=== PATIENT | female | born 1975 | race Caucasian/White ===

== ENCOUNTER 2024-12-04 22:27 | Observation (INO) | payer SELFPAY ==
[2024-12-04 22:28] VITALS: BP 150/80; PULSE 64; RESP 18; TEMP 36.8; O2SAT 95; BMI 30.2
--- NOTE | 2024-12-04 22:34 | EDS_ITS ---
HPI History of Present Illness Chief Complaint: Neuro S/Sx [facility] Medical History no medical history Home Medications ?Medication ?Instructions ?Recorded ?Last Taken ?Type aspirin 81 mg capsule 81 mg PO DAILY 12/04/2411/09 08:20 History atorvastatin 40 mg tablet 40 mg PO DAILY 12/04/2411/09 08:20 History hydrochlorothiazide 12.5 mg tablet 12.5 mg PO DAILY 12/04/24 08:20 History lisinopril 20 mg tablet 20 mg PO DAILY 12/04/2411/09 08:20 History metoprolol succinate 25 mg 25 mg PO DAILY 12/04/24 08:20 History tablet,extended release 24 hr Allergy/AdvReac Type Severity Reaction Status Date / Time azithromycin AdvReac Chest pain Verified 12/04/24 22:32 doxycycline AdvReac Chest pain Verified 12/04/24 22:32 oxycodone AdvReac Violent Verified 12/04/24 22:32 behavior Family History no significant family his Surgical History no surgical history Social History Smoking Status: Current every day smoker tobacco type: cigarettes EXAM Physical Exam Const Vital Signs: 12/04/24 22:28 12/04/24 23:07 12/04/24 23:28 Temperature 98.2 F Temperature Source Oral Pulse Rate 64 85 Respiratory Rate 18 16 Blood Pressure 150/80 H 118/63 Blood Pressure Mean 103 81 Pulse Ox 95 Oxygen Delivery Method Room Air Room Air 12/05/24 00:00 12/05/24 01:00 12/05/24 01:13 Temperature 98.2 F Temperature Source Pulse Rate 54 L 55 L 55 L Respiratory Rate 23 H 22 H 22 H Blood Pressure 104/50 L 113/54 L 113/54 L Blood Pressure Mean 68 73 73 Pulse Ox 95 Oxygen Delivery Method MDM MDM MDM Narrative Medical decision making narrative: HISTORY OF PRESENT ILLNESS: Chief complaint: Hand weakness 48-year-old female history of CVA, hypertension, hyperlipidemia presents with acute onset of hand weakness. States she first noticed and weakness at approximately 9 PM on 12/04/2024. Notes symptoms have gradually improved since onset. Her daughter states has been more forgetful over the last week. States this is an ongoing issue after her prior strokes. States the deficits in her left after the strokes 5 years ago was increased forgetfulness. REVIEW OF SYSTEMS: Pertinent positives: Right hand weakness Pertinent negatives: Headache, loss of vision, slurred speech, facial drooping PHYSICAL EXAM: Nursing triage notes reviewed, Vital signs reviewed Constitutional: please see mdm HENT: MMM Eyes: Pupils equal round and reactive to light, Extraocular muscles intact Neck: No stridor, no JVD, full neck ROM Lungs: Clear to auscultation, No wheezing or rales. No increased work of breathing, no conversational dyspnea, no accessory muscle use, no nasal flaring. No respiratory distress noted Heart: Regular rate and rhythm, No murmurs, No rubs and No gallops, 2+ distal pulses (radial, femoral, posterior tibial) in all extremities Abdomen: Soft, there is no tenderness, rigidity, rebound or guarding, no obvious peritoneal signs, no palpable pulsatile abdominal masses, no auscultated abdominal bruit : No CVAT Extremities: No edema Neuro: Alert and oriented x3, neuro exam at baseline, cranial nerves II through XII are intact. No pain with extraocular muscle movement. There is negative test of skew. 5 of 5 strength in upper and lower extremities in flexion extension. Intact sensation to light touch in upper and lower extremity dermatomes. No truncal or extremity ataxia. No dysdiadochokinesia. Normal gait. 2+ reflexes in upper and lower extremities. No meningeal signs. Negative Babinski. NIH of 0. Skin: No rash or lesions noted MEDICAL DECISION MAKING: Chief Complaint: please see HPI External records reviewed: Reviewed prior records in [facility]. No records noted. Reviewed Clinisync: Note additional history of hyperthyroidism, B12 deficiency, arterial ischemic [facility] roke anxiety Factors affecting care: n as per HPI Social determinants of health: Smoker History obtained from others: Daughter Consults: no hospitalist [facility] Narrative: The patient was initially hemodynamically stable, afebrile and nontoxic- appearing. Initial exam with no neurologic deficits. Patient's NIH was initially 0. There is no indication for a stroke alert given NIH of 0. Given no NIH stroke scale criteria the patient is not a candidate for TNK or thrombectomy. I considered the following differential diagnosis: TIA, CVA, musculoskeletal weakness, focal seizure I obtained a broad lab and imaging to further determine if the patient was suffering from a life-threatening etiology. ALL IMAGES (IF OBTAINED) HAVE BEEN PERSONALLY REVIEWED AND INTERPRETED BY MYSELF. EKG with normal sinus rhythm rate of 60, left axis deviation, normal intervals, no STEMI or signs of A-fib CT/CTA of the head and neck show no evidence of ICH or large vessel occlusion CBC with leukocytosis suggestive of subsequent formation, no significant anemia or thrombocytopenia noted No coagulopathy High-sensitivity troponin is negative, no evidence of myocardial ischemia BMP without evidence of significant electrolyte abnormalities, no anion gap, no acute kidney injury. No clear acute life-threatening issue noted in the brain or with the vasculature. Concern for TIA offered admission and patient noted she would prefer stay in the hospital. Discussed hospitalist Dr. Haddad agreed to admit the patient to PCU. The patient and/or family, caregivers express understanding. The patient and/or family, caregivers agrees with the plan. Shared decision making: I will have a discussion with the patient and or visitors regarding risk/benefits of further testing or admission. They will be made aware of of the risk/benefits inherent in this decision they will be given the opportunity to voice understanding. Total critical care time today provided was at least 0 minutes. This excludes s eparately billable procedures. Critical care time (if documented) is secondary to the patient having high probability of clinically significant/life threatening deterioration in the patient's condition which required my urgent intervention. Impression: 1. Acute right hand weakness 2. TIA Dispo: Admit to PCU This note was generated with [employer]oom Telephon[employer] dictation software. It may contain incorrect words, spelling, and punctuation that were not noted in review of the chart prior to signing. Lab Data Labs: Laboratory Results - last 24 hr 12/04/24 22:57 WBC 11.8 H RBC 4.69 Hgb 14.2 Hct 40.3 MCV 85.9 MCH 30.3 MCHC 35.2 RDW Std Deviation 39.9 RDW Coeff of Roel 13.1 Plt Count 176 MPV 12.3 H Immature Gran % (Auto) 0.800 Neut % (Auto) 66.8 Lymph % (Auto) 21.9 Ida % (Auto) 7.0 Eos % (Auto) 3.0 Baso % (Auto) 0.5 Absolute Neuts (auto) 7.9 H Absolute Lymphs (auto) 2.59 Nucleated RBC % 0 PT 13.1 INR 1.0 APTT 26.6 Sodium 139 Potassium 3.3 Chloride 100 Carbon Dioxide 23.0 Anion Gap 15 BUN 10 Creatinine 0.99 Estim Creat Clear Calc 59.79 Est GFR (MDRD) Non-Af 70 BUN/Creatinine Ratio 10.3 Glucose 104 H Calcium 9.3 Troponin T High Sens 6 Ethyl Alcohol < 10.1 Radiography Diagnostic Testing: Clinical Impression(s) from Imaging Studies Head/Neck CTA 12/04/24 22:42 IMPRESSION: Patent intracranial and cervical arterial vasculature. No large vessel occlusion, significant flow-limiting stenosis, aneurysm or dissection. Incidentally, there is mild-moderate luminal narrowing of the proximal left subclavian artery due to eccentric noncalcified atheromatous plaque. Reading Location: [facility] Brain CT 12/04/24 23:15 IMPRESSION: No acute intracranial abnormality. Reading Location: [facility] Chest X-Ray 12/04/24 23:29 IMPRESSION: Mild cardiomegaly. No acute pulmonary disease. Reading Location: [facility] Discharge Plan Disposition Disposition: Acute Care Hospital [facility] Discharge Date/Time: 12/05/24 01:59
--- NOTE | 2024-12-04 22:41 | EKG12_ITS ---
Test Reason : WEAKNESS Blood Pressure : */* mmHG Vent. Rate : 60 BPM Atrial Rate : 60 BPM P-R Int : 174 ms QRS Dur : 86 ms QT Int : 418 ms P-R-T Axes : 15 -24 10 degrees QTcB Int : 418 ms Normal sinus rhythm Normal ECG No previous ECGs available Confirmed by LUCIANA OBANDO ([id number]), editor news KATIA AMAYA ([id number]) on 12/06/2024 5:45:34 AM Referred By: Confirmed By: LUCIANA OBANDO
--- NOTE | 2024-12-04 22:42 | CT_ITS ---
PROCEDURE: STROKE CTA HEAD AND NECK W/CON 12/04/2024 REASON FOR EXAM: NEURO DEFICIT, ACUTE, STROKE SUSPECTED TECHNIQUE: STROKE CTA HEAD AND NECK W/CON Multiplanar Sagittal and Coronal images were obtained. 3D and MIP post processing was performed. CONTRAST: Isovue 370 VOLUME: 86 mL One or more dose reduction techniques were used (e.g., Automated exposure control, adjustment of the mA and/or kV according to patient size, use of iterative reconstruction technique). RADIATION DOSE SUMMARY: DLP: 1246.83 mGycm COMPARISON: None. FINDINGS: CTA HEAD: Patent intracranial arterial vasculature. No large vessel occlusion, flow- limiting stenosis, saccular aneurysm, or vascular malformation identified. Dural venous sinuses appear patent. CTA NECK: Conventional aortic arch branching. Prominent noncalcified atheromatous plaque contributes to mild-moderate narrowing along the proximal left subclavian artery. Bilateral cervical carotid and codominant vertebral arteries are patent without significant stenosis. No aneurysm or dissection. CT/STROKE CTA Head AND Neck W/Con IMPRESSION: Patent intracranial and cervical arterial vasculature. No large vessel occlusi on, significant flow-limiting stenosis, aneurysm or dissection. Incidentally, there is mild-moderate luminal narrowing of the p roximal left subclavian artery due to eccentric noncalcified atheromatous plaque. Reading Location: [id number]
[2024-12-04 23:05] VITALS: BMI 30.9
[2024-12-04 23:08] LABS: Hematocrit 40.3 % (37-47); Hemoglobin 14.2 g/dL (12.0-15.0); Immature Granulocytes Count 0.090 X10^3/uL (0.0-0.0); Mean Corp Hgb Conc 35.2 g/dL (32-36); Mean Corpuscular Volume 85.9 fL (81-99); Mean Platelet Vol. 12.3 fl (6.2-12.0); NRBC Flagged by Analyzer 0 % (0-5); Platelet Count 176 K/mm3 (150-450); RBC Distribution Width CV 13.1 % (11.6-14.6); RBC Distribution Width SD 39.9 fl (35.1-43.9); Red Blood Count 4.69 M/mm3 (4.2-5.4); White Blood Count 11.8 K/mm3 (4.4-11.0)
--- NOTE | 2024-12-04 23:15 | CT_ITS ---
PROCEDURE: STROKE CT BRAIN/HEAD WITHOUT CONTRAST 12/04/2024 REASON FOR EXAM: NEURO DEFICIT, ACUTE, STROKE SUSPECTED TECHNIQUE: STROKE CT BRAIN/HEAD WITHOUT CONT Coronal and Sagittal reconstruction series were provided. One or more dose reduction techniques were used (e.g., Automated exposure control, adjustment of the mA and/or kV according to patient size, use of iterative reconstruction technique. RADIATION DOSE SUMMARY: CTDlvol: 44.99 mGy DLP: 745.49 mGycm COMPARISON: None available. FINDINGS: No acute intracranial hemorrhage, extra-axial collection, mass effect or evidence of acute infarct. Ventricular and sulcal size and configuration are within normal limits. Unremarkable orbits. Intact skull base and calvarium. Well-aerated paranasal sinuses and mastoid air cells. CT/STROKE Brain/Head without Cont IMPRESSION: No acute intracranial abnormality. Reading Location: [id number]
[2024-12-04 23:23] LABS: Prothrombin Time (Protime)PT. 13.1 SECONDS (11.7-14.9)
[2024-12-04 23:24] LABS: Anion Gap 15 (5-15); BUN 10 mg/dL (4-19); BUN/Creat Ratio 10.3 RATIO (10-20); Calcium,Total 9.3 mg/dL (7.6-11.0); Carbon Dioxide 23.0 mmol/L (21.0-32.0); Chloride 100 mmol/L (98-108); Estimated Creatinine Clearance 59.79 ml/min (50-250); Glucose 104 mg/dL (70-99); Partial Thromboplast Time 26.6 Seconds (24.1-36.2); Potassium 3.3 mmol/L (3.3-5.1); Troponin T High Sensitivity 6 ng/L (<=14)
[2024-12-04 23:28] VITALS: BP 118/63; PULSE 85; RESP 16
--- NOTE | 2024-12-04 23:29 | RAD_ITS ---
PROCEDURE: CHEST 1 VIEW 12/04/2024 REASON FOR EXAM: NEURO DEFICIT, ACUTE, STROKE SUSPECTED TECHNIQUE: Frontal view of the chest. COMPARISON: None. FINDINGS: Lungs/Pleura: Clear. No pneumothorax or sizable pleural effusion. Heart/Mediastinum: Mildly enlarged. Bones/Soft tissues: Unremarkable. RAD/Chest 1 View IMPRESSION: Mild cardiomegaly. No acute pulmonary disease. Reading Location: [id number]
[2024-12-05] VITALS (8 sets, daily range): BP systolic 104–142; BP diastolic 47–74; PULSE 54–56; RESP 15–23; TEMP 35.9–37; O2SAT 95–98; BMI 29.8
--- NOTE | 2024-12-05 01:07 | PCM.HP.STD ---
[facility] - General General Date of Admission: 12/05/24 Date of Service: 12/05/24 Chief Complaint: Transient Right Hand Weakness. HPI Narrative NAS GOMES, is a 48 F with a past medical history of essential hypertension; on lisinopril, metoprolol and hydrochlorothiazide, hyperlipidemia; on atorvastatin, history of hyperthyroidism, obesity; with BMI of 30.9 this admission, history of B12 deficiency, chronic tobacco abuse and history of ischemic CVA x 2 (~2019); with residual memory deficits on BASA daily who presents to [facility] ER complaining of transient Right hand weakness. Ms. Gomes reports her symptoms began at approximately 9 PM on the evening of December 04, 2024 with the abrupt-onset of weakness in her Right hand. Her daughter also noted to the ER provider that the patient was becoming more forgetful over the past week, which has been an ongoing issue after her previous strokes. She denies associated fever, chills, headache, visual changes, slurred speech, facial drooping, nausea, vomiting, diarrhea, constipation, abdominal pain, chest pain, palpitations, heart racing, lower extremity edema, dysuria, hematuria or rash. In the ER patient was noted to have marked improvement of her Right hand weakness with a subsequent NIH of 0 consistent with suspected TIA with CTA of the head and neck with IV contrast that revealed patent intracranial and cervical arterial vasculature with no LVO, significant flow-limiting stenosis, aneurysm or dissection with an incidentally noted [id number] luminal narrowing of the proximal left subclavian artery due to eccentric noncalcified atheromatous plaque with Leukocytosis of 11.8K with no signs of infection and otherwise unremarkable laboratory studies and vital signs. She was then admitted to the PCU under observation status for ongoing care that is expected to be less than 2 midnights. [facility] Medical History no medical history Home Medications ?Medication ?Instructions ?Recorded ?Last Taken ?Type aspirin 81 mg capsule 81 mg PO DAILY 12/04/24 12/04/24 History atorvastatin 40 mg tablet 40 mg PO DAILY 12/04/24 12/04/24 History hydrochlorothiazide 12.5 mg tablet 12.5 mg PO DAILY 12/04/24 12/04/24 History lisinopril 20 mg tablet 20 mg PO DAILY 12/04/24 12/04/24 History metoprolol succinate 25 mg 25 mg PO DAILY 12/04/24 12/04/24 History tablet,extended release 24 hr Allergy/AdvReac Type Severity Reaction Status Date / Time azithromycin AdvReac Chest pain Verified 12/04/24 22:32 doxycycline AdvReac Chest pain Verified 12/04/24 22:32 oxycodone AdvReac Violent Verified 12/04/24 22:32 behavior Family History no significant family his Surgical History no surgical history Social History Smoking Status: Current every day smoker tobacco type: cigarettes ROS ROS Narrative Review of Systems: Constitutional: Patient denies fever or chills. Eyes: Patient denies change in vision or discharge from eyes. ENT: Patient denies runny nose, sore throat or ear pain. Resp: Patient denies shortness of breath or cough. CV: Patient denies chest pain, palpitations, heart racing or lower extremity edema. GI: Patient denies abdominal pain, nausea, vomiting, diarrhea or constipation. : Patient denies dysuria or hematuria. MSK: Patient admits to transient Right hand weakness but she denies arthralgias or myalgias. Skin: Patient denies rash, abscess, wounds or jaundice. Psych: Patient denies symptoms of uncontrolled depression or anxiety. Neuro: Patient admits to transient right hand weakness which is essentially resolved but she denies headache, paresthesias or other focal neurologic deficits. Allergy: Patient denies lip swelling, tongue swelling or urticaria. Hematology: Patient denies easy bleeding or easy bruisability. Endocrinology: Patient denies polyuria, polydipsia, polyphagia or heat/cold intolerance. 14 point ROS otherwise negative except for positives noted above in HPI. Vital Signs Vital Signs Vital Signs: 12/04/24 22:28 12/04/24 23:07 12/04/24 23:28 Temperature 98.2 F Temperature Source Oral Pulse Rate 64 85 Respiratory Rate 18 16 Blood Pressure 150/80 H 118/63 Blood Pressure Mean 103 81 Pulse Ox 95 Oxygen Delivery Method Room Air Room Air 12/05/24 00:00 Temperature Temperature Source Pulse Rate 54 L Respiratory Rate 23 H Blood Pressure 104/50 L Blood Pressure Mean 68 Pulse Ox Oxygen Delivery Method Weight Weight: 153 lb 3.54 oz Body Mass Index (BMI) 30.9 Physical Exam Const alert, oriented x3, no apparent distress and healthy appearing Constitutional Narrative: Obese patient with nontoxic appearance. General Appearance: cooperative HEENT normocephalic, head/scalp atraumatic, hearing grossly normal bilaterally and moist oral mucous membranes Eyes PERRL, EOMs intact bilaterally and conjunctivae normal Neck no lymphadenopathy, supple and no JVD Resp normal respiratory effort, no retractions, no use of accessory muscles and clear to auscultation bilaterally Cardio regular rate and regular rhythm GI normal to inspection, nondistended, normoactive bowel sounds, soft to palpation, non-tender and non-distended GI Narrative: Obese. Extremity normal to inspection, full ROM and no clubbing, cyanosis or edema Skin Skin Narrative: Patient has evidence of rash, abscess, wounds or jaundice. Neuro oriented x3, CN's II-XII intact bilaterally, moves all extremities and no focal motor deficits Sensorium / Orientation: awake, alert, oriented to person, oriented to place and oriented to time Speech: speech normal Psych affect normal Results Medical Records Data Attestation: I reviewed the patient's medical records Lab / Micro Data Attestation: I reviewed the patient's lab results. 12/04/24 22:57 12/04/24 22:57 Labs: Laboratory Results - last 24 hr 12/04/24 22:57: WBC 11.8 H, RBC 4.69, Hgb 14.2, Hct 40.3, MCV 85.9, MCH 30.3, MCHC 35.2, RDW Std Deviation 39.9, RDW Coeff of Roel 13.1, Plt Count 176, MPV 12.3 H, Immature Gran % (Auto) 0.800, Neut % (Auto) 66.8, Lymph % (Auto) 21.9, Monroe % (Auto) 7.0, Eos % (Auto) 3.0, Baso % (Auto) 0.5, Absolute Neuts (auto) 7.9 H, Absolute Lymphs (auto) 2.59, Nucleated RBC % 0, PT 13.1, INR 1.0, APTT 26.6, Sodium 139, Potassium 3.3, Chloride 100, Carbon Dioxide 23.0, Anion Gap 15, BUN 10, Creatinine 0.99, Estim Creat Clear Calc 59.79, Est GFR (MDRD) Non-Af 70, BUN/Creatinine Ratio 10.3, Glucose 104 H, Calcium 9.3, Troponin T High Sens 6 Imaging Radiology Impression Head/Neck CTA 12/04/24 22:42 IMPRESSION: Patent intracranial and cervical arterial vasculature. No large vessel occlusion, significant flow-limiting stenosis, aneurysm or dissection. Incidentally, there is mild-moderate luminal narrowing of the proximal left subclavian artery due to eccentric noncalcified atheromatous plaque. Reading Location: [facility] Brain CT 12/04/24 23:15 IMPRESSION: No acute intracranial abnormality. Reading Location: [facility] Chest X-Ray 12/04/24 23:29 IMPRESSION: Mild cardiomegaly. No acute pulmonary disease. Reading Location: [facility] Assessment & Plan Assessment/Plan (1) TIA (transient ischemic attack): (2) Subclavian artery disease: (3) History of CVA with residual deficit: (4) Leukocytosis: QUALIFIERS: Leukocytosis type: unspecified Qualified Code(s): D72.829 - Elevated white blood cell count, unspecified (5) Tobacco abuse: (6) Obesity (BMI 30.0-34.9): PLAN: Plan 1. Transient Right Hand Weakness; consistent with suspected TIA - Admit to PCU under observation status. Continue baby aspirin and statin as before. Check MRI of the brain to evaluate for possible CVA. Check carotid Doppler to evaluate for stenosis. Check echocardiogram to evaluate LVEF. Check TSH, B12, Folate, HgbA1c, Lipid Profile, BELÉN and UDS. Will consult vascular surgery to see patient given abnormal CTA of head and neck with suspected luminal narrowing of proximal Left subclavian artery due to eccentric noncalcified atheromatous plaque, with help appreciated in advance. Finally, we will consult [facility] teleneurology to see this patient in the a.m. for further recommendations with help appreciated in advance. 2. History of ischemic CVA x 2 (~2019); with residual memory deficits on BASA daily complicating #1 - Noted. 3. Leukocytosis of 11.8K with no signs of infection suspected to be due to acute stress response arising from #1 - Check UA C&S. CXR unremarkable for signs of infection. 4. Chronic Tobacco Abuse likely precipitating #1 & #2 - Tobacco Cessation will be strongly encouraged with nicotine patch offered to control cravings. 5. Obesity; with BMI of 30.9 this admission adding to the burden of disease outlined from #1 - #4 - Weight loss will be recommended. Check TSH. This complicates her case and may hamper recovery. 6. Essential hypertension; on lisinopril, metoprolol and hydrochlorothiazide - Hold scheduled antihypertensives until CVA definitively ruled out on MRI. 7. Hyperlipidemia; on atorvastatin - Maintain statin and check Lipid Profile. 8. History of hyperthyroidism - Check TSH. 9. History of B12 deficiency - Check B12 level as outlined in #1. 10. DVT prophylaxis - Enoxaparin 40 mg sq daily plus SCD's. Total time: Approximately (but not less than) 70 minutes. Charges/Coding Visit Charges OBSV E&M: 65547 Observ/hosp same date L2
--- NOTE | 2024-12-05 01:35 | CDU_ITS ---
Reason For Study Reason For Study: Left subclavian artery plaque on CT with TIA Rt. Velocities/BP Lt. Velocities/BP Prox CCA 101.0/26.1 cm/sec. Prox CCA 79.1/26.1 cm/sec. Mid CCA 92.5/20.0 cm/sec. Mid CCA 139.4/31.6 cm/sec. Dist CCA 106.5/35.3 cm/sec. Dist CCA 210.7/47.4 cm/sec. Prox ICA 87.6/22.5 cm/sec. Prox ICA 285.4/62.4 cm/sec. Mid ICA 77.7/26.2 cm/sec. Mid ICA 80.9/24.3 cm/sec. Dist ICA 37.1/10.4 cm/sec. Dist ICA 82.7/22.5 cm/sec. Rt. ICA/CCA = 0.9. Lt. ICA/CCA = 2.0. Prox ECA 146.7/13.3 cm/sec. Prox ECA 156.3/8.6 cm/sec. Rt. Vert. 62.6/15.2 cm/sec. Lt. Vert. 36.6/13.5 cm/sec. Right Extracranial There is homogeneous, smooth atherosclerotic plaque noted in the right common carotid artery. There is homogeneous, smooth atherosclerotic plaque noted in the right internal carotid artery. There is intimal thickening but no significant atherosclerotic plaque noted in the right external carotid artery. Antegrade flow is noted in the right vertebral artery. Left Extracranial There is heterogeneous, irregular atherosclerotic plaque noted in the left common carotid artery. There is homogeneous, smooth atherosclerotic plaque noted in the left internal carotid artery. There is homogeneous, smooth atherosclerotic plaque noted in the left external carotid artery. Antegrade flow is noted in the left vertebral artery. Procedure Carotid Duplex [id number]. This is a Carotid Duplex examination using B-mode, color flow and specral Doppler. Exam performed portable in patient room. Preliminary report given to LENA Mcbride RN. VL/Carotid Duplex Ultrasound Interpretation Summary Mild (<50%) stenosis right extracranial internal carotid. Severe (>70%) stenosis left extracranial internal carotid. Patent and antegrade vertebrals bilaterally. Left vetebral artery with dampened waveforms Ordering Physician: Anton Hoffmann Referring Physician: Ricardo Begum MD Performed By: Ana Flores RVT
--- NOTE | 2024-12-05 01:35 | ECHOD_ITS ---
Reason For Study Reason For Study: TIA/CVA Procedure This was a 2D Doppler, Color Flow transthoracic echocardiogram. Exam performed portable in patient room. Left Ventricle Normal LV size. Apical false tendon noted. Left ventricular systolic function is normal. The estimated ejection fraction is 65 %. Normal diastololic function. No regional wall motion abnormalities noted. Right Ventricle Normal RV size. Normal systolic function. Atria Normal left atrium. Normal right atrium. Bubble contrast study is negative for PFO/ASD. Mitral Valve The mitral valve is structurally normal. No prolapse or stenosis seen. Mild (1+) mitral valve insufficiency. Tricuspid Valve Normal tricuspid valve. Trivial tricuspid valve insufficiency. Aortic Valve Trisinus/trileaflet aortic valve. Pulmonic Valve Normal pulmonic valve. Trivial pulmonic valve insufficiency. Great Vessels Normal sized aortic root. Pericardium/Pleural No pericardial effusion. Medication Performed a rapid injection of agitated mix of 9 cc saline and 1cc air to assess for atrial septal defect. MMode/2D Measurements & Calculations LVIDd: 4.4 cm IVSd: 1.0 cm CO(Teich): 3.4 l/min LVIDs: 2.7 cm LVPWd: 0.85 cm RVDd: 3.1 cm FS: 38.4 % Ao root diam: 3.0 cm LAV(MOD-bp): 34.0 ml LVAd ap4: 23.1 cm2 LAV(MOD-bp) Indexed: 20.9 ml/m2 LVLd ap4: 7.3 cm LAV(MOD-sp2): 32.7 ml EDV(MOD-sp4): 61.5 ml LAV(MOD-sp4): 32.0 ml EDV(sp4-el): 62.2 ml LVAs ap4: 11.3 cm2 LVLs ap4: 5.6 cm ESV(MOD-sp4): 20.1 ml ESV(sp4-el): 19.5 ml EF(MOD-sp4): 67.3 % EF(sp4-el): 68.6 % CO(MOD-sp4): 2.3 l/min SV(sp4-el): 42.7 ml LA A4 area: 14.5 cm2 SV(MOD-sp4): 41.4 ml SI(MOD-sp4): 25.3 ml/m2 LA dimension(2D): 3.8 cm RA A4 area: 11.9 cm2 TAPSE: 2.5 cm Time Measurements MV dec time: 0.23 sec Doppler Measurements & Calculations MV E max jair: 83.4 cm/sec Lat Peak E' Jair: 15.8 cm/sec Med Peak E' Jair: 10.1 cm/sec MV A max jair: 65.0 cm/sec E/E' lat: 5.3 E/E' med: 8.3 MV E/A: 1.3 MV V2 max: 96.1 cm/sec MV P1/2t max jair: 97.1 cm/sec Ao V2 max: 142.7 cm/sec MV max P.7 mmHg MV P1/2t: 82.8 msec Ao max P.1 mmHg MV V2 mean: 47.5 cm/sec MV dec slope: 343.2 cm/sec2 Ao V2 mean: 91.9 cm/sec MV mean P.1 mmHg MVA(P1/2t): 2.7 cm2 Ao mean P.9 mmHg MV V2 VTI: 31.9 cm Ao V2 VTI: 35.2 cm AV (velocity ratio): 0.68 LV V1 max: 103.8 cm/sec PA V2 max: 99.0 cm/sec LV V1 max P.3 mmHg LV V1 mean P.0 mmHg LV V1 mean: 65.7 cm/sec LV V1 VTI: 23.9 cm ECHO/Echo Complete Interpretation Summary The estimated ejection fraction is 65 %. Mild (1+) mitral valve insufficiency. Bubble contrast study is negative for PFO/ASD. Ordering Physician: Anton Hoffmann Performed By: Nick Bartlett RCS
--- NOTE | 2024-12-05 01:35 | MRI_ITS ---
PROCEDURE: BRAIN WITHOUT CONTRAST 12/05/2024 REASON FOR EXAM: TRANSIENT RIGHT HAND WEAKNESS. TECHNIQUE: MRI BRAIN WITHOUT CONTRAST Multiplanar and multisequence images were obtained. COMPARISON: Head CT 12/04/2024. FINDINGS: Diffusion-weighted images demonstrate no area of diffusion restriction. Brain: NO INTRACRANIAL MASS OR MASS EFFECT IS SEEN. NO EXTRA-AXIAL FLUID COLLECTION IS SEEN. ORBITS ARE UNREMARKABLE IN APPEARANCE. Ventricles: Normal. Major Intracranial Vessels: Unremarkable Sinuses: Essentially clear. Mastoids: Clear. MRI/Brain without Contrast IMPRESSION: No significant intracranial abnormality is noted. No acute process is seen. Reading Location: [place] [id number]
--- OUTSIDE RECORDS SUMMARY | 2024-12-05 01:48 | XMS RPT_ITS | CCD ---
Author Organization [facility] ion [facility] Care Team Providers Care Do All Operator Name Role Phone Kevon, Adalgisa Unavailable Unavailable No Doctor Assigned, Nodr Unavailable Unavail able Kian Dong Unavailable Unavailable Unavailable Kel, Dr. Kian Walton Referring Unav ailable Kel, Dr. Kian Walton Attending Unav ailignacio Dong, Dr. Kian Walton Primary Care Unav ailable Unavailable Unavailable Unavailable Unavailable Unavailable Primary Care Provider UnavailKian Huitron MD Primary Care Provider [phone] Inc, [facility] Primary Care Provider Unav ailable LORENA BOND Attending Unavailable INC, [facility] Primary Care Unavailable LILA DOSS Attending Unavailable KIAN DONG Primary Care UnavailKian Horton MD Unavailable Tania Patton MD Primary Care Provider AKASH COOK Attending Unavailable TANIA PATTON Primary Care Unavailable TANIA PATTON Primary Care Unavailable CHELSI ROSARIO Referring Unavaila ble TANIA PATTON Primary Care Unavailable CHELSI ROSARIO Referring Unavaila TANIA Medina Primary Care Unavailable KIAN DONG Attending Unavailable KIAN DONG Primary Care Unavailable Allergies Allergy Classification Reported Allergen(s) Allergy Type Date of Onset Reaction(s) Facility (1 source) Acetaminophen / oxyCODONE; Translations: [Percocet 5325] Drug Allergy [facility] Repository (18 sources) Doxycycline; Translations: [doxycycline] Drug Allergy 3 Shortness of breath, Rash, Other [facility] (18 sources) Erythromycin; Translations: [erythromycin] Drug Allergy 3 Shortness of breath, Other [facility] (12 sources) Acetaminophen / oxyCODONE; Translations: [Percocet TABS] Drug Allergy 3 Other, Unknown [facility] (4 sources) Acetaminophen / oxyCODONE; Translations: [OXYCODONE-ACETAM INOPHEN] Drug Allergy 3 Other [facility] Medications Current Medications Medication Drug Class(es) Dates Sig (Normalized) Sig (Original) acetaminophen 500 mg oral tablet (3 sources) take 2 tablets by mouth every six hours as needed acetaminophen (Tylenol) 500 mg tablet Take 2 tablets (1,000 mg) by mouth every 6 hours if needed for mild pain (1 - 3). Active [id number] 200 actuat albuterol 0.09 mg/actuat metered dose inhaler (3 sources) beta2-Adrenergic Agonist Start: 02-21-2024 End: 03-22-2024 take 1-2 puff(s) by inhalation every six hours for wheezing albuterol 90 mcg/actuation inhaler Indications: Bronchitis Inhale 1-2 puffs every 6 hours if needed for wheezing. 18 g 02/21/2024 03/22/2024 Active aspirin 81 mg chewable tablet (13 sources) Platelet Aggregation Inhibitor, Nonsteroidal Anti-inflammatory Drug Start: 10-16-2019 aspirin 81 mg chewable tablet Chew 1 tablet (81 mg) once daily. 10/16/2019 Active Start: 10-16-2019 Aspirin 81 MG Oral Tablet Chewable Quantity: 30 Refills: 0 Ordered: 16-Oct-2019 DO Start : 16-Oct-2019 Active atorvastatin 40 mg oral tablet (14 sources) HMG-CoA Reductase Inhibitor Start: 07-19-2023 End: 07-18-2024 take 1 tablet by mouth once daily atorvastatin (Lipitor) 40 mg tablet Indications: Mixed hyperlipidemia Take 1 tablet (40 mg) by mouth once daily. 90 tablet 3 07/19/2023 07/18/2024 Active Start: 01-31-2020 take 1 tablet by rosanna th once daily atorvastatin (Lipitor) 40 MG tablet Take 40 mg by mouth daily. 0 12/12/2022 Active clopidogrel 75 mg oral tablet (2 sources) P2Y12 Platelet Inhibitor Start: 03-17-2023 End: 04-16-2023 take 1 tablet by mouth once daily clopidogrel (Plavix) 75 MG tablet Take 75 mg by mouth daily. 0 03/17/2023 Active docusate sodium 100 mg oral capsule (1 source) Start: 03-20-2023 take 1 capsule by mouth twice daily as needed for constipation docusate sodium (Colace) 100 MG capsule Take 1 capsule (100 mg) by mouth 2 times daily as needed for constipation. 60 capsule 1 03/20/2023 Active ferrous sulfate 325 mg oral tablet (1 source) Start: 03-20-2023 take 1 tablet by mouth once daily at breakfast ferrous sulfate (FerrouSul) 325 (65 Fe) MG tablet Take 1 tablet (325 mg) by mouth daily (with breakfast). 60 tablet 2 03/20/2023 Active hydroCHLOROthiazide 12.5 mg oral tablet (9 sources) Thiazide Diuretic Start: 07-19-2023 End: 07-18-2024 take 1 tablet by mouth once daily before mealtime hydroCHLOROthiazide (Microzide) 12.5 mg tablet Indications: Primary hypertension , Essential hypertension Take 1 tablet (12.5 mg) by mouth once daily in the morning. Take before meals. 90 tablet 3 07/19/2023 07/18/2024 Active Start: 05-17-2021 take 1 tablet by rosanna th once daily in the morning hydroCHLOROthiazide (HYDRODiuril) 12.5 MG tablet Take 12.5 mg by mouth every morning. 0 10/03/2022 Active levoFLOXacin 500 mg oral tablet (3 sources) Quinolone Antimicrobial Start: 02-21-2024 End: 02-26-2024 take 1.5 tablets by mouth once daily levoFLOXacin (Levaquin) 500 mg tablet Indications: Bronchitis Take 1.5 tablets (750 mg) by mouth once daily for 5 days. 7 tablet 02/21/2024 02/26/2024 Active lisinopril 20 mg oral tablet (14 sources) Angiotensin Converting Enzyme Inhibitor Start: 07-19-2023 End: 07-18-2024 take 1 tablet by mouth once daily lisinopril 20 mg tablet Indications: Primary hypertension Take 1 tablet (20 mg) by mouth once daily. 90 tablet 3 07/19/2023 07/18/2024 Active Start: 06-16-2019 take 1 tablet by rosanna th once daily lisinopril 20 MG tablet Take 20 mg by mouth daily. 0 12/30/2022 Active LORazepam 0.5 mg oral tablet (12 sources) Benzodiazepine Start: 07-19-2023 take 1 tablet by mouth every six hours LORazepam (Ativan) 0.5 mg tablet Indications: NATHALIE (generalized anxiety disorder) Take 1 tablet (0.5 mg) by mouth every 6 hours during the day for 7 days. 21 tablet 07/19/2023 Active Start: 10-19-2022 LORazepam (Ati van) 0.5 MG tablet Take 0.5 mg by mouth in the morning and 0.5 mg at noon and 0.5 mg in the evening. 0 10/19/2022 Active Start: 04-06-2021 take 1 tablet by rosanna th three times daily as needed LORazepam 0.5 MG Oral Tablet TAKE 1 TABLET 3 TIMES DAILY NEEDED. Quantity: 21 Refills: 0 Ordered: 25-Mar-2022 Luis Darby MD Start : 06-Apr-2021 Active 24 hr metoprolol succinate 25 mg extended release oral tablet (13 sources) beta-Adrenergic Marni Start: 07-19-2023 End: 07-18-2024 take 1 tablet by mouth once daily metoprolol succinate XL (Toprol-XL) 25 mg 24 hr tablet Indications: Primary hypertension Take 1 tablet (25 mg) by mouth once daily. 90 tablet 3 07/19/2023 07/18/2024 Active Start: 03-18-2023 metoprolol suc cinate XL (Toprol-XL) 25 MG 24 hr tablet Start: 07-08-2022 End: 07-08-2023 take 1 tablet by mouth once daily metoprolol succinate XL (Toprol-XL) 25 mg 24 hr tablet Indications: Primary hypertension Take 1 tablet (25 mg) by mouth once daily. 90 tablet 3 07/08/2022 07/08/2023 Active Start: 04-06-2021 take 1 tablet by rosanna th once daily Metoprolol Succinate ER 25 MG Oral Tablet Extended Release 24 Hour take 1 tablet by mouth once daily Quantity: 30 Refills: 11 Ordered: 06-Apr-2022 Kian Dong MD Start : 06-Apr-2021 Active predniSONE 20 mg oral tablet (3 sources) Start: 02-21-2024 End: 02-26-2024 take 2 tablets by mouth once daily predniSONE (Deltasone) 20 mg tablet Indications: Bronchitis Take 2 tablets (40 mg) by mouth once daily for 5 days. 10 tablet 02/21/2024 02/26/2024 Active 24 hr venlafaxine 75 mg extended release oral capsule (6 sources) Serotonin and Norepinephrine Reuptake Inhibitor Start: 04-06-2021 take 1 capsule by mouth once daily venlafaxine XR (Effexor-XR) 75 mg 24 hr capsule Take 1 capsule (75 mg) by mouth once daily. 0 04/06/2021 Active Start: 04-06-2021 take 1 capsule by mo [facility] once daily at mealtime Venlafaxine HCl ER 37.5 MG Oral Capsule Extended Release 24 Hour TAKE 1 CAPSULE ONCE DAILY WITH FOOD. Quantity: 30 Refills: 11 Ordered: 06-Apr-2021 Kian Dong MD Start : 06-Apr-2021 Active Completed/Discontinued Medications Medication Drug Class(es) Dates Sig (Normalized) Sig (Original) hydrOXYzine hydrochloride 25 mg oral tablet (1 source) Antihistamine Start: 02-14-2020 take 1 tablet by mouth three times daily as needed hydrOXYzine HCl - 25 MG Oral Tablet TAKE 1 TABLET 3 TIMES DAILY NEEDED. Quantity: 30 Refills: 2 Ordered: 14-Feb-2020 Kian Dong MD Start : 14-Feb-2020 Active microencapsulated potassium chloride 20 meq extended release oral tablet (2 sources) Start: 02-21-2024 End: 02-21-2024 40 mEq, oral, Once, On Mon02/21/24 at 1540, For 1 dose, Best given with food and plenty of water to minimize gastric irritation. Do not crush or chew. Start: 03-17-2023 End: 03-17-2023 potassium chloride CR (Klor- Con M20) ER tablet 40 mEq propranolol hydrochloride 10 mg oral tablet (1 source) beta-Adrenergic Marni End: 03-20-2023 take 1 tablet by mouth every twelve hours as needed propranolol (Inderal) 10 MG tablet Take 10 mg by mouth every 12 hours as needed. 0 03/20/2023 Discontinued (Therapy completed) Problems Active Problems Problem Classification Problem Date Documented Date Episodic/Chronic Acute cerebrovascular disease (17 sources) Cerebrovascular accident; Translations: [Cerebral artery occlusion, unspecified with cerebral infarction] Onset: 10-13-2019 Chronic Administrative/social admission (20 sources) Patient encounter status; Translations: [Counseling on substance use and abuse] 03-20-2023 Episodic Anxiety disorders (16 sources) Anxiety; Translations: [Anxiety state, unspecified] Onset: 07-19-2023 07-19-2023 Chronic Chronic obstructive pulmonary disease and bronchiectasis (12 sources) Bronchitis; Translations: [Bronchitis, not specified as acute or chronic] Onset: 02-21-2024 02-21-2024 Episodic Deficiency and other anemia (1 source) Microcytic anemia; Translations: [Iron deficiency anemia, unspecified] 03-20-2023 Episodic Deficiency and other anemia (1 source) Anemia; Translations: [Anemia, unspecified] 02-21-2024 Episodic Deficiency and other anemia (2 sources) Anemia, unspecified; Translations: [Anemia, unspecified] Onset: 02-21-2024 Episodic Disorders of lipid metabolism (14 sources) Mixed hyperlipidemia; Translations: [Mixed hyperlipidemia] Onset: 07-19-2023 07-19-2023 Chronic Essential hypertension (17 sources) Hypertensive disorder; Translations: [Unspecified essential hypertension] Onset: 10-13-2019 03-20-2023 Chronic Fluid and electrolyte disorders (3 sources) Hypokalemia; Translations: [Hypokalemia] Onset: 02-21-2024 02-21-2024 Episodic Headache; including migraine (9 sources) Migraine; Translations: [Migraine, unspecified, without mention of intractable migraine without mention of status migrainosus] Chronic Malaise and fatigue (9 sources) Fatigue; Translations: [Other malaise and fatigue] Episodic Other and ill-defined cerebrovascular disease (1 source) Cerebral ischemia; Translations: [Cerebral ischemia] Onset: 04-14-2021 Chronic Other connective tissue disease (9 sources) Muscle weakness; Translations: [Muscle weakness (generalized)] Episodic Other connective tissue disease (9 sources) Cramp; Translations: [Cramp of limb] Episodic Other female genital disorders (1 source) Abnormal uterine bleeding; Translations: [Abnormal uterine and vaginal bleeding, unspecified] 03-20-2023 Chronic Other female genital disorders (2 sources) Abnormal uterine and vaginal bleeding, unspecified; Translations: [Abnormal uterine and vaginal bleeding, unspecified] Onset: 03-20-2023 Chronic Other female genital disorders (2 sources) Other specified abnormal uterine and vaginal bleeding; Translations: [Other specified abnormal uterine and vaginal bleeding] Onset: 12-07-2023 Chronic Other nutritional; endocrine; and metabolic disorders (9 sources) Obesity; Translations: [Obesity, unspecified] Chronic Other and delivery including normal (9 sources) Delivery normal; Translations: [Normal delivery] Episodic Comment on above: 10/31/1998_36weeks_Fe male_5# 3oz; Other upper respiratory infections (9 sources) Acute upper respiratory infection; Translations: [Acute upper respiratory infections of unspecified site] Episodic Otitis media and related conditions (9 sources) Otitis media; Translations: [Unspecified otitis media] Episodic Residual codes; unclassified (9 sources) Past history of procedure; Translations: [Other specified personal history presenting hazards to health] Episodic Comment on above: 03/21/06; Thyroid disorders (14 sources) Hyperthyroidism; Translations: [Thyrotoxicosis without mention of goiter or other cause, and without mention of thyrotoxic crisis or storm] Onset: 07-19-2023 07-19-2023 Chronic Past or Other Problems Problem Classification Problem Date Documented Da te Episodic/Chronic Nutritional deficiencies (14 sources) Cobalamin deficiency; Translations: [Other B-complex deficiencies] Onset: 07-19-2023 07-19-2023 Episodic Other circulatory disease (1 source) Personal history of transient ischemic attack (TIA), and cerebral infarction without residual deficits; Translations: [Prsnl hx of TIA (TIA), and cereb infrc w/o resid deficits] Onset: 04-14-2021 Episodic Other screening for suspected conditions (not mental disorders or infectious disease) (6 sources) Encounter for screening mammogram for malignant neoplasm of breast; Translations: [Encounter for screening for malignant neoplasm of colon] Onset: 03-20-2023 Episodic Syncope (3 sources) Syncope; Translations: [Syncope and collapse] Onset: 03-17-2023 03-17-2023 Episodic Results Test Name Value Interpretation Reference Range Facility CBC W Auto Differential pane l (Bld)on 02-21-2024 Basophils (Bld) [#/Vol] 0.06 10*3/uL [facility] Basophils/100 WBC (Bld) 0.8 % 0.0 - 2.0 % [facility] Eosinophils (Bld) [#/Vol] 0.21 10*3/uL [facility] Eosinophils/100 WBC (Bld) 2.7 % 0.0 - 6.0 % [facility] Erythrocyte distribution width (RBC) [Ratio] 13.6 % 11.5 - 14.5 % [facility] Hematocrit (Bld) [Volume fraction] 35.6 % Low 36.0 - 46.0 % [facility] Hemoglobin (Bld) [Mass/Vol] 11.1 g/dL Low 12.0 - 16.0 g/dL [facility] Immature granulocytes (Bld) [#/Vol] 0.03 10*3/uL [facility] Immature granulocytes/100 WBC (Bld) 0.4 % 0.0 - 0.9 % [facility] Comment on above: Immature Granulocyte Count (IG) includes promyelocytes, myelocytes and metamyelocytes but does not include bands. Percent differential counts (%) should be interpreted in the context of the absolute cell counts (cells/UL). Interpretation and review of laboratory results Abnormal [facility] Lymphocytes (Bld) [#/Vol] 2.1 10*3/uL [facility] Lymphocytes/100 WBC (Bld) 27.3 % 13.0 - 44.0 % [facility] MCH (RBC) [Entitic mass] 24.8 pg Low 26.0 - 34.0 pg [facility] MCHC (RBC) [Mass/Vol] 31.2 g/dL Low 32.0 - 36.0 g/dL [facility] MCV (RBC) [Entitic vol] 80 fL 80 - 100 fL [facility] Monocytes (Bld) [#/Vol] 0.55 10*3/uL [facility] Monocytes/100 WBC (Bld) 7.2 % 2.0 - 10.0 % [facility] Neutrophils (Bld) [#/Vol] 4.73 10*3/uL [facility] Comment on above: Percent differential counts (%) should be interpreted in the context of the absolute cell counts (cells/uL). Neutrophils/100 WBC (Bld) 61.6 % 40.0 - 80.0 % [facility] Nucleated RBC/100 WBC (Bld) [Ratio] 0 % [facility] Platelets (Bld) [#/Vol] 227 10*3/uL [facility] RBC (Bld) [#/Vol] 4.47 10*6/uL [facility] WBC (Bld) [#/Vol] 7.7 10*3/uL [facility] Basophils (Bld) [#/Vol] 0.06 x10*3/uL Normal 0.00-0.[address] [facility] Comment on above: Performed By: #### 5 902-2 #### BENJA NEAL ([id number]) [facility] ([facility]) [address] [place] [address] [phone] Basophils/100 WBC (Bld) 0.8 % Normal 0.0-2.[address] [facility] Comment on above: Performed By: #### 5 902-2 #### BENJA NEAL ([id number]) [facility] ([facility]) [address] [place] [address] [phone] Eosinophils (Bld) [#/Vol] 0.21 x10*3/uL Normal 0.00-0.[address] [facility] Comment on above: Performed By: #### 5 902-2 #### BENJA NEAL ([id number]) [facility] ([facility]) [address] [place] [address] [phone] Eosinophils/100 WBC (Bld) 2.7 % Normal 0.0-6.[address] [facility] Comment on above: Performed By: #### 5 902-2 #### BENJA NEAL ([id number]) [facility] ([facility]) [address] [place] [address] 53493 Erythrocyte distribution width (RBC) [Ratio] 13.6 % Normal 11.5-14.[address] [facility] Comment on above: Performed By: #### 5 902-2 #### BENJA NEAL ([id number]) [facility] ([facility]) [address] [place] [address] [phone] Hematocrit (Bld) [Volume fraction] 35.6 % Low 36.0-46.[address] [facility] Comment on above: Performed By: #### 5 902-2 #### BENJA NEAL ([id number]) [facility] ([facility]) [address] [place] [address] [phone] Hemoglobin (Bld) [Mass/Vol] 11.1 g/dL Low 12.0-16.[address] [facility] Comment on above: Performed By: #### 5 902-2 #### BENJA NEAL ([id number]) [facility] ([facility]) [address] [place] [address] [phone] Immature granulocytes (Bld) [#/Vol] 0.03 x10*3/uL Normal 0.00-0.[address] [facility] Comment on above: Performed By: #### 5 902-2 #### BENJA NEAL ([id number]) [facility] ([facility]) [address] [place] [address] 60738 Immature granulocytes/100 WBC (Bld) 0.4 % Normal 0.0-0.[address] [facility] Comment on above: Result Comment: Patricia ture Granulocyte Count (IG) includes promyelocytes, myelocytes and metamyelocytes but does not include bands. Percent differential counts (%) should be interpreted in the context of the absolute cell counts (cells/UL). Performed By: #### 5 902-2 #### BENJA NEAL ([id number]) [facility] ([facility]) [address] [place] [address] [phone] Lymphocytes (Bld) [#/Vol] 2.10 x10*3/uL Normal 1.20-4.[address] [facility] Comment on above: Performed By: #### 5 902-2 #### BENJA NEAL ([id number]) [facility] ([facility]) [address] [place] [address] 14123 Lymphocytes/100 WBC (Bld) 27.3 % Normal 13.0-44.[address] [facility] Comment on above: Performed By: #### 5 902-2 #### BENJA NEAL ([id number]) [facility] ([facility]) [address] [place] [address] 00426 MCH (RBC) [Entitic mass] 24.8 pg Low 26.0-34.[address] [facility] Comment on above: Performed By: #### 5 902-2 #### BENJA NEAL ([id number]) [facility] ([facility]) [address] [place] [address] [phone] MCHC (RBC) [Mass/Vol] 31.2 g/dL Low 32.0-36.0 [facility] Comment on above: Performed By: #### 5 902-2 #### BENJA NEAL ([id number]) [facility] ([facility]) [address] [place] [address] 59976 MCV (RBC) [Entitic vol] 80 fL Normal 80-[address] [facility] Comment on above: Performed By: #### 5 902-2 #### BENJA NEAL ([id number]) [facility] ([facility]) [address] [place] [address] 22520 Monocytes (Bld) [#/Vol] 0.55 x10*3/uL Normal 0.10-1.[address] [facility] Comment on above: Performed By: #### 5 902-2 #### BENJA NEAL ([id number]) [facility] ([facility]) [address] [place] [address] [phone] Monocytes/100 WBC (Bld) 7.2 % Normal 2.0-10.[address] [facility] Comment on above: Performed By: #### 5 902-2 #### BENJA NEAL ([id number]) [facility] ([facility]) [address] [place] [address] 29595 Neutrophils (Bld) [#/Vol] 4.73 x10*3/uL Normal 1.20-7.[address] [facility] Comment on above: Result Comment: Perc ent differential counts (%) should be interpreted in the context of the absolute cell counts (cells/uL). Performed By: #### 5 902-2 #### BENJA NEAL ([id number]) [facility] ([facility]) [address] [place] [address] 92332 Neutrophils/100 WBC (Bld) 61.6 % Normal 40.0-80.[address] [facility] Comment on above: Performed By: #### 5 902-2 #### BENJA NEAL ([id number]) [facility] ([facility]) [address] [place] [address] [phone] Nucleated RBC/100 WBC (Bld) [Ratio] 0.0 /100 WBCs Normal 0.0-0.[address] [facility] Comment on above: Performed By: #### 5 902-2 #### BENJA NEAL ([id number]) [facility] ([facility]) [address] [place] [address] [phone] Platelets (Bld) [#/Vol] 227 x10*3/uL Normal 150-[address] [facility] Comment on above: Performed By: #### 5 902-2 #### BENJA NEAL ([id number]) [facility] ([facility]) [address] [place] [address] 18439 RBC (Bld) [#/Vol] 4.47 x10*6/uL Normal 4.00-5.20 [facility] Comment on above: Performed By: #### 5 902-2 #### BENJA NEAL ([id number]) [facility] ([facility]) [address] [place] [address] [phone] WBC (Bld) [#/Vol] 7.7 x10*3/uL Normal 4.4-11.3 [facility] Comment on above: Performed By: #### 5 902-2 #### BENJA NEAL ([id number]) [facility] ([facility]) [address] [place] [address] [phone] Comprehensive metabolic 2000 panelon 02-21-2024 Albumin BCP dye [Mass/Vol] 4.2 g/dL 3.4 - 5.0 g/dL [facility] ALP [Catalytic activity/Vol] 75 U/L 33 - 110 U/L [facility] ALT With P-5'-P [Catalytic activity/Vol] 8 U/L 7 - 45 U/L [facility] Comment on above: Patients treated wit h Sulfasalazine may generate falsely decreased results for ALT. Anion gap [Moles/Vol] 10 mmol/L 10 - 2 0 mmol/L [facility] AST With P-5'-P [Catalytic activity/Vol] 12 U/L 9 - 39 U/L [facility] Bilirubin [Mass/Vol] 1.2 mg/dL 0.0 - 1 .2 mg/dL [facility] Calcium [Mass/Vol] 9.2 mg/dL 8.6 - 10. 3 mg/dL [facility] Chloride [Moles/Vol] 102 mmol/L 98 - 10 7 mmol/L [facility] CO2 [Moles/Vol] 27 mmol/L 21 - 32 mmol/L [facility] Creatinine [Mass/Vol] 0.91 mg/dL 0.50 - 1.05 mg/dL [facility] GFR/1.73 sq M.predicted among non-blacks MDRD (S/P/Bld) [Vol rate/Area] 77 mL/min/{1.73_m2} - PINF [facility] Comment on above: Calculations of magda mated GFR are performed using the 2020 CKD-EPI Study Refit equation without the race variable for the IDMS-Traceable creatinine methods. https://jasn.asnjournals.org/content//ASN.534365 3059 Glucose [Mass/Vol] 73 mg/dL Low 74 - 99 mg/dL [facility] Interpretation and review of laboratory results Abnormal [facility] Potassium [Moles/Vol] 3.3 mmol/L Low 3.5 - 5.3 mmol/L [facility] Protein [Mass/Vol] 6.8 g/dL 6.4 - 8.2 g/dL [facility] Sodium [Moles/Vol] 136 mmol/L 136 - 145 mmol/L [facility] Urea nitrogen [Mass/Vol] 6 mg/dL 6 - 23 mg/dL [facility] Albumin BCP dye [Mass/Vol] 4.2 g/dL Normal 3.4-5.[address] [facility] [facility] Comment on above: Performed By: #### 5 902-2 #### BENJA NEAL ([id number]) [facility] ([facility]) [address] [place] [address] [id number] ALP [Catalytic activity/Vol] 75 U/L Normal 33-[address] [facility] Comment on above: Performed By: #### 5 902-2 #### BENJA NEAL ([id number]) [facility] ([facility]) [address] [place] [address] 94525 ALT With P-5'-P [Catalytic activity/Vol] 8 U/L Normal 7-[address] [facility] Comment on above: Result Comment: Mae ents treated with Sulfasalazine may generate falsely decreased results for ALT. Performed By: #### 5 902-2 #### BENJA NEAL ([id number]) [facility] ([facility]) [address] [place] [address] 44116 Anion gap [Moles/Vol] 10 mmol/L Normal 10-20 [facility] Comment on above: Performed By: #### 5 902-2 #### BENJA NEAL ([id number]) [facility] ([facility]) [address] [place] [address] [phone] AST With P-5'-P [Catalytic activity/Vol] 12 U/L Normal 9-[address] [facility] Comment on above: Performed By: #### 5 902-2 #### BENJA NEAL ([id number]) [facility] ([facility]) [address] [place] [address] 49562 Bilirubin [Mass/Vol] 1.2 mg/dL Normal 0.0-1.2 [facility] Comment on above: Performed By: #### 5 902-2 #### BENJA NEAL ([id number]) [facility] ([facility]) [address] [place] [address] 01901 Calcium [Mass/Vol] 9.2 mg/dL Normal 8.6-10.3 [facility] Comment on above: Performed By: #### 5 902-2 #### BENJA NEAL ([id number]) [facility] ([facility]) [address] [place] [address] Chloride [Moles/Vol] 102 mmol/L Normal 98-107 [facility] Comment on above: Performed By: #### 5 902-2 #### BENJA NEAL ([id number]) [facility] ([facility]) [address] [place] [address] CO2 [Moles/Vol] 27 mmol/L Normal 21-32 [facility] Comment on above: Performed By: #### 5 902-2 #### BENJA NEAL ([id number]) [facility] ([facility]) [address] [place] [address] 38934 Creatinine [Mass/Vol] 0.91 mg/dL Normal 0.50-1.05 [facility] Comment on above: Performed By: #### 5 902-2 #### BENJA NEAL ([id number]) [facility] ([facility]) [address] [place] [address] 30854 Glomerular filtration rate/1.73 sq M.predicted 77 mL/min/1.73m*2 Normal >[address] [facility] Comment on above: Result Comment: Calc ulations of estimated GFR are performed using the 2020 CKD-EPI Study Refit equation without the race variable for the IDMS-Traceable creatinine methods. https://jasn.asnjournals.org/content//ASN.730871 1030 Performed By: #### 5 902-2 #### BENJA NEAL ([id number]) [facility] ([facility]) [address] [place] [address] Glucose [Mass/Vol] 73 mg/dL Low 74-99 [facility] Comment on above: Performed By: #### 5 902-2 #### BENJA NEAL ([id number]) [facility] ([facility]) [address] [place] [address] Potassium [Moles/Vol] 3.3 mmol/L Low 3.5-5.3 [facility] Comment on above: Performed By: #### 5 902-2 #### BENJA NEAL ([id number]) [facility] ([facility]) [facility] [place] [address] Protein [Mass/Vol] 6.8 g/dL Normal 6.4-8.2 [facility] Comment on above: Performed By: #### 5 902-2 #### BENJA NEAL ([id number]) [facility] ([facility]) [address] [place] [address] 24805 Sodium [Moles/Vol] 136 mmol/L Normal 136-145 [facility] Comment on above: Performed By: #### 5 902-2 #### BENJA NEAL ([id number]) [facility] ([facility]) [address] [place] [address] 16769 Urea nitrogen [Mass/Vol] 6 mg/dL Normal 6-[address] [facility] Comment on above: Performed By: #### 5 902-2 #### BENJA NEAL ([id number]) [facility] ([facility]) [address] [place] [address] 95535 ECG 12-LEADon 02-21-2024 ECG 12-LEAD Ventricular Rate 43 Atrial Rate 43 P-R Interval 162 QRS Duration 92 Q-T Interval 500 QTC Calculation(Bazett) 422 P Britton 37 R Britton 29 T Britton 48 QRS Count 7 Q Onset 212 P Onset 131 P Offset 180 T Offset 462 QTC Fredericia 447 Diagnosis Marked sinus bradycardia Septal infarct , age undetermined Abnormal ECG When compared with ECG of 21-FEB-2024 13:13, (unconfirmed) Septal infarct is now Present See ED provider note for full interpretation and clinical correlation Confirmed by Akash Cook ([id number]) on 02/23/2024 9:43:48 AM Normal [facility] ECG 12-LEAD Ventricular Rate 53 Atrial Rate 53 P-R Interval 154 QRS Duration 90 Q-T Interval 448 QTC Calculation(Bazett) 420 P Britton 41 R Britton 44 T Britton 71 QRS Count 9 Q Onset 228 P Onset 151 P Offset 205 T Offset 452 QTC Fredericia 430 Diagnosis Sinus bradycardia with sinus arrhythmia Otherwise normal ECG When compared with ECG of 17-MAR-2023 11:54, Previous ECG has undetermined rhythm, needs review Questionable change in QRS axis T wave inversion no longer evident in Inferior leads Nonspecific T wave abnormality, improved in Anterolateral leads See ED provider note for full interpretation and clinical correlation Confirmed by Akahs Cook ([id number]) on 02/23/2024 9:49:59 AM Normal [facility] Tropinin I.cardiac panel Hig h sensitivity methodon 02-21-2024 Interpretation and review of laboratory results Normal [facility] Less than 99th percentile of normal range cutoff- Female and children under 18 years old <14 ng/L; Male <21 ng/L: Negative Repeat testing should be performed if clinically indicated. Female and children under 18 years old 14-50 ng/L; Male 21-50 ng/L: Consistent with possible cardiac damage and possible increased clinical risk. Serial measurements may help to assess extent of myocardial damage. >50 ng/L: Consistent with cardiac damage, increased clinical risk and myocardial infarction. Serial measurements may help assess extent of myocardial damage. NOTE: Children less than 1 year old may have higher baseline troponin levels and results should be interpreted in conjunction with the overall clinical context. NOTE: Troponin I testing is performed using a different testing methodology at [facility] than at other [facility]. Direct result comparisons should only be made within the same method. [facility] Interpretation and review of laboratory results Normal [facility] Less than 99th percentile of normal range cutoff- Female and children under 18 years old <14 ng/L; Male <21 ng/L: Negative Repeat testing should be performed if clinically indicated. Female and children under 18 years old 14-50 ng/L; Male 21-50 ng/L: Consistent with possible cardiac damage and possible increased clinical risk. Serial measurements may help to assess extent of myocardial damage. >50 ng/L: Consistent with cardiac damage, increased clinical risk and myocardial infarction. Serial measurements may help assess extent of myocardial damage. NOTE: Children less than 1 year old may have higher baseline troponin levels and results should be interpreted in conjunction with the overall clinical context. NOTE: Troponin I testing is performed using a different testing methodology at [facility] than at other [facility]. Direct result comparisons should only be made within the same method. [facility] Troponin I, High Sensitivity , Initialon 02-21-2024 Tropinin I.cardiac panel High sensitivity method 3 ng/L 0 - 13 ng/L [facility] Troponin I.cardiac panelon 1 04-22-2023 Tropinin I.cardiac panel High sensitivity method 3 ng/L Normal 0-[address] [facility] Comment on above: Order Comment: Less than 99th percentile of normal range cutoff-Female and children under 18 years old <14 ng/L; Male <21 ng/L: NegativeRepeat testing should be performed if clinically indicated.Female and children under 18 years old 14-50 ng/L; Male 21-50 ng/L:Consistent with possible cardiac damage and possible increased clinicalrisk. Serial measurements may help to assess extent of myocardial damage.>50 ng/L: Consistent with cardiac damage, increased clinical risk andmyocardial infarction. Serial measurements may help assess extent ofmyocardial damage.NOTE: Children less than 1 year old may have higher baseline troponinlevels and results should be interpreted in conjunction with the overallclinical context.NOTE: Troponin I testing is performed using a differenttesting methodology at [facility] than at [facility]. Direct result comparisons should onlybe made within the same method. Performed By: #### 5 902-2 #### YOUSIF VAL ([id number]) [facility] ([facility]) [address] [place] [address] Tropinin I.cardiac panel High sensitivity method 3 ng/L Normal 0-[address] [facility] Comment on above: Order Comment: Less than 99th percentile of normal range cutoff-Female and children under 18 years old <14 ng/L; Male <21 ng/L: NegativeRepeat testing should be performed if clinically indicated.Female and children under 18 years old 14-50 ng/L; Male 21-50 ng/L:Consistent with possible cardiac damage and possible increased clinicalrisk. Serial measurements may help to assess extent of myocardial damage.>50 ng/L: Consistent with cardiac damage, increased clinical risk andmyocardial infarction. Serial measurements may help assess extent ofmyocardial damage.NOTE: Children less than 1 year old may have higher baseline troponinlevels and results should be interpreted in conjunction with the overallclinical context.NOTE: Troponin I testing is performed using a differenttesting methodology at [facility] than at [facility]. Direct result comparisons should onlybe made within the same method. Performed By: #### 5 902-2 #### YOUSIF VAL ([id number]) [facility] ([facility]) [address] [place] [address] Troponin, High Sensitivity, 1 Houron 02-21-2024 Tropinin I.cardiac panel High sensitivity method 3 ng/L 0 - 13 ng/L [facility] XR CHEST 1 VIEWon 02-21-2024 XR CHEST 1 VIEW Interpreted By: Licha Younger, STUDY: XR CHEST 1 VIEW; 02/21/2024 1:37 pm INDICATION: Signs/Symptoms:cough, chest pain. COMPARISON: 01/12/2020 ACCESSION NUMBER(S): [id number] ORDERING CLINICIAN: CHELSI ROSARIO FINDINGS: CARDIOMEDIASTINAL SILHOUETTE: Cardiomediastinal silhouette is normal in size and configuration. LUNGS: Lungs are clear. ABDOMEN: No remarkable upper abdominal findings. BONES: No acute osseous changes. IMPRESSION: No acute cardiopulmonary process. MACRO: None Signed by: Licha Younger 02/21/2024 1:53 PM Dictation workstation: [id number] [facility] XR Chest Single viewon 02-20 No acute cardiopulmonary process. MACRO: None Signed by: Licha Younger 02/21/2024 1:53 PM Dictation workstation: [id number] MMODAL Interpreted By: Licha Younger, STUDY: XR CHEST 1 VIEW; 02/21/2024 1:37 pm INDICATION: Signs/Symptoms:cough, chest pain. COMPARISON: 01/12/2020 ACCESSION NUMBER(S): [id number] ORDERING CLINICIAN: CHELSI ROSARIO FINDINGS: CARDIOMEDIASTINAL SILHOUETTE: Cardiomediastinal silhouette is normal in size and configuration. LUNGS: Lungs are clear. ABDOMEN: No remarkable upper abdominal findings. BONES: No acute osseous changes. MMODAL Licha Younger M D - 02/21/2024 Interpreted By: Licha Younger, STUDY: XR CHEST 1 VIEW; 02/21/2024 1:37 pm INDICATION: Signs/Symptoms:cough, chest pain. COMPARISON: 01/12/2020 ACCESSION NUMBER(S): [id number] ORDERING CLINICIAN: CHELSI ROSARIO FINDINGS: CARDIOMEDIASTINAL SILHOUETTE: Cardiomediastinal silhouette is normal in size and configuration. LUNGS: Lungs are clear. ABDOMEN: No remarkable upper abdominal findings. BONES: No acute osseous changes. IMPRESSION: No acute cardiopulmonary process. MACRO: None Signed by: Licha Younger 02/21/2024 1:53 PM Dictation workstation: [id number] [facility] Work Phone: Radiology Study observation (narrative) [facility] Work Phone: XR Chest Single viewOrdered By: Licha Younger on 02-21-2024 [facility] Work Phone: ED Prov Noteon 12-07-2023 ED Prov Note HPI: 12/07/2023, Time: @NOWNR@ Nas Parks is a 47 y.o. female presenting to the ED for vaginal bleeding, beginning over the last month ago. The complaint has been constant, moderate in severity, and worsened by nothing. Also feels slightly lightheaded with headache and states she saw her membership manager about a year ago for the same complaint but was given no medicine. States she has had normal Pap smears. No pain and no fever or chills ROS: Pertinent positives and negatives are stated within HPI, all other systems reviewed and are negative. - PAST HISTORY - Past Medical History: @PMHP@ Past Surgical History: has a past surgical history that includes Section and Tympanostomy tube placement. Social History: reports that she has been smoking cigarettes. She has never used smokeless tobacco. She reports that she does not drink alcohol and does not use drugs. Family History: family history is not on file. The patient's home medications have been reviewed. Allergies: Doxycycline, Erythromycin, and Percocet [oxycodone-acetaminoph en] ------ RESULTS ----- All laboratory and radiology results have been personally reviewed by myself LABS: Results for orders placed or performed during the hospital encounter of 12/07/23 POC CBC and Differential Result Value Ref Range WBC 8.23 4.50 - 11.00 K/mcL RBC 4.58 4.00 - 5.20 M/mcL Hemoglobin 13.5 12.0 - 16.0 g/dL Hematocrit 40.6 36.0 - 46.0 % MCV 88.6 80.0 - 100.0 fL MCH 29.5 26.0 - 34.0 pg MCHC 33.3 31.0 - 37.0 g/dL RDW - CV 14.0 11.6 - 14.8 % Platelets 199 150 - 400 K/mcL MPV 12.5 (H) 9.4 - 12.4 fL Neutrophils 65.3 % Lymphocytes 24.8 % Monocytes 6.6 % Eosinophils 2.7 % Basophils 0.5 % IG Percent 0.10 % Neutrophils Abs 5.38 1.70 - 7.00 K/mcL Lymphocytes Abs 2.04 0.90 - 4.00 K/mcL Monocytes Abs 0.54 0.30 - 0.90 K/mcL Eosinophils Abs 0.22 0.00 - 0.50 K/mcL Basophils Abs 0.04 0.00 - 0.30 K/mcL IG Absolute 0.01 0.00 - 0.30 K/mcL POC , Urine Result Value Ref Range POC Preg Test, Urine Negative Negative RADIOLOGY: Interpreted by Radiologist. US Pelvic Transabdominal and Transvaginal (Results Pending) --- NURSING NOTES AND VITALS REVIEWED ----- The nursing notes within the ED encounter and vital signs as below have been reviewed. BP (!) 141/84 (BP Location: Left arm, Patient Position: Sitting) Pulse (!) 55 Temp 98.4 degrees F (36.9 degrees C) (Oral) Resp 18 Ht 4' 11 Wt 74.4 kg (164 lb) LMP 12/07/2023 SpO2 98% BMI 33.12 kg/m Oxygen Saturation Interpretation: Normal -------PHYSICAL EXAM Constitutional/General : Alert and oriented x3, well appearing, non toxic in NAD Head: NC/AT Eyes: PERRL, EOMI Mouth: Oropharynx clear, handling secretions, no trismus Neck: Supple, full ROM, no meningeal signs Pulmonary: Lungs clear to auscultation bilaterally, no wheezes, rales, or rhonchi. Not in respiratory distress Cardiovascular: Regular rate and rhythm, no murmurs, gallops, or rubs. 2+ distal pulses Abdomen: Soft, non tender, non distended, Extremities: Moves all extremities x 4. Warm and well perfused Skin: warm and dry without rash Neurologic: GCS 15, Psych: Normal Affect -------- ED COURSE/MEDICAL DECISION MAKING ------ Medications - No data to display Medical Decision Making: Will prescribe outpatient ultrasound and follow-up with gynecology Counseling: The emergency provider has spoken with the patient and discussed today's results, in addition to providing specific details for the plan of care and counseling regarding the diagnosis and prognosis. Questions are answered at this time and they are agreeable with the plan. IMPRESSION AND DISPOSITION IMPRESSION 1. Dysfunctional uterine bleeding DISPOSITION Disposition: discharged to home Patient condition is stable Summation Patient Course: Stable ED Medications administered this visit: Medications - No data to display New Prescriptions from this visit: Follow-up: Anselmo Rader MD [address] [place] [address] [address] [facility] [id number] In 3 days Final Impression: 1. Dysfunctional uterine bleeding (Please note that portions of this note were completed with a voice recognition program. Efforts were made to edit the dictations but occasionally words are mis-transcribed.) Lila Doss MD 12/07/23 1033 AUTHENTICATED BY BETH GUZMAN 12/07/2023 10:33:34 Normal [facility] POC CBC AND DIFFERENTIALon 0 12-07-2023 BASOPHILS ABSOLUTE COUNT 0.04 K/mcL Normal 0.00-0.30 [facility] Basophils/100 WBC (Bld) 0.5 % Normal [facility] Eosinophils (Bld) [#/Vol] 0.22 10*3/uL Normal 0.00-0.50 [facility] Eosinophils/100 WBC (Bld) 2.7 % Normal [facility] Erythrocyte distribution width (RBC) [Ratio] 14.0 % Normal 11.6-14.8 [facility] Hematocrit (Bld) [Volume fraction] 40.6 % Normal 36.0-46.0 [facility] Hemoglobin (Bld) [Mass/Vol] 13.5 g/dL Normal 12.0-16.0 [facility] IG ABSOLUTE 0.01 K/mcL Normal 0.00-0.30 [facility] IG PERCENT 0.10 % Normal [facility] Comment on above: Result Comment: The IG parameter is the percentage of metamyelocytes, myelocytes and promyelocytes. An immature granulocyte count (IG) of 1% or more suggests the possibility of infection, an IG count of 3% is very likely related to an infection. Lymphocytes (Bld) [#/Vol] 2.04 10*3/uL Normal 0.90-4.00 [facility] Lymphocytes/100 WBC (Bld) 24.8 % Normal [facility] MCH (RBC) [Entitic mass] 29.5 pg Normal 26.0-34.0 [facility] MCV (RBC) [Entitic vol] 88.6 fL Normal 80.0-100.0 [facility] MEAN CORPUSCULAR HEMOGLOBIN CONC 33.3 g/dL Normal 31.0-37.0 [facility] Monocytes (Bld) [#/Vol] 0.54 10*3/uL Normal 0.30-0.90 [facility] Monocytes/100 WBC (Bld) 6.6 % Normal [facility] NEUTROPHILS ABSOLUTE COUNT 5.38 K/mcL Normal 1.70-7.00 [facility] Neutrophils/100 WBC (Bld) 65.3 % Normal [facility] Platelet mean volume (Bld) [Entitic vol] 12.5 fL High 9.4-12.4 [facility] Platelets (Bld) [#/Vol] 199 10*3/uL Normal 150-400 [facility] RBC (Bld) [#/Vol] 4.58 10*6/uL Normal 4.00-5.20 [facility] WBC (Bld) [#/Vol] 8.23 10*3/uL Normal 4.50-11.00 [facility] POC , URINE - [facility] n 12-07-2023 Beta HCG ( test) Ql (U) Negative Normal Negative [facility] Comment on above: Order Comment: Negat milana: Dilute urine specimens, as indicated by a low specific gravity (<1.010) may not contain representitive levels of hCG. If is still suspected, a serum test or repeat urine test using a first morning urine specimen should be considered. 36on 03-23-2023 36 Reached out to samantha andrew today to ensure that she had plans to follow up with her PCP due to elevated BP at her last office visit. Patient indicates that she will call today to make an appointment. Normal [facility] Office Visiton 03-20-2023 Follow-up visit [id number] Nas Parks 1975 F Date Provider Department Center 03/20/2023 [id number] BOND [facility] Offi No family history on file Level of Service:83869 MS INITIAL PREVENTIVE MEDICINE NEW PATIENT 40-64YRS (25) Reason for Visit and Comments: New Patient [542] Normal [facility] Progress Noteon 03-20-2023 Progress Note Nas Parks 03/20/2024 47 y.o. Chief Complaint Patient presents with New Patient Primary Care Physician: Sosa Laureano HPI: Nas Parks is a 47 y.o. female here today for annual exam. Reports in Dec she began to have daily heavy bleeding for abotu 75d. Bleeding stopped a few weeks ago. Went to ED last week for syncopal episodes. EMR reviewed, Hb 9.[address] head. Reports prior to this menses were monthly. Hx of abnormal pap requiring LEEP in the past. Thinks her sister had uterine pre-cancer or cancer Past Medical History: Diagnosis Date Abnormal Pap smear of cervix High blood pressure High cholesterol Stroke (HCC) X2 Past Surgical History: Procedure Laterality Date CERVICAL BIOPSY W/ LOOP ELECTRODE EXCISION DELIVERY (HISTORICAL) TONSILLECTOMY AND ADENOIDECTOMY (HISTORICAL) childhood TYMPANOSTOMY TUBE PLACEMENT Bilateral childhood No family history on file. OB History Para Term AB Living 2 2 2 2 SAB IAB Ectopic Multiple Live Births 2 # Outcome Date GA Lbr Akil/2nd Weight Sex Delivery Anes PTL Lv 2 CS-Unspec MCKAY 1 Vag-Spont MCKAY MEDICATIONS: Current Outpatient Medications Medication Sig Dispense Refill atorvastatin (Lipitor) 40 MG tablet Take 40 mg by mouth daily. clopidogrel (Plavix) 75 MG tablet Take 75 mg by mouth daily. hydroCHLOROthiazide (HYDRODiuril) 12.5 MG tablet Take 12.5 mg by mouth every morning. lisinopril 20 MG tablet Take 20 mg by mouth daily. LORazepam (Ativan) 0.5 MG tablet Take 0.5 mg by mouth in the morning and 0.5 mg at noon and 0.5 mg in the evening. metoprolol succinate XL (Toprol-XL) 25 MG 24 hr tablet docusate sodium (Colace) 100 MG capsule Take 1 capsule (100 mg) by mouth 2 times daily as needed for constipation. 60 capsule 1 ferrous sulfate (FerrouSul) 325 (65 Fe) MG tablet Take 1 tablet (325 mg) by mouth daily (with breakfast). 60 tablet 2 No current facility-administered medications for this visit. ALLERGIES: Allergies as of 03/20/2023 - Reviewed 03/20/2023 Allergen Reaction Noted Doxycycline Rash, Other, and Shortness of breath 01/17/2013 Erythromycin Other and Shortness of breath 01/17/2013 Oxycodone-acetaminophe n Other 01/17/2013 REVIEW OF SYSTEMS Review of Systems Constitutional: Negative for chills and fever. Respiratory: Negative for shortness of breath. Cardiovascular: Negative for chest pain. Gastrointestinal: Negative for blood in stool, constipation, diarrhea, nausea and vomiting. Genitourinary: Positive for menstrual problem. Negative for difficulty urinating, frequency, pelvic pain, urgency and vaginal discharge. PHYSICAL EXAMINATION: BP (!) 160/110 Pulse 61 Wt 157 lb (71.2 kg) 168/108, repeat 160/110 Physical Exam Constitutional: General: She is not in acute distress. Appearance: Normal appearance. She is not ill-appearing, toxic-appearing or diaphoretic. HENT: Head: Normocephalic and atraumatic. Nose: Nose normal. Eyes: Extraocular Movements: Extraocular movements intact. Conjunctiva/sclera: Conjunctivae normal. Pupils: Pupils are equal, round, and reactive to light. Neck: Thyroid: No thyroid mass, thyromegaly or thyroid tenderness. Pulmonary: Effort: Pulmonary effort is normal. No respiratory distress. Chest: Breasts: Breasts are symmetrical. Right: Normal. No mass, nipple discharge or skin change. Left: Normal. No mass, nipple discharge or skin change. Abdominal: General: Abdomen is flat. There is no distension. Palpations: Abdomen is soft. There is no mass. Tenderness: There is no abdominal tenderness. There is no guarding or rebound. Genitourinary: General: Normal vulva. Shamir stage (genital): 5. Labia: Right: No rash, tenderness, lesion or injury. Left: No rash, tenderness, lesion or injury. Urethra: No prolapse, urethral swelling or urethral lesion. Vagina: Normal. Cervix: Normal. Uterus: Normal. Adnexa: Right adnexa normal and left adnexa normal. Comments: Cervix flush with vagina Musculoskeletal: Cervical back: Normal range of motion and neck supple. Right lower leg: No edema. Left lower leg: No edema. Lymphadenopathy: Cervical: No cervical adenopathy. Upper Body: Right upper body: No supraclavicular or axillary adenopathy. Left upper body: No supraclavicular or axillary adenopathy. Skin: General: Skin is warm and dry. Coloration: Skin is not jaundiced. Neurological: General: No focal deficit present. Mental Status: She is alert and oriented to person, place, and time. Psychiatric: Mood and Affect: Mood normal. Behavior: Behavior normal. Thought Content: Thought content normal. Judgment: Judgment normal. ASSESSMENT: Diagnosis Plan 1. Encounter for gynecological examination without abnormal finding Pap Smear 2. Encounter for screening mammogram for malignant neoplasm of breast Bilateral screening mammogram with tomosynthe (more content not included)... Normal [facility] CBC W Auto Differential pane l (Bld)on 03-17-2023 Basophils (Bld) [#/Vol] 0.02 10*3/uL [facility] Basophils/100 WBC (Bld) 0.3 % 0.0 - 2.0 % [facility] Eosinophils (Bld) [#/Vol] 0.01 10*3/uL [facility] Eosinophils/100 WBC (Bld) 0.2 % 0.0 - 6.0 % [facility] Erythrocyte distribution width (RBC) [Ratio] 15.6 % High 11.5 - 14.5 % [facility] Hematocrit (Bld) [Volume fraction] 30.8 % Low 36.0 - 46.0 % [facility] Hemoglobin (Bld) [Mass/Vol] 9.4 g/dL Low 12.0 - 16.0 g/dL [facility] Immature granulocytes (Bld) [#/Vol] 0.02 10*3/uL [facility] Immature granulocytes/100 WBC (Bld) 0.3 % 0.0 - 0.9 % [facility] Comment on above: Immature Granulocyte Count (IG) includes promyelocytes, myelocytes and metamyelocytes but does not include bands. Percent differential counts (%) should be interpreted in the context of the absolute cell counts (cells/UL). Interpretation and review of laboratory results Abnormal [facility] Lymphocytes (Bld) [#/Vol] 0.99 10*3/uL Low [facility] Lymphocytes/100 WBC (Bld) 15.0 % 13.0 - 44.0 % [facility] MCH (RBC) [Entitic mass] 24.1 pg Low 26.0 - 34.0 pg [facility] MCHC (RBC) [Mass/Vol] 30.5 g/dL Low 32.0 - 36.0 g/dL [facility] MCV (RBC) [Entitic vol] 79 fL Low 80 - 100 fL [facility] Monocytes (Bld) [#/Vol] 0.88 10*3/uL [facility] Monocytes/100 WBC (Bld) 13.3 % 2.0 - 10.0 % [facility] Neutrophils (Bld) [#/Vol] 4.68 10*3/uL [facility] Comment on above: Percent differential counts (%) should be interpreted in the context of the absolute cell counts (cells/uL). Neutrophils/100 WBC (Bld) 70.9 % 40.0 - 80.0 % [facility] Nucleated RBC/100 WBC (Bld) [Ratio] 0.0 % [facility] Platelets (Bld) [#/Vol] 187 10*3/uL [facility] RBC (Bld) [#/Vol] 3.90 10*6/uL Low [facility] WBC (Bld) [#/Vol] 6.6 10*3/uL [facility] Basophils (Bld) [#/Vol] 0.02 x10*3/uL Normal 0.00-0.[address] [facility] Comment on above: Performed By: #### 5 7021-8 #### BENJA NEAL ([id number]) [facility] ([facility]) [address] [place] [address] 01227 Basophils/100 WBC (Bld) 0.3 % Normal 0.0-2.[address] [facility] Comment on above: Performed By: #### 5 7021-8 #### BENJA NEAL ([id number]) [facility] ([facility]) [address] [place] [address] 97161 Eosinophils (Bld) [#/Vol] 0.01 x10*3/uL Normal 0.00-0.[address] [facility] Comment on above: Performed By: #### 5 7021-8 #### BENJA NEAL ([id number]) [facility] ([facility]) [address] [place] [address] 25990 Eosinophils/100 WBC (Bld) 0.2 % Normal 0.0-6.[address] [facility] Comment on above: Performed By: #### 5 7021-8 #### BENJA NEAL ([id number]) [facility] ([facility]) [address] [place] [address] 11821 Erythrocyte distribution width (RBC) [Ratio] 15.6 % High 11.5-14.[address] [facility] Comment on above: Performed By: #### 5 7021-8 #### BENJA NEAL ([id number]) [facility] ([facility]) [address] [place] [address] 97413 Hematocrit (Bld) [Volume fraction] 30.8 % Low 36.0-46.[address] [facility] Comment on above: Performed By: #### 5 7021-8 #### BENJA NEAL ([id number]) [facility] ([facility]) [address] [place] [address] 42045 Hemoglobin (Bld) [Mass/Vol] 9.4 g/dL Low 12.0-16.[address] [facility] Comment on above: Performed By: #### 5 7021-8 #### BENJA NEAL ([id number]) [facility] ([facility]) [address] [place] [address] 65648 Immature granulocytes (Bld) [#/Vol] 0.02 x10*3/uL Normal 0.00-0.[address] [facility] Comment on above: Performed By: #### 5 7021-8 #### BENJA NEAL ([id number]) [facility] ([facility]) [address] [place] [address] 84414 Immature granulocytes/100 WBC (Bld) 0.3 % Normal 0.0-0.[address] [facility] Comment on above: Result Comment: Patricia ture Granulocyte Count (IG) includes promyelocytes, myelocytes and metamyelocytes but does not include bands. Percent differential counts (%) should be interpreted in the context of the absolute cell counts (cells/UL). Performed By: #### 5 7021-8 #### BENJA NEAL ([id number]) [facility] ([facility]) [address] [place] [address] 99899 Lymphocytes (Bld) [#/Vol] 0.99 x10*3/uL Low 1.20-4.[address] [facility] Comment on above: Performed By: #### 5 7021-8 #### BENJA NEAL ([id number]) [facility] ([facility]) [address] [place] [address] 40900 Lymphocytes/100 WBC (Bld) 15.0 % Normal 13.0-44.[address] [facility] Comment on above: Performed By: #### 5 7021-8 #### BENJA NEAL ([id number]) [facility] ([facility]) [address] [place] [address] 59068 MCH (RBC) [Entitic mass] 24.1 pg Low 26.0-34.[address] [facility] Comment on above: Performed By: #### 5 7021-8 #### BENJA NEAL ([id number]) [facility] ([facility]) [address] [place] [address] 69487 MCHC (RBC) [Mass/Vol] 30.5 g/dL Low 32.0-36.0 [facility] Comment on above: Performed By: #### 5 7021-8 #### BENJA NEAL ([id number]) [facility] ([facility]) [address] [place] [address] 37689 MCV (RBC) [Entitic vol] 79 fL Low 80-[address] [facility] Comment on above: Performed By: #### 5 7021-8 #### BENJA NEAL ([id number]) [facility] ([facility]) [address] [place] [address] 37233 Monocytes (Bld) [#/Vol] 0.88 x10*3/uL Normal 0.10-1.[address] [facility] Comment on above: Performed By: #### 5 7021-8 #### BENJA NEAL ([id number]) [facility] ([facility]) [address] [place] [address] 88236 Monocytes/100 WBC (Bld) 13.3 % Normal 2.0-10.[address] [facility] Comment on above: Performed By: #### 5 7021-8 #### BENJA NEAL ([id number]) [facility] ([facility]) [address] [place] [address] 07017 Neutrophils (Bld) [#/Vol] 4.68 x10*3/uL Normal 1.20-7.[address] [facility] Comment on above: Result Comment: Perc ent differential counts (%) should be interpreted in the context of the absolute cell counts (cells/uL). Performed By: #### 5 7021-8 #### BENJA NEAL ([id number]) [facility] ([facility]) [address] [place] [address] 63649 Neutrophils/100 WBC (Bld) 70.9 % Normal 40.0-80.[address] [facility] Comment on above: Performed By: #### 5 7021-8 #### BENJA NEAL ([id number]) [facility] ([facility]) [address] [place] [address] 87409 Nucleated RBC/100 WBC (Bld) [Ratio] 0.0 /100 WBCs Normal 0.0-0.[address] [facility] Comment on above: Performed By: #### 5 7021-8 #### BENJA NEAL ([id number]) [facility] ([facility]) [address] [place] [address] 83030 Platelets (Bld) [#/Vol] 187 x10*3/uL Normal 150-[address] [facility] Comment on above: Performed By: #### 5 7021-8 #### BENJA NEAL ([id number]) [facility] ([facility]) [address] [place] [address] 67042 RBC (Bld) [#/Vol] 3.90 x10*6/uL Low 4.00-5.20 [facility] Comment on above: Performed By: #### 5 7021-8 #### BENJA NEAL ([id number]) [facility] ([facility]) [address] [place] [address] 37728 WBC (Bld) [#/Vol] 6.6 x10*3/uL Normal 4.4-11.3 [facility] Comment on above: Performed By: #### 5 7021-8 #### YOUSIF VAL ([id number]) [facility] ([facility]) [id number] CERVICAL SPINE WO IV CONT RASTon 03-17-2023 CT CERVICAL SPINE WO IV CONTRAST Interpreted By: Vidal Ellis, STUDY: CT CERVICAL SPINE WO IV CONTRAST; 03/17/2023 12:42 pm INDICATION: Signs/Symptoms:syncope . COMPARISON: None. ACCESSION NUMBER(S): [id number] ORDERING CLINICIAN: AKASH COOK TECHNIQUE: Axial CT images of the cervical spine are obtained. Axial, coronal and sagittal reconstructions are provided for review. FINDINGS: Straightening of normal cervical lordosis. Endplate sclerosis and osteophytes are seen at multiple levels. Anterior and posterior osteophytes at C5/C6 with posterior ligamentous calcification. Round area of sclerosis involving the T2 may represent a bone island. IMPRESSION: No evidence for an acute fracture or subluxation of the cervical spine. Discogenic degenerative changes especially at C5/C6. MACRO: None Signed by: Vidal Ellis 03/17/2023 1:15 PM Dictation workstation: [id number] [facility] CT Cervical spine WO contras ton 03-17-2023 No evidence for an acute fracture or subluxation of the cervical spine. Discogenic degenerative changes especially at C5/C6. MACRO: None Signed by: Vidal Ellis 03/17/2023 1:15 PM Dictation workstation: [id number] [facility] Interpreted By: Vidal Ellis, STUDY: CT CERVICAL SPINE WO IV CONTRAST; 03/17/2023 12:42 pm INDICATION: Signs/Symptoms:syncope . COMPARISON: None. ACCESSION NUMBER(S): [id number] ORDERING CLINICIAN: AKASH COOK TECHNIQUE: Axial CT images of the cervical spine are obtained. Axial, coronal and sagittal reconstructions are provided for review. FINDINGS: Straightening of normal cervical lordosis. Endplate sclerosis and osteophytes are seen at multiple levels. Anterior and posterior osteophytes at C5/C6 with posterior ligamentous calcification. Round area of sclerosis involving the T2 may represent a bone island. [facility] Vidal Ellis MD - 03/17/2023 Interpreted By: Vidal Ellis, STUDY: CT CERVICAL SPINE WO IV CONTRAST; 03/17/2023 12:42 pm INDICATION: Signs/Symptoms:syncope . COMPARISON: None. ACCESSION NUMBER(S): [id number] ORDERING CLINICIAN: AKASH COOK TECHNIQUE: Axial CT images of the cervical spine are obtained. Axial, coronal and sagittal reconstructions are provided for review. FINDINGS: Straightening of normal cervical lordosis. Endplate sclerosis and osteophytes are seen at multiple levels. Anterior and posterior osteophytes at C5/C6 with posterior ligamentous calcification. Round area of sclerosis involving the T2 may represent a bone island. IMPRESSION: No evidence for an acute fracture or subluxation of the cervical spine. Discogenic degenerative changes especially at C5/C6. MACRO: None Signed by: Vidal Ellis 03/17/2023 1:15 PM Dictation workstation: [id number] Work Phone: [facility] Work Phone: CT HEAD WO IV CONTRASTon CT HEAD WO IV CONTRAST Interpreted By: Vidal Ellis, STUDY: CT HEAD WO IV CONTRAST; 03/17/2023 12:42 pm INDICATION: Signs/Symptoms:syncope . COMPARISON: None. ACCESSION NUMBER(S): [id number] ORDERING CLINICIAN: AKASH COOK TECHNIQUE: Noncontrast axial CT scan of head was performed. Angled reformats in brain and bone windows were generated. The images were reviewed in bone, brain, blood and soft tissue windows. FINDINGS: CSF Spaces: The ventricles, sulci and basal cisterns are within normal limits. There is no extraaxial fluid collection. Parenchyma: The sterling-white differentiation is intact. There is no mass effect or midline shift. There is no intracranial hemorrhage. Calvarium: The calvarium is unremarkable. Paranasal sinuses and mastoids: Visualized paranasal sinuses and mastoids are clear. IMPRESSION: No evidence of acute cortical infarct or intracranial hemorrhage. No evidence of intracranial hemorrhage or displaced skull fracture. MACRO: None Signed by: Vidal Ellis 03/17/2023 1:10 PM Dictation workstation: [id number] [facility] CT Head WO contraston 2022 No evidence of acute cortical infarct or intracranial hemorrhage. No evidence of intracranial hemorrhage or displaced skull fracture. MACRO: None Signed by: Vidal Ellis 03/17/2023 1:10 PM Dictation workstation: [id number] [facility] Interpreted By: Vidal Ellis, STUDY: CT HEAD WO IV CONTRAST; 03/17/2023 12:42 pm INDICATION: Signs/Symptoms:syncope . COMPARISON: None. ACCESSION NUMBER(S): [id number] ORDERING CLINICIAN: AKASH COOK TECHNIQUE: Noncontrast axial CT scan of head was performed. Angled reformats in brain and bone windows were generated. The images were reviewed in bone, brain, blood and soft tissue windows. FINDINGS: CSF Spaces: The ventricles, sulci and basal cisterns are within normal limits. There is no extraaxial fluid collection. Parenchyma: The sterling-white differentiation is intact. There is no mass effect or midline shift. There is no intracranial hemorrhage. Calvarium: The calvarium is unremarkable. Paranasal sinuses and mastoids: Visualized paranasal sinuses and mastoids are clear. MMODAL Vidal Ellis MD - 03/17/2023 Interpreted By: Vidal Ellis, STUDY: CT HEAD WO IV CONTRAST; 03/17/2023 12:42 pm INDICATION: Signs/Symptoms:syncope . COMPARISON: None. ACCESSION NUMBER(S): [id number] ORDERING CLINICIAN: AKASH COOK TECHNIQUE: Noncontrast axial CT scan of head was performed. Angled reformats in brain and bone windows were generated. The images were reviewed in bone, brain, blood and soft tissue windows. FINDINGS: CSF Spaces: The ventricles, sulci and basal cisterns are within normal limits. There is no extraaxial fluid collection. Parenchyma: The sterling-white differentiation is intact. There is no mass effect or midline shift. There is no intracranial hemorrhage. Calvarium: The calvarium is unremarkable. Paranasal sinuses and mastoids: Visualized paranasal sinuses and mastoids are clear. IMPRESSION: No evidence of acute cortical infarct or intracranial hemorrhage. No evidence of intracranial hemorrhage or displaced skull fracture. MACRO: None Signed by: Vidal Ellis 03/17/2023 1:10 PM Dictation workstation: [id number] [facility] Work Phone: CT Head WO contrastOrdered B y: Vidal Ellis on 03-17-2023 [facility] Work Phone: Coagulation surface inducedo n 03-17-2023 aPTT Coag (PPP) [Time] 31 s Normal 27-[address] [facility] Comment on above: Order Comment: The A PTT is no longer used for monitoring Unfractionated Heparin Therapy. For monitoring Heparin Therapy, use the Heparin Assay. Performed By: #### 1 4979-9 #### BENJA NEAL ([id number]) [facility] ([facility]) [address] [place], [place] [id number] Coagulation tissue factor in ducedon 03-17-2023 PT Coag (PPP) [Time] 14.5 s High 9.8-12.8 [facility] Comment on above: Performed By: #### 5 902-2 #### BENJA NEAL ([id number]) [facility] ([facility]) [facility] [place] [address] Comprehensive metabolic 2000 panelon 03-17-2023 Albumin BCP dye [Mass/Vol] 3.9 g/dL 3.4 - 5.0 g/dL [facility] ALP [Catalytic activity/Vol] 71 U/L 33 - 110 U/L [facility] ALT With P-5'-P [Catalytic activity/Vol] 9 U/L 7 - 45 U/L [facility] Comment on above: Patients treated wit h Sulfasalazine may generate falsely decreased results for ALT. Anion gap [Moles/Vol] 11 mmol/L 10 - 2 0 mmol/L [facility] AST With P-5'-P [Catalytic activity/Vol] 17 U/L 9 - 39 U/L [facility] Bilirubin [Mass/Vol] 1.0 mg/dL 0.0 - 1 .2 mg/dL [facility] Calcium [Mass/Vol] 8.5 mg/dL Low 8.6 - 10. 3 mg/dL [facility] Chloride [Moles/Vol] 104 mmol/L 98 - 10 7 mmol/L [facility] CO2 [Moles/Vol] 24 mmol/L 21 - 32 mmol/L [facility] Creatinine [Mass/Vol] 1.01 mg/dL 0.50 - 1.05 mg/dL [facility] GFR/1.73 sq M.predicted MDRD (S/P/Bld) [Vol rate/Area] 69 mL/min/{1.73_m2} - PINF [facility] Comment on above: Calculations of magda mated GFR are performed using the 2020 CKD-EPI Study Refit equation without the race variable for the IDMS-Traceable creatinine methods. https://jasn.asnjournals.org/content//ASN.414843 1982 Glucose [Mass/Vol] 132 mg/dL High 74 - 99 mg/dL [facility] Interpretation and review of laboratory results Abnormal [facility] Potassium [Moles/Vol] 3.2 mmol/L Low 3.5 - 5.3 mmol/L [facility] Protein [Mass/Vol] 6.2 g/dL Low 6.4 - 8.2 g/dL [facility] Sodium [Moles/Vol] 136 mmol/L 136 - 145 mmol/L [facility] Urea nitrogen [Mass/Vol] 8 mg/dL 6 - 23 mg/dL [facility] Albumin BCP dye [Mass/Vol] 3.9 g/dL Normal 3.4-5.[address] [facility] Comment on above: Performed By: #### 2 4323-8 #### BENJA NEAL ([id number]) [facility] ([facility]) [address] [place] [address] 36038 ALP [Catalytic activity/Vol] 71 U/L Normal 33-[address] [facility] Comment on above: Performed By: #### 2 4323-8 #### BENJA NEAL ([id number]) [facility] ([facility]) [facility] [place] [address] ALT With P-5'-P [Catalytic activity/Vol] 9 U/L Normal 7-[address] [facility] Comment on above: Result Comment: Mae ents treated with Sulfasalazine may generate falsely decreased results for ALT. Performed By: #### 2 4323-8 #### BENJA NEAL ([id number]) [facility] ([facility]) [facility] [place] [address] Anion gap [Moles/Vol] 11 mmol/L Normal 10-20 [facility] Comment on above: Performed By: #### 2 4323-8 #### BENJA NEAL ([id number]) [facility] ([facility]) [address] [place] [address] 44350 AST With P-5'-P [Catalytic activity/Vol] 17 U/L Normal 9-[address] [facility] Comment on above: Performed By: #### 2 4323-8 #### BENJA NEAL ([id number]) [facility] ([facility]) [address] [place] [address] 31825 Bilirubin [Mass/Vol] 1.0 mg/dL Normal 0.0-1.2 [facility] Comment on above: Performed By: #### 2 4323-8 #### BENJA NEAL ([id number]) [facility] ([facility]) [address] [place] [address] 40925 Calcium [Mass/Vol] 8.5 mg/dL Low 8.6-10.3 [facility] Comment on above: Performed By: #### 2 4323-8 #### BENJA NEAL ([id number]) [facility] ([facility]) [address] [place] [address] 56467 Chloride [Moles/Vol] 104 mmol/L Normal 98-107 [facility] Comment on above: Performed By: #### 2 4323-8 #### BENJA NEAL ([id number]) [facility] ([facility]) [address] [place] [address] 72704 CO2 [Moles/Vol] 24 mmol/L Normal 21-32 [facility] Comment on above: Performed By: #### 2 4323-8 #### BENJA NEAL ([id number]) [facility] ([facility]) [address] [place] [address] 69665 Creatinine [Mass/Vol] 1.01 mg/dL Normal 0.50-1.05 [facility] Comment on above: Performed By: #### 2 4323-8 #### BENJA NEAL ([id number]) [facility] ([facility]) [address] [place] [address] 30561 GFR/1.73 sq M.predicted MDRD (S/P/Bld) [Vol rate/Area] 69 mL/min/1.73m*2 Normal >[address] [facility] Comment on above: Result Comment: Calc ulations of estimated GFR are performed using the 2020 CKD-EPI Study Refit equation without the race variable for the IDMS-Traceable creatinine methods. https://jasn.asnjournals.org/content/early//ASN.948807 5659 Performed By: #### 2 4323-8 #### BENJA NEAL ([id number]) [facility] ([facility]) [address] [place] [address] 12545 Glucose [Mass/Vol] 132 mg/dL High 74-99 [facility] Comment on above: Performed By: #### 2 4323-8 #### BENJA NEAL ([id number]) [facility] ([facility]) [address] [place] [address] 90923 Potassium [Moles/Vol] 3.2 mmol/L Low 3.5-5.3 [facility] Comment on above: Performed By: #### 2 4323-8 #### BENJA NEAL ([id number]) [facility] ([facility]) [address] [place] [address] 54972 Protein [Mass/Vol] 6.2 g/dL Low 6.4-8.2 [facility] Comment on above: Performed By: #### 2 4323-8 #### BENJA NEAL ([id number]) [facility] ([facility]) [address] [place] [address] 15844 Sodium [Moles/Vol] 136 mmol/L Normal 136-145 [facility] Comment on above: Performed By: #### 2 4323-8 #### BENJA NEAL ([id number]) [facility] ([facility]) [address] [place] [address] 34494 Urea nitrogen [Mass/Vol] 8 mg/dL Normal 6-[address] [facility] Comment on above: Performed By: #### 2 4323-8 #### BENJA NEAL ([id number]) [facility] ([facility]) [address] [place] [address] 41518 D-Dimer, Quantitative Non VT Mu 03-17-2023 Fibrin D-dimer FEU (PPP) [Mass/Vol] 470 NINF [facility] Extra Urine Fajardo Tubeon 12-0 Extra Tube Hold for add-ons. [facility] Comment on above: Auto resulted. [facility] Fibrin D-dimer FEUon 023 Fibrin D-dimer FEU (PPP) [Mass/Vol] 470 ng/mL FEU Normal <=[address] [facility] Comment on above: Order Comment: The D -Dimer assay is reported in ng/mL Fibrinogen Equivalent Units (FEU). The results of this assay should NOT be used for the exclusion of Deep Vein Thrombosis and/or Pulmonary Embolism. Performed By: #### 4 8065-7 #### BENJA NEAL ([id number]) [facility] ([facility]) [address] [place] [address] 66208 Fibrin D-dimer FEU (PPP) [Ma ss/Vol]on 03-17-2023 The D-Dimer assay is reported in ng/mL Fibrinogen Equivalent Units (FEU). The results of this assay should NOT be used for the exclusion of Deep Vein Thrombosis and/or Pulmonary Embolism. [facility] MR ANGIO HEAD WO IV CONTRAST on 03-17-2023 MR ANGIO HEAD WO IV CONTRAST Interpreted By: Lida Wallace, STUDY: MR BRAIN WO IV CONTRAST; MR ANGIO NECK WO IV CONTRAST; MR ANGIO HEAD WO IV CONTRAST; 03/17/2023 4:01 pm INDICATION: Signs/Symptoms:syncope ; Signs/Symptoms:syncope .. COMPARISON: CT angiogram from 01/12/2020 ACCESSION NUMBER(S): [id number]; [id number]; [id number] ORDERING CLINICIAN: AKASH COOK TECHNIQUE: Axial T2, FLAIR, DWI, gradient echo T2 and sagittal and coronal T1 weighted images of brain were acquired. [id number]-[id number]-rwkudi MRA of head and neck was performed and images were reformatted in maximum intensity projections. FINDINGS: CSF Spaces: The ventricles, sulci and basal cisterns are within normal limits. Parenchyma: There is no diffusion restriction abnormality to suggest acute infarct. There are minimal areas of T2 and FLAIR hyperintense signal within bilateral periventricular and subcortical white matter, most prominently within the right periatrial region. These are nonspecific. There is no mass effect or midline shift. Paranasal Sinuses and Mastoids: Visualized paranasal sinuses and mastoid air cells are unremarkable. Zhfx-ot-zkncxi MRA head demonstrates subtle areas of segmental narrowing within bilateral posterior cerebral arteries, predominantly the right P2 segment. Additional areas of minimal luminal attenuation are noted within bilateral M1 and M2 segments as well as A2 segments. While some of these findings could be artifactual, underlying segmental areas of luminal narrowing secondary to vasculitis or other abnormality can not be excluded. Mild luminal irregularity of the basilar artery and bilateral carotid siphons is likely artifactual secondary to flow artifact. There is no evidence of major vessel cut off or intracranial aneurysm. MRA neck demonstrates expected flow signal within bilateral internal carotid arteries, carotid bifurcations and common carotid arteries. Expected flow signal is noted within bilateral cervical vertebral arteries. IMPRESSION: No evidence of acute infarct, intracranial mass effect or midline shift. Minimal nonspecific white matter changes within bilateral cerebral hemispheres. MRA head demonstrates subtle areas of segmental irregularity and narrowing involving the anterior and posterior circulation vessels as detailed. While these findings could be artifactual, underlying segmental areas of narrowing secondary to vasculitis or other abnormality can not be excluded. Further assessment with a CT angiogram of head may be considered if clinically warranted. Prior CT angiogram from 01/28/2020 demonstrated segmental right M1 narrowing which is again seen on current exam. MRA neck demonstrates no evidence of hemodynamically significant stenosis. Signed by: Lida Wallace 03/17/2023 4:10 PM Dictation workstation: [id number] [facility] Comment on above: Order Comment: Speci al Instructions: stroke protocol MR ANGIO NECK WO IV CONTRAST on 03-17-2023 MR ANGIO NECK WO IV CONTRAST Interpreted By: Lida Wallace, STUDY: MR BRAIN WO IV CONTRAST; MR ANGIO NECK WO IV CONTRAST; MR ANGIO HEAD WO IV CONTRAST; 03/17/2023 4:01 pm INDICATION: Signs/Symptoms:syncope ; Signs/Symptoms:syncope .. COMPARISON: CT angiogram from 01/12/2020 ACCESSION NUMBER(S): [id number]; [id number]; [id number] ORDERING CLINICIAN: AKASH COOK TECHNIQUE: Axial T2, FLAIR, DWI, gradient echo T2 and sagittal and coronal T1 weighted images of brain were acquired. Qobv-vf-qbyekk MRA of head and neck was performed and images were reformatted in maximum intensity projections. FINDINGS: CSF Spaces: The ventricles, sulci and basal cisterns are within normal limits. Parenchyma: There is no diffusion restriction abnormality to suggest acute infarct. There are minimal areas of T2 and FLAIR hyperintense signal within bilateral periventricular and subcortical white matter, most prominently within the right periatrial region. These are nonspecific. There is no mass effect or midline shift. Paranasal Sinuses and Mastoids: Visualized paranasal sinuses and mastoid air cells are unremarkable. Lbxp-vz-ghagyt MRA head demonstrates subtle areas of segmental narrowing within bilateral posterior cerebral arteries, predominantly the right P2 segment. Additional areas of minimal luminal attenuation are noted within bilateral M1 and M2 segments as well as A2 segments. While some of these findings could be artifactual, underlying segmental areas of luminal narrowing secondary to vasculitis or other abnormality can not be excluded. Mild luminal irregularity of the basilar artery and bilateral carotid siphons is likely artifactual secondary to flow artifact. There is no evidence of major vessel cut off or intracranial aneurysm. MRA neck demonstrates expected flow signal within bilateral internal carotid arteries, carotid bifurcations and common carotid arteries. Expected flow signal is noted within bilateral cervical vertebral arteries. IMPRESSION: No evidence of acute infarct, intracranial mass effect or midline shift. Minimal nonspecific white matter changes within bilateral cerebral hemispheres. MRA head demonstrates subtle areas of segmental irregularity and narrowing involving the anterior and posterior circulation vessels as detailed. While these findings could be artifactual, underlying segmental areas of narrowing secondary to vasculitis or other abnormality can not be excluded. Further assessment with a CT angiogram of head may be considered if clinically warranted. Prior CT angiogram from 01/28/2020 demonstrated segmental right M1 narrowing which is again seen on current exam. MRA neck demonstrates no evidence of hemodynamically significant stenosis. Signed by: Lida Wallace 03/17/2023 4:10 PM Dictation workstation: [id number] [facility] Comment on above: Order Comment: Lemuel paitno Instructions: stroke protocol MR BRAIN WO IV CONTRASTon MR BRAIN WO IV CONTRAST Interpreted By: Lida Wallace, STUDY: MR BRAIN WO IV CONTRAST; MR ANGIO NECK WO IV CONTRAST; MR ANGIO HEAD WO IV CONTRAST; 03/17/2023 4:01 pm INDICATION: Signs/Symptoms:syncope ; Signs/Symptoms:syncope .. COMPARISON: CT angiogram from 01/12/2020 ACCESSION NUMBER(S): [id number]; [id number]; [id number] ORDERING CLINICIAN: AKASH COOK TECHNIQUE: Axial T2, FLAIR, DWI, gradient echo T2 and sagittal and coronal T1 weighted images of brain were acquired. Ozhw-ew-svuafx MRA of head and neck was performed and images were reformatted in maximum intensity projections. FINDINGS: CSF Spaces: The ventricles, sulci and basal cisterns are within normal limits. Parenchyma: There is no diffusion restriction abnormality to suggest acute infarct. There are minimal areas of T2 and FLAIR hyperintense signal within bilateral periventricular and subcortical white matter, most prominently within the right periatrial region. These are nonspecific. There is no mass effect or midline shift. Paranasal Sinuses and Mastoids: Visualized paranasal sinuses and mastoid air cells are unremarkable. Vheo-uc-idylsn MRA head demonstrates subtle areas of segmental narrowing within bilateral posterior cerebral arteries, predominantly the right P2 segment. Additional areas of minimal luminal attenuation are noted within bilateral M1 and M2 segments as well as A2 segments. While some of these findings could be artifactual, underlying segmental areas of luminal narrowing secondary to vasculitis or other abnormality can not be excluded. Mild luminal irregularity of the basilar artery and bilateral carotid siphons is likely artifactual secondary to flow artifact. There is no evidence of major vessel cut off or intracranial aneurysm. MRA neck demonstrates expected flow signal within bilateral internal carotid arteries, carotid bifurcations and common carotid arteries. Expected flow signal is noted within bilateral cervical vertebral arteries. IMPRESSION: No evidence of acute infarct, intracranial mass effect or midline shift. Minimal nonspecific white matter changes within bilateral cerebral hemispheres. MRA head demonstrates subtle areas of segmental irregularity and narrowing involving the anterior and posterior circulation vessels as detailed. While these findings could be artifactual, underlying segmental areas of narrowing secondary to vasculitis or other abnormality can not be excluded. Further assessment with a CT angiogram of head may be considered if clinically warranted. Prior CT angiogram from 01/28/2020 demonstrated segmental right M1 narrowing which is again seen on current exam. MRA neck demonstrates no evidence of hemodynamically significant stenosis. Signed by: Lida Wallace 03/17/2023 4:10 PM Dictation workstation: [id number] [facility] Comment on above: Order Comment: Speci al Instructions: BAT protocol Magnesiumon 03-17-2023 Magnesium [Mass/Vol] 1.83 mg/dL 1.60 - 2.40 mg/dL [facility] Magnesium [Mass/Vol] 1.83 mg/dL Normal 1.60-2.40 [facility] Comment on above: Performed By: #### 1 9123-9 #### YOUSIF VAL ([id number]) [facility] ([facility]) [address] [place] [address] Magnesium [Mass/Vol]on 03-17 Interpretation and review of laboratory results Normal [facility] No Panel Informationon 03-17 No evidence of acute infarct, intracranial mass effect or midline shift. Minimal nonspecific white matter changes within bilateral cerebral hemispheres. MRA head demonstrates subtle areas of segmental irregularity and narrowing involving the anterior and posterior circulation vessels as detailed. While these findings could be artifactual, underlying segmental areas of narrowing secondary to vasculitis or other abnormality can not be excluded. Further assessment with a CT angiogram of head may be considered if clinically warranted. Prior CT angiogram from 01/28/2020 demonstrated segmental right M1 narrowing which is again seen on current exam. MRA neck demonstrates no evidence of hemodynamically significant stenosis. Signed by: Lida Wallace 03/17/2023 4:10 PM Dictation workstation: [id number] Interpreted By: Lida Gonsales, STUDY: MR BRAIN WO IV CONTRAST; MR ANGIO NECK WO IV CONTRAST; MR ANGIO HEAD WO IV CONTRAST; 03/17/2023 4:01 pm INDICATION: Signs/Symptoms:syncope ; Signs/Symptoms:syncope .. COMPARISON: CT angiogram from 01/12/2020 ACCESSION NUMBER(S): [id number]; [id number]; [id number] ORDERING CLINICIAN: AKASH COOK TECHNIQUE: Axial T2, FLAIR, DWI, gradient echo T2 and sagittal and coronal T1 weighted images of brain were acquired. [id number]-kh-ktwckc MRA of head and neck was performed and images were reformatted in maximum intensity projections. FINDINGS: CSF Spaces: The ventricles, sulci and basal cisterns are within normal limits. Parenchyma: There is no diffusion restriction abnormality to suggest acute infarct. There are minimal areas of T2 and FLAIR hyperintense signal within bilateral periventricular and subcortical white matter, most prominently within the right periatrial region. These are nonspecific. There is no mass effect or midline shift. Paranasal Sinuses and Mastoids: Visualized paranasal sinuses and mastoid air cells are unremarkable. Nbtq-hr-crkqjt MRA head demonstrates subtle areas of segmental narrowing within bilateral posterior cerebral arteries, predominantly the right P2 segment. Additional areas of minimal luminal attenuation are noted within bilateral M1 and M2 segments as well as A2 segments. While some of these findings could be artifactual, underlying segmental areas of luminal narrowing secondary to vasculitis or other abnormality can not be excluded. Mild luminal irregularity of the basilar artery and bilateral carotid siphons is likely artifactual secondary to flow artifact. There is no evidence of major vessel cut off or intracranial aneurysm. MRA neck demonstrates expected flow signal within bilateral internal carotid arteries, carotid bifurcations and common carotid arteries. Expected flow signal is noted within bilateral cervical vertebral arteries. [facility]AL Lida Wallace MD - 03/17/2023 Interpreted By: Lida Wallace, STUDY: MR BRAIN WO IV CONTRAST; MR ANGIO NECK WO IV CONTRAST; MR ANGIO HEAD WO IV CONTRAST; 03/17/2023 4:01 pm INDICATION: Signs/Symptoms:syncope ; Signs/Symptoms:syncope .. COMPARISON: CT angiogram from 01/12/2020 ACCESSION NUMBER(S): [id number]; [id number]; [id number] ORDERING CLINICIAN: AKASH COOK TECHNIQUE: Axial T2, FLAIR, DWI, gradient echo T2 and sagittal and coronal T1 weighted images of brain were acquired. Sykz-xf-edtlzd MRA of head and neck was performed and images were reformatted in maximum intensity projections. FINDINGS: CSF Spaces: The ventricles, sulci and basal cisterns are within normal limits. Parenchyma: There is no diffusion restriction abnormality to suggest acute infarct. There are minimal areas of T2 and FLAIR hyperintense signal within bilateral periventricular and subcortical white matter, most prominently within the right periatrial region. These are nonspecific. There is no mass effect or midline shift. Paranasal Sinuses and Mastoids: Visualized paranasal sinuses and mastoid air cells are unremarkable. Jvwh-tf-ozenfk MRA head demonstrates subtle areas of segmental narrowing within bilateral posterior cerebral arteries, predominantly the right P2 segment. Additional areas of minimal luminal attenuation are noted within bilateral M1 and M2 segments as well as A2 segments. While some of these findings could be artifactual, underlying segmental areas of luminal narrowing secondary to vasculitis or other abnormality can not be excluded. Mild luminal irregularity of the basilar artery and bilateral carotid siphons is likely artifactual secondary to flow artifact. There is no evidence of major vessel cut off or intracranial aneurysm. MRA neck demonstrates expected flow signal within bilateral internal carotid arteries, carotid bifurcations and common carotid arteries. Expected flow signal is noted within bilateral cervical vertebral arteries. IMPRESSION: No evidence of acute infarct, intracranial mass effect or midline shift. Minimal nonspecific white matter changes within bilateral cerebral hemispheres. MRA head demonstrates subtle areas of segmental irregularity and narrowing involving the anterior and posterior circulation vessels as detailed. While these findings could be artifactual, underlying segmental areas of narrowing secondary to vasculitis or other abnormality can not be excluded. Further assessment with a CT angiogram of head may be considered if clinically warranted. Prior CT angiogram from 01/28/2020 demonstrated segmental right M1 narrowing which is again seen on current exam. MRA neck demonstrates no evidence of hemodynamically significant stenosis. Signed by: Lida Wallace 03/17/2023 4:10 PM Dictation workstation: [id number] [facility] Work Phone: Radiology Study observation (narrative) [facility] Work Phone: Radiology Study observation (narrative) [facility] Work Phone: [facility] Interpretation and review of laboratory results Normal [facility] No Panel InformationOrdered By: Lida Wallace on 03-17-2023 [facility] Work Phone: PT Coag (PPP) [Time]on 03-17 INR Coag (PPP) [Relative time] 1.3 {INR} High 0.9 - 1.1 [facility] Interpretation and review of laboratory results Abnormal [facility] INR Coag (PPP) [Relative time] 1.3 High 0.9-1.[address] [facility] Comment on above: Performed By: #### 5 902-2 #### YOUSIF VAL ([id number]) [facility] ([facility]) [address] [place] [address] Protime-INRon 03-17-2023 PT Coag (PPP) [Time] 14.[address] [facility] Tropinin I.cardiac panel Hig h sensitivity methodon 03-17-2023 Interpretation and review of laboratory results Normal [facility] Less than 99th percentile of normal range cutoff- Female and children under 18 years old <14 ng/L; Male <21 ng/L: Negative Repeat testing should be performed if clinically indicated. Female and children under 18 years old 14-50 ng/L; Male 21-50 ng/L: Consistent with possible cardiac damage and possible increased clinical risk. Serial measurements may help to assess extent of myocardial damage. >50 ng/L: Consistent with cardiac damage, increased clinical risk and myocardial infarction. Serial measurements may help assess extent of myocardial damage. NOTE: Children less than 1 year old may have higher baseline troponin levels and results should be interpreted in conjunction with the overall clinical context. NOTE: Troponin I testing is performed using a different testing methodology at [facility] than at other [facility]. Direct result comparisons should only be made within the same method. [facility] Troponin I, High Sensitivity on 03-17-2023 Tropinin I.cardiac panel High sensitivity method 9 ng/L 0 - 13 ng/L [facility] Troponin I.cardiac panelon 1 05-18-2022 Tropinin I.cardiac panel High sensitivity method 9 ng/L Normal 0-[address] [facility] Comment on above: Order Comment: Less than 99th percentile of normal range cutoff- Female and children under 18 years old <14 ng/L; Male <21 ng/L: Negative Repeat testing should be performed if clinically indicated. Female and children under 18 years old 14-50 ng/L; Male 21-50 ng/L: Consistent with possible cardiac damage and possible increased clinical risk. Serial measurements may help to assess extent of myocardial damage. >50 ng/L: Consistent with cardiac damage, increased clinical risk and myocardial infarction. Serial measurements may help assess extent of myocardial damage. NOTE: Children less than 1 year old may have higher baseline troponin levels and results should be interpreted in conjunction with the overall clinical context. NOTE: Troponin I testing is performed using a different testing methodology at [facility] than at other [facility]. Direct result comparisons should only be made within the same method. Performed By: #### 8 9577-1 #### YOUSIF VAL ([id number]) [facility] ([facility]) [address] [place] [address] Urinalysis complete W Reflex Culture panel (U)on 03-17-2023 Appearance (U) Hazy Abnormal Clear [facility] Bilirubin (U) [Mass/Vol] Negative NEGATIVE [facility] Color (U) Yellow Straw, Yellow [facility] Glucose Auto test strip (U) [Mass/Vol] Negative NEGATIVE mg/dL [facility] Interpretation and review of laboratory results Abnormal [facility] Ketones (U) [Mass/Vol] Negative NEGATIVE mg/dL [facility] Leukocyte esterase Auto test strip Ql (U) Negative NEGATIVE [facility] Nitrite Auto test strip Ql (U) Negative NEGATIVE [facility] pH (U) 5.0 [pH] 5.0, 5.5, 6.0, 6.5, 7.0, 7.5, 8.0 [facility] Protein (U) [Mass/Vol] 30 (1+) Abnormal NEGATIVE mg/dL [facility] RBC (U) [#/Vol] SMALL (1+) Abnormal NEGATIVE [facility] Specific gravity (U) [Rel density] 1.025 1.005 - 1.035 [facility] Urobilinogen (U) [Mass/Vol] mg/dL NINF - 2.0 mg/dL [facility] Bacteria Auto (Urine sed) [#/Area] 1+ Abnormal NONE SEEN /HPF [facility] Epithelial cells.squamous Auto (Urine sed) [#/Area] 10-25 (FEW) Reference range not established. /HPF [facility] Granular casts Computer assisted (U) [#/Area] 2+ Abnormal NONE /LPF [facility] Hyaline casts Auto (Urine sed) [#/Area] OCCASIONAL Abnormal NONE /LPF [facility] Mucus Auto (Urine sed) [#/Area] 1+ Reference range not established. /LPF [facility] RBC Auto (Urine sed) [#/Area] >20 Abnormal NONE, 1-2, 3-5 /HPF [facility] WBC Auto (Urine sed) [#/Area] 1-5 1-5, NONE /HPF [facility] Appearance (U) Hazy Normal Clear [facility] Comment on above: Performed By: #### 5 8077-9 #### BENJA NEAL ([id number]) [facility] ([facility]) [address] [place] [address] Bacteria Auto (Urine sed) [#/Area] 1+ /HPF Abnormal NONE SEEN [facility] Comment on above: Performed By: #### 5 8077-9 #### BENJA NEAL ([id number]) [facility] ([facility]) [address] [place] [address] Bilirubin (U) [Mass/Vol] Negative Normal NEGATIVE [facility] Comment on above: Performed By: #### 5 8077-9 #### BENJA NEAL ([id number]) [facility] ([facility]) [address] [place], [place] [id number] Color (U) Yellow Normal Straw, Yellow [facility] Comment on above: Performed By: #### 5 8077-9 #### BENJA NEAL ([id number]) [facility] ([facility]) [address] [place] [address] Epithelial cells.squamous Auto (Urine sed) [#/Area] 10-25 (FEW) Normal Reference range not established. [facility] Comment on above: Performed By: #### 5 8077-9 #### BENJA NEAL ([id number]) [facility] ([facility]) [address] [place] [address] Glucose Auto test strip (U) [Mass/Vol] Negative Normal NEGATIVE [facility] Comment on above: Performed By: #### 5 8077-9 #### BENJA NEAL ([id number]) [facility] ([facility]) [address] [place] [address] Granular casts Computer assisted (U) [#/Area] 2+ /LPF Abnormal NONE [facility] Comment on above: Performed By: #### 5 8077-9 #### BENJA NEAL ([id number]) [facility] ([facility]) [address] [place] [address] Hyaline casts Auto (Urine sed) [#/Area] OCCASIONAL Abnormal NONE [facility] Comment on above: Performed By: #### 5 8077-9 #### BENJA NEAL ([id number]) [facility] ([facility]) [address] [place] [address] Ketones (U) [Mass/Vol] Negative Normal NEGATIVE [facility] Comment on above: Performed By: #### 5 8077-9 #### BENJA NEAL ([id number]) [facility] ([facility]) [address] [place] [address] Leukocyte esterase Auto test strip Ql (U) Negative Normal NEGATIVE [facility] Comment on above: Performed By: #### 5 8077-9 #### BENJA NEAL ([id number]) [facility] ([facility]) [address] [place] [address] Mucus Auto (Urine sed) [#/Area] 1+ /LPF Normal Reference range not established. [facility] Comment on above: Performed By: #### 5 8077-9 #### BENJA NEAL ([id number]) [facility] ([facility]) [address] [place] [address] Nitrite Auto test strip Ql (U) Negative Normal NEGATIVE [facility] Comment on above: Performed By: #### 5 8077-9 #### BENJA NEAL ([id number]) [facility] ([facility]) [address] [place] [address] pH (U) 5.0 [pH] Normal 5.0, 5.5, 6.0, 6.5, 7.0, 7.5, 8.[address] [facility] Comment on above: Performed By: #### 5 8077-9 #### BENJA NEAL ([id number]) [facility] ([facility]) [address] [place] [address] Protein (U) [Mass/Vol] 30 (1+) Normal NEGATIVE [facility] Comment on above: Performed By: #### 5 8077-9 #### BENJA NEAL ([id number]) [facility] [facility] ([facility]) [address] [place] [address] RBC (U) [#/Vol] SMALL (1+) Abnormal NEGATIVE [facility] Comment on above: Performed By: #### 5 [id number] #### BENJA NEAL ([id number]) [facility] ([facility]) [address] [place] [address] RBC Auto (Urine sed) [#/Area] >20 Abnormal NONE, 1-2, 3-[address] [facility] Comment on above: Performed By: #### 5 [id number] #### BENJA NEAL ([id number]) [facility] ([facility]) [address] [place] [address] Specific gravity (U) [Rel density] 1.025 Normal 1.005-1.[address] [facility] Comment on above: Performed By: #### 5 [id number] #### BENJA NEAL ([id number]) [facility] ([facility]) [address] [place] [address] Urobilinogen (U) [Mass/Vol] mg/dL Normal <2.[address] [facility] Comment on above: Performed By: #### 5 [id number] #### BENJA NEAL ([id number]) [facility] ([facility]) [address] [place] [id number] WBC Auto (Urine sed) [#/Area] 1-5 Normal 1-5, NONE [facility] Comment on above: Performed By: #### 5 [id number] #### BENJA NEAL ([id number]) [facility] ([facility]) [address] [place] [address] aPTTon 03-17-2023 aPTT Coag (PPP) [Time] 31 s [facility] aPTT Coag (PPP) [Time]on The APTT is no longe r used for monitoring Unfractionated Heparin Therapy. For monitoring Heparin Therapy, use the Heparin Assay. [facility] 36on 02-15-2023 36 S: the patient is calling the [facility] About vaginal bleeding B: This has been for 50 days. A: It is continuous bleeding with clots. She thought it was a sign of menopause so she ignored it. No abdominal pain. She denies dizziness or lightheadedness. No dyspnea. R: She has a new patient appointment made; insurance verified. Offered to move it up but she had Dr. Bond recommended and she prefers to wait to see her. Reason for Disposition Periods last > 7 days Protocols used: Vaginal Bleeding - [id number]-CT Normal [facility] - Chemistry and C hemistry - challengeon 03-25-2022 Albumin BCP dye [Mass/Vol] 4.4 g/dL 3.4 - 5.0 [employer] [facility] Work Phone: ALP [Catalytic activity/Vol] 62 U/L 33 - 110 [facility] Work Phone: ALT With P-5'-P [Catalytic activity/Vol] 11 U/L 7 - 45 [employer] [facility] Work Phone: Comment on above: Patients treated wit h Sulfasalazine may generate falsely decreased results for ALT. Anion gap [Moles/Vol] 19 mmol/L 10 - 20 [employer] [facility] Work Phone: AST With P-5'-P [Catalytic activity/Vol] 16 U/L 9 - 39 [employer] [facility] Work Phone: Bilirubin [Mass/Vol] 0.8 mg/dL 0.0 - 1.2 [employer] [facility] Work Phone: Calcium [Mass/Vol] 9.5 mg/dL 8.6 - 10.3 [facility] [employer] [facility] Work Phone: Chloride [Moles/Vol] 98 mmol/L 98 - 107 -[facility] Work Phone: CO2 [Moles/Vol] 26 mmol/L 21 - 32 -[facility] Work Phone: Creatinine [Mass/Vol] 1.04 mg/dL See Below [facility] Work Phone: Comment on above: Reference Range: 0.5 0 - 1.05 Glucose [Mass/Vol] 80 mg/dL 74 - 99 -[facility] Work Phone: Potassium [Moles/Vol] 3.4 mmol/L below low threshold 3.5 - 5.3 [facility] Work Phone: Protein [Mass/Vol] 6.9 g/dL 6.4 - 8.2 -[facility] Work Phone: Sodium [Moles/Vol] 140 mmol/L 136 - 145 -[facility] Work Phone: Urea nitrogen [Mass/Vol] 12 mg/dL 6 - 23 -[facility] Work Phone: Laboratory - Hematology and Cell countson 03-25-2022 Erythrocyte distribution width (RBC) [Ratio] 12.3 % See Below [facility] Work Phone: Comment on above: Reference Range: 11. 5 - 14.5 Hematocrit (Bld) [Volume fraction] 44.0 % See Below [facility] Work Phone: Comment on above: Reference Range: 36. 0 - 46.0 Hemoglobin (Bld) [Mass/Vol] 14.8 g/dL See Below [facility] Work Phone: Comment on above: Reference Range: 12. 0 - 16.0 MCHC (RBC) [Mass/Vol] 33.6 g/dL See Below [facility] Work Phone: Comment on above: Reference Range: 32. 0 - 36.0 MCV (RBC) [Entitic vol] 92 fL 80 - 100 [employer] [facility] Work Phone: Platelets (Bld) [#/Vol] 237 10*3/uL 150 - 450 [facility] Work Phone: RBC (Bld) [#/Vol] 4.80 {x10E12/L} See Below [facility] [employer] [facility] Work Phone: Comment on above: Reference Range: 4.0 0 - 5.20 WBC (Bld) [#/Vol] 9.4 10*3/uL 4.4 - 11.3 [facility] Work Phone: Lipid Panelon 03-25-2022 Cholesterol [Mass/Vol] 205 mg/dL above high threshold 0 - 199 [facility] Work Phone: Comment on above: . AGE DESIRABLE BORD JOSEPH HIGH HIGH 0-19 Y 0 - 169 170 - 199 >/= 200 20-24 Y 0 - 189 190 - 224 >/= 225 >24 Y 0 - 199 200 - 239 >/= 240 All ranges are based on fasting samples. Specific therapeutic targets will vary based on patient-specific cardiac risk.. Pediatric guidelines reference:Pediatrics 2011, 128(S5). Adult guidelines reference: NCEP ATPIII Guidelines, JOHN 2001, 258:2486-97. Venipuncture immediately after or during the administration of Metamizole may lead to falsely low results. Testing should be performed immediately prior to Metamizole dosing. Cholesterol in HDL [Mass/Vol] 29.0 mg/dL Abnormal [employer] [facility] Work Phone: Comment on above: . AGE VERY LOW LOW N ORMAL HIGH 0-19 Y < 35 < 40 40-45 ---- 20- 24 Y ---- < 40 >45 ---- >24 Y ---- < 40 40-60 >60. Cholesterol in LDL [Mass/Vol] 135 mg/dL above high threshold 0 - 99 [employer] [facility] Work Phone: Comment on above: . NEAR BORD AGE YURI RABLE OPTIMAL HIGH HIGH VERY HIGH 0-19 Y 0 - 109 --- 110-129 >/= 130 ---- 20-24 Y 0 - 119 --- 120-159 >/= 160 ---- >24 Y 0 - 99 100-129 130-159 160-189 >/=190. Cholesterol non HDL [Mass/Vol] 176 mg/dL [employer] [facility] Work Phone: Comment on above: AGE DESIRABLE BORDER LINE HIGH HIGH VERY HIGH 0-19 Y 0 - 119 120 - 144 >/= 145 >/= 160 20-24 Y 0 - 149 150 - 189 >/= 190 ---- >24 Y 30 MG/DL ABOVE LDL CHOLESTEROL GOAL. Cholesterol.total/Cho lesterol in HDL [Mass ratio] 7.1 {ratio} Abnormal [employer] [facility] Work Phone: Comment on above: REF VALUESDESIRABLE < 3.4HIGH RISK > 5.0 Triglyceride [Mass/Vol] 205 mg/dL above high threshold 0 - 149 [employer] [facility] Work Phone: Comment on above: . AGE DESIRABLE BORD JOSEPH HIGH HIGH VERY HIGH 0 D-90 D 19 - 174 ---- ---- ----91 D- 9 Y 0 - 74 75 - 99 >/= 100 ---- 10-19 Y 0 - 89 90 - 129 >/= 130 ---- 20-24 Y 0 - 114 115 - 149 >/= 150 ---- >24 Y 0 - 149 150 - 199 200- 499 >/= 500. Venipuncture immediately after or during the administration of Metamizole may lead to falsely low results. Testing should be performed immediately prior to Metamizole dosing. Lipid Panel 41 mg/dL above high threshold 0 - 40 [employer] [facility] Work Phone: No Panel Informationon 03-25 67 {mL/min/1.73m2} >90 [employer] [facility] [employer] [facility] Work Phone: Comment on above: CALCULATIONS OF MAGDA MATED GFR ARE PERFORMED USING THE 2020 CKD-EPI STUDY REFIT EQUATION WITHOUT THE RACE VARIABLE FOR THE IDMS-TRACEABLE CREATININE METHODS.https://jasn.asnjournals.org/content/early// N.4042334351 Office Visit (Primary Care T xt/Forms)on 03-25-2022 Follow-up visit Diagnoses/Problems Assessed Anxiety (300.00) (F41.9) Hypertension (401.9) (I10) Hyperlipemia, mixed (272.2) (E78.2) Orders Anxiety Renew: LORazepam 0.5 MG Oral Tablet; TAKE 1 TABLET 3 TIMES DAILY NEEDED Anxiety, Hyperlipemia, mixed, Hypertension Complete Blood Count; Status:Active; Requested for:[id number]; Comprehensive Metabolic Panel; Status:Active; Requested for:[id number]; Lipid Panel; Status:Active; Requested for:[id number]; TSH - Thyroid Stimulating Hormone, Serum; Status:Active; Requested for:[id number]; Encounter for screening mammogram for malignant neoplasm of breast Mamm - Screening Mammogram w/ Tomosynthesis; Status:Hold For - Scheduling; Requested for:[id number]; Radiologist to Determine Optimal Study : Y What are the patient's signs and symptoms ? : Annual Screening Mammogram Hyperlipemia, mixed Renew: Atorvastatin Calcium 40 MG Oral Tablet; TAKE 1 TABLET DAILY Hypertension Renew: hydroCHLOROthiazide 12.5 MG Oral Tablet; TAKE 1 TABLET DAILY IN THE MORNING Renew: Lisinopril 20 MG Oral Tablet; TAKE 1 TABLET DAILY Chief Complaint ANGER WITH ALT TEARFUL EPISODES. STATES SHE GOT THIS WAY LAST YEAR History of Present Illness With her mom passing away a few years ago she has had a tough time around the holidays. Last year was one of the worst and the Ativan helped well. Also tried Effexor and it seemed to help a little bit with her mood but it caused a lot of stomach issues and she stopped. The rest of the year she does not really have any troubles with anxiety or depression. Since the Ativan worked well for her as needed last year we will go ahead and refill that medication. No other medicines at this time. I have personally reviewed the OARRS report for this patient. This report is viewed or scanned into the electronic medical record. I have considered the risks of abuse, dependence, addiction and diversion. I believe that it is clinically appropriate for this patient to be prescribed this medication. Hypertension - Takes medication without side effects. No CP/SOB/Palpitations. Follows a no added salt diet. Counseled diet, activity and weight loss. Hyperlipidemia - Takes and tolerates medications without fatigue and myalgias. Labs today Review of Systems Constitutional: No weakness, + fatigue. Eye: No blurring, No visual disturbances. Respiratory: No shortness of breath, No cough. Cardiovascular: No chest pain, No palpitations. Gastrointestinal: No nausea, No diarrhea, No constipation. Musculoskeletal: No joint pain, No muscle pain. Integumentary: No rash, No breakdown. Neurologic: Alert and oriented X4, No headache. Psychiatric: + irritability, No sleeping problems. Active Problems Problems Acute URI (465.9) (J06.9) Anxiety (300.00) (F41.9) Bilateral otitis media (382.9) (H66.93) Bronchitis (490) (J40) Cramps, muscle, general (729.82) (R25.2) Encounter for tobacco use cessation counseling (V65.42) (Z71.6) Fatigue (780.79) (R53.83) Hyperlipemia, mixed (272.2) (E78.2) Hypertension (401.9) (I10) Hyperthyroidism (242.90) (E05.90) Migraines (346.90) (G43.909) Muscle weakness (generalized) (728.87) (M62.81) Obesity (278.00) (E66.9) Screening for diabetes mellitus (V77.1) (Z13.1) Screening for lipid disorders (V77.91) (Z13.220) Stroke with cerebral ischemia (434.91) (I63.9) Vitamin B12 deficiency (266.2) (E53.8) Past Medical History Problems History of mammogram (V15.89) (Z92.89) History of Normal vaginal delivery (650) (O80) History of Pap test, as part of routine gynecological examination (V76.2) (Z01.419) Surgical History Problems History of section History of Loop electrosurgical excision procedure History of Tonsillectomy with adenoidectomy Family History Mother Family history of hypertension (V17.49) (Z82.49) Family history of Primary malignant neoplasm of brain Family history of Primary malignant neoplasm of lung Father Family history of cardiac disorder (V17.49) (Z82.49) Family history of diabetes mellitus (V18.0) (Z83.3) Family history of myocardial infarction (V17.3) (Z82.49) Sister Family history of malignant neoplasm (V16.9) (Z80.9) Social History Problems Current smoker (305.1) (F17.200) Denies alcohol consumption (V49.89) (Z78.9) Does not use illicit drugs (V49.89) (Z78.9) No advance directives (V49.89) (Z78.9) Sexually active Current Meds Medication NameInstruction Aspirin 81 MG Oral Tablet Chewable Atorvastatin Calcium 40 MG Oral TabletTAKE 1 TABLET DAILY. hydroCHLOROthiazide 12.5 MG Oral TabletTAKE 1 TABLET DAILY IN THE MORNING. Lisinopril 20 MG Oral TabletTAKE 1 TABLET DAILY. Metoprolol Succinate ER 25 MG Oral Tablet Extended Release 24 Hourtake 1 tablet by mouth once daily Allergies Medication doxycycline erythromycin Percocet TABS Vitals Vital Signs Recorded: [id number] 11:04AM Heart Rate: 68 Systolic: 128 Diastolic: 72 Height: 5 ft 1 in Weight: 155 lb 9 (more content not included)... Normal [employer] TSH - Thyroid Stimulating Ho Diogo reynoldson 03-25-2022 TSH Qn 0.75 m[IU]/L See Below [employer] [facility] Work Phone: Comment on above: Reference Range: 0.4 4 - 3.98 TSH testing is performed using different testing methodology at [facility] than at other [facility] hospitals. Direct result comparisons should only be made within the same method. Tobacco Screening.on 022 Adult depression screening assessment Yes [employer] [facility] Work Phone: Adult depression screening assessment No [employer] [facility] Work Phone: Fall risk assessment a) No falls within the last year [employer] [facility] Work Phone: Tobacco use status [facility] a) Yes [employer] [facility] Work Phone: Tobacco Screening. Yes [employer] [facility] Work Phone: Office Visit (Primary Care T xt/Forms)on 05-17-2021 Follow-up visit Diagnoses/Problems Assessed Hypertension (401.9) (I10) Anxiety (300.00) (F41.9) Orders Anxiety Stop: LORazepam 0.5 MG Oral Tablet Hypertension Start: hydroCHLOROthiazide 12.5 MG Oral Tablet; TAKE 1 TABLET DAILY IN THE MORNING Basic Metabolic Panel; Status:Active; Requested for:[id number]; Patient Discussion/Summary Follow-up in 3 months with blood testing prior for hypertension, goal to be less than 140/90, start HCTZ in AM Provider Impressions Provider Impressions Free Text Note Form: Patient presents to the office today for 4-week recheck on anxiety and hypertension. Continues to smoke despite travel counselor, was counseled again on smoking cessation, blood pressure is marginal, add hydrochlorothiazide 12-1/2 mg once a day and will plan to recheck in 3 months with basic metabolic profile. Emotionally doing much better able to return to work follow-up in 3 months Chief Complaint 1 MO F/U History of Present Illness emotionally doing OK, back to work, sleeping OK at night, no issues with focus or concentration No headache, chest pain, shortness of breath, dizziness, lightheadedness, or edema HBP under 140/90 + tobacco use 1/2 ppd despite travel counselor Review of Systems Constitutional: NAD, no fevers, chills, sweats or fatigue Rep: no cough or shortness of breath Cardio: no chest pain, edema, or palpitations GI: no nausea, vomiting, diarrhea, constipation, or heartburn : normal urine flow and stream, no nocturia or dysuria MS: no joint pain or significant limits of function Skin: no visible rashes or suspicious lesions Neuro: alert and oriented X4, no numbness, tingling or issues with balance Psych: no anxiety or depression Active Problems Problems Acute URI (465.9) (J06.9) Anxiety (300.00) (F41.9) Bilateral otitis media (382.9) (H66.93) Bronchitis (490) (J40) Cramps, muscle, general (729.82) (R25.2) Encounter for tobacco use cessation counseling (V65.42) (Z71.6) Fatigue (780.79) (R53.83) Hyperlipemia, mixed (272.2) (E78.2) Hypertension (401.9) (I10) Hyperthyroidism (242.90) (E05.90) Migraines (346.90) (G43.909) Muscle weakness (generalized) (728.87) (M62.81) Obesity (278.00) (E66.9) Screening for diabetes mellitus (V77.1) (Z13.1) Screening for lipid disorders (V77.91) (Z13.220) Stroke with cerebral ischemia (434.91) (I63.9) Vitamin B12 deficiency (266.2) (E53.8) Past Medical History Problems History of mammogram (V15.89) (Z92.89) History of Normal vaginal delivery (650) (O80) History of Pap test, as part of routine gynecological examination (V76.2) (Z01.419) Surgical History Problems History of section History of Loop electrosurgical excision procedure History of Tonsillectomy with adenoidectomy Family History Mother Family history of hypertension (V17.49) (Z82.49) Family history of Primary malignant neoplasm of brain Family history of Primary malignant neoplasm of lung Father Family history of cardiac disorder (V17.49) (Z82.49) Family history of diabetes mellitus (V18.0) (Z83.3) Family history of myocardial infarction (V17.3) (Z82.49) Sister Family history of malignant neoplasm (V16.9) (Z80.9) Social History Problems Current smoker (305.1) (F17.200) Denies alcohol consumption (V49.89) (Z78.9) Does not use illicit drugs (V49.89) (Z78.9) No advance directives (V49.89) (Z78.9) Sexually active Current Meds Medication NameInstruction Aspirin 81 MG Oral Tablet Chewable Atorvastatin Calcium 40 MG Oral TabletTAKE 1 TABLET DAILY. Lisinopril 20 MG Oral TabletTAKE 1 TABLET DAILY. LORazepam 0.5 MG Oral TabletTAKE 1 TABLET 3 TIMES DAILY NEEDED. Metoprolol Succinate ER 25 MG Oral Tablet Extended Release 24 Hourtake 1 tablet by mouth once daily Venlafaxine HCl ER 75 MG Oral Capsule Extended Release 24 HourTAKE 1 CAPSULE ONCE DAILY WITH FOOD. Allergies Medication doxycycline erythromycin Percocet TABS Vitals Vital Signs Recorded: [id number] 02:29PM Temperature: 96.9 F Heart Rate: 56 Systolic: 140 Diastolic: 90 Height: 5 ft 1 in Weight: 156 lb 8 oz BMI Calculated: 29.57 kg/m2 BSA Calculated: 1.7 Tobacco Use: a) Yes Patient encouraged to stop using tobacco products: Yes PHQ-2 #1. Over the last 2 weeks have you felt down, depressed or hopeless? (If yes, answer PHQ-9 below): No PHQ-2 #2. Over the last 2 weeks have you felt little interest or pleasure in doing things? (If yes, answer PHQ-9 below): No Fall Screening: a) No falls within the last year O2 Saturation: 97 Physical Exam Gen: Alert and oriented, no acute distress HEENT: normal TMs/external ear, conjunctiva normal, PERRLA/EOMI, neck supple, no lymphadenopathy or thyromegaly Resp: clear to auscultation, no audible wheezes, rales, or rhonchi, normal chest movement Cardio: regular rate and rhythm, no murmur, clicks or gallops heard, normal peripheral pulses, no edema Abdomen: normal bowel sounds, soft, non tender, non distended, no o (more content not included)... Normal [employer] Tobacco Screening.on 022 Adult depression screening assessment No [employer] [facility] Work Phone: Fall risk assessment a) No falls within the last year [employer] [facility] Work Phone: Tobacco use status [facility] a) Yes [employer] [facility] Work Phone: Tobacco Screening. Yes [employer] [facility] Work Phone: CT HEAD WO CONTRASTon 2021 CT HEAD WO CONTRAST Patient Name: NAS PARKS STUDY: CT HEAD WO CONTRAST; 04/14/2021 2:59 pm INDICATION: Change in mood, Hx of CVA I63.9: Stroke with cerebral ischemia. COMPARISON: 10/12/2019 ACCESSION NUMBER(S): [id number] ORDERING CLINICIAN: KIAN DONG TECHNIQUE: Noncontrast axial CT scan of head was performed. Angled reformats in brain and bone windows were generated. The images were reviewed in bone, brain, blood and soft tissue windows. FINDINGS: CSF Spaces: The ventricles are borderline distended, similar to the prior exam. The sulci are normal. There is no extraaxial fluid collection. Parenchyma: No infarct, hemorrhage or mass of the brain is noted. Calvarium: The calvarium is unremarkable. Paranasal sinuses and mastoids: Visualized paranasal sinuses and mastoids are clear. IMPRESSION: The ventricles are borderline distended similar to the prior study. The brain parenchyma is normal. Electronically signed by: MAY CALVERT MD Normal [facility] CT Head without Contraston 0 04-14-2021 CT Head limited WO contrast Normal [facility] Work Phone: Office Visit (Primary Care T xt/Forms)on 04-14-2021 Follow-up visit Diagnoses/Problems Assessed Hypertension (401.9) (I10) Hyperthyroidism (242.90) (E05.90) Anxiety (300.00) (F41.9) Orders Anxiety Renew: Venlafaxine HCl ER 75 MG Oral Capsule Extended Release 24 Hour; TAKE 1 CAPSULE ONCE DAILY WITH FOOD Patient Discussion/Summary Follow-up in 1 month for hypertension and anxiety, increase venlafaxine to 75 mg a day and check home blood pressure readings with a goal to be less than 140/90 Provider Impressions Provider Impressions Free Text Note Form: Is seen today in 1 week follow-up for emotional lability and hypertension. Emotionally doing much better, blood pressure today in the office is elevated, advised to quit smoking, check home blood pressure readings with a goal to be less than 140/90, laboratory testing was reviewed with the patient was within normal limits, planning to return to work tomorrow. CT scan is scheduled today we will follow-up with this will follow up in 1 month to reassess blood pressure and emotional status. Increase venlafaxine to 75 mg a day. Chief Complaint 1 WK F/U REV LABS History of Present Illness emotionally some better, less mood fluctuations no HBP checks used a couple of lorazepam sleeping some better at night Review of Systems Constitutional: NAD, no fevers, chills, sweats or fatigue Rep: no cough or shortness of breath Cardio: no chest pain, edema, or palpitations GI: no nausea, vomiting, diarrhea, constipation, or heartburn : normal urine flow and stream, no nocturia or dysuria MS: no joint pain or significant limits of function Skin: no visible rashes or suspicious lesions Neuro: alert and oriented X4, no numbness, tingling or issues with balance Psych: no anxiety or depression Active Problems Problems Acute URI (465.9) (J06.9) Anxiety (300.00) (F41.9) Bilateral otitis media (382.9) (H66.93) Bronchitis (490) (J40) Cramps, muscle, general (729.82) (R25.2) Encounter for tobacco use cessation counseling (V65.42) (Z71.6) Fatigue (780.79) (R53.83) Hyperlipemia, mixed (272.2) (E78.2) Hypertension (401.9) (I10) Hyperthyroidism (242.90) (E05.90) Migraines (346.90) (G43.909) Muscle weakness (generalized) (728.87) (M62.81) Obesity (278.00) (E66.9) Screening for diabetes mellitus (V77.1) (Z13.1) Screening for lipid disorders (V77.91) (Z13.220) Stroke with cerebral ischemia (434.91) (I63.9) Vitamin B12 deficiency (266.2) (E53.8) Past Medical History Problems History of mammogram (V15.89) (Z92.89) History of Normal vaginal delivery (650) (O80) History of Pap test, as part of routine gynecological examination (V76.2) (Z01.419) Surgical History Problems History of section History of Loop electrosurgical excision procedure History of Tonsillectomy with adenoidectomy Family History Mother Family history of hypertension (V17.49) (Z82.49) Family history of Primary malignant neoplasm of brain Family history of Primary malignant neoplasm of lung Father Family history of cardiac disorder (V17.49) (Z82.49) Family history of diabetes mellitus (V18.0) (Z83.3) Family history of myocardial infarction (V17.3) (Z82.49) Sister Family history of malignant neoplasm (V16.9) (Z80.9) Social History Problems Current smoker (305.1) (F17.200) Denies alcohol consumption (V49.89) (Z78.9) Does not use illicit drugs (V49.89) (Z78.9) No advance directives (V49.89) (Z78.9) Sexually active Current Meds Medication NameInstruction Aspirin 81 MG Oral Tablet Chewable Atorvastatin Calcium 40 MG Oral TabletTAKE 1 TABLET DAILY. Lisinopril 20 MG Oral TabletTAKE 1 TABLET DAILY. LORazepam 0.5 MG Oral TabletTAKE 1 TABLET 3 TIMES DAILY NEEDED. Metoprolol Succinate ER 25 MG Oral Tablet Extended Release 24 Hourtake 1 tablet by mouth once daily Venlafaxine HCl ER 37.5 MG Oral Capsule Extended Release 24 HourTAKE 1 CAPSULE ONCE DAILY WITH FOOD. Allergies Medication doxycycline erythromycin Percocet TABS Vitals Vital Signs Recorded: 14Apr2021 11:28AM Temperature: 95.3 F Heart Rate: 57 Systolic: 160 Diastolic: 100 Height: 5 ft 1 in Weight: 145 lb 5 oz BMI Calculated: 27.46 kg/m2 BSA Calculated: 1.65 Tobacco Use: a) Yes Patient encouraged to stop using tobacco products: Yes Fall Screening: a) No falls within the last year O2 Saturation: 98 Physical Exam Gen: Alert and oriented, no acute distress HEENT: normal TMs/external ear, conjunctiva normal, PERRLA/EOMI, neck supple, no lymphadenopathy or thyromegaly Resp: clear to auscultation, no audible wheezes, rales, or rhonchi, normal chest movement Cardio: regular rate and rhythm, no murmur, clicks or gallops heard, normal peripheral pulses, no edema Abdomen: normal bowel sounds, soft, non tender, non distended, no organomegaly Skin: no visible rashes or abnormal skin lesions, warm and dry Neruo: Alert and oriented, normal gross movement of extremities Psych: cooperative and appropriate Results/Data (more content not included)... [facility] Screening.on 022 Fall risk assessment a) No falls within the last year [employer] [facility] Work Phone: Tobacco use status [facility] a) Yes [employer] [facility] Work Phone: Tobacco Screening. Yes [facility] Work Phone: Complete Blood Count + Joshua dee 04-07-2021 Basophils/100 WBC (Bld) 1.0 % 0.0 - 2.0 [facility] Work Phone: Erythrocyte distribution width (RBC) [Ratio] 12.9 % See Below [facility] Work Phone: Comment on above: Reference Range: 11. 5 - 14.5 Hematocrit (Bld) [Volume fraction] 43.7 % See Below [facility] Work Phone: Comment on above: Reference Range: 36. 0 - 46.0 Hemoglobin (Bld) [Mass/Vol] 14.5 g/dL See Below [facility] Work Phone: Comment on above: Reference Range: 12. 0 - 16.0 Lymphocytes/100 WBC (Bld) 19.8 % See Below [facility] Work Phone: Comment on above: Reference Range: 13. 0 - 44.0 MCHC (RBC) [Mass/Vol] 33.2 g/dL See Below [facility] Work Phone: Comment on above: Reference Range: 32. 0 - 36.0 MCV (RBC) [Entitic vol] 89 fL 80 - 100 -[facility] Work Phone: Monocytes/100 WBC (Bld) 6.1 % 2.0 - 10.0 [facility] [facility] Work Phone: Neutrophils/100 WBC (Bld) 69.6 % See Below [facility] Work Phone: Comment on above: Reference Range: 40. 0 - 80.0 Platelets (Bld) [#/Vol] 184 10*3/uL 150 - 450 [facility] Work Phone: RBC (Bld) [#/Vol] 4.89 {x10E12/L} See Below [facility] Work Phone: Comment on above: Reference Range: 4.0 0 - 5.20 WBC (Bld) [#/Vol] 7.6 10*3/uL 4.4 - 11.3 [facility] Work Phone: Complete Blood Count + Differential 0.10 {x10E9/L} See Below [facility] Work Phone: Comment on above: Reference Range: 0.0 0 - 0.10 Complete Blood Count + Differential 0.30 {x10E9/L} See Below [facility] Work Phone: Comment on above: Reference Range: 0.0 0 - 0.70 Complete Blood Count + Differential 0.50 {x10E9/L} See Below [facility] [place] Work Phone: Comment on above: Reference Range: 0.1 0 - 1.00 Complete Blood Count + Differential 1.50 {x10E9/L} See Below [facility] [place] Work Phone: Comment on above: Reference Range: 1.2 0 - 4.80 Complete Blood Count + Differential 5.30 {x10E9/L} See Below [facility] Work Phone: Comment on above: Reference Range: 1.2 0 - 7.70 Percent differential counts (%) should be interpreted in the context of the absolute cell counts (cells/L). Complete Blood Count + Differential 3.5 % 0.0 - 6.0 [facility] [place] Work Phone: Complete Blood Count + Differential 0.1 {/100_WBC} [facility] [place] Work Phone: Laboratory - Chemistry and C hemistry - challengeon 04-07-2021 Albumin BCP dye [Mass/Vol] 3.7 g/dL 3.4 - 5.0 [facility] [place] [facility] Work Phone: ALP [Catalytic activity/Vol] 61 U/L 33 - 110 [facility] Work Phone: ALT With P-5'-P [Catalytic activity/Vol] 7 U/L 7 - 45 [facility] Work Phone: Comment on above: Patients treated wit h Sulfasalazine may generate falsely decreased results for ALT. Anion gap [Moles/Vol] 10 mmol/L 10 - 20 [facility] Work Phone: AST With P-5'-P [Catalytic activity/Vol] 10 U/L 9 - 39 [facility] Work Phone: Bilirubin [Mass/Vol] 0.9 mg/dL 0.0 - 1.2 [facility] [employer] [facility] Work Phone: Calcium [Mass/Vol] 8.9 mg/dL 8.6 - 10.3 [facility] [employer] [facility] Work Phone: Chloride [Moles/Vol] 105 mmol/L 98 - 107 [facility] [employer] [facility] Work Phone: CO2 [Moles/Vol] 28 mmol/L 21 - 32 [facility] [employer] [facility] Work Phone: Creatinine [Mass/Vol] 0.88 mg/dL See Below [facility] Work Phone: Comment on above: Reference Range: 0.5 0 - 1.05 Glucose [Mass/Vol] 82 mg/dL 74 - 99 [facility] [employer] [facility] Work Phone: Potassium [Moles/Vol] 3.6 mmol/L 3.5 - 5.3 [facility] [employer] [facility] Work Phone: Protein [Mass/Vol] 6.3 g/dL below low threshold 6.4 - 8.2 [facility] Work Phone: Sodium [Moles/Vol] 139 mmol/L 136 - 145 [facility] [employer] [facility] Work Phone: Urea nitrogen [Mass/Vol] 7 mg/dL 6 - 23 [employer] [facility] Work Phone: Lipid Panelon 04-07-2021 Cholesterol [Mass/Vol] 127 mg/dL 0 - 199 [employer] [facility] Work Phone: Comment on above: . AGE DESIRABLE BORD JOSEPH HIGH HIGH 0-19 Y 0 - 169 170 - 199 >/= 200 20-24 Y 0 - 189 190 - 224 >/= 225 >24 Y 0 - 199 200 - 239 >/= 240 All ranges are based on fasting samples. Specific therapeutic targets will vary based on patient-specific cardiac risk.. Pediatric guidelines reference:Pediatrics 2011, 128(S5). Adult guidelines reference: NCEP ATPIII Guidelines, JOHN 2001, 258:4426-97. Venipuncture immediately after or during the administration of Metamizole may lead to falsely low results. Testing should be performed immediately prior to Metamizole dosing. Cholesterol in HDL [Mass/Vol] 26.0 mg/dL Abnormal [employer] [facility] Work Phone: Comment on above: . AGE VERY LOW LOW N ORMAL HIGH 0-19 Y < 35 < 40 40-45 ---- 20- 24 Y ---- < 40 >45 ---- >24 Y ---- < 40 40-60 >60. Cholesterol in LDL [Mass/Vol] 65 mg/dL 0 - 99 [employer] [facility] Work Phone: Comment on above: . NEAR BORD AGE YURI RABLE OPTIMAL HIGH HIGH VERY HIGH 0-19 Y 0 - 109 --- 110-129 >/= 130 ---- 20-24 Y 0 - 119 --- 120-159 >/= 160 ---- >24 Y 0 - 99 100-129 130-159 160-189 >/=190. Cholesterol.total/Cho lesterol in HDL [Mass ratio] 4.9 {ratio} [employer] [facility] Work Phone: Comment on above: REF VALUESDESIRABLE < 3.4HIGH RISK > 5.0 Triglyceride [Mass/Vol] 180 mg/dL above high threshold 0 - 149 [employer] [facility] Work Phone: Comment on above: . AGE DESIRABLE BORD JOSEPH HIGH HIGH VERY HIGH 0 D-90 D 19 - 174 ---- ---- ----91 D- 9 Y 0 - 74 75 - 99 >/= 100 ---- 10-19 Y 0 - 89 90 - 129 >/= 130 ---- 20-24 Y 0 - 114 115 - 149 >/= 150 ---- >24 Y 0 - 149 150 - 199 200- 499 >/= 500. Venipuncture immediately after or during the administration of Metamizole may lead to falsely low results. Testing should be performed immediately prior to Metamizole dosing. Lipid Panel 36 mg/dL 0 - 40 [employer] [facility] Work Phone: No Panel Informationon 04-07 >60 >60 [facility] Work Phone: Comment on above: CALCULATIONS OF MAGDA MATED GFR ARE PERFORMED USING THE MDRD STUDY EQUATION FOR THE IDMS-TRACEABLE CREATININE METHODS. CLIN CHEM 2007;53:766-72 TSH - Thyroid Stimulating Ho rmone, Serumon 04-07-2021 TSH Qn 0.95 m[IU]/L See Below [employer] [facility] Work Phone: Comment on above: Reference Range: 0.4 4 - 3.98 TSH testing is performed using different testing methodology at [facility] than at other [facility]. Direct result comparisons should only be made within the same method. Vitamin B12, Serumon 021 Cobalamin (Vitamin B12) [Mass/Vol] 265 pg/mL 211 - 911 [employer] [facility] Work Phone: Office Visit (Primary Care T xt/Forms)on 04-06-2021 Follow-up visit Diagnoses/Problems Assessed Stroke with cerebral ischemia (434.91) (I63.9) Vitamin B12 deficiency (266.2) (E53.8) Anxiety (300.00) (F41.9) Hypertension (401.9) (I10) Hyperthyroidism (242.90) (E05.90) Hyperlipemia, mixed (272.2) (E78.2) Orders Anxiety Start: LORazepam 0.5 MG Oral Tablet; TAKE 1 TABLET 3 TIMES DAILY NEEDED Start: Venlafaxine HCl ER 37.5 MG Oral Capsule Extended Release 24 Hour; TAKE 1 CAPSULE ONCE DAILY WITH FOOD Hyperlipemia, mixed Lipid Panel; Status:Hold For - Exact Date; Requested for:Before 16Apr2021; Hypertension Start: Metoprolol Succinate ER 25 MG Oral Tablet Extended Release 24 Hour; take 1 tablet by mouth once daily Comprehensive Metabolic Panel; Status:Hold For - Exact Date; Requested for:Before 16Apr2021; Renew: Lisinopril 20 MG Oral Tablet; TAKE 1 TABLET DAILY Hyperthyroidism TSH - Thyroid Stimulating Hormone, Serum; Status:Hold For - Exact ; Requested for:Before 16Apr2021; Stroke with cerebral ischemia CT Head without Contrast; Status:Hold For - Scheduling; Requested for:06Apr2021; Patient taking Metformin or Derivatives? : No Radiologist to Determine Optimal Study : Y What are the patient's signs and symptoms? : Change in mood, Hx of CVA Vitamin B12 deficiency Complete Blood Count + Differential; Status:Hold For - Exact Date; Requested for:Before 16Apr2021; Vitamin B12, Serum; Status:Hold For - Exact Date; Requested for:Before 16Apr2021; Patient Discussion/Summary Follow-Up in 1 week, get blood testing and CT of the head, start new medicines and call if issues Provider Impressions Provider Impressions Free Text Note Form: Patient is here today for evaluation of mood fluctuations in the past week. Patient does have a history of stroke in the past with diffuse changes had seen neurology, had vague issues when she had her initial stroke. Patient not been seen in over a year continues to smoke despite travel counselor, blood pressure elevated today in the office. We will check a CT scan of the head along with blood test, start metoprolol 25 mg at at bedtime along with 37-1/2 mg a day of Effexor and was given a small prescription of lorazepam to use if feels agitated or anxious. State prescribing database was reviewed prior to prescription. Plan to recheck again in 1 week. Chief Complaint YR F/U MED REFILLS History of Present Illness No headache, chest pain, shortness of breath, dizziness, lightheadedness, or edema no HBP checks had CVA 2 years ago, still smoking despite consul (1ppd), had N/T in arms and legs emotionally feeling off, cry and anger for the past week, was fine prior no change in sleep patterns, no change in diet, no change in OTC meds, no drug use no hallucinations, had anxiety in the past no fatigue, no issues with focus or concentration Review of Systems Constitutional: NAD, no fevers, chills, sweats or fatigue Rep: no cough or shortness of breath Cardio: no chest pain, edema, or palpitations GI: no nausea, vomiting, diarrhea, constipation, or heartburn : normal urine flow and stream, no nocturia or dysuria MS: no joint pain or significant limits of function Skin: no visible rashes or suspicious lesions Neuro: alert and oriented X4, no numbness, tingling or issues with balance Psych: no anxiety or depression Active Problems Problems Acute URI (465.9) (J06.9) Anxiety (300.00) (F41.9) Bilateral otitis media (382.9) (H66.93) Bronchitis (490) (J40) Cramps, muscle, general (729.82) (R25.2) Encounter for tobacco use cessation counseling (V65.42) (Z71.6) Fatigue (780.79) (R53.83) Hyperlipemia, mixed (272.2) (E78.2) Hypertension (401.9) (I10) Hyperthyroidism (242.90) (E05.90) Migraines (346.90) (G43.909) Muscle weakness (generalized) (728.87) (M62.81) Obesity (278.00) (E66.9) Screening for diabetes mellitus (V77.1) (Z13.1) Screening for lipid disorders (V77.91) (Z13.220) Stroke with cerebral ischemia (434.91) (I63.9) Vitamin B12 deficiency (266.2) (E53.8) Past Medical History Problems History of mammogram (V15.89) (Z92.89) History of Normal vaginal delivery (650) (O80) History of Pap test, as part of routine gynecological examination (V76.2) (Z01.419) Surgical History Problems History of section History of Loop electrosurgical excision procedure History of Tonsillectomy with adenoidectomy Family History Mother Family history of hypertension (V17.49) (Z82.49) Family history of Primary malignant neoplasm of brain Family history of Primary malignant neoplasm of lung Father Family history of cardiac disorder (V17.49) (Z82.49) Family history of diabetes mellitus (V18.0) (Z83.3) Family history of myocardial infarction (V17.3) (Z82.49) Sister Family history of malignant neoplasm (V16.9) (Z80.9) Social History Problems Current smoker (305.1) (F17.200) Denies alcohol consumption (V49.89) (Z78.9) Does not use illicit drugs (V49.89) (Z78.9) No advance directive (more content not included)... Normal [employer] Tobacco Screening.on 021 Fall risk assessment a) No falls within the last year [employer] [facility] Work Phone: Tobacco use status [facility] a) Yes [employer] [facility] Work Phone: Tobacco Screening. Yes [employer] [facility] Work Phone: Urgent Care Visit Reporton 0 07-01-2019 Urgent Care Visit Report [facility] [address] [place] [address] [address] [place] [address] OFFICE VISIT Date of Service: 07/01/19 MR#: [id number] Acct: [id number] Name: NAS PARKS Rep #: [id number] : 1975 Provider: Baljit RODRIGUEZ Age/Sex: 43/F Location[place] [facility] Status: Signed Intake Intake Visit Reasons: Headache HPI HPI Details: NAS PARKS, is a 43 F who presents to the office today for Assessment AND Plan 1. URI (upper respiratory infection) J06.9 Plan see scanned TELEMED note corresponding with today's date Coding Level of Care Code Attention [employer] Integrator Diagnoses URI (upper respiratory infection) J06.9 07/01/19 1341 Date Baljit Harkins Signature: Date (if applicable) [facility] Anion gap 3 molar conc 7 mmol/L Low 10-20 [facility] Comment on above: Performed By: #### 2 [id number] ####SCOTT [id number] [place] [address] Calcium mass conc 8.8 mg/dL Normal 8.6-10.3 [facility] Comment on above: Performed By: #### 2 [id number] ####SCOTT [id number] [place] [address] Chloride molar conc 110 mmol/L High 98-107 [facility] Comment on above: Performed By: #### 2 [id number] ####SCOTT [id number] [place] [address] CO2 molar conc 25.0 mmol/L Normal 21.0-32.0 [facility] Comment on above: Performed By: #### 2 [id number] ####SCOTT [id number] [place] [address] Creatinine mass conc 0.7 mg/dL Normal 0.5-1.[address] [facility] Comment on above: Performed By: #### 2 [id number] ####SCOTT [id number] [place] [address] Glucose mass conc 92 mg/dL Normal 70-99 [facility] Comment on above: Performed By: #### 2 [id number] ####SCOTT [id number] [place] [address] Potassium molar conc 3.8 mmol/L Normal 3.5-5.[address] [facility] Comment on above: Performed By: #### 2 [id number] ####SCOTT [id number] [place] [address] Sodium molar conc 138 mmol/L Normal 136-145 [facility] Comment on above: Performed By: #### 2 [id number] ####SCOTT [id number] [place] [address] Urea nitrogen mass conc 9 mg/dL Normal 6-23 [facility] Comment on above: Performed By: #### 2 [id number] ####SCOTT [id number] [place] [address] Urea nitrogen/Creatinine mass ratio 12.9 ratio Normal 5.4-30.0 [facility] Comment on above: Performed By: #### 2 [id number] ####SCOTT [id number] [place] [address] eGFRon 03-29-2018 eGFR AA >60 Normal [facility] Comment on above: Order Comment: Order added by Discern Expert. Performed By: #### 1 [id number] ####SCOTT [id number] [place] [address] GFR/1.73 sq M predicted among non-blacks MDRD vol rate/area (S/P/Bld) mL/min/{1.73_m2} Normal [facility] Comment on above: Order Comment: Order added by Discern Expert. Performed By: #### 1 [id number] ####SCOTT [id number] [place] [address] Vital Signs Date Time Vital Sign Value Performing Clinician Jim alfaro 02-21-2024 16:00-0500 Diastolic blood pressure 73 mm[Hg] Kian Dong MD Work Phone: [facility] 02-21-2024 16:00-0500 Heart rate 58 /min Kian Dong MD Work Phone: [facility] 02-21-2024 16:00-0500 Respiratory rate 21 /min Kian Dong MD Work Phone: [facility] 02-21-2024 16:00-0500 SaO2% (BldA) [Mass fraction] 100 % Kian Dong MD Work Phone: [facility] 02-21-2024 16:00-0500 Systolic blood pressure 117 mm[Hg] Kian Dong MD Work Phone: [facility] 02-21-2024 13:15-0500 Body mass index (BMI) [Ratio] 32.77 kg/m2 Kian Dong MD Work Phone: [facility] 02-21-2024 13:15-0500 Body temperature 98.1 [degF] Kian Dong MD Work Phone: [facility] 02-21-2024 13:15-0500 Body weight 74.84 kg Kian Dong MD Work Phone: [facility] 03-20-2023 13:51-0500 Diastolic blood pressure 110 mm[Hg] Lorena Bond MD Work Phone: [facility] [employer] 03-20-2023 13:51-0500 Systolic blood pressure 160 mm[Hg] Lorena Bond MD Work Phone: [facility] [employer] 03-20-2023 13:26-0500 Body weight 71.22 kg Lorena Bond MD Work Phone: [facility] [employer] 03-20-2023 13:26-0500 Heart rate 61 /min Lorena Bond MD Work Phone: [facility] [employer] 03-17-2023 17:01-0500 Diastolic blood pressure 60 mm[Hg] Akash Cook DO Work Phone: [facility] 03-17-2023 17:01-0500 Heart rate 67 /min Akash Cook DO Work Phone: [facility] 03-17-2023 17:01-0500 Respiratory rate 18 /min Akash Cook DO Work Phone: [facility] 03-17-2023 17:01-0500 SaO2% (BldA) [Mass fraction] 98 % Akash Cook DO Work Phone: [facility] 03-17-2023 17:01-0500 Systolic blood pressure 117 mm[Hg] Akash Cook DO Work Phone: [facility] 03-17-2023 11:35-0500 Body height 151.1 cm Akash Cook DO Work Phone: [facility] 03-17-2023 11:35-0500 Body mass index (BMI) [Ratio] 31.78 kg/m2 Akash Cook DO Work Phone: [facility] 03-17-2023 11:35-0500 Body temperature 98.4 [degF] Akash Cook DO Work Phone: [facility] 03-17-2023 11:35-0500 Body weight 72.58 kg Akash Cook DO Work Phone: [facility] 03-25-2022 11:04-0500 Body height 154.94 cm Kian Dong Work Phone: [employer] [facility] Work Phone: 03-25-2022 11:04-0500 Body mass index (BMI) [Ratio] 29.39 kg/m2 Kian Dong Work Phone: [employer] [facility] Work Phone: 03-25-2022 11:04-0500 Body surface area Derived from formula 1.7 m2 Kian Dong Work Phone: [employer] [facility] Work Phone: 03-25-2022 11:04-0500 Body weight 70.56 kg Kian Dong Work Phone: [employer] [facility] Work Phone: 03-25-2022 11:04-0500 Diastolic blood pressure 72 mm[Hg] Kian Dong Work Phone: [employer] [facility] Work Phone: 03-25-2022 11:04-0500 Heart rate 68 /min Kian Dong Work Phone: [employer] [facility] Work Phone: 03-25-2022 11:04-0500 SaO2% (BldA) [Mass fraction] 99 % Kian Dong Work Phone: [facility] Work Phone: 03-25-2022 11:04-0500 Systolic blood pressure 128 mm[Hg] Kian Dong Work Phone: [facility] Work Phone: 05-17-2021 14:29-0500 Body height 154.94 cm Kian Dong Work Phone: [facility] Work Phone: 05-17-2021 14:29-0500 Body mass index (BMI) [Ratio] 29.57 kg/m2 Kian Dong Work Phone: [employer] [facility] Work Phone: 05-17-2021 14:29-0500 Body surface area Derived from formula 1.7 m2 Kian Dong Work Phone: [employer] [facility] Work Phone: 05-17-2021 14:29-0500 Body temperature 96.9 [degF] Kian Dong Work Phone: [employer] [facility] Work Phone: 05-17-2021 14:29-0500 Body weight 70.99 kg Kian Dong Work Phone: [employer] [facility] Work Phone: 05-17-2021 14:29-0500 Diastolic blood pressure 90 mm[Hg] Kian Dong Work Phone: [employer] [facility] Work Phone: 05-17-2021 14:29-0500 Heart rate 56 /min Kian Dong Work Phone: [employer] [facility] Work Phone: 05-17-2021 14:29-0500 SaO2% (BldA) [Mass fraction] 97 % Kian Dong Work Phone: [facility] Work Phone: 05-17-2021 14:29-0500 Systolic blood pressure 140 mm[Hg] Kian Dong Work Phone: [facility] Work Phone: 04-14-2021 11:28-0500 Body height 154.94 cm Kian Dong Work Phone: [facility] Work Phone: 04-14-2021 11:28-0500 Body mass index (BMI) [Ratio] 27.46 kg/m2 Kian Dong Work Phone: [employer] [facility] Work Phone: 04-14-2021 11:28-0500 Body surface area Derived from formula 1.65 m2 Kian Dong Work Phone: [employer] [facility] Work Phone: 04-14-2021 11:28-0500 Body temperature 95.3 [degF] Kian Dong Work Phone: [employer] [facility] Work Phone: 04-14-2021 11:28-0500 Body weight 65.91 kg Kian Dong Work Phone: [employer] Work Phone: 04-14-2021 11:28-0500 Diastolic blood pressure 100 mm[Hg] Kian Dong Work Phone: [employer] [facility] Work Phone: 04-14-2021 11:28-0500 Heart rate 57 /min Kian Dong Work Phone: [facility] Work Phone: 04-14-2021 11:28-0500 SaO2% (BldA) [Mass fraction] 98 % Kian Dong Work Phone: [employer] [facility] Work Phone: 04-14-2021 11:28-0500 Systolic blood pressure 160 mm[Hg] Kian Dong Work Phone: [employer] [facility] Work Phone: 04-06-2021 15:06-0500 Body height 154.94 cm Kian Dong Work Phone: [employer] [facility] Work Phone: 04-06-2021 15:06-0500 Body mass index (BMI) [Ratio] 28.45 kg/m2 Kian Dong Work Phone: [employer] [facility] Work Phone: 04-06-2021 15:06-0500 Body surface area Derived from formula 1.67 m2 Kian Dong Work Phone: [employer] [facility] Work Phone: 04-06-2021 15:06-0500 Body temperature 97.5 [degF] Kian Dong Work Phone: [employer] [facility] Work Phone: 04-06-2021 15:06-0500 Body weight 68.29 kg Kian Dong Work Phone: [employer] [facility] Work Phone: 04-06-2021 15:06-0500 Diastolic blood pressure 100 mm[Hg] Kian Dong Work Phone: [employer] [facility] Work Phone: 04-06-2021 15:06-0500 Heart rate 71 /min Kian Dong Work Phone: [employer] [facility] Work Phone: 04-06-2021 15:06-0500 SaO2% (BldA) [Mass fraction] 98 % Kian Dong Work Phone: [employer] [facility] Work Phone: 04-06-2021 15:06-0500 Systolic blood pressure 148 mm[Hg] Kian Dong Work Phone: [employer] [facility] Work Phone: Encounters Encounter Date Encounter Type Care Provider Facility Start: 02-21-2024 End: 02-22-2024 ambulatory CHELSI Key [facility] Start: 02-21-2024 End: 02-21-2024 Subsequent hospital visit by physician Levi Donahue [employer] [facility] Comment on above: Arrived Start: 02-21-2024 End: 02-21-2024 Emergency department patient visit TANIA PATTON [facility] Emergency Medicine Comment on above: Bronchitis (Primary Dx); Hypokalemia; Mild anemia Start: 02-21-2024 End: 02-22-2024 ambulatory CHELSI Key [facility] Start: 02-21-2024 End: 02-21-2024 Subsequent hospital visit by physician Levi Donahue [employer] [facility] Comment on above: Arrived Start: 12-07-2023 End: 12-07-2023 Emergency department patient visit LILA DOSS [facility] Start: 07-19-2023 End: 07-19-2023 ambulatory [facility] Start: 03-20-2023 End: 03-20-2023 ambulatory [facility] Start: 03-20-2023 End: 03-20-2023 Encounter for gynecological examination (general) (routine) without abnormal findings [facility] Start: 03-20-2023 End: 03-20-2023 Initial preventive medicine new patient 40-64yrs Lorena Bond MD Work Phone: [facility] Comment on above: Encounter for gyneco logical examination without abnormal finding (Primary Dx); Encounter for screening mammogram for malignant neoplasm of breast; Screening for colon cancer; Abnormal uterine bleeding (AUB); Chronic hypertension; Microcytic anemia Start: 03-20-2023 End: 03-20-2023 Patient encounter status Lorena Bond MD Work Phone: [facility] [employer] Work Phone: Start: 03-17-2023 End: 03-17-2023 Emergency department patient visit Akash Cook DO Work Phone: [facility] Emergency Medicine Comment on above: Syncope, unspecified syncope type (Primary Dx) Start: 02-15-2023 ambulatory Sabrina morales RN [facility] Clinical Communication Start: 02-15-2023 Patient encounter procedure Sabrina Vega RN [facility] Clinical Communication Start: 04-06-2022 AUDIT Kian Dong Work Phone: [employer] [facility] Work Phone: Start: 03-28-2022 Chart Update Kian Dong Work Phone: [employer] [facility] Work Phone: Start: 03-25-2022 Office outpatient vi sit 25 minutes Kian Dong Work Phone: [employer] [facility] Work Phone: Start: 05-17-2021 Office outpatient vi sit 15 minutes Kian Dong Work Phone: [employer] [facility] Work Phone: Start: 04-15-2021 Chart Update Kian Dong Work Phone: [employer] [facility] Work Phone: Start: 04-14-[address] Ricardo Dong Facility:[id number] Start: 04-14-2021 Office outpatient vi sit 15 minutes Kian Dong Work Phone: [employer] Work Phone: Start: 04-07-2021 Chart Update Kian Dong Work Phone: [employer] [facility] Work Phone: Start: 04-06-2021 Office outpatient vi sit 25 minutes Kian Dong Work Phone: [employer] [facility] Work Phone: Start: 02-26-2021 AUDIT Kian Dong Work Phone: [employer] [facility] Work Phone: Start: 08-04-2017 End: 08-04-2017 Patient encounter procedure Adalgisa Kevon Facility:[facility] Encounter for gynecological examination (general) (routine) without abnormal findings Kian Dong Work Phone: [employer] [facility] Work Phone: Comment on above: 07/29/2006: Negative; Procedures Date Procedure Procedure Detail Performing Clinician Start: 02-21-2024 Ecg routine ecg w/le ast 12 lds trcg only w/o i&r Chelsi Willisderback [employer] Work Phone: Start: 02-21-2024 Assay of troponin quantitative Chelsi Willisderback [employer] COACH OPERATOR[employer] SOFTWARE [employer]INE[employer] Work Phone: Start: 02-21-2024 Radiologic exam ches t single view Chelsi Willisderback [employer] COACH OPERATOR[employer] SOFTWARE [employer]INEER Work Phone: Start: 02-21-2024 Comprehensive metabo lic panel Chelsi Willisderkeya [employer] COACH OPERATOR[employer] SOFTWARE ENGINEER Work Phone: Start: 02-21-2024 Troponin I.cardiac p zena - Serum or Plasma by High sensitivity method Chelsi Willisderkeya [employer] COACH OPERATOR[employer] SOFTWARE ENGINEER Work Phone: Start: 02-21-2024 Ecg routine ecg w/le ast 12 lds trcg only w/o i&r Chelsi Willisderback [employer] COACH OPERATOR[employer] SOFTWARE ENGINEER Work Phone: Start: 03-20-2023 Microscopic observat ion [Identifier] in Cervix by Cyto stain Kian Dong MD Work Phone: Start: 03-20-2023 Thyrotropin [Units/v olume] in Serum or Plasma Kian Dong MD Work Phone: Start: 03-17-2023 ECG 12-LEAD AKASH [employer] Start: 03-17-2023 INITIATE REQUEST TO ANOTHER FACILITY AKASH COOK Start: 03-17-2023 MR ANGIO HEAD WO IV CONTRAST AKASH [employer] Start: 03-17-2023 MR ANGIO NECK WO IV CONTRAST AKASH [employer] Start: 03-17-2023 MR BRAIN WO IV CONTRAST AKASH [employer] Start: 03-17-2023 Ecg routine ecg w/le ast 12 lds trcg only w/o i&r Akash Cook DO Work Phone: Start: 03-17-2023 Mra head w/o contrst material Akash Cook DO Work Phone: Start: 03-17-2023 CT CERVICAL SPINE WO IV CONTRAST AKASH COOK Start: 03-17-2023 CT HEAD WO IV CONTRAST AKASH COOK Start: 03-17-2023 EXTRA URINE FAJARDO TUBE C AMNINO COOK Start: 03-17-2023 URINALYSIS MICROSCOP IC WITH REFLEX CULTURE AKASH COOK Start: 03-17-2023 URINALYSIS WITH REFL EX MICROSCOPIC AND CULTURE AKASH COOK Start: 03-17-2023 aPTT in Blood by Coagulation assay AKASH COOK Start: 03-17-2023 CBC W Auto Different ial panel - Blood AKASH [employer]LLINGSWORTHASTERS Start: 03-17-2023 Comprehensive metabo lic 2000 panel - Serum or Plasma AKASH COOK Start: 03-17-2023 D-DIMER, NON VTE STAR COOK Start: 03-17-2023 Magnesium [Mass/volu me] in Serum or Plasma AKASH COOK Start: 03-17-2023 PROTIME-INR AKASH HURLEY MASTERS Start: 03-17-2023 TROPONIN I, HIGH SENSITIVITY AKASH COOK Start: 03-17-2023 Ct cervical spine w/ o contrast material Akash Cook DO Work Phone: Start: 03-17-2023 Ct head/brain w/o co ntrast material Akash Cook DO Work Phone: Start: 03-17-2023 EXTRA URINE FAJARDO TUBE C amnino Cook DO Work Phone: Start: 03-17-2023 Urinalysis complete W Reflex Culture panel - Urine Akash Cook DO Work Phone: Start: 03-17-2023 Urnls dip stick/tabl et reagent auto microscopy Akash Cook DO Work Phone: Start: 03-17-2023 Comprehensive metabo lic panel Akash Cook DO Work Phone: Start: 03-25-2022 Lipid 1996 panel - S indu or Plasma Akash Cook DO Work Phone: section Kian Dong Work Phone: Comment on above: 08/25/2010_35weeks_Ma le; Loop electrosurgical excision procedure Kian Dong Work Phone: Comment on above: 10/2008; Tonsillectomy and adenoidectomy Kian Dong Work Phone: Comment on above: AND TUBES; Plan of Treatment Date Care Activity Detail Author Start: 2034 RSV Immunization age d 60 or older (1 - 1-dose 60+ series) RSV Immunization aged 60 or older (1 - 1-dose 60+ series) [facility] Start: 03-25-2027 Lipid panel Lipid Panel [facility] Start: 03-20-2026 Screening for malign ant neoplasm of cervix [facility] Start: 2024 Zoster Vaccines (1 o f 2) Zoster Vaccines (1 of 2) [facility] Start: 03-20-2024 Thyroid stimulating hormone measurement TSH Level [facility] Start: 12-10-2023 COVID-19 Vaccine ( season) COVID-19 Vaccine ( season) [facility] Start: 12-10-2023 Influenza vaccination Influenza Vacc ine (#1) [facility] Start: 04-24-2023 End: 04-24-2023 Patient encounter procedure 04/24/2023 3:45 PM EST Office Visit [facility] [address] [place] [address] Lorena Bond MD [address] [place] [address] [facility] Start: 04-24-2023 End: 04-24-2023 Professional / ancillary services management 04/24/2023 3:30 PM EST Ancillary Procedure [facility] [address] [place] [address] [facility] Start: 03-20-2023 End: 05-21-2024 DBT Breast - bilateral screening Bilateral screening mammogram with tomosynthesis Imaging Routine Encounter for screening mammogram for malignant neoplasm of breast Expected: 03/20/2023, Expires: 05/21/2024 [facility] Comment on above: Expected: 03/20/2023 , Expires: 05/21/2024 Start: 03-20-2023 End: 03-20-2024 Thyrotropin [Units/volume] in Serum or Plasma TSH Lab Routine Abnormal uterine bleeding (AUB) Expected: 03/20/2023 (Approximate), Expires: 03/20/2024 [facility] [employer] [facility] Work Phone: Comment on above: Expected: 03/20/2023 (Approximate), Expires: 03/20/2024 Start: 03-20-2023 End: 09-19-2023 US Pelvis transvaginal US pelvis transvaginal Imaging Routine Abnormal uterine bleeding (AUB) Expected: 03/20/2023 (Approximate), Expires: 09/19/2023 [facility] Comment on above: Expected: 03/20/2023 (Approximate), Expires: 09/19/2023 Start: 03-20-2023 End: 03-20-2023 Patient encounter procedure 03/20/2023 1:30 PM EST Office Visit [facility] [address] [place] [address] Lorena Bond MD [address] [place] [address] [address] [place] [address] [facility] Start: 12-09-2022 Influenza vaccination Influenza Vacc ine (#1) [facility] Start: 08-17-2021 EPV, Provider: Kian Dong, Status: Pen, Time: 4:00 PM EPV, Provider: Kian Dong, Status: Pen, Time: 4:00 PM [employer] [facility] Work Phone: Start: 05-17-2021 EPV, Provider: Kian Dong, Status: Pen, Time: 2:20 PM EPV, Provider: Kian Dong, Status: Pen, Time: 2:20 PM [employer] [facility] Work Phone: Start: 04-14-2021 EPV, Provider: Kian Dong, Status: Pen, Time: 11:20 AM EPV, Provider: Kian Dong, Status: Pen, Time: 11:20 AM -[employer] [facility] Work Phone: Start: 03-12-2021 EPV, Provider: Kian Dong, Status: Pen, Time: 3:00 PM EPV, Provider: Kian Dong, Status: Pen, Time: 3:00 PM -[employer] [facility] Work Phone: Start: 10-13-2020 Diabetes mellitus screening Diabetes Screening [facility] Start: 2014 Screening for malign ant neoplasm of breast Mammogram [facility] Start: 2004 Screening for malign ant neoplasm of cervix [facility] Start: 1996 DTaP/Tdap/Td Vaccine s (1 - Tdap) DTaP/Tdap/Td Vaccines (1 - Tdap) [facility] Start: 01-01-1996 Screening for malign ant neoplasm of cervix [facility] Start: 1993 DTaP/Tdap/Td Vaccine s (1 - Tdap) DTaP/Tdap/Td Vaccines (1 - Tdap) [facility] Start: 1993 Hepatitis B Vaccines (1 of 3 - 19+ 3-dose series) Hepatitis B Vaccines (1 of 3 - 19+ 3-dose series) [facility] Start: 1992 Diabetes mellitus screening Diabetes Screening [facility] Start: 1992 Hepatitis C screening Hepatitis C Sc reening [facility] Start: 1986 Depression Screening Depression Scre ening [facility] Start: 1980 Pneumococcal Vaccine : Pediatrics (0 to 5 Years) and At-Risk Patients (6 to 64 Years) (1 - PCV) Pneumococcal Vaccine: Pediatrics (0 to 5 Years) and At-Risk Patients (6 to 64 Years) (1 - PCV) [facility] Start: 1980 Pneumococcal Vaccine : Pediatrics (0 to 5 Years) and At-Risk Patients (6 to 64 Years) (1 of 2 - PCV) Pneumococcal Vaccine: Pediatrics (0 to 5 Years) and At-Risk Patients (6 to 64 Years) (1 of 2 - PCV) [facility] Start: 01-01-1976 MMR Vaccines (1 of 1 - Standard series) MMR Vaccines (1 of 1 - Standard series) [facility] Start: 07-01-1975 COVID-19 Vaccine (#1) COVID-19 Vacci ne (#1) [facility] Start: 1974 Hepatitis B Vaccines (1 of 3 - 3-dose series) Hepatitis B Vaccines (1 of 3 - 3-dose series) [facility] Start: 1974 HIV screening HIV Screening [facility] Start: 1974 Screening for malign ant neoplasm of colon [facility] Start: 1974 Yearly Adult Physical Yearly Adult P [facility] Cologuard colon canc er screening Cologuard colon cancer screening Lab Routine Screening for colon cancer Ordered: 03/20/2023 [facility] Comment on above: Ordered: 03/20/2023 Cytology Cervical or vaginal smear or scraping study Pap Smear Pathology and Cytology Routine Encounter for gynecological examination without abnormal finding Ordered: 03/20/2023 [facility] Comment on above: Ordered: 03/20/2023 ECG 12 lead ECG 12 lead ECG STAT 03/17/2023 5:11 PM EST [facility] [employer] Work Phone: End: 02-21-2024 ECG 12 lead [facility] [employer] Work Phone: Comment on above: Every 1 hour for 2 O ccurrences starting 02/21/2024 until 02/21/2024 Payers Date Payer Category Payer Medicaid ANTHEM MEDICAID ANTH MEDICAID ODM [id number] 2022-Present [address] [place] [address] Medicaid HMO [id number] 2022 Medicaid [id number] 2021 Blue Cross Blue [employer] Managed Care [facility] [id number] 2021 Unknown 2019 Unknown [id number] 2017 Private Health Insurance 1974 Unknown [id number] 1974 Unknown [id number] 1974 Unknown [id number] 1974 Unknown [id number] 1974 Unknown [id number] 1974 Unknown [id number] 1974 Unknown [id number] 1974 Unknown [id number] Medicaid [id number] Social History Date Type Detail Facility Start: 03-17-2023 End: 02-21-2024 Current smoker Current smoker [employer] [facility] Work Phone: Comment on above: 6 PER DAY; Tobacco smoking status DCIS Tobacco smoking consumption unknown [facility] Start: 1974 Sex Assigned At Not on file [facility] Start: 03-17-2023 End: 02-21-2024 Gender identity Not on file [facility] Start: 04-10-1992 End: 07-19-2023 Tobacco smoking status DCIS Smokes tobacco daily [facility] Work Phone: Start: 04-10-1992 History of tobacco use Cigarette Smoker [facility] Work Phone: Start: 03-17-2023 End: 07-19-2023 Tobacco use and exposure Smokeless tobacco non-user [facility] Work Phone: Start: 03-17-2023 End: 02-21-2024 Alcohol intake Current drinker of alcohol (finding) [facility] Work Phone: Start: 03-20-2023 Alcohol intake Lifetime non-d iam (finding) [facility] Start: 02-11-2024 End: 02-21-2024 Exposure to SARS-CoV-2 (event) Not sure [facility] Clinical Notes 03-25-2019 to 02-21-2024 AMANUEL Rogel - 02/21/2024 1:10 PM AMANUEL Markham - 02/21/2024 1:10 PM Shaan Bond MD - 03/20/2023 1:30 PM ESTDischarge Instructions Note Date & Type Note Facility 02-21-2024 Emergency department Note Chief Complaint Patient presents with Chest Pain Chest tightness and cough. Patient History Past Medical History: Diagnosis Date Encounter for full-term uncomplicated delivery Normal vaginal delivery Encounter for gynecological examination (general) (routine) without abnormal findings Pap test, as part of routine gynecological examination Personal history of other medical treatment History of mammogram Stroke (Multi) Past Surgical History: Procedure Laterality Date CT ANGIO NECK 01/12/2020 CT NECK ANGIO W AND WO IV CONTRAST 01/12/2020 [facility] CT HEAD ANGIO W AND WO IV CONTRAST 01/12/2020 CT HEAD ANGIO W AND WO IV CONTRAST 01/12/2020 [facility] MR HEAD ANGIO WO IV CONTRAST 03/17/2023 MR HEAD ANGIO WO IV CONTRAST 03/17/2023 [facility] MRI MR NECK ANGIO WO IV CONTRAST 03/17/2023 MR NECK ANGIO WO IV CONTRAST 03/17/2023 [facility] MRI OTHER SURGICAL HISTORY 06/07/2019 Loop electrosurgical excision procedure OTHER SURGICAL HISTORY 06/07/2019 Tonsillectomy with adenoidectomy OTHER SURGICAL HISTORY 06/20/2019 section Family History Problem Relation Name Age of Onset Hypertension Mother Brain cancer Mother Lung cancer Mother Heart attack Father Diabetes type II Father Other (CARDIAC DISORDER) Father Cancer Sister Social History Social History Narrative Not on file Allergies Allergen Reactions Doxycycline Shortness of breath Erythromycin Shortness of breath Oxycodone-Acetaminophen Other and Unknown Change in mental status PMH: Reviewed PSH: Reviewed Social History: Reviewed. Allergies reviewed. HPI: Nas Parks is a 48 y.o. female who presents to the ED today unaccompanied with complaints of cough and tightness in her chest. States her symptoms started yesterday. No fevers. She is a smoker. Has history of pneumonia. Denies concern for COVID or flu. No shortness of breath. REVIEW OF SYSTEMS: All other systems reviewed and negative except as listed in HPI. PHYSICAL EXAM: GENERAL: Vitals noted, no distress. Alert and oriented x 3. Non-toxic. EENT: TMs clear. Posterior oropharynx unremarkable. EOMI, no nystagmus noted. MMM. NECK: Supple. No masses. No midline tenderness. No meningeal signs. CARDIAC: Regular rate, rhythm. No murmurs rubs or gallops. No JVD. Chest nontender. PULMONARY: Lungs clear and equal bilaterally. No wheezes rales or rhonchi. No respiratory distress. ABDOMEN: Soft, nondistended, and nontender. No peritoneal signs. Bowel sounds are present and normoactive in all 4 quadrants. No pulsatile masses. EXTREMITIES: No peripheral edema. SKIN: No rash. Warm, dry, and intact. NEURO: No focal neurologic deficits. Labs Reviewed CBC WITH AUTO DIFFERENTIAL - Abnormal Result Value WBC 7.7 nRBC 0.0 RBC 4.47 Hemoglobin 11.1 (*) Hematocrit 35.6 (*) MCV 80 MCH 24.8 (*) MCHC 31.2 (*) RDW 13.6 Platelets 227 Neutrophils % 61.6 Immature Granulocytes %, Automated 0.4 Lymphocytes % 27.3 Monocytes % 7.2 Eosinophils % 2.7 Basophils % 0.8 Neutrophils Absolute 4.73 Immature Granulocytes Absolute, Automated 0.03 Lymphocytes Absolute 2.10 Monocytes Absolute 0.55 Eosinophils Absolute 0.21 Basophils Absolute 0.06 COMPREHENSIVE METABOLIC PANEL - Abnormal Glucose 73 (*) Sodium 136 Potassium 3.3 (*) Chloride 102 Bicarbonate 27 Anion Gap 10 Urea Nitrogen 6 Creatinine 0.91 eGFR 77 Calcium 9.2 Albumin 4.2 Alkaline Phosphatase 75 Total Protein 6.8 AST 12 Bilirubin, Total 1.2 ALT 8 SERIAL TROPONIN-INITIAL - Normal Troponin I, High Sensitivity 3 Narrative: Less than 99th percentile of normal range cutoff- Female and children under 18 years old <14 ng/L; Male <21 ng/L: Negative Repeat testing should be performed if clinically indicated. Female and children under 18 years old 14-50 ng/L; Male 21-50 ng/L: Consistent with possible cardiac damage and possible increased clinical risk. Serial measurements may help to assess extent of myocardial damage. >50 ng/L: Consistent with cardiac damage, increased clinical risk and myocardial infarction. Serial measurements may help assess extent of myocardial damage. NOTE: Children less than 1 year old may have higher baseline troponin levels and results should be interpreted in conjunction with the overall clinical context. NOTE: Troponin I testing is performed using a different testing methodology at [facility] than at other [facility]. Direct result comparisons should only be made within the same method. SERIAL TROPONIN, 1 HOUR - Normal Troponin I, High Sensitivity 3 Narrative: Less than 99th percentile of normal range cutoff- Female and children under 18 years old <14 ng/L; Male <21 ng/L: Negative Repeat testing should be performed if clinically indicated. Female and children under 18 years old 14-50 ng/L; Male 21-50 ng/L: Consistent with possible cardiac damage and possible increased clinical risk. Serial measurements may help to assess extent of myocardial damage. >50 ng/L: Consistent with cardiac damage, increased clinical risk and myocardial infarction. Serial measurements may help assess extent of myocardial damage. NOTE: Children less than 1 year old may have higher baseline troponin levels and results should be interpreted in conjunction with the overall clinical context. NOTE: Troponin I testing is performed using a different testing methodology at [facility] than at other [facility]. Direct result comparisons should only be made within the same method. TROPONIN SERIES- (INITIAL, 1 HR) Narrative: The following orders were created for panel order Troponin I Series, High Sensitivity (0, 1 HR). Procedure Abnormality Status --------- ------ Troponin I, High Sensiti...[[id number]] Normal Final result Troponin, High Sensitivi...[[id number]] Normal Final result Please view results for these tests on the individual orders. XR chest 1 view Final Result No acute cardiopulmonary process. MACRO: None Signed by: Licha Younger 02/21/2024 1:53 PM Dictation workstation: [id number] Medical Decision Making Amount and/or Complexity of Data Reviewed Labs: ordered. Radiology: ordered. ECG/medicine tests: ordered. EKG interpreted by myself shows SB with rate of 43. Normal axis. MS interval 162. QRS interval 92. QT interval 500. QTc interval 422. Non-specific ST-T wave changes. No acute ischemia or injury pattern. ED COURSE: This patient was seen and examined by myself independently. She is placed on a continuous monitoring analyst with pulse oximetry monitoring. Old records and EKGs are obtained and reviewed. IV heplock is established, labs are obtained and noted above. She declined COVID and flu testing today. Chest x-ray shows no evidence of acute cardiopulmonary process per radiology. K is 3.3 today - given 40 meq orally. Mild anemia noted. She has history of bradycardia. Given her history of smoking, I do feel she requires treatment for bronchitis. She has an allergy to doxycycline and erythromycin. Therefore Levaquin is used. She started on prednisone as well as an albuterol inhaler. Recommended PCP follow-up care next week. Return to ED for any new or worsening symptoms. Patient discharged home in stable condition with computer instructions given. Heart score: 2 Differential Diagnoses Considered: Bronchitis, pneumonia, pleurisy, COVID, flu, dehydration, lecture abnormality Chronic Medical Conditions Significantly Affecting Care: see above External Records Reviewed: I reviewed recent and relevant outside records including: PCP notes, prior discharge summary, previous radiologic studies Diagnostic testing considered: Blood, chest x-ray, EKG, nasal swab Escalation of Care: Appropriate for outpatient management Prescription Drug Consideration: Levaquin, albuterol, prednisone DIAGNOSTIC IMPRESSION: #1 bronchitis #2 hypokalemia #3 mild anemia AMANUEL Rogel 02/21/24 1601 documented in this encounter [facility] Work Phone: 02-21-2024 Physician Emergency department Note Chief Complaint Patient presents with Chest Pain Chest tightness and cough. Patient History Past Medical History: Diagnosis Date Encounter for full-term uncomplicated delivery Normal vaginal delivery Encounter for gynecological examination (general) (routine) without abnormal findings Pap test, as part of routine gynecological examination Personal history of other medical treatment History of mammogram Stroke (Multi) Past Surgical History: Procedure Laterality Date CT ANGIO NECK 01/12/2020 CT NECK ANGIO W AND WO IV CONTRAST 01/12/2020 [facility] EMERGENCY LEGACY CT HEAD ANGIO W AND WO IV CONTRAST 01/12/2020 CT HEAD ANGIO W AND WO IV CONTRAST 01/12/2020 [facility] MR HEAD ANGIO WO IV CONTRAST 03/17/2023 MR HEAD ANGIO WO IV CONTRAST 03/17/2023 [facility] MRI MR NECK ANGIO WO IV CONTRAST 03/17/2023 MR NECK ANGIO WO IV CONTRAST 03/17/2023 [facility] MRI OTHER SURGICAL HISTORY 06/07/2019 Loop electrosurgical excision procedure OTHER SURGICAL HISTORY 06/07/2019 Tonsillectomy with adenoidectomy OTHER SURGICAL HISTORY 06/20/2019 section Family History Problem Relation Name Age of Onset Hypertension Mother Brain cancer Mother Lung cancer Mother Heart attack Father Diabetes type II Father Other (CARDIAC DISORDER) Father Cancer Sister Social History Social History Narrative Not on file Allergies Allergen Reactions Doxycycline Shortness of breath Erythromycin Shortness of breath Oxycodone-Acetaminophen Other and Unknown Change in mental status PMH: Reviewed PSH: Reviewed Social History: Reviewed. Allergies reviewed. HPI: Nas Parks is a 48 y.o. female who presents to the ED today unaccompanied with complaints of cough and tightness in her chest. States her symptoms started yesterday. No fevers. She is a smoker. Has history of pneumonia. Denies concern for COVID or flu. No shortness of breath. REVIEW OF SYSTEMS: All other systems reviewed and negative except as listed in HPI. PHYSICAL EXAM: GENERAL: Vitals noted, no distress. Alert and oriented x 3. Non-toxic. EENT: TMs clear. Posterior oropharynx unremarkable. EOMI, no nystagmus noted. MMM. NECK: Supple. No masses. No midline tenderness. No meningeal signs. CARDIAC: Regular rate, rhythm. No murmurs rubs or gallops. No JVD. Chest nontender. PULMONARY: Lungs clear and equal bilaterally. No wheezes rales or rhonchi. No respiratory distress. ABDOMEN: Soft, nondistended, and nontender. No peritoneal signs. Bowel sounds are present and normoactive in all 4 quadrants. No pulsatile masses. EXTREMITIES: No peripheral edema. SKIN: No rash. Warm, dry, and intact. NEURO: No focal neurologic deficits. Labs Reviewed CBC WITH AUTO DIFFERENTIAL - Abnormal Result Value WBC 7.7 nRBC 0.0 RBC 4.47 Hemoglobin 11.1 (*) Hematocrit 35.6 (*) MCV 80 MCH 24.8 (*) MCHC 31.2 (*) RDW 13.6 Platelets 227 Neutrophils % 61.6 Immature Granulocytes %, Automated 0.4 Lymphocytes % 27.3 Monocytes % 7.2 Eosinophils % 2.7 Basophils % 0.8 Neutrophils Absolute 4.73 Immature Granulocytes Absolute, Automated 0.03 Lymphocytes Absolute 2.10 Monocytes Absolute 0.55 Eosinophils Absolute 0.21 Basophils Absolute 0.06 COMPREHENSIVE METABOLIC PANEL - Abnormal Glucose 73 (*) Sodium 136 Potassium 3.3 (*) Chloride 102 Bicarbonate 27 Anion Gap 10 Urea Nitrogen 6 Creatinine 0.91 eGFR 77 Calcium 9.2 Albumin 4.2 Alkaline Phosphatase 75 Total Protein 6.8 AST 12 Bilirubin, Total 1.2 ALT 8 SERIAL TROPONIN-INITIAL - Normal Troponin I, High Sensitivity 3 Narrative: Less than 99th percentile of normal range cutoff- Female and children under 18 years old <14 ng/L; Male <21 ng/L: Negative Repeat testing should be performed if clinically indicated. Female and children under 18 years old 14-50 ng/L; Male 21-50 ng/L: Consistent with possible cardiac damage and possible increased clinical risk. Serial measurements may help to assess extent of myocardial damage. >50 ng/L: Consistent with cardiac damage, increased clinical risk and myocardial infarction. Serial measurements may help assess extent of myocardial damage. NOTE: Children less than 1 year old may have higher baseline troponin levels and results should be interpreted in conjunction with the overall clinical context. NOTE: Troponin I testing is performed using a different testing methodology at [facility] than at other [facility]. Direct result comparisons should only be made within the same method. SERIAL TROPONIN, 1 HOUR - Normal Troponin I, High Sensitivity 3 Narrative: Less than 99th percentile of normal range cutoff- Female and children under 18 years old <14 ng/L; Male <21 ng/L: Negative Repeat testing should be performed if clinically indicated. Female and children under 18 years old 14-50 ng/L; Male 21-50 ng/L: Consistent with possible cardiac damage and possible increased clinical risk. Serial measurements may help to assess extent of myocardial damage. >50 ng/L: Consistent with cardiac damage, increased clinical risk and myocardial infarction. Serial measurements may help assess extent of myocardial damage. NOTE: Children less than 1 year old may have higher baseline troponin levels and results should be interpreted in conjunction with the overall clinical context. NOTE: Troponin I testing is performed using a different testing methodology at [facility] than at other [facility]. Direct result comparisons should only be made within the same method. TROPONIN SERIES- (INITIAL, 1 HR) Narrative: The following orders were created for panel order Troponin I Series, High Sensitivity (0, 1 HR). Procedure Abnormality Status --------- ------ Troponin I, High Sensiti...[[id number]] Normal Final result Troponin, High Sensitivi...[[id number]] Normal Final result Please view results for these tests on the individual orders. XR chest 1 view Final Result No acute cardiopulmonary process. MACRO: None Signed by: Licha Younger 02/21/2024 1:53 PM Dictation workstation: [id number] Medical Decision Making Amount and/or Complexity of Data Reviewed Labs: ordered. Radiology: ordered. ECG/medicine tests: ordered. EKG interpreted by myself shows SB with rate of 43. Normal axis. MS interval 162. QRS interval 92. QT interval 500. QTc interval 422. Non-specific ST-T wave changes. No acute ischemia or injury pattern. ED COURSE: This patient was seen and examined by myself independently. She is placed on a continuous monitoring analyst with pulse oximetry monitoring. Old records and EKGs are obtained and reviewed. IV heplock is established, labs are obtained and noted above. She declined COVID and flu testing today. Chest x-ray shows no evidence of acute cardiopulmonary process per radiology. K is 3.3 today - given 40 meq orally. Mild anemia noted. She has history of bradycardia. Given her history of smoking, I do feel she requires treatment for bronchitis. She has an allergy to doxycycline and erythromycin. Therefore Levaquin is used. She started on prednisone as well as an albuterol inhaler. Recommended PCP follow-up care next week. Return to ED for any new or worsening symptoms. Patient discharged home in stable condition with computer instructions given. Heart score: 2 Differential Diagnoses Considered: Bronchitis, pneumonia, pleurisy, COVID, flu, dehydration, lecture abnormality Chronic Medical Conditions Significantly Affecting Care: see above External Records Reviewed: I reviewed recent and relevant outside records including: PCP notes, prior discharge summary, previous radiologic studies Diagnostic testing considered: Blood, chest x-ray, EKG, nasal swab Escalation of Care: Appropriate for outpatient management Prescription Drug Consideration: Levaquin, albuterol, prednisone DIAGNOSTIC IMPRESSION: #1 bronchitis #2 hypokalemia #3 mild anemia AMANUEL Rogel 02/21/24 0475 [facility] Work Phone: 03-20-2023 History of Presen t illness Narrative Images from the original note were not included. Nas Parks 03/20/2023 47 y.o. Chief Complaint Patient presents with New Patient Primary Care Physician: Sosa Laureano HPI: Nas Parks is a 47 y.o. female here today for annual exam. Reports in Dec she began to have daily heavy bleeding for abotu 75d. Bleeding stopped a few weeks ago. Went to ED last week for syncopal episodes. EMR reviewed, Hb 9.[address] head. Reports prior to this menses were monthly. Hx of abnormal pap requiring LEEP in the past. Thinks her sister had uterine pre-cancer or cancer Past Medical History: Diagnosis Date Abnormal Pap smear of cervix High blood pressure High cholesterol Stroke (HCC) X2 Past Surgical History: Procedure Laterality Date CERVICAL BIOPSY W/ LOOP ELECTRODE EXCISION DELIVERY (HISTORICAL) TONSILLECTOMY AND ADENOIDECTOMY (HISTORICAL) childhood TYMPANOSTOMY TUBE PLACEMENT Bilateral childhood No family history on file. OB History Para Term AB Living 2 2 2 2 SAB IAB Ectopic Multiple Live Births 2 # Outcome Date GA Lbr Akil/2nd Weight Sex Delivery Anes PTL Lv 2 CS-Unspec MCKAY 1 Vag-Spont MCKAY MEDICATIONS: Current Outpatient Medications Medication Sig Dispense Refill atorvastatin (Lipitor) 40 MG tablet Take 40 mg by mouth daily. clopidogrel (Plavix) 75 MG tablet Take 75 mg by mouth daily. hydroCHLOROthiazide (HYDRODiuril) 12.5 MG tablet Take 12.5 mg by mouth every morning. lisinopril 20 MG tablet Take 20 mg by mouth daily. LORazepam (Ativan) 0.5 MG tablet Take 0.5 mg by mouth in the morning and 0.5 mg at noon and 0.5 mg in the evening. metoprolol succinate XL (Toprol-XL) 25 MG 24 hr tablet docusate sodium (Colace) 100 MG capsule Take 1 capsule (100 mg) by mouth 2 times daily as needed for constipation. 60 capsule 1 ferrous sulfate (FerrouSul) 325 (65 Fe) MG tablet Take 1 tablet (325 mg) by mouth daily (with breakfast). 60 tablet 2 No current facility-administered medications for this visit. ALLERGIES: Allergies as of 03/20/2023 - Reviewed 03/20/2023 Allergen Reaction Noted Doxycycline Rash, Other, and Shortness of breath 01/17/2013 Erythromycin Other and Shortness of breath 01/17/2013 Oxycodone-acetaminophen Other 01/17/2013 REVIEW OF SYSTEMS Review of Systems Constitutional: Negative for chills and fever. Respiratory: Negative for shortness of breath. Cardiovascular: Negative for chest pain. Gastrointestinal: Negative for blood in stool, constipation, diarrhea, nausea and vomiting. Genitourinary: Positive for menstrual problem. Negative for difficulty urinating, frequency, pelvic pain, urgency and vaginal discharge. PHYSICAL EXAMINATION: BP (!) 160/110 Pulse 61 Wt 157 lb (71.2 kg) 168/108, repeat 160/110 Physical Exam Constitutional: General: She is not in acute distress. Appearance: Normal appearance. She is not ill-appearing, toxic-appearing or diaphoretic. HENT: Head: Normocephalic and atraumatic. Nose: Nose normal. Eyes: Extraocular Movements: Extraocular movements intact. Conjunctiva/sclera: Conjunctivae normal. Pupils: Pupils are equal, round, and reactive to light. Neck: Thyroid: No thyroid mass, thyromegaly or thyroid tenderness. Pulmonary: Effort: Pulmonary effort is normal. No respiratory distress. Chest: Breasts: Breasts are symmetrical. Right: Normal. No mass, nipple discharge or skin change. Left: Normal. No mass, nipple discharge or skin change. Abdominal: General: Abdomen is flat. There is no distension. Palpations: Abdomen is soft. There is no mass. Tenderness: There is no abdominal tenderness. There is no guarding or rebound. Genitourinary: General: Normal vulva. Shamir stage (genital): 5. Labia: Right: No rash, tenderness, lesion or injury. Left: No rash, tenderness, lesion or injury. Urethra: No prolapse, urethral swelling or urethral lesion. Vagina: Normal. Cervix: Normal. Uterus: Normal. Adnexa: Right adnexa normal and left adnexa normal. Comments: Cervix flush with vagina Musculoskeletal: Cervical back: Normal range of motion and neck supple. Right lower leg: No edema. Left lower leg: No edema. Lymphadenopathy: Cervical: No cervical adenopathy. Upper Body: Right upper body: No supraclavicular or axillary adenopathy. Left upper body: No supraclavicular or axillary adenopathy. Skin: General: Skin is warm and dry. Coloration: Skin is not jaundiced. Neurological: General: No focal deficit present. Mental Status: She is alert and oriented to person, place, and time. Psychiatric: Mood and Affect: Mood normal. Behavior: Behavior normal. Thought Content: Thought content normal. Judgment: Judgment normal. ASSESSMENT: Diagnosis Plan 1. Encounter for gynecological examination without abnormal finding Pap Smear 2. Encounter for screening mammogram for malignant neoplasm of breast Bilateral screening mammogram with tomosynthesis 3. Screening for colon cancer Cologuard colon cancer screening 4. Abnormal uterine bleeding (AUB) TSH US pelvis transvaginal TSH 5. Chronic hypertension 6. Microcytic anemia PLAN: - Will workup AUB. Labs and US ordered. Rx sent for iron/colace - Instructed to follow up with PCP for elevated BP today - Pap collected - Mammogram due - Colonoscopy due, she would prefer to do cologuard - Counseled on breast awareness. Perform monthly self breast exam - Counseled to exercise at least 30min three times per week. Take a daily multivitamin or 1000 Units of Vit D. - Routine health maintenance per patients PCP. Follow up in about 4 weeks (around 04/17/2023) for US with consult. Orders Placed This Encounter Procedures US pelvis transvaginal Standing Status: Future Standing Expiration Date: 09/19/2023 Bilateral screening mammogram with tomosynthesis Standing Status: Future Standing Expiration Date: 05/21/2024 TSH Standing Status: Future Number of Occurrences: 1 Standing Expiration Date: 03/20/2024 Cologuard colon cancer screening documented in this encounter [facility] 03-17-2023 Hospital Discharg e instructions Akash Cook DO - 03/17/2023 5:06 PM EST Will be contacted by Dr. Barb Saavedra's office (neurology) for a virtual visit. documented in this encounter [facility] Work Phone: 03-17-2023 Emergency department Note Associated Order(s): ECG 12 lead HPI Chief Complaint Patient presents with Syncope Pt walked into her kitchen to take her morning meds at 0800 and woke up on the floor 3 hours later. Pt has diffuse frontal GRIDER but denies neck or back pain. Pt is A&O x4 at this time. Hx CVA 3 yrs ago. FSBS 154 per EMS. Limitations to History: None HPI: 47-year-old female presents with syncope. States that she went to take her pills approximately 4 hours prior to arrival and woke up on the floor 3 hours later. Is amnestic to the event. Denies any headache, neck pain, chest pain, shortness of breath, nausea, vomiting, abdominal pain, urinary symptoms. States that she does have a history of a CVA. This also presented with syncope in the past. Denies any recent long trips, surgeries, hospitalizations. No history of DVT or pulmonary embolism. Denies any leg pain or swelling. Patient takes no hormone replacement therapy. Patient is not currently on anticoagulation. Additional History Obtained from: Daughter at the bedside. Physical Exam: VS: As documented in the triage note and EMR flowsheet from this visit were reviewed. Appearance: Alert. cooperative, in no acute distress. Skin: Intact, dry skin, no lesions, rash, petechiae or purpura. Eyes: PERRLA, EOMs intact, Conjunctiva pink with no redness or exudates. HENT: Normocephalic, atraumatic. Nares patent. No intraoral lesions. Neck: Supple, without meningismus. Trachea at midline. No lymphadenopathy. Pulmonary: Clear bilaterally with good chest wall excursion. No rales, rhonchi or wheezing. No accessory muscle use or stridor. Cardiac: Regular rate and rhythm. Systolic murmur. No JVD, Carotids without bruits. Abdomen: Abdomen is soft, nontender, and nondistended. No palpable organomegaly. No rebound or guarding. No CVA tenderness. Nonsurgical abdomen Genitourinary: Exam deferred. Musculoskeletal: Full range of motion. Pulses full and equal. No cyanosis, clubbing, or edema. Neurological: Cranial nerves are grossly intact, grossly normal sensation, no weakness, no focal findings identified. Psychiatric: Appropriate mood and affect. No data recorded Patient History Past Medical History: Diagnosis Date Encounter for full-term uncomplicated delivery Normal vaginal delivery Encounter for gynecological examination (general) (routine) without abnormal findings Pap test, as part of routine gynecological examination Personal history of other medical treatment History of mammogram Stroke ([facility]) Past Surgical History: Procedure Laterality Date CT ANGIO NECK 01/12/2020 CT NECK ANGIO W AND WO IV CONTRAST 01/12/2020 [facility] EM[facility]Y [facility]GAC[facility] CT HEAD ANGIO W AND WO IV CONTRAST 01/12/2020 CT HEAD ANGIO W AND WO IV CONTRAST 01/12/2020 [facility] OTHER SURGICAL HISTORY 06/07/2019 Loop electrosurgical excision procedure OTHER SURGICAL HISTORY 06/07/2019 Tonsillectomy with adenoidectomy OTHER SURGICAL HISTORY 06/20/2019 section No family history on file. Social History Tobacco Use Smoking status: Every Day Packs/day: .5 Types: Cigarettes Smokeless tobacco: Never Vaping Use Vaping Use: Never used Substance Use Topics Alcohol use: Yes Drug use: Never Physical Exam ED Triage Vitals [03/17/23 1135] Temp Heart Rate Resp BP 36.9 C (98.4 F) 75 18 166/66 SpO2 Temp Source Heart Rate Source Patient Position 98 % Oral Monitor -- BP Location FiO2 (%) -- -- Physical Exam ED Course & MDM Diagnoses as of 03/17/23 1708 Syncope, unspecified syncope type Medical Decision Making Labs Reviewed CBC WITH AUTO DIFFERENTIAL - Abnormal WBC 6.6 nRBC 0.0 RBC 3.90 (*) Hemoglobin 9.4 (*) Hematocrit 30.8 (*) MCV 79 (*) MCH 24.1 (*) MCHC 30.5 (*) RDW 15.6 (*) Platelets 187 Neutrophils % 70.9 Immature Granulocytes %, Automated 0.3 Lymphocytes % 15.0 Monocytes % 13.3 Eosinophils % 0.2 Basophils % 0.3 Neutrophils Absolute 4.68 Immature Granulocytes Absolute, Au* 0.02 Lymphocytes Absolute 0.99 (*) Monocytes Absolute 0.88 Eosinophils Absolute 0.01 Basophils Absolute 0.02 COMPREHENSIVE METABOLIC PANEL - Abnormal Glucose 132 (*) Sodium 136 Potassium 3.2 (*) Chloride 104 Bicarbonate 24 Anion Gap 11 Urea Nitrogen 8 Creatinine 1.01 eGFR 69 Calcium 8.5 (*) Albumin 3.9 Alkaline Phosphatase 71 Total Protein 6.2 (*) AST 17 Bilirubin, Total 1.0 ALT 9 PROTIME-INR - Abnormal Protime 14.5 (*) INR 1.3 (*) URINALYSIS WITH REFLEX MICROSCOPIC AND CULTURE - Abnormal Color, Urine Yellow Appearance, Urine Hazy (*) Specific [place], Urine 1.025 pH, Urine 5.0 Protein, Urine 30 (1+) (*) Glucose, Urine NEGATIVE Blood, Urine SMALL (1+) (*) Ketones, Urine NEGATIVE Bilirubin, Urine NEGATIVE Urobilinogen, Urine <2.0 Nitrite, Urine NEGATIVE Leukocyte Esterase, Urine NEGATIVE URINALYSIS MICROSCOPIC WITH REFLEX CULTURE - Abnormal WBC, Urine 1-5 RBC, Urine >20 (*) Squamous Epithelial Cells, Urine 10-25 (FEW) Bacteria, Urine 1+ (*) Mucus, Urine 1+ Hyaline Casts, Urine OCCASIONAL (*) Fine Granular Casts, Urine 2+ (*) MAGNESIUM - Normal Magnesium 1.83 TROPONIN I, HIGH SENSITIVITY - Normal Troponin I, High Sensitivity 9 Narrative: Less than 99th percentile of normal range cutoff- Female and children under 18 years old <14 ng/L; Male <21 ng/L: Negative Repeat testing should be performed if clinically indicated. Female and children under 18 years old 14-50 ng/L; Male 21-50 ng/L: Consistent with possible cardiac damage and possible increased clinical risk. Serial measurements may help to assess extent of myocardial damage. >50 ng/L: Consistent with cardiac damage, increased clinical risk and myocardial infarction. Serial measurements may help assess extent of myocardial damage. NOTE: Children less than 1 year old may have higher baseline troponin levels and results should be interpreted in conjunction with the overall clinical context. NOTE: Troponin I testing is performed using a different testing methodology at [facility] than at other [facility]. Direct result comparisons should only be made within the same method. APTT - Normal aPTT 31 Narrative: The APTT is no longer used for monitoring Unfractionated Heparin Therapy. For monitoring Heparin Therapy, use the Heparin Assay. D-DIMER, NON VTE - Normal D-Dimer Non VTE, Quant (ng/mL FEU) 470 Narrative: The D-Dimer assay is reported in ng/mL Fibrinogen Equivalent Units (FEU). The results of this assay should NOT be used for the exclusion of Deep Vein Thrombosis and/or Pulmonary Embolism. URINALYSIS WITH REFLEX MICROSCOPIC AND CULTURE Narrative: The following orders were created for panel order Urinalysis with Reflex Microscopic and Culture. Procedure Abnormality Status --------- ------ Urinalysis with Reflex M...[[id number]] Abnormal Final result Extra Urine Fajardo Tube[[id number]] Final result Please view results for these tests on the individual orders. EXTRA URINE FAJARDO TUBE MR brain wo IV contrast Final Result No evidence of acute infarct, intracranial mass effect or midline shift. Minimal nonspecific white matter changes within bilateral cerebral hemispheres. MRA head demonstrates subtle areas of segmental irregularity and narrowing involving the anterior and posterior circulation vessels as detailed. While these findings could be artifactual, underlying segmental areas of narrowing secondary to vasculitis or other abnormality can not be excluded. Further assessment with a CT angiogram of head may be considered if clinically warranted. Prior CT angiogram from 01/28/2020 demonstrated segmental right M1 narrowing which is again seen on current exam. MRA neck demonstrates no evidence of hemodynamically significant stenosis. Signed by: Lida Wallace 03/17/2023 4:10 PM Dictation workstation: [id number] MR angio head wo IV contrast Final Result No evidence of acute infarct, intracranial mass effect or midline shift. Minimal nonspecific white matter changes within bilateral cerebral hemispheres. MRA head demonstrates subtle areas of segmental irregularity and narrowing involving the anterior and posterior circulation vessels as detailed. While these findings could be artifactual, underlying segmental areas of narrowing secondary to vasculitis or other abnormality can not be excluded. Further assessment with a CT angiogram of head may be considered if clinically warranted. Prior CT angiogram from 01/28/2020 demonstrated segmental right M1 narrowing which is again seen on current exam. MRA neck demonstrates no evidence of hemodynamically significant stenosis. Signed by: Lida Wallace 03/17/2023 4:10 PM Dictation workstation: [id number] MR angio neck wo IV contrast Final Result No evidence of acute infarct, intracranial mass effect or midline shift. Minimal nonspecific white matter changes within bilateral cerebral hemispheres. MRA head demonstrates subtle areas of segmental irregularity and narrowing involving the anterior and posterior circulation vessels as detailed. While these findings could be artifactual, underlying segmental areas of narrowing secondary to vasculitis or other abnormality can not be excluded. Further assessment with a CT angiogram of head may be considered if clinically warranted. Prior CT angiogram from 01/28/2020 demonstrated segmental right M1 narrowing which is again seen on current exam. MRA neck demonstrates no evidence of hemodynamically significant stenosis. Signed by: Lida Wallace 03/17/2023 4:10 PM Dictation workstation: [id number] CT head wo IV contrast Final Result No evidence of acute cortical infarct or intracranial hemorrhage. No evidence of intracranial hemorrhage or displaced skull fracture. MACRO: None Signed by: Vidal Ellis 03/17/2023 1:10 PM Dictation workstation: [id number] CT cervical spine wo IV contrast Final Result No evidence for an acute fracture or subluxation of the cervical spine. Discogenic degenerative changes especially at C5/C6. MACRO: None Signed by: Vidal Ellis 03/17/2023 1:15 PM Dictation workstation: [id number] Medical Decision Making: Patient appears well and nontoxic. No focal deficit. CT brain negative. Lab work otherwise unremarkable other than hypokalemia. Replaced orally. MRI and MRA performed. Does show multiple areas of stenosis. Case was discussed with neurologist on-call Dr. Saavedra who reviewed the images as well as her previous visit at the [facility] for CVA. She did advised on pacing her back on aspirin and Plavix. Patient is currently already on aspirin and patient be written a prescription for 30 days for her Plavix. She will then follow-up through telehealth visit. Patient and family agreeable this plan and discharged home in stable condition. Differential Diagnoses Considered: CVA, cerebral artery stenosis, encephalitis, electrolyte abnormality Chronic Medical Conditions Significantly Affecting Care: History of CVA. Independent Interpretation of Studies: I independently interpreted: CT brain shows no evidence of intracranial hemorrhage or mass. Escalation of Care: Appropriate for discharge and follow-up with neurology. Prescription Drug Consideration: Oral Plavix. Discussion of Management with Other Providers: I discussed the patient/results with: Neurologist on-call. Procedure ECG 12 lead Performed by: Akash Cook DO Authorized by: Akash D Lemasters, DO ECG interpreted by ED Physician in the absence of a millwright: yes Comments: EKG interpreted by Dr. Aaksh Cook: Normal sinus rhythm at 65 bpm. MS interval 148 ms. QTc of [address] changes. Akash Cook DO 03/17/23 171 documented in this encounter [facility] Work Phone: 03-17-2023 Physician Emergency department Note Associated Order(s): ECG 12 lead HPI Chief Complaint Patient presents with Syncope Pt walked into her kitchen to take her morning meds at 0800 and woke up on the floor 3 hours later. Pt has diffuse frontal GRIDER but denies neck or back pain. Pt is A&O x4 at this time. Hx CVA 3 yrs ago. FSBS 154 per EMS. Limitations to History: None HPI: 47-year-old female presents with syncope. States that she went to take her pills approximately 4 hours prior to arrival and woke up on the floor 3 hours later. Is amnestic to the event. Denies any headache, neck pain, chest pain, shortness of breath, nausea, vomiting, abdominal pain, urinary symptoms. States that she does have a history of a CVA. This also presented with syncope in the past. Denies any recent long trips, surgeries, hospitalizations. No history of DVT or pulmonary embolism. Denies any leg pain or swelling. Patient takes no hormone replacement therapy. Patient is not currently on anticoagulation. Additional History Obtained from: Daughter at the bedside. Physical Exam: VS: As documented in the triage note and EMR flowsheet from this visit were reviewed. Appearance: Alert. cooperative, in no acute distress. Skin: Intact, dry skin, no lesions, rash, petechiae or purpura. Eyes: PERRLA, EOMs intact, Conjunctiva pink with no redness or exudates. HENT: Normocephalic, atraumatic. Nares patent. No intraoral lesions. Neck: Supple, without meningismus. Trachea at midline. No lymphadenopathy. Pulmonary: Clear bilaterally with good chest wall excursion. No rales, rhonchi or wheezing. No accessory muscle use or stridor. Cardiac: Regular rate and rhythm. Systolic murmur. No JVD, Carotids without bruits. Abdomen: Abdomen is soft, nontender, and nondistended. No palpable organomegaly. No rebound or guarding. No CVA tenderness. Nonsurgical abdomen Genitourinary: Exam deferred. Musculoskeletal: Full range of motion. Pulses full and equal. No cyanosis, clubbing, or edema. Neurological: Cranial nerves are grossly intact, grossly normal sensation, no weakness, no focal findings identified. Psychiatric: Appropriate mood and affect. No data recorded Patient History Past Medical History: Diagnosis Date Encounter for full-term uncomplicated delivery Normal vaginal delivery Encounter for gynecological examination (general) (routine) without abnormal findings Pap test, as part of routine gynecological examination Personal history of other medical treatment History of mammogram Stroke ([facility] Past Surgical History: Procedure Laterality Date CT ANGIO NECK 01/12/2020 CT NECK ANGIO W AND WO IV CONTRAST 01/12/2020 [facility] CT HEAD ANGIO W AND WO IV CONTRAST 01/12/2020 CT HEAD ANGIO W AND WO IV CONTRAST 01/12/2020 [facility] OTHER SURGICAL HISTORY 06/07/2019 Loop electrosurgical excision procedure OTHER SURGICAL HISTORY 06/07/2019 Tonsillectomy with adenoidectomy OTHER SURGICAL HISTORY 06/20/2019 section No family history on file. Social History Tobacco Use Smoking status: Every Day Packs/day: .5 Types: Cigarettes Smokeless tobacco: Never Vaping Use Vaping Use: Never used Substance Use Topics Alcohol use: Yes Drug use: Never Physical Exam ED Triage Vitals [03/17/23 1135] Temp Heart Rate Resp BP 36.9 C (98.4 F) 75 18 166/66 SpO2 Temp Source Heart Rate Source Patient Position 98 % Oral Monitor -- BP Location FiO2 (%) -- -- Physical Exam ED Course & MDM Diagnoses as of 03/17/23 1708 Syncope, unspecified syncope type Medical Decision Making Labs Reviewed CBC WITH AUTO DIFFERENTIAL - Abnormal WBC 6.6 nRBC 0.0 RBC 3.90 (*) Hemoglobin 9.4 (*) Hematocrit 30.8 (*) MCV 79 (*) MCH 24.1 (*) MCHC 30.5 (*) RDW 15.6 (*) Platelets 187 Neutrophils % 70.9 Immature Granulocytes %, Automated 0.3 Lymphocytes % 15.0 Monocytes % 13.3 Eosinophils % 0.2 Basophils % 0.3 Neutrophils Absolute 4.68 Immature Granulocytes Absolute, Au* 0.02 Lymphocytes Absolute 0.99 (*) Monocytes Absolute 0.88 Eosinophils Absolute 0.01 Basophils Absolute 0.02 COMPREHENSIVE METABOLIC PANEL - Abnormal Glucose 132 (*) Sodium 136 Potassium 3.2 (*) Chloride 104 Bicarbonate 24 Anion Gap 11 Urea Nitrogen 8 Creatinine 1.01 eGFR 69 Calcium 8.5 (*) Albumin 3.9 Alkaline Phosphatase 71 Total Protein 6.2 (*) AST 17 Bilirubin, Total 1.0 ALT 9 PROTIME-INR - Abnormal Protime 14.5 (*) INR 1.3 (*) URINALYSIS WITH REFLEX MICROSCOPIC AND CULTURE - Abnormal Color, Urine Yellow Appearance, Urine Hazy (*) Specific [place], Urine 1.025 pH, Urine 5.0 Protein, Urine 30 (1+) (*) Glucose, Urine NEGATIVE Blood, Urine SMALL (1+) (*) Ketones, Urine NEGATIVE Bilirubin, Urine NEGATIVE Urobilinogen, Urine <2.0 Nitrite, Urine NEGATIVE Leukocyte Esterase, Urine NEGATIVE URINALYSIS MICROSCOPIC WITH REFLEX CULTURE - Abnormal WBC, Urine 1-5 RBC, Urine >20 (*) Squamous Epithelial Cells, Urine 10-25 (FEW) Bacteria, Urine 1+ (*) Mucus, Urine 1+ Hyaline Casts, Urine OCCASIONAL (*) Fine Granular Casts, Urine 2+ (*) MAGNESIUM - Normal Magnesium 1.83 TROPONIN I, HIGH SENSITIVITY - Normal Troponin I, High Sensitivity 9 Narrative: Less than 99th percentile of normal range cutoff- Female and children under 18 years old <14 ng/L; Male <21 ng/L: Negative Repeat testing should be performed if clinically indicated. Female and children under 18 years old 14-50 ng/L; Male 21-50 ng/L: Consistent with possible cardiac damage and possible increased clinical risk. Serial measurements may help to assess extent of myocardial damage. >50 ng/L: Consistent with cardiac damage, increased clinical risk and myocardial infarction. Serial measurements may help assess extent of myocardial damage. NOTE: Children less than 1 year old may have higher baseline troponin levels and results should be interpreted in conjunction with the overall clinical context. NOTE: Troponin I testing is performed using a different testing methodology at [facility] than at other [facility] hospitals. Direct result comparisons should only be made within the same method. APTT - Normal aPTT 31 Narrative: The APTT is no longer used for monitoring Unfractionated Heparin Therapy. For monitoring Heparin Therapy, use the Heparin Assay. D-DIMER, NON VTE - Normal D-Dimer Non VTE, Quant (ng/mL FEU) 470 Narrative: The D-Dimer assay is reported in ng/mL Fibrinogen Equivalent Units (FEU). The results of this assay should NOT be used for the exclusion of Deep Vein Thrombosis and/or Pulmonary Embolism. URINALYSIS WITH REFLEX MICROSCOPIC AND CULTURE Narrative: The following orders were created for panel order Urinalysis with Reflex Microscopic and Culture. Procedure Abnormality Status --------- ------ Urinalysis with Reflex M...[[id number]] Abnormal Final result Extra Urine Fajardo Tube[[id number]] Final result Please view results for these tests on the individual orders. EXTRA URINE FAJARDO TUBE MR brain wo IV contrast Final Result No evidence of acute infarct, intracranial mass effect or midline shift. Minimal nonspecific white matter changes within bilateral cerebral hemispheres. MRA head demonstrates subtle areas of segmental irregularity and narrowing involving the anterior and posterior circulation vessels as detailed. While these findings could be artifactual, underlying segmental areas of narrowing secondary to vasculitis or other abnormality can not be excluded. Further assessment with a CT angiogram of head may be considered if clinically warranted. Prior CT angiogram from 01/28/2020 demonstrated segmental right M1 narrowing which is again seen on current exam. MRA neck demonstrates no evidence of hemodynamically significant stenosis. Signed by: Lida Wallace 03/17/2023 4:10 PM Dictation workstation: [id number] MR angio head wo IV contrast Final Result No evidence of acute infarct, intracranial mass effect or midline shift. Minimal nonspecific white matter changes within bilateral cerebral hemispheres. MRA head demonstrates subtle areas of segmental irregularity and narrowing involving the anterior and posterior circulation vessels as detailed. While these findings could be artifactual, underlying segmental areas of narrowing secondary to vasculitis or other abnormality can not be excluded. Further assessment with a CT angiogram of head may be considered if clinically warranted. Prior CT angiogram from 01/28/2020 demonstrated segmental right M1 narrowing which is again seen on current exam. MRA neck demonstrates no evidence of hemodynamically significant stenosis. Signed by: Lida Wallace 03/17/2023 4:10 PM Dictation workstation: [id number] MR angio neck wo IV contrast Final Result No evidence of acute infarct, intracranial mass effect or midline shift. Minimal nonspecific white matter changes within bilateral cerebral hemispheres. MRA head demonstrates subtle areas of segmental irregularity and narrowing involving the anterior and posterior circulation vessels as detailed. While these findings could be artifactual, underlying segmental areas of narrowing secondary to vasculitis or other abnormality can not be excluded. Further assessment with a CT angiogram of head may be considered if clinically warranted. Prior CT angiogram from 01/28/2020 demonstrated segmental right M1 narrowing which is again seen on current exam. MRA neck demonstrates no evidence of hemodynamically significant stenosis. Signed by: Lida Wallace 03/17/2023 4:10 PM Dictation workstation: [id number] CT head wo IV contrast Final Result No evidence of acute cortical infarct or intracranial hemorrhage. No evidence of intracranial hemorrhage or displaced skull fracture. MACRO: None Signed by: Vidal Ellis 03/17/2023 1:10 PM Dictation workstation: [id number] CT cervical spine wo IV contrast Final Result No evidence for an acute fracture or subluxation of the cervical spine. Discogenic degenerative changes especially at C5/C6. MACRO: None Signed by: Vidal Ellis 03/17/2023 1:15 PM Dictation workstation: [id number] Medical Decision Making: Patient appears well and nontoxic. No focal deficit. CT brain negative. Lab work otherwise unremarkable other than hypokalemia. Replaced orally. MRI and MRA performed. Does show multiple areas of stenosis. Case was discussed with neurologist on-call Dr. Saavedra who reviewed the images as well as her previous visit at the [facility] for CVA. She did advised on pacing her back on aspirin and Plavix. Patient is currently already on aspirin and patient be written a prescription for 30 days for her Plavix. She will then follow-up through telehealth visit. Patient and family agreeable this plan and discharged home in stable condition. Differential Diagnoses Considered: CVA, cerebral artery stenosis, encephalitis, electrolyte abnormality Chronic Medical Conditions Significantly Affecting Care: History of CVA. Independent Interpretation of Studies: I independently interpreted: CT brain shows no evidence of intracranial hemorrhage or mass. Escalation of Care: Appropriate for discharge and follow-up with neurology. Prescription Drug Consideration: Oral Plavix. Discussion of Management with Other Providers: I discussed the patient/results with: Neurologist on-call. Procedure ECG 12 lead Performed by: Akash Cook DO Authorized by: Akash Cook DO ECG interpreted by ED Physician in the absence of a millwright: yes Comments: EKG interpreted by Dr. Akash Cook: Normal sinus rhythm at 65 bpm. MS interval 148 ms. QTc of [address] changes. Akash Cook DO 03/17/231710 [facility] Work Phone: 02-15-2023 Telephone encounter Note S: the patient is calling the [facility] About vaginal bleeding B: This has been for 50 days. A: It is continuous bleeding with clots. She thought it was a sign of menopause so she ignored it. No abdominal pain. She denies dizziness or lightheadedness. No dyspnea. R: She has a new patient appointment made; insurance verified. Offered to move it up but she had Dr. Bond recommended and she prefers to wait to see her. Reason for Disposition Periods last > 7 days Protocols used: Vaginal Bleeding - [id number] [facility] [employer] 02-15-2023 Miscellaneous Notes S: the patient is calling the [facility] About vaginal bleeding B: This has been for 50 days. A: It is continuous bleeding with clots. She thought it was a sign of menopause so she ignored it. No abdominal pain. She denies dizziness or lightheadedness. No dyspnea. R: She has a new patient appointment made; insurance verified. Offered to move it up but she had Dr. Bond recommended and she prefers to wait to see her. 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 Last year was one of the worst and the Ativan helped well. Also tried Effexor and it seemed to help a little bit with her mood but it caused a lot of stomach issues and she stopped.The rest of the year she does not really have any troubles with anxiety or depression.Since the Ativan worked well for her as needed last year we will go ahead and refill that medication. No other medicines at this time.I have personally reviewed the OARRS report for this patient. This report is viewed or scanned into the electronic medical record. I have considered the risks of abuse, dependence, addiction and diversion. I believe that it is clinically appropriate for this patient to be prescribed this medication.Hypertension - Takes medication without side effects. No CP/SOB/Palpitations. Follows a no added salt diet. Counseled diet, activity and weight loss.Hyperlipidemia - Takes and tolerates medications without fatigue and myalgias.Labs today [employer] [facility] Work Phone: Evaluation note Diagnosis Syncope, unspecified syncope type- Primary documented in this encounter [facility] Work Phone: Evaluation note* Diagnosis Encounter for gynecological examination without abnormal finding- Primary Encounter for screening mammogram for malignant neoplasm of breast Screening for colon cancer Special screening for malignant neoplasms, colon Abnormal uterine bleeding (AUB) Chronic hypertension Microcytic anemia Unspecified iron deficiency anemia [facility] Essential hypertension- Primary Unspecified essential hypertension Mixed hyperlipidemia Primary hypertension Unspecified essential hypertension Hyperlipemia, mixed Mixed hyperlipidemia Hyperthyroidism Thyrotoxicosis without mention of goiter or other cause, without mention of thyrotoxic crisis or storm Vitamin B12 deficiency Other B-complex deficiencies Anxiety Anxiety state, unspecified Arterial ischemic stroke (Multi) Unspecified cerebral artery occlusion with cerebral infarction NATHALIE (generalized anxiety disorder) Generalized anxiety disorder Breast cancer screening by mammogram Tobacco use Bronchitis- Primary Bronchitis, not specified as acute or chronic Hypokalemia Hypopotassemia Mild anemia documented in this encounter [facility] Work Phone: History of Present illness Narrative* emotionally some better, less mood fluctuations * no HBP checks * used a couple of lorazepam * sleeping some better at night [facility] Work Phone: Hospital Discharge instructions* Attachments The following attachments cannot be sent through Care Everywhere. * Acute bronchitis (Slovak) * Quitting smoking (Slov[place]) [facility] Summary Purpose Family History No Family History Records FoundUnknown Family Member Name Dates Details Family history of hypertensi on: Mother(V17.49, Z82.49) Status:Active Primary malignant neoplasm o f lung: Mother Status:Active Family history of diabetes m ellitus: Father(V18.0, Z83.3) Status:Active Family history of myocardial infarction: Father(V17.3, Z82.49) Status:Active Family history of cardiac di sorder: Father(V17.49, Z82.49) Status:Active Family history of malignant neoplasm: Sister(V16.9, Z80.9) Status:Active Primary malignant neoplasm o f brain: Mother Status:Active Unknown Family Member Name Dates Details Primary malignant neoplasm o f brain: Mother Status:Active Family history of cardiac di sorder: Father(V17.49, Z82.49) Status:Active Family history of myocardial infarction: Father(V17.3, Z82.49) Status:Active Family history of diabetes m ellitus: Father(V18.0, Z83.3) Status:Active Primary malignant neoplasm o f lung: Mother Status:Active Family history of hypertensi on: Mother(V17.49, Z82.49) Status:Active Family history of malignant neoplasm: Sister(V16.9, Z80.9) Status:Active Unknown Family Member Name Dates Details Family history of hypertensi on: Mother(V17.49, Z82.49) Status:Active Primary malignant neoplasm o f lung: Mother Status:Active Family history of diabetes m ellitus: Father(V18.0, Z83.3) Status:Active Family history of myocardial infarction: Father(V17.3, Z82.49) Status:Active Family history of cardiac di sorder: Father(V17.49, Z82.49) Status:Active Family history of malignant neoplasm: Sister(V16.9, Z80.9) Status:Active Primary malignant neoplasm o f brain: Mother Status:Active Unknown Family Member Name Dates Details Primary malignant neoplasm o f brain: Mother Status:Active Family history of malignant neoplasm: Sister(V16.9, Z80.9) Status:Active Family history of cardiac di sorder: Father(V17.49, Z82.49) Status:Active Family history of myocardial infarction: Father(V17.3, Z82.49) Status:Active Family history of diabetes m ellitus: Father(V18.0, Z83.3) Status:Active Primary malignant neoplasm o f lung: Mother Status:Active Family history of hypertensi on: Mother(V17.49, Z82.49) Status:Active Unknown Family Member Name Dates Details Family history of hypertensi on: Mother(V17.49, Z82.49) Status:Active Primary malignant neoplasm o f lung: Mother Status:Active Family history of diabetes m ellitus: Father(V18.0, Z83.3) Status:Active Family history of myocardial infarction: Father(V17.3, Z82.49) Status:Active Family history of cardiac di sorder: Father(V17.49, Z82.49) Status:Active Family history of malignant neoplasm: Sister(V16.9, Z80.9) Status:Active Primary malignant neoplasm o f brain: Mother Status:Active Unknown Family Member Name Dates Details Family history of hypertensi on: Mother(V17.49, Z82.49) Status:Active Primary malignant neoplasm o f lung: Mother Status:Active Family history of diabetes m ellitus: Father(V18.0, Z83.3) Status:Active Family history of myocardial infarction: Father(V17.3, Z82.49) Status:Active Family history of cardiac di sorder: Father(V17.49, Z82.49) Status:Active Family history of malignant neoplasm: Sister(V16.9, Z80.9) Status:Active Primary malignant neoplasm o f brain: Mother Status:Active Unknown Family Member Name Dates Details Family history of hypertensi on: Mother(V17.49, Z82.49) Status:Active Primary malignant neoplasm o f lung: Mother Status:Active Family history of diabetes m ellitus: Father(V18.0, Z83.3) Status:Active Family history of myocardial infarction: Father(V17.3, Z82.49) Status:Active Family history of cardiac di sorder: Father(V17.49, Z82.49) Status:Active Family history of malignant neoplasm: Sister(V16.9, Z80.9) Status:Active Primary malignant neoplasm o f brain: Mother Status:Active Unknown Family Member Name Dates Details Family history of hypertensi on: Mother(V17.49, Z82.49) Status:Active Primary malignant neoplasm o f lung: Mother Status:Active Family history of diabetes m ellitus: Father(V18.0, Z83.3) Status:Active Family history of myocardial infarction: Father(V17.3, Z82.49) Status:Active Family history of cardiac di sorder: Father(V17.49, Z82.49) Status:Active Family history of malignant neoplasm: Sister(V16.9, Z80.9) Status:Active Primary malignant neoplasm o f brain: Mother Status:Active Unknown Family Member Name Dates Details Family history of hypertensi on: Mother(V17.49, Z82.49) Status:Active Primary malignant neoplasm o f lung: Mother Status:Active Family history of diabetes m ellitus: Father(V18.0, Z83.3) Status:Active Family history of myocardial infarction: Father(V17.3, Z82.49) Status:Active Family history of cardiac di sorder: Father(V17.49, Z82.49) Status:Active Family history of malignant neoplasm: Sister(V16.9, Z80.9) Status:Active Primary malignant neoplasm o f brain: Mother Status:Active Advance Directives No Advanced Directives Records FoundNo Advanced Directives Records FoundNo Advanced Directives Records FoundNo Advanced Directives Records FoundNo Advanced Directives Records FoundNo Advanced Directives Records FoundNo Advanced Directives Records FoundNo Advanced Directives Records FoundNo Advanced Directives Records Found Chief Complaint 1 WK F/U REV LABS1 MO F/UANGER WITH ALT TEARFUL EPISODES. STATES SHE GOT THIS WAY LAST YEAR Additional Source Comments INFORMATION SOURCE (unrecogn ized section and content) DATE CREATED AUTHOR 04/01/2018 [facility] DATE CREATED AUTHOR AUTHOR'S ORGANIZ ATION 07/31/2019 [facility] DATE CREATED AUTHOR AUTHOR'S ORGANIZ ATION 01/31/2022 [facility] DATE CREATED AUTHOR AUTHOR'S ORGANIZ ATION 04/01/2022 [facility] DATE CREATED AUTHOR AUTHOR'S ORGANIZ ATION 03/30/2023 [facility] DATE CREATED AUTHOR AUTHOR'S ORGANIZ ATION 12/14/2023 [facility] DATE CREATED AUTHOR AUTHOR'S ORGANIZ ATION 02/23/2024 [facility] DATE CREATED AUTHOR AUTHOR'S ORGANIZ ATION 02/24/2024 [facility] DATE CREATED AUTHOR AUTHOR'S ORGANIZ ATION 06/23/2024 [facility] Reason for Visit (unrecogniz ed section and content) Reason Onset Date Comments Vaginal Bleeding 02/15/2023 Reason Comments Syncope Pt walked into her [facility] to take her morning meds at 0800 and woke up on the floor 3 hours later. Pt has diffuse frontal GRIDER but denies neck or back pain. Pt is A&O x4 at this time. Hx CVA 3 yrs ago. FSBS 154 per EMS. Reason Comments New Patient Reason Comments Chest Pain Chest tightness and cough. Scheduled Active and Recently Administ ered Medications (unrecognized section and content) Medication Order 03/15/2023 03/16/2023 03/17/2023 potassium chloride CR (Klor-Con M20) ER tablet 40 mEq (COMPLETED) 40 mEq, oral, Once, On Mon03/17/23 at 1230, For 1 dose, Best given with food and plenty of water to minimize gastric irritation. Do not crush or chew. 1246 (Given - Provid er: Elena Sykes RN) Scheduled Medication Order 02/19/2024 02/20/2024 02/21/2024 potassium chloride CR (Klor-Con M20) ER tablet 40 mEq (COMPLETED) 40 mEq, oral, Once, On Mon02/21/24 at 1540, For 1 dose, Best given with food and plenty of water to minimize gastric irritation. Do not crush or chew. 1559 (Given - Provid er: Petrona Verdugo RN) Care Teams (unrecognized sec tion and content) Do All Operator Relationship Specialty Start Date End Date Kian Dong MD [address] [place] [address] PCP - General Family Medicine 03/17/23 Do All Operator Relationship Specialty Start Date End Date Sosa Laureano [address] [place] [address] PCP - General 03/20/23 Do All Operator Relationship Specialty Start Date End Date Kian Dong MD [address] [address] PCP - [facility] PCP 09/09/23 Tania Patton MD [address] [address] PCP - General Family Medicine 02/21/24 Do All Operator Relationship Specialty Start Date End Date Kian Dong MD [address] [address] PCP - [place] [facility] PCP 09/09/23 Tania Patton MD [address] [address] PCP - General Family Medicine 02/21/24 FOR RECORDS PERTAINING TO PATIENTS WHO ARE OR HAVE BEEN ENROLLED IN A CHEMICAL DEPENDENCY/SUBSTANCEABUSE PROGRAM, SOME INFORMATION MAY BE OMITTED. This clinical summary was aggregated from multiple sources. Caution should be exercised in using it in the provision of clinical care. This summary normalizes information from multiple sources, and as a consequence, information in this document may materially change the coding, format and clinical context of patient data. In addition, data may be omitted in some cases. CLINICAL DECISIONS SHOULD BE BASED ON THE PRIMARY CLINICAL RECORDS. [facility], [facility]. provides no warranty or guarantee of the accuracy or completeness of information in this document.
[2024-12-05 02:10] LABS: Alcohol, Blood (Medical)-Serum < 10.1 mg/dL (<=10.0)
[2024-12-05] MEDS: 0.9% Normal Saline (1000mL) 1,000 ML 50 ML IV (03:10)
[2024-12-05 03:34] LABS: Mucous, Urine 0 SEEN /hpf (<or=2+)
[2024-12-05 03:39] LABS: Color, Urine Straw (Yellow); Glucose, Dipstick Normal (Normal); Ketone-Dipstick Negative (Negative); Leukocyte Esterase-Dipstick Negative /ul (Negative); Nitrite-Dipstick Negative (Negative); Occult Blood-Urine 10 /ul (Negative); Protein-Dipstick 15 mg/dl (Negative); Specific Gravity, Urine 1.010 (1.002-1.030); Urine Bilirubin Dipstick Negative (Negative)
[2024-12-05 03:58] LABS: Red Blood Cells-Urine 0-5 SEEN /hpf (0-5); Squamous Epithelial Cells - UA 0-5 SEEN /hpf (5-10)
--- OUTSIDE RECORDS SUMMARY | 2024-12-05 04:23 | XMS RPT_ITS | CCD ---
Author Organization [facility] Care Team Providers Care Technical Spec Name Role Phone Kevon, Adalgisa Unavailable Unavailable No Doctor Assigned, Nodr Unavailable Unavail able Kian Dong Unavailable [phone] Unavailable Unavailable Kel, Dr. Kian Walton Referring Unav ailignacio Dong, Dr. Kian Walton Attending Unav ailable Kel, Dr. Kian Walton Primary Care Unav ailable Unavailable Unavailable Unavailable Unavailable Unavailable Primary Care Provider UnavailKian Huitron MD Primary Care Provider [facility], [facility] Primary Care Provider Unav ailable SHAINA BOND Attending Unavailable [facility], [facility] Unavailable LILA DOSS Attending Unavailable KIAN DONG Primary Care UnavailKian Horton MD Unavailable [phone] Tania Patton MD Primary Care Provider [phone] AKASH MARY Attending Unavailable TANIA PATTON Primary Care Unavailable TANIA PATTON Primary Care Unavailable BILDERBACK, CHELSI C Referring Unavaila ble TANIA PATTON Primary Care Unavailable BILDERVICK, CHELSI C Referring Unavaila ble TANIA PATTON Primary Care Unavailable KIAN DONG Attending Unavailable KIAN DONG Primary Care Unavailable Kel BEATTY, Dr. Silva Primary Care Provider Dr. Salty Davalos DO Emergency Provider Dr. Anton Hoffmann DO Admit Provider Unavail able Dr. Anton Hoffmann DO Attending Provider Unav ailable Allergies Allergy Classification Reported Allergen(s) Allergy Type Date of Onset Reaction(s) Facility (1 source) Acetaminophen / oxyCODONE; Translations: [Percocet 5/325] Drug Allergy [facility] Repository (19 sources) Doxycycline; Translations: [doxycycline] Drug Allergy 3 Shortness of breath, Rash, Other [facility] (18 sources) Erythromycin; Translations: [erythromycin] Drug Allergy 3 Shortness of breath, Other [facility] (12 sources) Acetaminophen / oxyCODONE; Translations: [Percocet TABS] Drug Allergy 3 Other, Unknown [facility] (4 sources) Acetaminophen / oxyCODONE; Translations: [OXYCODONE-ACETAM INOPHEN] Drug Allergy 3 Other [facility] (1 source) Azithromycin Drug Allergy 5 Chest pain [facility] (1 source) oxyCODONE Drug Allergy 5 Violent behavior [facility] Medications Current Medications Medication Drug Class(es) Dates Sig (Normalized) Sig (Original) acetaminophen 500 mg oral tablet (3 sources) take 2 tablets by mouth every six hours as needed acetaminophen (Tylenol) 500 mg tablet Take 2 tablets (1,000 mg) by mouth every 6 hours if needed for mild pain (1 - 3). Active [id number] actuat albuterol 0.09 mg/actuat metered dose inhaler (3 sources) beta2-Adrenergic Agonist Start: 02-21-2024 End: 03-22-2024 take 1-2 puff(s) by inhalation every six hours for wheezing albuterol 90 mcg/actuation inhaler Indications: Bronchitis Inhale 1-2 puffs every 6 hours if needed for wheezing. 18 g 02/21/2024 03/22/2024 Active aspirin 81 mg oral tablet (14 sources) Platelet Aggregation Inhibitor, Nonsteroidal Anti-inflammatory Drug Start: 12-04-2024 take 1 capsule by mouth once daily Aspirin 81 mg capsule Active 81 mg PO DAILY December 04, 2024 12:00am Start: 10-16-2019 aspirin 81 mg chewable tablet Chew 1 tablet (81 mg) once daily. 10/16/2019 Active Start: 10-16-2019 Aspirin 81 MG Oral Tablet Chewable Quantity: 30 Refills: 0 Ordered: 16-Oct-2019 DO Start : 16-Oct-2019 Active atorvastatin 40 mg oral tablet (15 sources) HMG-CoA Reductase Inhibitor Start: 12-04-2024 take 1 tablet by mouth once daily Atorvastatin 40 mg tablet Active 40 mg PO DAILY December 04, 2024 12:00am Start: 07-19-2023 End: 07-18-2024 take 1 tablet [...] 03/20/2023 Active hydroCHLOROthiazide 12.5 mg oral tablet (10 sources) Thiazide Diuretic Start: 12-04-2024 take 1 tablet by mouth once daily Hydrochlorothiazide 12.5 mg tablet Active 12.5 mg PO DAILY December 04, 2024 12:00am Start: 07-19-2023 End: 07-18-2024 take 1 tablet [...] 02/26/2024 Active lisinopril 20 mg oral tablet (15 sources) Angiotensin Converting Enzyme Inhibitor Start: 12-04-2024 take 1 tablet by mouth once daily Lisinopril 20 mg tablet Active 20 mg PO DAILY December 04, 2024 12:00am Start: 07-19-2023 End: 07-18-2024 take 1 tablet [...] succinate 25 mg extended release oral tablet (14 sources) beta-Adrenergic Marni Start: 12-04-2024 take 1 tablet by mouth once daily Metoprolol Succinate 25 mg tablet extended release 24 hr Active 25 mg PO DAILY December 04, 2024 12:00am Start: 07-19-2023 End: 07-18-2024 take 1 tablet [...] Active Start: 04-06-2021 take 1 tablet by [facility] once daily Metoprolol Succinate ER 25 MG [...] Start: 04-06-2021 take 1 capsule by mo [facility] once daily at mealtime Venlafaxine HCl ER [...] unspecified; Translations: [Anemia, unspecified] Onset: 02-21-2024 Episodic Diseases of white blood cells (2 sources) Leukocytosis; Translations: [Elevated white blood cell count, unspecified] 12-05-2024 Chronic Disorders of lipid metabolism (14 sources) Mixed hyperlipidemia; Translations: [Mixed hyperlipidemia] Onset: 07-19-2023 07-19-2023 Chronic Essential hypertension (17 sources) Hypertensive disorder; Translations: [Unspecified essential hypertension] Onset: 10-13-2019 03-20-2023 Chronic Fluid and electrolyte disorders (3 sources) Hypokalemia; Translations: [Hypokalemia] Onset: 02-21-2024 02-21-2024 Episodic Headache; including migraine (9 sources) Migraine; Translations: [Migraine, unspecified, without mention of intractable migraine without mention of status migrainosus] Chronic Late effects of cerebrovascular disease (2 sources) History of cerebrovascular accident with residual deficit; Translations: [Unspecified sequelae of cerebral infarction] 12-05-2024 Chronic Malaise and fatigue (9 sources) Fatigue; [...] sources) Obesity; Translations: [Obesity, unspecified] Chronic Other nutritional; endocrine; and metabolic disorders (2 sources) Obese class I; Translations: [Class 1 obesity] 12-05-2024 Chronic Other and delivery including normal (9 sources) Delivery normal; Translations: [Normal delivery] Episodic Comment on above: 10/31/1998_36weeks_Fe male_5# 3oz; Other upper respiratory infections (9 sources) Acute upper respiratory infection; Translations: [Acute upper respiratory infections of unspecified site] Episodic Otitis media and related conditions (9 sources) Otitis media; Translations: [Unspecified otitis media] Episodic Peripheral and visceral atherosclerosis (2 sources) Disorder of artery; Translations: [Peripheral vascular disease, unspecified] 12-05-2024 Chronic Residual codes; unclassified (9 sources) Past history of procedure; Translations: [Other specified personal history presenting hazards to health] Episodic Comment on above: 03/21/06; Residual codes; unclassified (2 sources) Tobacco user; Translations: [Tobacco use] 12-05-2024 Episodic Thyroid disorders (14 sources) Hyperthyroidism; Translations: [Thyrotoxicosis without mention of goiter or other cause, and without mention of thyrotoxic crisis or storm] Onset: 07-19-2023 07-19-2023 Chronic Transient cerebral ischemia (2 sources) Transient cerebral ischemia; Translations: [Transient cerebral ischemic attack, unspecified] 12-05-2024 Chronic Past or Other Problems Problem Classification [...] Test Name Value Interpretation Reference Range Facility Absolute lymphocyte countOrd ered By: Salty Davalos on 12-04-2024 Lymphocytes Auto (Unsp spec) [#/Vol] 2.59 10*3/uL 0.83-4.51 [facility] Absolute neutrophil countOrd ered By: Salty Davalos on 12-04-2024 Neutrophils (Bld) [#/Vol] 7.9 10*3/uL High 2.0-7.7 [facility] Activated partial thrombopla stin time (aPTT) in platelet poor plasma by coagulation aOrdered By: Salty Davalos on 12-04-2024 aPTT Coag (PPP) [Time] 26.6 s 24.1-36.2 [facility] Anion gap in Serum or Plasma Ordered By: Salty Davalos on 12-04-2024 Anion gap [Moles/Vol] 15 mmol/L 5-15 [facility] Automated lymphocyte count a s percentage of total leukocytesOrdered By: Salty Davalos on 12-04-2024 Lymphocytes/100 WBC Auto (Unsp spec) 21.9 % 19-41 [facility] BUN/creatinine ratioOrdered By: Salty Davalos on 12-04-2024 Urea nitrogen/Creatinine [Mass ratio] 10.3 mg/mg 10-20 [facility] Basophil percentageOrdered B y: Salty Davalos on 12-04-2024 Basophils/100 WBC (Bld) 0.5 % 0-1 [facility] Carbon dioxide, total [Moles /volume] in Central venous bloodOrdered By: Salty Davalos on 12-04-2024 CO2 [Moles/Vol] 23.0 mmol/L 21.0-32.0 [facility] Chloride assayOrdered By: nino Davalos on 12-04-2024 Chloride [Moles/Vol] 100 mmol/L 98-108 [facility] Eosinophil percentageOrdered By: Salty Davalos on 12-04-2024 Eosinophils/100 WBC (Bld) 3.0 % 0-5 [facility] Erythrocyte distribution wid th ratioOrdered By: Salty Davalos on 12-04-2024 Erythrocyte distribution width (RBC) [Ratio] 13.1 % 11.6-14.6 [facility] Erythrocyte distribution wid th standard deviationOrdered By: Salty Davalos on 12-04-2024 Erythrocyte distribution width (RBC) [Ratio] 39.9 fl 35.1-43.9 [facility] Glomerular filtration rate ( GFR) estimation/1.73 sq m using serum, plasma, or whole bOrdered By: Salty Davalos on 12-04-2024 GFR/1.73 sq M.predicted among non-blacks MDRD (S/P/Bld) [Vol rate/Area] 70 mL/min/{1.73_m2} >60 [facility] Comment on above: mL/min/1.73m2 CKD-EP I Creatinine Equation (2020) Hematocrit Auto (Bld) [Volum e fraction]Ordered By: Salty Davalos on 12-04-2024 Hematocrit (Bld) [Volume fraction] 40.3 % 37-47 [facility] Hemoglobin measurementOrdere d By: Salty Davalos on 12-04-2024 Hemoglobin (Bld) [Mass/Vol] 14.2 g/dL 12.0-15.0 [facility] Immature granulocytes/100 WB C Auto (Bld)Ordered By: Salty Davalos on 12-04-2024 Immature granulocytes/100 WBC (Bld) 0.800 % 0.0-0.9 [facility] Comment on above: IG% - Immature Granu locytes (promyelocytes, myelocytes and metamyelocytes) > 1% indicates that a LEFT SHIFT is Present. International normalized rat io (INR) calculationOrdered By: Salty Davalos on 12-04-2024 INR Coag (Bld) [Relative time] 1.0 {INR} [facility] MCV (mean corpuscular volume ) determinationOrdered By: Salty Davalos on 12-04-2024 MCV (RBC) [Entitic vol] 85.9 fL 81-99 [facility] Mean corpuscular hemoglobin (MCH) determinationOrdered By: Salty Davalos on 12-04-2024 MCH (RBC) [Entitic mass] 30.3 pg 27.0-32.0 [facility] Mean corpuscular hemoglobin concentration (MCHC) determinationOrdered By: Salty Davalos on 12-04-2024 MCHC (RBC) [Mass/Vol] 35.2 g/dL 32-36 [facility] Mean platelet volume determi nationOrdered By: Salty Davalos on 12-04-2024 Platelet mean volume (Bld) [Entitic vol] 12.3 fL High 6.2-12.0 [facility] Monocyte percentageOrdered B y: Salty Davalos on 12-04-2024 Monocytes/100 WBC (Bld) 7.0 % 0-10 [facility] Neutrophil percentageOrdered By: Salty Davalos on 12-04-2024 Neutrophils/100 WBC (Bld) 66.8 % 47-70 [facility] Nucleated red blood cell per centageOrdered By: Salty Davalos on 12-04-2024 Nucleated RBC/100 WBC (Bld) [Ratio] 0 % 0-5 [facility] Platelet countOrdered By: Wendy Davalos on 12-04-2024 Platelets (Bld) [#/Vol] 176 10*3/uL 150-450 [facility] Potassium measurement (mass/ volume)Ordered By: Salty Davalos on 12-04-2024 Potassium (Unsp spec) [Mass/Vol] 3.3 mmol/L 3.3-5.1 [facility] Prothrombin timeOrdered By: Salty Davalos on 12-04-2024 PT Coag (PPP) [Time] 13.1 s 11.7-14.9 [facility] RBC Auto (Bld) [#/Vol]Ordere d By: Salty Davalos on 12-04-2024 RBC (Bld) [#/Vol] 4.69 10*6/uL 4.2-5.4 [facility] Serum creatinine measurement (mass/volume)Ordered By: Salty Davalos on 12-04-2024 Creatinine [Mass/Vol] 0.99 mg/dL 0.70-1.20 [facility] Serum glucose measurement (m ass/volume)Ordered By: Salty Davalos on 12-04-2024 Glucose [Mass/Vol] 104 mg/dL High 70-99 [facility] Serum or plasma calcium jett urement (mass/volume)Ordered By: Salty Davalos on 12-04-2024 Calcium [Mass/Vol] 9.3 mg/dL 7.6-11.0 [facility] Serum or plasma urea nitroge n measurement (mass/volume)Ordered By: Salty Davalos on 12-04-2024 Urea nitrogen [Mass/Vol] 10 mg/dL 4-19 [facility] Sodium levelOrdered By: Javi Davalos on 12-04-2024 Sodium [Moles/Vol] 139 mmol/L 133-145 [facility] Troponin T.cardiac [Mass/vol ume] in Serum or Plasma by High sensitivity methodOrdered By: Salty Davalos on 12-04-2024 Troponin T.cardiac High sensitivity method [Mass/Vol] 6 ng/L <14 [facility] blood cell (WBC) count Ordered By: Salty Davalos on 12-04-2024 WBC (Bld) [#/Vol] 11.8 10*3/uL High 4.4-11.0 [facility] CBC W Auto Differential pane l (Bld)on 02-21-2024 Basophils (Bld) [#/Vol] 0.06 10*3/uL [facility] Basophils/100 WBC (Bld) 0.8 % 0.0 - 2.0 % [facility] Eosinophils (Bld) [#/Vol] 0.21 10*3/uL [facility] Eosinophils/100 WBC (Bld) 2.7 % 0.0 - 6.0 % [facility] Erythrocyte distribution width (RBC) [Ratio] 13.6 % 11.5 - 14.5 % [facility] Hematocrit (Bld) [Volume fraction] 35.6 % Low 36.0 - 46.0 % [facility] Hemoglobin (Bld) [Mass/Vol] 11.1 g/dL Low 12.0 - 16.0 g/dL [facility] Immature granulocytes (Bld) [#/Vol] 0.03 10*3/uL [facility] Immature granulocytes/100 WBC (Bld) 0.4 % 0.0 - 0.9 % [facility] Comment on above: Immature Granulocyte Count (IG) includes promyelocytes, myelocytes and metamyelocytes but does not include bands. Percent differential counts (%) should be interpreted in the context of the absolute cell counts (cells/UL). Interpretation and review of laboratory results Abnormal [facility] Lymphocytes (Bld) [#/Vol] 2.1 10*3/uL [facility] Lymphocytes/100 WBC (Bld) 27.3 % 13.0 - 44.0 % [facility] MCH (RBC) [Entitic mass] 24.8 pg Low 26.0 - 34.0 pg [facility] MCHC (RBC) [Mass/Vol] 31.2 g/dL Low 32.0 - 36.0 g/dL [facility] MCV (RBC) [Entitic vol] 80 fL 80 - 100 fL [facility] Monocytes (Bld) [#/Vol] 0.55 10*3/uL [facility] Monocytes/100 WBC (Bld) 7.2 % 2.0 - 10.0 % [facility] Neutrophils (Bld) [#/Vol] 4.73 10*3/uL [facility] Comment on above: Percent differential counts (%) should be interpreted in the context of the absolute cell counts (cells/uL). Neutrophils/100 WBC (Bld) 61.6 % 40.0 - 80.0 % [facility] Nucleated RBC/100 WBC (Bld) [Ratio] 0 % [facility] Platelets (Bld) [#/Vol] 227 10*3/uL [facility] RBC (Bld) [#/Vol] 4.47 10*6/uL [facility] WBC (Bld) [#/Vol] 7.7 10*3/uL [facility] Basophils (Bld) [#/Vol] 0.06 x10*3/uL Normal 0.00-0.10 [facility] Comment on above: Performed By: #### 5 902-2 #### BENJA NEAL ([id number]) [facility] ([facility]) [address] [place] [address] 12971 Basophils/100 WBC (Bld) 0.8 % Normal 0.0-2.0 [facility] Comment on above: Performed By: #### 5 902-2 #### BENJA NEAL ([id number]) [facility] ([facility]) [address] [place] [address] 50023 Eosinophils (Bld) [#/Vol] 0.21 x10*3/uL Normal 0.00-0.70 [facility] Comment on above: Performed By: #### 5 902-2 #### BENJA NEAL ([id number]) [facility] ([facility]) [address] [place] [address] 03831 Eosinophils/100 WBC (Bld) 2.7 % Normal 0.0-6.0 [facility] Comment on above: Performed By: #### 5 902-2 #### BENJA NEAL ([id number]) [facility] ([facility]) [address] [place] [address] 67758 Erythrocyte distribution width (RBC) [Ratio] 13.6 % Normal 11.5-14.5 [facility] Comment on above: Performed By: #### 5 902-2 #### BENJA NEAL ([id number]) [facility] ([facility]) [address] [place] [address] 54835 Hematocrit (Bld) [Volume fraction] 35.6 % Low 36.0-46.0 [facility] Comment on above: Performed By: #### 5 902-2 #### BENJA NEAL ([id number]) [facility] ([facility]) [address] [place] [address] 86455 Hemoglobin (Bld) [Mass/Vol] 11.1 g/dL Low 12.0-16.0 [facility] Comment on above: Performed By: #### 5 902-2 #### BENJA NEAL ([id number]) [facility] ([facility]) [address] [place] [address] 23579 Immature granulocytes (Bld) [#/Vol] 0.03 x10*3/uL Normal 0.00-0.70 [facility] Comment on above: Performed By: #### 5 902-2 #### BENJA NEAL ([id number]) [facility] ([facility]) [address] [place] [address] 99533 Immature granulocytes/100 WBC (Bld) 0.4 % Normal 0.0-0.9 [facility] Comment on above: Result Comment: Patricia ture Granulocyte Count (IG) includes promyelocytes, myelocytes and metamyelocytes but does not include bands. Percent differential counts (%) should be interpreted in the context of the absolute cell counts (cells/UL). Performed By: #### 5 902-2 #### BENJA NEAL ([id number]) [facility] ([facility]) [address] [place] [address] 87885 Lymphocytes (Bld) [#/Vol] 2.10 x10*3/uL Normal 1.20-4.80 [facility] Comment on above: Performed By: #### 5 902-2 #### BENJA NEAL ([id number]) [facility] ([facility]) [address] [place] [address] 74382 Lymphocytes/100 WBC (Bld) 27.3 % Normal 13.0-44.0 [facility] Comment on above: Performed By: #### 5 902-2 #### BENJA NEAL ([id number]) [facility] ([facility]) [address] [place] [address] 80887 MCH (RBC) [Entitic mass] 24.8 pg Low 26.0-34.0 [facility] Comment on above: Performed By: #### 5 902-2 #### BENJA NEAL ([id number]) [facility] ([facility]) [address] [place] [address] 51252 MCHC (RBC) [Mass/Vol] 31.2 g/dL Low 32.0-36.0 [facility] Comment on above: Performed By: #### 5 902-2 #### BENJA NEAL ([id number]) [facility] ([facility]) [address] [place] [address] 10879 MCV (RBC) [Entitic vol] 80 fL Normal 80-100 [facility] Comment on above: Performed By: #### 5 902-2 #### BENJA NEAL ([id number]) [facility] ([facility]) [address] [place] [address] 22104 Monocytes (Bld) [#/Vol] 0.55 x10*3/uL Normal 0.10-1.00 [facility] Comment on above: Performed By: #### 5 902-2 #### BENJA NEAL ([id number]) [facility] ([facility]) [facility] [place] [address] Monocytes/100 WBC (Bld) 7.2 % Normal 2.0-10.0 [facility] Comment on above: Performed By: #### 5 902-2 #### BENJA NEAL ([id number]) [facility] ([facility]) [address] [place] [address] 57866 Neutrophils (Bld) [#/Vol] 4.73 x10*3/uL Normal 1.20-7.70 [facility] Comment on above: Result Comment: Perc ent differential counts (%) should be interpreted in the context of the absolute cell counts (cells/uL). Performed By: #### 5 902-2 #### BENJA NEAL ([id number]) [facility] ([facility]) [address] [place] [address] 67768 Neutrophils/100 WBC (Bld) 61.6 % Normal 40.0-80.0 [facility] Comment on above: Performed By: #### 5 902-2 #### BENJA NEAL ([id number]) [facility] ([facility]) [address] [place] [address] 14632 Nucleated RBC/100 WBC (Bld) [Ratio] 0.0 /100 WBCs Normal 0.0-0.0 [facility] Comment on above: Performed By: #### 5 902-2 #### BENJA NEAL ([id number]) [facility] ([facility]) [address] [place] [address] 59542 Platelets (Bld) [#/Vol] 227 x10*3/uL Normal 150-450 [facility] Comment on above: Performed By: #### 5 902-2 #### BENJA NEAL ([id number]) [facility] ([facility]) [address] [place] [address] 00234 RBC (Bld) [#/Vol] 4.47 x10*6/uL Normal 4.00-5.20 [facility] Comment on above: Performed By: #### 5 902-2 #### BENJA NEAL ([id number]) [facility] ([facility]) [address] [place] [address] WBC (Bld) [#/Vol] 7.7 x10*3/uL Normal 4.4-11.3 [facility] Comment on above: Performed By: #### 5 902-2 #### BENJA NEAL ([id number]) [facility] ([facility]) [address] [place] [address] Comprehensive metabolic 2000 panelon 02-21-2024 Albumin BCP dye [Mass/Vol] 4.2 g/dL 3.4 - 5.0 g/dL [facility] ALP [Catalytic activity/Vol] 75 U/L 33 - 110 U/L [facility] ALT With P-5'-P [Catalytic activity/Vol] 8 U/L 7 - 45 U/L [facility] Comment on above: Patients treated wit h Sulfasalazine may generate falsely decreased results for ALT. Anion gap [Moles/Vol] 10 mmol/L 10 - 2 0 mmol/L [facility] AST With P-5'-P [Catalytic activity/Vol] 12 U/L 9 - 39 U/L [facility] Bilirubin [Mass/Vol] 1.2 mg/dL 0.0 - 1 .2 mg/dL [facility] Calcium [Mass/Vol] 9.2 mg/dL 8.6 - 10. 3 mg/dL [facility] Chloride [Moles/Vol] 102 mmol/L 98 - 10 7 mmol/L [facility] CO2 [Moles/Vol] 27 mmol/L 21 - 32 mmol/L [facility] Creatinine [Mass/Vol] 0.91 mg/dL 0.50 - 1.05 mg/dL [facility] GFR/1.73 sq M.predicted among non-blacks MDRD (S/P/Bld) [Vol rate/Area] 77 mL/min/{1.73_m2} - PINF [facility] Comment on above: Calculations of magda mated GFR are performed using the 2020 CKD-EPI Study Refit equation without the race variable for the IDMS-Traceable creatinine methods. https://gracesn.chaneljournals.org/content//ASN.2020 834702 Glucose [Mass/Vol] 73 mg/dL Low 74 - 99 mg/dL [facility] Interpretation and review of laboratory results Abnormal [facility] Potassium [Moles/Vol] 3.3 mmol/L Low 3.5 - 5.3 mmol/L [facility] Protein [Mass/Vol] 6.8 g/dL 6.4 - 8.2 g/dL [facility] Sodium [Moles/Vol] 136 mmol/L 136 - 145 mmol/L [facility] Urea nitrogen [Mass/Vol] 6 mg/dL 6 - 23 mg/dL [facility] Albumin BCP dye [Mass/Vol] 4.2 g/dL Normal 3.4-5.0 [facility] Comment on above: Performed By: #### 5 902-2 #### BENJA NEAL ([id number]) [facility] ([facility]) [address] [place] [address] ALP [Catalytic activity/Vol] 75 U/L Normal 33-110 [facility] Comment on above: Performed By: #### 5 902-2 #### BENJA NEAL ([id number]) [facility] ([facility]) [address] [place] [address] ALT With P-5'-P [Catalytic activity/Vol] 8 U/L Normal 7-45 [facility] Comment on above: Result Comment: Mae ents treated with Sulfasalazine may generate falsely decreased results for ALT. Performed By: #### 5 902-2 #### BENJA NEAL ([id number]) [facility] ([facility]) [address] [place] [address] Anion gap [Moles/Vol] 10 mmol/L Normal 10-20 [facility] Comment on above: Performed By: #### 5 902-2 #### BENJA NEAL ([id number]) [facility] ([facility]) [address] [place] [address] AST With P-5'-P [Catalytic activity/Vol] 12 U/L Normal 9-39 [facility] Comment on above: Performed By: #### 5 902-2 #### BENJA NEAL ([id number]) [facility] ([facility]) [address] [place] [address] 18895 Bilirubin [Mass/Vol] 1.2 mg/dL Normal 0.0-1.2 [facility] Comment on above: Performed By: #### 5 902-2 #### BENJA NEAL ([id number]) [facility] ([facility]) [address] [place] [address] 07093 Calcium [Mass/Vol] 9.2 mg/dL Normal 8.6-10.3 [facility] Comment on above: Performed By: #### 5 902-2 #### BENJA NEAL ([id number]) [facility] ([facility]) [address] [place] [address] 58909 Chloride [Moles/Vol] 102 mmol/L Normal 98-107 [facility] Comment on above: Performed By: #### 5 902-2 #### BENJA NEAL ([id number]) [facility] ([facility]) [address] [place] [address] 86528 CO2 [Moles/Vol] 27 mmol/L Normal 21-32 [facility] [facility] Comment on above: Performed By: #### 5 902-2 #### BENJA NEAL ([id number]) [facility] ([facility]) [address] [place] [address] 55541 Creatinine [Mass/Vol] 0.91 mg/dL Normal 0.50-1.05 [facility] Comment on above: Performed By: #### 5 902-2 #### BENJA NEAL ([id number]) [facility] ([facility]) [address] [place] [address] 96153 Glomerular filtration rate/1.73 sq M.predicted 77 mL/min/1.73m*2 Normal >60 [facility] Comment on above: Result Comment: Calc ulations of estimated GFR are performed using the 2020 CKD-EPI Study Refit equation without the race variable for the IDMS-Traceable creatinine methods. https://jasn.asnjournals.org/content/early/ASN.2020 046865 Performed By: #### 5 902-2 #### BENJA NEAL ([id number]) [facility] ([facility]) [address] [place] [address] 44684 Glucose [Mass/Vol] 73 mg/dL Low 74-99 [facility] Comment on above: Performed By: #### 5 902-2 #### BENJA NEAL ([id number]) [facility] ([facility]) [address] [place] [address] 62688 Potassium [Moles/Vol] 3.3 mmol/L Low 3.5-5.3 [facility] Comment on above: Performed By: #### 5 902-2 #### BENJA NEAL ([id number]) [facility] ([facility]) [address] [place] [address] 13667 Protein [Mass/Vol] 6.8 g/dL Normal 6.4-8.2 [facility] Comment on above: Performed By: #### 5 902-2 #### BENJA NEAL ([id number]) [facility] ([facility]) [address] [place] [address] 33048 Sodium [Moles/Vol] 136 mmol/L Normal 136-145 [facility] Comment on above: Performed By: #### 5 902-2 #### BENJA NEAL ([id number]) [facility] ([facility]) [address] [place] [address] 12696 Urea nitrogen [Mass/Vol] 6 mg/dL Normal 6-23 [facility] Comment on above: Performed By: #### 5 902-2 #### BENJA NEAL ([id number]) [facility] ([facility]) [address] [place] [address] 80875 ECG 12-LEADon 02-21-2024 ECG 12-LEAD Ventricular Rate 43 Atrial Rate 43 P-R Interval 162 QRS Duration 92 Q-T Interval 500 QTC Calculation(Bazett) 422 P [place] 37 R [place] 29 T [place] 48 QRS Count 7 Q Onset 212 P Onset 131 P Offset 180 T Offset 462 QTC Fredericia 447 Diagnosis Marked sinus bradycardia Septal infarct , age undetermined Abnormal ECG When compared with ECG of 21-FEB-2024 13:13, (unconfirmed) Septal infarct is now Present See ED provider note for full interpretation and clinical correlation Confirmed by Akash Mary ([id number]) on 02/23/2024 9:43:48 AM Normal [facility] ECG 12-LEAD Ventricular Rate 53 Atrial Rate 53 P-R Interval 154 QRS Duration 90 Q-T Interval 448 QTC Calculation(Bazett) 420 P [place] 41 R [place] 44 T [place] 71 QRS Count 9 Q Onset 228 [...] interpretation and clinical correlation Confirmed by Akash Mary ([id number]) on 02/23/2024 9:49:59 AM Normal [facility] Tropinin I.cardiac panel Hig h sensitivity methodon 02-21-2024 Interpretation and review of laboratory results Normal [facility] Less than 99th percentile of normal range [...] performed using a different testing methodology at [facility] than at other [facility]. Direct result comparisons should only be made within the same method. [facility] Interpretation and review of laboratory results Normal [facility] Less than 99th percentile of normal range [...] performed using a different testing methodology at [facility] than at other [facility]. Direct result comparisons should only be made within the same method. [facility] Troponin I, High Sensitivity , Initialon 02-21-2024 Tropinin I.cardiac panel High sensitivity method 3 ng/L 0 - 13 ng/L [facility] Troponin I.cardiac panelon 1 04-22-2023 Tropinin I.cardiac panel High sensitivity method 3 ng/L Normal 0-13 [facility] Comment on above: Order Comment: Less than [...] is performed using a differenttesting methodology at [facility] than at [facility]. Direct result comparisons should onlybe made within the same method. Performed By: #### 5 902-2 #### YOUSIF VAL ([id number]) [facility] ([facility]) [address] [place] [address] Tropinin I.cardiac panel High sensitivity method 3 ng/L Normal 0-13 [facility] Comment on above: Order Comment: Less than [...] is performed using a differenttesting methodology at [facility] than at [facility]. Direct result comparisons should onlybe made within the same method. Performed By: #### 5 902-2 #### YOUSIF VAL ([id number]) [facility] ([facility]) [address] [place] [address] Troponin, High Sensitivity, 1 Houron 02-21-2024 Tropinin I.cardiac panel High sensitivity method 3 ng/L 0 - 13 ng/L [facility] XR CHEST 1 VIEWon 02-21-2024 XR CHEST 1 VIEW Interpreted By: Licha Younger, STUDY: XR CHEST 1 VIEW; 02/21/2024 1:37 pm INDICATION: Signs/Symptoms:cough, chest pain. COMPARISON: 01/12/2020 ACCESSION NUMBER(S): [id number] ORDERING CLINICIAN: CHELSI SPANGLER FINDINGS: CARDIOMEDIASTINAL SILHOUETTE: Cardiomediastinal silhouette is normal in size and configuration. LUNGS: Lungs are clear. ABDOMEN: No remarkable upper abdominal findings. BONES: No acute osseous changes. IMPRESSION: No acute cardiopulmonary process. MACRO: None Signed by: Licha Younger 02/21/2024 1:53 PM Dictation workstation: [id number] Normal [facility] XR Chest Single viewon 02-20 No acute cardiopulmonary process. MACRO: None Signed by: Licha Younger 02/21/2024 1:53 PM Dictation workstation: [id number] [facility] Interpreted By: Licha Younger, STUDY: XR CHEST 1 VIEW; 02/21/2024 1:37 pm INDICATION: Signs/Symptoms:cough, chest pain. COMPARISON: 01/12/2020 ACCESSION NUMBER(S): [id number] ORDERING CLINICIAN: CHELSI SPANGLER FINDINGS: CARDIOMEDIASTINAL SILHOUETTE: Cardiomediastinal silhouette is normal in size and configuration. LUNGS: Lungs are clear. ABDOMEN: No remarkable upper abdominal findings. BONES: No acute osseous changes. MMODAL Licha Younger M D - 02/21/2024 Interpreted By: Licha Younger, STUDY: XR CHEST 1 VIEW; 02/21/2024 1:37 pm INDICATION: Signs/Symptoms:cough, chest pain. COMPARISON: 01/12/2020 ACCESSION NUMBER(S): [id number] ORDERING CLINICIAN: CHELSI SPANGLER FINDINGS: CARDIOMEDIASTINAL SILHOUETTE: Cardiomediastinal silhouette is normal in size and configuration. LUNGS: Lungs are clear. ABDOMEN: No remarkable upper abdominal findings. BONES: No acute osseous changes. IMPRESSION: No acute cardiopulmonary process. MACRO: None Signed by: Licha Younger 02/21/2024 1:53 PM Dictation workstation: [id number] [facility] Work Phone: Radiology Study observation (narrative) [facility] Work Phone: XR Chest Single viewOrdered By: Licha Younger on 02-21-2024 [facility] Work Phone: ED Prov Noteon 12-07-2023 ED Prov Note HPI: 12/07/2023, Time: @NOWNR@ Nas Chávez Charly is a 47 y.o. female presenting to the ED for vaginal bleeding, beginning over the last month ago. The complaint has been constant, moderate in severity, and worsened by nothing. Also feels slightly lightheaded with headache and states she saw her bottle labeler about a year ago for the same complaint but was given no medicine. States she has had normal Pap smears. No pain and no fever or chills ROS: Pertinent positives and negatives are stated within HPI, all other systems reviewed and are negative. - PAST HISTORY - Past Medical History: @[facility]@ Past Surgical History: has a past surgical [...] from this visit: Follow-up: Anselmo Rader MD [address] [place] [address] Dr Stokes [address] [place] [address] In 3 days Final Impression: 1. Dysfunctional uterine bleeding (Please note that portions of this note were completed with a voice recognition program. Efforts were made to edit the dictations but occasionally words are mis-transcribed.) Lila Doss MD 12/07/23 1033 AUTHENTICATED BY LILA DOSS, ON 12/07/2023 10:33:34 Normal [facility] POC CBC AND DIFFERENTIALon 0 12-07-2023 BASOPHILS ABSOLUTE COUNT 0.04 K/mcL Normal 0.00-0.30 [facility] Basophils/100 WBC (Bld) 0.5 % Normal [facility] Eosinophils (Bld) [#/Vol] 0.22 10*3/uL Normal 0.00-0.50 [facility] Eosinophils/100 WBC (Bld) 2.7 % Normal [facility] Erythrocyte distribution width (RBC) [Ratio] 14.0 % Normal 11.6-14.8 [facility] Hematocrit (Bld) [Volume fraction] 40.6 % Normal 36.0-46.0 [facility] Hemoglobin (Bld) [Mass/Vol] 13.5 g/dL Normal 12.0-16.0 [facility] IG ABSOLUTE 0.01 K/mcL Normal 0.00-0.30 [facility] IG PERCENT 0.10 % Normal [facility] Comment on above: Result Comment: The IG parameter is the percentage of metamyelocytes, myelocytes and promyelocytes. An immature granulocyte count (IG) of 1% or more suggests the possibility of infection, an IG count of 3% is very likely related to an infection. Lymphocytes (Bld) [#/Vol] 2.04 10*3/uL Normal 0.90-4.00 [facility] Lymphocytes/100 WBC (Bld) 24.8 % Normal [facility] MCH (RBC) [Entitic mass] 29.5 pg Normal 26.0-34.0 [facility] MCV (RBC) [Entitic vol] 88.6 fL Normal 80.0-100.0 [facility] MEAN CORPUSCULAR HEMOGLOBIN CONC 33.3 g/dL Normal 31.0-37.0 [facility] Monocytes (Bld) [#/Vol] 0.54 10*3/uL Normal 0.30-0.90 [facility] Monocytes/100 WBC (Bld) 6.6 % Normal [facility] NEUTROPHILS ABSOLUTE COUNT 5.38 K/mcL Normal 1.70-7.00 [facility] Neutrophils/100 WBC (Bld) 65.3 % Normal [facility] Platelet mean volume (Bld) [Entitic vol] 12.5 fL High 9.4-12.4 [facility] Platelets (Bld) [#/Vol] 199 10*3/uL Normal 150-400 [facility] RBC (Bld) [#/Vol] 4.58 10*6/uL Normal 4.00-5.20 [facility] WBC (Bld) [#/Vol] 8.23 10*3/uL Normal 4.50-11.00 [facility] POC , URINE - [facility] n 12-07-2023 Beta HCG ( test) Ql (U) Negative Normal Negative [facility] Comment on above: Order Comment: Negat lamar: Dilute urine specimens, as indicated by a [...] call today to make an appointment. Normal [facility] Office Visiton 03-20-2023 Follow-up visit [id number] Nas Parks 1975 F Date Provider Department Center 03/20/2023 [id number] [facility] No family history on file Level of Service:24540 SC INITIAL PREVENTIVE MEDICINE NEW PATIENT 40-64YRS (25) Reason for Visit and Comments: New Patient [542] Normal [facility] Progress Noteon 03-20-2023 Progress Note Nas Parks 03/20/2024 47 y.o. Chief Complaint Patient presents with New Patient Primary Care Physician: [facility] Kofi [facility] HPI: Nas Parks is a 47 y.o. [...] with tomosynthe (more content not included)... Normal [facility] CBC W Auto Differential pane l (Bld)on 03-17-2023 Basophils (Bld) [#/Vol] 0.02 10*3/uL [facility] Basophils/100 WBC (Bld) 0.3 % 0.0 - 2.0 % [facility] Eosinophils (Bld) [#/Vol] 0.01 10*3/uL [facility] Eosinophils/100 WBC (Bld) 0.2 % 0.0 - 6.0 % [facility] Erythrocyte distribution width (RBC) [Ratio] 15.6 % High 11.5 - 14.5 % [facility] Hematocrit (Bld) [Volume fraction] 30.8 % Low 36.0 - 46.0 % [facility] Hemoglobin (Bld) [Mass/Vol] 9.4 g/dL Low 12.0 - 16.0 g/dL [facility] Immature granulocytes (Bld) [#/Vol] 0.02 10*3/uL [facility] Immature granulocytes/100 WBC (Bld) 0.3 % 0.0 - 0.9 % [facility] Comment on above: Immature Granulocyte Count (IG) includes promyelocytes, myelocytes and metamyelocytes but does not include bands. Percent differential counts (%) should be interpreted in the context of the absolute cell counts (cells/UL). Interpretation and review of laboratory results Abnormal [facility] Lymphocytes (Bld) [#/Vol] 0.99 10*3/uL Low [facility] Lymphocytes/100 WBC (Bld) 15.0 % 13.0 - 44.0 % [facility] MCH (RBC) [Entitic mass] 24.1 pg Low 26.0 - 34.0 pg [facility] MCHC (RBC) [Mass/Vol] 30.5 g/dL Low 32.0 - 36.0 g/dL [facility] MCV (RBC) [Entitic vol] 79 fL Low 80 - 100 fL [facility] Monocytes (Bld) [#/Vol] 0.88 10*3/uL [facility] Monocytes/100 WBC (Bld) 13.3 % 2.0 - 10.0 % [facility] Neutrophils (Bld) [#/Vol] 4.68 10*3/uL [facility] Comment on above: Percent differential counts (%) should be interpreted in the context of the absolute cell counts (cells/uL). Neutrophils/100 WBC (Bld) 70.9 % 40.0 - 80.0 % [facility] Nucleated RBC/100 WBC (Bld) [Ratio] 0.0 % [facility] Platelets (Bld) [#/Vol] 187 10*3/uL [facility] RBC (Bld) [#/Vol] 3.90 10*6/uL [facility] WBC (Bld) [#/Vol] 6.6 10*3/uL [facility] Basophils (Bld) [#/Vol] 0.02 x10*3/uL Normal 0.00-0.10 [facility] Comment on above: Performed By: #### 5 7021-8 #### BENJA NEAL ([id number]) [facility] ([facility]) [address] [place] [address] 15546 Basophils/100 WBC (Bld) 0.3 % Normal 0.0-2.0 [facility] Comment on above: Performed By: #### 5 7021-8 #### BENJA NEAL ([id number]) [facility] ([facility]) [address] [place] [address] 99016 Eosinophils (Bld) [#/Vol] 0.01 x10*3/uL Normal 0.00-0.70 [facility] Comment on above: Performed By: #### 5 7021-8 #### BENJA NEAL ([id number]) [facility] ([facility]) [address] [place] [address] 78956 Eosinophils/100 WBC (Bld) 0.2 % Normal 0.0-6.0 [facility] Comment on above: Performed By: #### 7021-8 #### BENJA NEAL ([id number]) [facility] ([facility]) [address] [place] [address] 42831 Erythrocyte distribution width (RBC) [Ratio] 15.6 % High 11.5-14.5 [facility] Comment on above: Performed By: #### 5 7021-8 #### BENJA NEAL (30893) [facility] ([facility]) [address] [place] [address] 26295 Hematocrit (Bld) [Volume fraction] 30.8 % Low 36.0-46.0 [facility] Comment on above: Performed By: #### 5 7021-8 #### BENJA NEAL ([id number]) [facility] ([facility]) [address] [place] [address] 62764 Hemoglobin (Bld) [Mass/Vol] 9.4 g/dL Low 12.0-16.0 [facility] Comment on above: Performed By: #### 5 7021-8 #### BENJA NEAL ([id number]) [facility] ([facility]) [address] [place] [address] 67279 Immature granulocytes (Bld) [#/Vol] 0.02 x10*3/uL Normal 0.00-0.70 [facility] Comment on above: Performed By: #### 5 7021-8 #### BENJA NEAL ([id number]) [facility] ([facility]) [address] [place] [address] 99093 Immature granulocytes/100 WBC (Bld) 0.3 % Normal 0.0-0.9 [facility] Comment on above: Result Comment: Patricia ture Granulocyte Count (IG) includes promyelocytes, myelocytes and metamyelocytes but does not include bands. Percent differential counts (%) should be interpreted in the context of the absolute cell counts (cells/UL). Performed By: #### 5 7021-8 #### BENJA NEAL ([id number]) [facility] ([facility]) [address] [place] [address] 17464 Lymphocytes (Bld) [#/Vol] 0.99 x10*3/uL Low 1.20-4.80 [facility] Comment on above: Performed By: #### 5 7021-8 #### BENJA NEAL ([id number]) [facility] ([facility]) [address] [place] [address] 53569 Lymphocytes/100 WBC (Bld) 15.0 % Normal 13.0-44.0 [facility] Comment on above: Performed By: #### 5 7021-8 #### BENJA NEAL ([id number]) [facility] ([facility]) [address] [place] [address] 78879 MCH (RBC) [Entitic mass] 24.1 pg Low 26.0-34.0 [facility] Comment on above: Performed By: #### 5 7021-8 #### BENJA NEAL ([id number]) [facility] ([facility]) [address] [place] [address] 95920 MCHC (RBC) [Mass/Vol] 30.5 g/dL Low 32.0-36.0 [facility] Comment on above: Performed By: #### 5 7021-8 #### BENJA NEAL ([id number]) [facility] ([facility]) [address] [place] [address] 64232 MCV (RBC) [Entitic vol] 79 fL Low 80-100 [facility] Comment on above: Performed By: #### 5 7021-8 #### BENJA NEAL ([id number]) [facility] ([facility]) [address] [place] [address] 14503 Monocytes (Bld) [#/Vol] 0.88 x10*3/uL Normal 0.10-1.00 [facility] Comment on above: Performed By: #### 5 7021-8 #### BENJA NEAL ([id number]) [facility] ([facility]) [address] [place] [address] 49501 Monocytes/100 WBC (Bld) 13.3 % Normal 2.0-10.0 [facility] Comment on above: Performed By: #### 5 7021-8 #### BENJA NEAL ([id number]) [facility] ([facility]) [address] [place] [address] 07143 Neutrophils (Bld) [#/Vol] 4.68 x10*3/uL Normal 1.20-7.70 [facility] Comment on above: Result Comment: Perc ent differential counts (%) should be interpreted in the context of the absolute cell counts (cells/uL). Performed By: #### 5 7021-8 #### BENJA NEAL (13591) [facility] ([facility]) [address] [place] [address] 39663 Neutrophils/100 WBC (Bld) 70.9 % Normal 40.0-80.0 [facility] Comment on above: Performed By: #### 5 7021-8 #### BENJA NEAL ([id number]) [facility] ([facility]) [address] [place] [address] 42989 Nucleated RBC/100 WBC (Bld) [Ratio] 0.0 /100 WBCs Normal 0.0-0.0 [facility] Comment on above: Performed By: #### 5 7021-8 #### BENJA NEAL ([id number]) [facility] ([facility]) [facility] [place] [address] Platelets (Bld) [#/Vol] 187 x10*3/uL Normal 150-450 [facility] Comment on above: Performed By: #### 5 7021-8 #### BENJA NEAL ([id number]) [facility] ([facility]) [facility] [place] [address] RBC (Bld) [#/Vol] 3.90 x10*6/uL Low 4.00-5.20 [facility] Comment on above: Performed By: #### 5 7021-8 #### BENJA NEAL ([id number]) [facility] ([facility]) [address] [place] [address] 04168 WBC (Bld) [#/Vol] 6.6 x10*3/uL Normal 4.4-11.3 [facility] Comment on above: Performed By: #### 5 7021-8 #### BENJA NEAL ([id number]) [facility] ([facility]) [address] [place], [place] [id number] CT [facility]ERV[facility] SP[facility] WO IV CONTRAST Interpreted By: Vidal Ellis, STUDY: CT CERVICAL SPINE WO IV CONTRAST; 03/17/2023 12:42 pm INDICATION: Signs/Symptoms:syncope . COMPARISON: None. ACCESSION NUMBER(S): [id number] ORDERING CLINICIAN: AKASH MARY TECHNIQUE: Axial CT images of the cervical [...] Vidal Ellis 03/17/2023 1:15 PM Dictation workstation: [id number] [facility] CT Cervical spine WO contras ton 03-17-2023 No evidence for an acute fracture or subluxation of the cervical spine. Discogenic degenerative changes especially at C5/C6. MACRO: None Signed by: Vidal Ellis 03/17/2023 1:15 PM Dictation workstation: [id number] [facility] Interpreted By: Vidal Ellis, STUDY: CT CERVICAL SPINE WO IV CONTRAST; 03/17/2023 12:42 pm INDICATION: Signs/Symptoms:syncope . COMPARISON: None. ACCESSION NUMBER(S): [id number] ORDERING CLINICIAN: AKASH MARY TECHNIQUE: Axial CT images of the cervical spine are obtained. Axial, coronal and sagittal reconstructions are provided for review. FINDINGS: Straightening of normal cervical lordosis. Endplate sclerosis and osteophytes are seen at multiple levels. Anterior and posterior osteophytes at C5/C6 with posterior ligamentous calcification. Round area of sclerosis involving the T2 may represent a bone island. [facility] Vidal Ellis MD - 03/17/2023 Interpreted By: Vidal Ellis, STUDY: CT CERVICAL SPINE WO IV CONTRAST; 03/17/2023 12:42 pm INDICATION: Signs/Symptoms:syncope . COMPARISON: None. ACCESSION NUMBER(S): [id number] ORDERING CLINICIAN: AKASH MARY TECHNIQUE: Axial CT images of the cervical [...] Vidal Ellis 03/17/2023 1:15 PM Dictation workstation: [id number] [facility] Work Phone: [facility] Work Phone: CT HEAD WO IV CONTRASTon CT HEAD WO IV CONTRAST Interpreted By: Vidal Ellis, STUDY: CT HEAD WO IV CONTRAST; 03/17/2023 12:42 pm INDICATION: Signs/Symptoms:syncope . COMPARISON: None. ACCESSION NUMBER(S): [id number] ORDERING CLINICIAN: AKASH MARY TECHNIQUE: Noncontrast axial CT scan of head [...] Vidal Ellis 03/17/2023 1:10 PM Dictation workstation: [id number] [facility] CT Head WO contraston 2022 No evidence of acute cortical infarct or intracranial hemorrhage. No evidence of intracranial hemorrhage or displaced skull fracture. MACRO: None Signed by: Vidal Ellis 03/17/2023 1:10 PM Dictation workstation: [id number] Interpreted By: Vidal Ellis, STUDY: CT HEAD WO IV CONTRAST; 03/17/2023 12:42 pm INDICATION: Signs/Symptoms:syncope . COMPARISON: None. ACCESSION NUMBER(S): [id number] ORDERING CLINICIAN: AKASH MARY TECHNIQUE: Noncontrast axial CT scan of head [...] INDICATION: Signs/Symptoms:syncope . COMPARISON: None. ACCESSION NUMBER(S): [id number] ORDERING CLINICIAN: AKASH MARY TECHNIQUE: Noncontrast axial CT scan of head [...] Vidal Ellis 03/17/2023 1:10 PM Dictation workstation: [id number] [facility] Work Phone: CT Head WO contrastOrdered B y: Vidal Ellis on 03-17-2023 [facility] Work Phone: Coagulation surface inducedo n 03-17-2023 aPTT Coag (PPP) [Time] 31 s Normal 27-38 [facility] Comment on above: Order Comment: The A PTT is no longer used for monitoring Unfractionated Heparin Therapy. For monitoring Heparin Therapy, use the Heparin Assay. Performed By: #### 1 4979-9 #### BENJA NEAL ([id number]) [facility] ([facility]) [facility] [place] [id number] Coagulation tissue factor in ducedon 03-17-2023 PT Coag (PPP) [Time] 14.5 s High 9.8-12.8 [facility] Comment on above: Performed By: #### 5 902-2 #### BENJA ENAL ([id number]) [facility] ([facility]) [facility] [place] [address] Comprehensive metabolic 2000 panelon 03-17-2023 Albumin BCP dye [Mass/Vol] 3.9 g/dL 3.4 - 5.0 g/dL [facility] ALP [Catalytic activity/Vol] 71 U/L 33 - 110 U/L [facility] ALT With P-5'-P [Catalytic activity/Vol] 9 U/L 7 - 45 U/L [facility] Comment on above: Patients treated wit h Sulfasalazine may generate falsely decreased results for ALT. Anion gap [Moles/Vol] 11 mmol/L 10 - 2 0 mmol/L [facility] AST With P-5'-P [Catalytic activity/Vol] 17 U/L 9 - 39 U/L [facility] Bilirubin [Mass/Vol] 1.0 mg/dL 0.0 - 1 .2 mg/dL [facility] Calcium [Mass/Vol] 8.5 mg/dL Low 8.6 - 10. 3 mg/dL [facility] Chloride [Moles/Vol] 104 mmol/L 98 - 10 7 mmol/L [facility] CO2 [Moles/Vol] 24 mmol/L 21 - 32 mmol/L [facility] Creatinine [Mass/Vol] 1.01 mg/dL 0.50 - 1.05 mg/dL [facility] GFR/1.73 sq M.predicted MDRD (S/P/Bld) [Vol rate/Area] 69 mL/min/{1.73_m2} - PINF [facility] Comment on above: Calculations of magda mated GFR are performed using the 2020 CKD-EPI Study Refit equation without the race variable for the IDMS-Traceable creatinine methods. https://jasn.asnjournals.org/content/early/ASN.2020 395523 Glucose [Mass/Vol] 132 mg/dL High 74 - 99 mg/dL [facility] Interpretation and review of laboratory results Abnormal [facility] Potassium [Moles/Vol] 3.2 mmol/L Low 3.5 - 5.3 mmol/L [facility] Protein [Mass/Vol] 6.2 g/dL Low 6.4 - 8.2 g/dL [facility] Sodium [Moles/Vol] 136 mmol/L 136 - 145 mmol/L [facility] Urea nitrogen [Mass/Vol] 8 mg/dL 6 - 23 mg/dL [facility] Albumin BCP dye [Mass/Vol] 3.9 g/dL Normal 3.4-5.0 [facility] Comment on above: Performed By: #### 2 4323-8 #### BENJA NEAL ([id number]) [facility] ([facility]) [address] [place] [address] ALP [Catalytic activity/Vol] 71 U/L Normal 33-110 [facility] Comment on above: Performed By: #### 2 4323-8 #### BENJA NEAL ([id number]) [facility] ([facility]) [address] [place] [address] ALT With P-5'-P [Catalytic activity/Vol] 9 U/L Normal 7-45 [facility] Comment on above: Result Comment: Mae ents treated with Sulfasalazine may generate falsely decreased results for ALT. Performed By: #### 2 4323-8 #### BENJA NEAL ([id number]) [facility] ([facility]) [address] [place] [address] Anion gap [Moles/Vol] 11 mmol/L Normal 10-20 [facility] Comment on above: Performed By: #### 2 4323-8 #### BENJA NEAL ([id number]) [facility] ([facility]) [address] [place] [address] AST With P-5'-P [Catalytic activity/Vol] 17 U/L Normal 9-39 [facility] Comment on above: Performed By: #### 2 4323-8 #### BENJA NEAL ([id number]) [facility] ([facility]) [address] [place] [address] Bilirubin [Mass/Vol] 1.0 mg/dL Normal 0.0-1.2 [facility] Comment on above: Performed By: #### 2 4323-8 #### BENJA NEAL ([id number]) [facility] ([facility]) [address] [place] [address] Calcium [Mass/Vol] 8.5 mg/dL Low 8.6-10.3 [facility] Comment on above: Performed By: #### 2 4323-8 #### BENJA NEAL ([id number]) [facility] ([facility]) [facility] [place] [address] Chloride [Moles/Vol] 104 mmol/L Normal 98-107 [facility] Comment on above: Performed By: #### 2 4323-8 #### BENJA NEAL ([id number]) [facility] ([facility]) [address] [place] [address] CO2 [Moles/Vol] 24 mmol/L Normal 21-32 [facility] Comment on above: Performed By: #### 2 4323-8 #### BENJA NEAL ([id number]) [facility] ([facility]) [address] [place] [address] Creatinine [Mass/Vol] 1.01 mg/dL Normal 0.50-1.05 [facility] Comment on above: Performed By: #### 2 4323-8 #### BENJA NEAL ([id number]) [facility] ([facility]) [address] [place] [address] GFR/1.73 sq M.predicted MDRD (S/P/Bld) [Vol rate/Area] 69 mL/min/1.73m*2 Normal >60 [facility] Comment on above: Result Comment: Calc ulations of estimated GFR are performed using the 2020 CKD-EPI Study Refit equation without the race variable for the IDMS-Traceable creatinine methods. https://jasn.asnjournals.org/content/early//ASN.2020 232389 Performed By: #### 2 4323-8 #### BENJA NEAL ([id number]) [facility] ([facility]) [facility] [place] [address] Glucose [Mass/Vol] 132 mg/dL High 74-99 [facility] Comment on above: Performed By: #### 2 4323-8 #### BENJA NEAL (60314) [facility] ([facility]) [facility] [place] [address] Potassium [Moles/Vol] 3.2 mmol/L Low 3.5-5.3 [facility] Comment on above: Performed By: #### 2 4323-8 #### BENJA NEAL ([id number]) [facility] ([facility]) [address] [place] [address] Protein [Mass/Vol] 6.2 g/dL Low 6.4-8.2 [facility] Comment on above: Performed By: #### 2 4323-8 #### BENJA NEAL ([id number]) [facility] ([facility]) [address] [place] [address] Sodium [Moles/Vol] 136 mmol/L Normal 136-145 [facility] Comment on above: Performed By: #### 2 4323-8 #### BENJA NEAL ([id number]) [facility] ([facility]) [address] [place] [address] Urea nitrogen [Mass/Vol] 8 mg/dL Normal 6-23 [facility] Comment on above: Performed By: #### 2 4323-8 #### BENJA NEAL ([id number]) [facility] ([facility]) [address] [place] [address] D-Dimer, Quantitative Non VT Mu 03-17-2023 Fibrin D-dimer FEU (PPP) [Mass/Vol] 470 NINF [facility] Extra Urine Fajardo Tubeon 12-0 Extra Tube Hold for add-ons. [facility] Comment on above: Auto resulted. [facility] Fibrin D-dimer FEUon 023 Fibrin D-dimer FEU (PPP) [Mass/Vol] 470 ng/mL FEU Normal <=500 [facility] Comment on above: Order Comment: The D -Dimer assay is reported in ng/mL Fibrinogen Equivalent Units (FEU). The results of this assay should NOT be used for the exclusion of Deep Vein Thrombosis and/or Pulmonary Embolism. Performed By: #### 4 8065-7 #### YOUSIF VAL ([id number]) [facility] ([facility]) [facility] [place] [address] Fibrin D-dimer FEU (PPP) [Ma ss/Vol]on 03-17-2023 The D-Dimer assay is reported in ng/mL Fibrinogen Equivalent Units (FEU). The results of this assay should NOT be used for the exclusion of Deep Vein Thrombosis and/or Pulmonary Embolism. [facility] MR ANGIO HEAD WO IV CONTRAST on 03-17-2023 MR ANGIO HEAD WO IV CONTRAST Interpreted By: Lida Wallace, STUDY: MR BRAIN WO IV CONTRAST; MR ANGIO NECK WO IV CONTRAST; MR ANGIO HEAD WO IV CONTRAST; 03/17/2023 4:01 pm INDICATION: Signs/Symptoms:syncope ; Signs/Symptoms:syncope .. COMPARISON: CT angiogram from 01/12/2020 ACCESSION NUMBER(S): [id number]; [id number]; [id number] ORDERING CLINICIAN: AKASH MARY TECHNIQUE: Axial T2, FLAIR, DWI, gradient echo T2 and sagittal and coronal T1 weighted images of brain were acquired. Gqbr-an-wvflth MRA of head and neck was performed [...] sinuses and mastoid air cells are unremarkable. Zhbq-pn-uoysba MRA head demonstrates subtle areas of segmental [...] Lida Wallace 03/17/2023 4:10 PM Dictation workstation: [id number] [facility] Comment on above: Order Comment: Lemuel patino Instructions: stroke protocol MR ANGIO NECK WO IV CONTRAST on 03-17-2023 MR ANGIO NECK WO IV CONTRAST Interpreted By: Lida Wallace, STUDY: MR BRAIN WO IV CONTRAST; MR ANGIO NECK WO IV CONTRAST; MR ANGIO HEAD WO IV CONTRAST; 03/17/2023 4:01 pm INDICATION: Signs/Symptoms:syncope ; Signs/Symptoms:syncope .. COMPARISON: CT angiogram from 01/12/2020 ACCESSION NUMBER(S): [id number]; [id number]; [id number] ORDERING CLINICIAN: AKASH MARY TECHNIQUE: Axial T2, FLAIR, DWI, gradient echo T2 and sagittal and coronal T1 weighted images of brain were acquired. Hqks-pj-jkhysv MRA of head and neck was performed [...] sinuses and mastoid air cells are unremarkable. Jtxv-ou-muoevs MRA head demonstrates subtle areas of segmental [...] Lida Wallace 03/17/2023 4:10 PM Dictation workstation: [id number] [facility] Comment on above: Order Comment: Wilderi al Instructions: stroke protocol MR BRAIN WO IV CONTRASTon MR BRAIN WO IV CONTRAST Interpreted By: Lida Wallace, STUDY: MR BRAIN WO IV CONTRAST; MR ANGIO NECK WO IV CONTRAST; MR ANGIO HEAD WO IV CONTRAST; 03/17/2023 4:01 pm INDICATION: Signs/Symptoms:syncope ; Signs/Symptoms:syncope .. COMPARISON: CT angiogram from 01/12/2020 ACCESSION NUMBER(S): [id number]; [id number]; [id number] ORDERING CLINICIAN: AKASH MARY TECHNIQUE: Axial T2, FLAIR, DWI, gradient echo T2 and sagittal and coronal T1 weighted images of brain were acquired. Cwoz-yy-elxgdd MRA of head and neck was performed [...] sinuses and mastoid air cells are unremarkable. Rtfi-ze-kccyew MRA head demonstrates subtle areas of segmental [...] Lida Wallace 03/17/2023 4:10 PM Dictation workstation: [id number] [facility] Comment on above: Order Comment: Speci al Instructions: BAT protocol Magnesiumon 03-17-2023 Magnesium [Mass/Vol] 1.83 mg/dL 1.60 - 2.40 mg/dL [facility] Magnesium [Mass/Vol] 1.83 mg/dL Normal 1.60-2.40 [facility] Comment on above: Performed By: #### 1 9123-9 #### YOUSIF VAL ([id number]) [facility] ([facility]) [address] [place] [address] Magnesium [Mass/Vol]on 03-17 Interpretation and review of laboratory results Normal [facility] No Panel Informationon 03-17 No evidence of [...] Lida Wallace 03/17/2023 4:10 PM Dictation workstation: [id number] [facility] Interpreted By: Lida Gonsales, STUDY: MR BRAIN WO IV CONTRAST; MR ANGIO NECK WO IV CONTRAST; MR ANGIO HEAD WO IV CONTRAST; 03/17/2023 4:01 pm INDICATION: Signs/Symptoms:syncope ; Signs/Symptoms:syncope .. COMPARISON: CT angiogram from 01/12/2020 ACCESSION NUMBER(S): [id number]; [id number]; [id number] ORDERING CLINICIAN: AKASH MARY TECHNIQUE: Axial T2, FLAIR, DWI, gradient echo T2 and sagittal and coronal T1 weighted images of brain were acquired. Tltl-yj-qiwpia MRA of head and neck was performed [...] sinuses and mastoid air cells are unremarkable. Qkhq-yi-ycywbp MRA head demonstrates subtle areas of segmental [...] COMPARISON: CT angiogram from 01/12/2020 ACCESSION NUMBER(S): [id number]; [id number]; [id number] ORDERING CLINICIAN: AKASH MARY TECHNIQUE: Axial T2, FLAIR, DWI, gradient echo T2 and sagittal and coronal T1 weighted images of brain were acquired. Xhfz-aw-xpegjq MRA of head and neck was performed [...] sinuses and mastoid air cells are unremarkable. Pwqw-up-dumezn MRA head demonstrates subtle areas of segmental [...] Lida Wallace 03/17/2023 4:10 PM Dictation workstation: [id number] [facility] Work Phone: Radiology Study observation (narrative) [facility] Work Phone: Radiology Study observation (narrative) [facility] Work Phone: [facility] Interpretation and review of laboratory results Normal [facility] No Panel InformationOrdered By: Lida Wallace on 03-17-2023 [facility] Work Phone: PT Coag (PPP) [Time]on 03-17 INR Coag (PPP) [Relative time] 1.3 {INR} High 0.9 - 1.1 [facility] Interpretation and review of laboratory results Abnormal [facility] INR Coag (PPP) [Relative time] 1.3 High 0.9-1.1 [facility] Comment on above: Performed By: #### 5 902-2 #### YOUSIF VAL ([id number]) [facility] ([facility]) [address] [place] [address] Protime-INRon 03-17-2023 PT Coag (PPP) [Time] 14.5 s High [facility] Tropinin I.cardiac panel Hig h sensitivity methodon 03-17-2023 Interpretation and review of laboratory results Normal [facility] Less than 99th percentile of normal range [...] performed using a different testing methodology at [facility] than at other [facility]. Direct result comparisons should only be made within the same method. [facility] Troponin I, High Sensitivity on 03-17-2023 Tropinin I.cardiac panel High sensitivity method 9 ng/L 0 - 13 ng/L [facility] Troponin I.cardiac panelon 1 05-18-2022 Tropinin I.cardiac panel High sensitivity method 9 ng/L Normal 0-13 [facility] Comment on above: Order Comment: Less than [...] performed using a different testing methodology at [facility] than at other [facility]. Direct result comparisons should only be made within the same method. Performed By: #### 8 9577-1 #### YOUSIF VAL ([id number]) [facility] ([facility]) [address] [place] [address] Urinalysis complete W Reflex Culture panel (U)on 03-17-2023 Appearance (U) Hazy Abnormal Clear [facility] Bilirubin (U) [Mass/Vol] Negative NEGATIVE [facility] Color (U) Yellow Straw, Yellow [facility] Glucose Auto test strip (U) [Mass/Vol] Negative NEGATIVE mg/dL [facility] Interpretation and review of laboratory results Abnormal [facility] Ketones (U) [Mass/Vol] Negative NEGAT LAMAR mg/dL [facility] Leukocyte esterase Auto test strip Ql (U) Negative NEGATIVE [facility] Nitrite Auto test strip Ql (U) Negative NEGATIVE [facility] pH (U) 5.0 [pH] 5.0, 5.5, 6.0, 6.5, 7.0, 7.5, 8.0 [facility] Protein (U) [Mass/Vol] 30 (1+) Abnormal NEGAT LAMAR mg/dL [facility] RBC (U) [#/Vol] SMALL (1+) Abnormal NEGATIVE [facility] Specific gravity (U) [Rel density] 1.025 1.005 - 1.035 [facility] Urobilinogen (U) [Mass/Vol] mg/dL NINF - 2.0 mg/dL [facility] Bacteria Auto (Urine sed) [#/Area] 1+ Abnormal NONE SEEN /HPF [facility] Epithelial cells.squamous Auto (Urine sed) [#/Area] 10-25 (FEW) Reference range not established . /HPF [facility] Granular casts Computer assisted (U) [#/Area] 2+ Abnormal NONE /LPF [facility] Hyaline casts Auto (Urine sed) [#/Area] OCCASIONAL Abnormal NONE /LPF [facility] Mucus Auto (Urine sed) [#/Area] 1+ Reference range not established . /LPF [facility] RBC Auto (Urine sed) [#/Area] >20 Abnormal NONE, 1-2, 3-5 /HPF [facility] WBC Auto (Urine sed) [#/Area] 1-5 1-5, NONE /HPF [facility] Appearance (U) Hazy Normal Clear [facility] Comment on above: Performed By: #### 5 8077-9 #### BENJA NEAL ([id number]) [facility] ([facility]) [address] [place] [address] Bacteria Auto (Urine sed) [#/Area] 1+ /HPF Abnormal NONE SEEN [facility] Comment on above: Performed By: #### 5 8077-9 #### BENJA NAEL ([id number]) [facility] ([facility]) [address] [place] [address] Bilirubin (U) [Mass/Vol] Negative Normal NEGATIVE [facility] Comment on above: Performed By: #### 5 8077-9 #### BENJA NEAL ([id number]) [facility] ([facility]) [address] [place] [address] Color (U) Yellow Normal Straw, Yellow [facility] Comment on above: Performed By: #### 5 8077-9 #### BENJA NEAL (61965) [facility] ([facility]) [address] [place] [address] Epithelial cells.squamous Auto (Urine sed) [#/Area] 10-25 (FEW) Normal Reference range not established . [facility] Comment on above: Performed By: #### 5 8077-9 #### BENJA NEAL ([id number]) [facility] ([facility]) [address] [place] [address] Glucose Auto test strip (U) [Mass/Vol] Negative Normal NEGATIVE [facility] Comment on above: Performed By: #### 5 8077-9 #### BENJA NEAL ([id number]) [facility] ([facility]) [address] [place] [address] Granular casts Computer assisted (U) [#/Area] 2+ /LPF Abnormal NONE [facility] Comment on above: Performed By: #### 5 8077-9 #### BENJA NEAL ([id number]) [facility] ([facility]) [address] [place] [address] Hyaline casts Auto (Urine sed) [#/Area] OCCASIONAL Abnormal NONE [facility] Comment on above: Performed By: #### 5 8077-9 #### BENJA NEAL ([id number]) [facility] ([facility]) [address] [place], [place] [address] Ketones (U) [Mass/Vol] Negative Normal NEGATIVE [facility] Comment on above: Performed By: #### 5 8077-9 #### BENJA NEAL (78248) [facility] ([facility]) [address] [place] [address] Leukocyte esterase Auto test strip Ql (U) Negative Normal NEGATIVE [facility] Comment on above: Performed By: #### 5 8077-9 #### BENJA NEAL ([id number]) [facility] ([facility]) [address] [place] [address] 92844 Mucus Auto (Urine sed) [#/Area] 1+ /LPF Normal Reference range not established . [facility] Comment on above: Performed By: #### 5 8077-9 #### BENJA NEAL ([id number]) [facility] ([facility]) [address] [place] [address]38[address] Nitrite Auto test strip Ql (U) Negative Normal NEGATIVE [facility] Comment on above: Performed By: #### 5 8077-9 #### BENJA NEAL ([id number]) [facility] ([facility]) [address] [place] [address] pH (U) 5.0 [pH] Normal 5.0, 5.5, 6.0, 6.5, 7.0, 7.5, 8.0 [facility] Comment on above: Performed By: #### 5 8077-9 #### BENJA NEAL ([id number]) [facility] ([facility]) [address] [place] [address]69[address] Protein (U) [Mass/Vol] 30 (1+) Normal NEGATIVE [facility] Comment on above: Performed By: #### 5 8077-9 #### BENJA NEAL ([id number]) [facility] ([facility]) [address] [place] [address] 06579 RBC (U) [#/Vol] SMALL (1+) Abnormal NEGATIVE [facility] Comment on above: Performed By: #### 5 8077-9 #### BENJA NEAL (05406) [facility] ([facility]) [address] [place] [address] 40546 RBC Auto (Urine sed) [#/Area] >20 Abnormal NONE, 1-2, 3-5 [facility] Comment on above: Performed By: #### 5 8077-9 #### BENJA NEAL ([id number]) [facility] ([facility]) [address] [place] [address] Specific gravity (U) [Rel density] 1.025 Normal 1.005-1.035 [facility] Comment on above: Performed By: #### 5 8077-9 #### BENJA NEAL ([id number]) [facility] ([facility]) [facility] [place] [address] Urobilinogen (U) [Mass/Vol] mg/dL Normal <2.0 [facility] Comment on above: Performed By: #### 5 8077-9 #### BENJA NEAL ([id number]) [facility] ([facility]) [facility] [place] [address] WBC Auto (Urine sed) [#/Area] 1-5 Normal 1-5, NONE [facility] Comment on above: Performed By: #### 5 8077-9 #### BENJA NEAL ([id number]) [facility] ([facility]) [address] [place] [address] aPTTon 03-17-2023 aPTT Coag (PPP) [Time] 31 s Un [facility] aPTT Coag (PPP) [Time]on The APTT is no longe r used for monitoring Unfractionated Heparin Therapy. For monitoring Heparin Therapy, use the Heparin Assay. [facility] 36on 02-15-2023 36 S: the patient is calling the [facility] About vaginal bleeding B: This has [...] 7 days Protocols used: Vaginal Bleeding - Hmjqkgtj-OKQWE-HK Normal [facility] Laboratory - Chemistry and C hemistry - challengeon 03-25-2022 Albumin BCP dye [Mass/Vol] 4.4 g/dL 3.4 - 5.0 [facility] [facility] Work Phone: ALP [Catalytic activity/Vol] 62 U/L 33 - 110 [facility] Work Phone: ALT With P-5'-P [Catalytic activity/Vol] 11 U/L 7 - 45 [facility] Work Phone: Comment on above: Patients treated wit h Sulfasalazine may generate falsely decreased results for ALT. Anion gap [Moles/Vol] 19 mmol/L 10 - 20 [facility] Work Phone: AST With P-5'-P [Catalytic activity/Vol] 16 U/L 9 - 39 [facility] Work Phone: Bilirubin [Mass/Vol] 0.8 mg/dL 0.0 - 1.2 [facility] Work Phone: Calcium [Mass/Vol] 9.5 mg/dL 8.6 - 10.[address] [facility] Work Phone: Chloride [Moles/Vol] 98 mmol/L 98 - 107 [facility] [employer] [facility] Work Phone: CO2 [Moles/Vol] 26 mmol/L 21 - 32 [facility] [employer] [facility] Work Phone: Creatinine [Mass/Vol] 1.04 mg/dL See Below [facility] Work Phone: Comment on above: Reference Range: 0.5 0 - 1.05 Glucose [Mass/Vol] 80 mg/dL 74 - [facility] Work Phone: Potassium [Moles/Vol] 3.4 mmol/L below low threshold 3.5 - 5.3 [facility] Work Phone: Protein [Mass/Vol] 6.9 g/dL 6.4 - 8.2 [facility] [employer] [facility] Work Phone: Sodium [Moles/Vol] 140 mmol/L 136 - 145 -[facility] Work Phone: [phone] Urea nitrogen [Mass/Vol] 12 mg/dL 6 - 23 [facility] Work Phone: [phone] Laboratory - Hematology and Cell countson 03-25-2022 Erythrocyte distribution width (RBC) [Ratio] 12.3 % See Below [facility] [employer] [facility] Work Phone: [phone] Comment on above: Reference Range: 11. 5 - 14.5 Hematocrit (Bld) [Volume fraction] 44.0 % See Below [facility] Work Phone: [phone] Comment on above: Reference Range: 36. 0 - 46.0 Hemoglobin (Bld) [Mass/Vol] 14.8 g/dL See Below [facility] Work Phone: [phone] Comment on above: Reference Range: 12. 0 - 16.0 MCHC (RBC) [Mass/Vol] 33.6 g/dL See Below [facility] Work Phone: [phone] Comment on above: Reference Range: 32. 0 - 36.0 MCV (RBC) [Entitic vol] 92 fL 80 - 100 [facility] [employer] [facility] Work Phone: [phone] Platelets (Bld) [#/Vol] 237 10*3/uL 150 - 450 [facility] [employer] [facility] Work Phone: [phone] RBC (Bld) [#/Vol] 4.80 {x10E12/L} See Below [facility] Work Phone: [phone] Comment on above: Reference Range: 4.0 0 - 5.20 WBC (Bld) [#/Vol] 9.4 10*3/uL 4.4 - 11.[address] [facility] [employer] [facility] Work Phone: [phone] Lipid Panelon 03-25-2022 Cholesterol [Mass/Vol] 205 mg/dL above hig h threshold 0 - 199 [facility] Work Phone: [phone] Comment on above: . AGE DESIRABLE BORD [...] Cholesterol in HDL [Mass/Vol] 29.0 mg/dL Abnormal [employer] [facility] Work Phone: Comment on above: . AGE VERY LOW LOW N ORMAL HIGH 0-19 Y < 35 < 40 40-45 ---- 20-24 Y ---- < 40 >45 ---- >24 Y ---- < 40 40-60 >60. Cholesterol in LDL [Mass/Vol] 135 mg/dL above high threshold 0 - 99 [employer] Work Phone: [phone] Comment on above: . NEAR BORD AGE YURI RABLE OPTIMAL HIGH HIGH VERY HIGH 0-19 Y 0 - 109 --- 110-129 >/= 130 ---- 20-24 Y 0 - 119 --- 120-159 >/= 160 ---- >24 Y 0 - 99 100-129 130-159 160-189 >/=190. Cholesterol non HDL [Mass/Vol] 176 mg/dL [employer] [facility] Work Phone: Comment on above: AGE DESIRABLE BORDER LINE HIGH HIGH VERY HIGH 0-19 Y 0 - 119 120 - 144 >/= 145 >/= 160 20-24 Y 0 - 149 150 - 189 >/= 190 ---- >24 Y 30 MG/DL ABOVE LDL CHOLESTEROL GOAL. Cholesterol.total/Heike sterol in HDL [Mass ratio] 7.1 {ratio} Abnormal [employer] [facility] Work Phone: Comment on above: REF VALUESDESIRABLE < 3.4HIGH RISK > 5.0 Triglyceride [Mass/Vol] 205 mg/dL above hi gh threshold 0 - 149 [employer] [facility] Work Phone: Comment on above: . AGE [...] mg/dL above high threshold 0 - 40 [facility] [employer] [facility] [facility] Work Phone: No Panel Informationon 03-25 67 {mL/min/1.73m2} >90 [employer] Work Phone: Comment on above: CALCULATIONS OF MAGDA MATED GFR ARE PERFORMED USING THE 2020 CKD-EPI STUDY REFIT EQUATION WITHOUT THE RACE VARIABLE FOR THE IDMS-TRACEABLE CREATININE METHODS.https://jasn.asnjournals.org/content/early// ASN.2492419191 Office Visit (Primary Care T xt/Forms)on 03-25-2022 Follow-up visit Diagnoses/Problems Assessed Anxiety (300.00) (F41.9) Hypertension (401.9) (I10) Hyperlipemia, mixed (272.2) (E78.2) Orders Anxiety Renew: LORazepam 0.5 MG Oral Tablet; TAKE 1 TABLET 3 TIMES DAILY NEEDED Anxiety, Hyperlipemia, mixed, Hypertension Complete Blood Count; Status:Active; Requested for:[id number]; Comprehensive Metabolic Panel; Status:Active; Requested for:[id number]; Lipid Panel; Status:Active; Requested for:[id number]; TSH - Thyroid Stimulating Hormone, Serum; Status:Active; Requested for:[id number]; Encounter for screening mammogram for malignant neoplasm of breast Mamm - Screening Mammogram w/ Tomosynthesis; Status:Hold For - Scheduling; Requested for:[id number]; Radiologist to Determine Optimal Study : Y [...] erythromycin Percocet TABS Vitals Vital Signs Recorded: [id number] 11:04AM Heart Rate: 68 Systolic: 128 Diastolic: 72 Height: 5 ft 1 in Weight: 155 lb 9 (more content not included)... Normal [facility] TSH - Thyroid Stimulating Ho rmone, Serumon 03-25-2022 TSH Qn 0.75 m[IU]/L See Below [employer] [facility] Work Phone: Comment on above: Reference Range: 0.4 4 - 3.98 TSH testing is performed using different testing methodology at [facility] than at other [facility]. Direct result comparisons should only be made within the same method. Tobacco Screening.on Adult depression screening assessment Yes [employer] [facility] Moxie Jean Phone: Adult depression screening assessment No [employer] [facility] M[place]ie Jean Phone: Fall risk assessment a) No falls within the last year [employer] Work Phone: Tobacco use status CPHS a) Yes M [facility] Work Phone: Tobacco Screening. Yes [employer] [facility] Work Phone: Office Visit (Primary Care [...] anxiety and hypertension. Continues to smoke despite in house counsel, was counseled again on smoking cessation, blood [...] 140/90 + tobacco use 1/2 ppd despite in house counsel Review of Systems Constitutional: NAD, no fevers, [...] erythromycin Percocet TABS Vitals Vital Signs Recorded: [id number] 02:29PM Temperature: 96.9 F Heart Rate: 56 [...] content not included)... Normal Touchworks Tobacco Screening.on Adult depression screening assessment No [facility] Work Phone: Fall risk assessment a) No falls within the last year [employer] Work Phone: Tobacco use status CPHS a) Yes M [facility] [facility] Work Phone: Tobacco Screening. Yes [employer] [facility] Work Phone: CT HEAD WO CONTRASTon 2021 CT HEAD WO CONTRAST Patient Name: NAS PARKS STUDY: CT HEAD WO CONTRAST; 04/14/2021 2:59 pm INDICATION: Change in mood, Hx of CVA I63.9: Stroke with cerebral ischemia. COMPARISON: 10/12/2019 ACCESSION NUMBER(S): [id number] ORDERING CLINICIAN: KIAN DONG TECHNIQUE: Noncontrast axial [...] Electronically signed by: MAY CALVERT MD Normal [facility] CT Head without Contraston 0 04-14-2021 CT Head limited WO contrast Normal [employer] Work Phone: Office Visit (Primary [...] appropriate Results/Data (more content not included)... Normal Touchworks Tobacco Screening.on 022 Fall risk assessment a) No falls within the last year [employer] Work Phone: Tobacco use status CPHS a) Yes [facility] Work Phone: [phone] Tobacco Screening. Yes [employer] [facility] [employer] [facility] Work Phone: [phone] Complete Blood Count + Diffe rentialon 04-07-2021 Basophils/100 WBC (Bld) 1.0 % 0.0 - 2.0 [facility] Work Phone: [phone] Erythrocyte distribution width (RBC) [Ratio] 12.9 % See Below [employer] [facility] Work Phone: [phone] Comment on above: Reference Range: 11. 5 - 14.5 Hematocrit (Bld) [Volume fraction] 43.7 % See Below [employer] [facility] Work Phone: [phone] Comment on above: Reference Range: 36. 0 - 46.0 Hemoglobin (Bld) [Mass/Vol] 14.5 g/dL See Below [employer] [facility] Work Phone: [phone] Comment on above: Reference Range: 12. 0 - 16.0 Lymphocytes/100 WBC (Bld) 19.8 % See Below [employer] [facility] Work Phone: [phone] Comment on above: Reference Range: 13. 0 - 44.0 MCHC (RBC) [Mass/Vol] 33.2 g/dL See Below [facility] Work Phone: [phone] Comment on above: Reference Range: 32. 0 - 36.0 MCV (RBC) [Entitic vol] 89 fL 80 - 100 [facility] Work Phone: [phone] Monocytes/100 WBC (Bld) 6.1 % 2.0 - 10.0 [facility] Work Phone: [phone] Neutrophils/100 WBC (Bld) 69.6 % See Below [facility] Work Phone: [phone] Comment on above: Reference Range: 40. 0 - 80.0 Platelets (Bld) [#/Vol] 184 10*3/uL 150 - 450 [facility] Work Phone: [phone] RBC (Bld) [#/Vol] 4.89 {x10E12/L} See Below [facility] Work Phone: [phone] Comment on above: Reference Range: 4.0 0 - 5.20 WBC (Bld) [#/Vol] 7.6 10*3/uL 4.4 - 11.[address] [facility] Work Phone: [phone] Complete Blood Count + Differential 0.10 {x10E9/L} See Below [facility] Work Phone: [phone] Comment on above: Reference Range: 0.0 0 - 0.10 Complete Blood Count + Differential 0.30 {x10E9/L} See Below [facility] Work Phone: [phone] Comment on above: Reference Range: 0.0 0 - 0.70 Complete Blood Count + Differential 0.50 {x10E9/L} See Below [facility] Work Phone: [phone] Comment on above: Reference Range: 0.1 0 - 1.00 Complete Blood Count + Differential 1.50 {x10E9/L} See Below [facility] Work Phone: [phone] Comment on above: Reference Range: 1.2 0 - 4.80 Complete Blood Count + Differential 5.30 {x10E9/L} See Below [facility] Work Phone: [phone] Comment on above: Reference Range: 1.2 0 - 7.70 Percent differential counts (%) should be interpreted in the context of the absolute cell counts (cells/L). Complete Blood Count + Differential 3.5 % 0.0 - 6.0 [facility] Work Phone: [phone] Complete Blood Count + Differential 0.1 {/100_WBC} [facility] Work Phone: [phone] Laboratory - Chemistry and C hemistry - challengeon 04-07-2021 Albumin BCP dye [Mass/Vol] 3.7 g/dL 3.4 - 5.0 [employer] [facility] Work Phone: [phone] ALP [Catalytic activity/Vol] 61 U/L 33 - 110 [facility] Work Phone: [phone] ALT With P-5'-P [Catalytic activity/Vol] 7 U/L 7 - 45 [employer] [facility] Work Phone: [phone] Comment on above: Patients treated wit h Sulfasalazine may generate falsely decreased results for ALT. Anion gap [Moles/Vol] 10 mmol/L 10 - 20 [employer] [facility] Work Phone: [phone] AST With P-5'-P [Catalytic activity/Vol] 10 U/L 9 - 39 [facility] Work Phone: [phone] Bilirubin [Mass/Vol] 0.9 mg/dL 0.0 - 1.2 [facility] [employer] [facility] Work Phone: [phone] Calcium [Mass/Vol] 8.9 mg/dL 8.6 - 10.[address] [facility] [employer] [facility] Work Phone: [phone] Chloride [Moles/Vol] 105 mmol/L 98 - 107 [employer] [employer] [facility] Work Phone: CO2 [Moles/Vol] 28 mmol/L 21 - 32 -[facility] Work Phone: Creatinine [Mass/Vol] 0.88 mg/dL See Below - [facility] [employer] [facility] Work Phone: Comment on above: Reference Range: 0.5 0 - 1.05 Glucose [Mass/Vol] 82 mg/dL 74 - 99 -[facility] [employer] [facility] Work Phone: Potassium [Moles/Vol] 3.6 mmol/L 3.5 - 5.3 [facility] [employer] [facility] Work Phone: Protein [Mass/Vol] 6.3 g/dL below low threshold 6.4 - 8.2 [facility] Work Phone: Sodium [Moles/Vol] 139 mmol/L 136 - 145 [facility] [employer] [facility] Work Phone: Urea nitrogen [Mass/Vol] 7 mg/dL 6 - 23 [facility] Work Phone: Lipid Panelon 04-07-2021 Cholesterol [Mass/Vol] 127 mg/dL 0 - 199 [facility] [employer] [facility] Work Phone: Comment on above: . AGE [...] Cholesterol in HDL [Mass/Vol] 26.0 mg/dL Abnormal -Medical [employer] [facility] Work Phone: Comment on above: . AGE VERY LOW LOW N ORMAL HIGH 0-19 Y < 35 < 40 40-45 ---- 20-24 Y ---- < 40 >45 ---- >24 Y ---- < 40 40-60 >60. Cholesterol in LDL [Mass/Vol] 65 mg/dL 0 - 99 [employer] Work Phone: Comment on above: . NEAR BORD AGE YURI RABLE OPTIMAL HIGH HIGH VERY HIGH 0-19 Y 0 - 109 --- 110-129 >/= 130 ---- 20-24 Y 0 - 119 --- 120-159 >/= 160 ---- >24 Y 0 - 99 100-129 130-159 160-189 >/=190. Cholesterol.total/Heike sterol in HDL [Mass ratio] 4.9 {ratio} [facility] Work Phone: [phone] Comment on above: REF VALUESDESIRABLE < 3.4HIGH RISK > 5.0 Triglyceride [Mass/Vol] 180 mg/dL above hi gh threshold 0 - 149 [facility] Work Phone: [phone] Comment on above: . AGE DESIRABLE BORD [...] Lipid Panel 36 mg/dL 0 - 40 [facility] Work Phone: No Panel Informationon 04-07 >60 >60 [employer] Work Phone: Comment on above: CALCULATIONS OF MAGDA MATED GFR ARE PERFORMED USING THE MDRD STUDY EQUATION FOR THE IDMS-TRACEABLE CREATININE METHODS. CLIN CHEM 2007;53:766-72 TSH - Thyroid Stimulating Ho rmone, Serumon 04-07-2021 TSH Qn 0.95 m[IU]/L See Below [employer] [facility] Work Phone: Comment on above: Reference Range: 0.4 4 - 3.98 TSH testing is performed using different testing methodology at [facility] than at other [facility]. Direct result comparisons should only be made within the same method. Vitamin B12, Serumon 021 Cobalamin (Vitamin B12) [Mass/Vol] 265 pg/mL 211 - 911 [employer] [facility] Work Phone: Office Visit (Primary [...] Stimulating Hormone, Serum; Status:Hold For - Exact Date; Requested for:Before 16Apr2021; Stroke with cerebral ischemia [...] over a year continues to smoke despite in house counsel, blood pressure elevated today in the office. [...] content not included)... Normal Touchworks Tobacco Screening.on Fall risk assessment a) No falls within the last year [facility] [employer] [facility] Work Phone: Tobacco use status CPHS a) Yes M [facility] [employer] [facility] Work Phone: Tobacco Screening. Yes [employer] [employer] [facility] Work Phone: Urgent Care Visit Reporton 0 07-01-2019 Urgent Care Visit Report [facility] [address] [place] [address] OFFICE VISIT Date of Service: 07/01/19 MR#: [id number] Acct: [id number] Name: NAS PARKS Rep #: [id number] : 1975 Provider: Baljit RODRIGUEZ Age/Sex: 43/F Location: [facility] Status: Signed Intake Intake Visit Reasons: Headache HPI HPI Details: NAS PARKS, is a 43 F who presents to the office today for Assessment AND Plan 1. URI (upper respiratory infection) J06.9 Plan see scanned TELEMED note corresponding with today's date Coding Level of Care Code Attention Cordell Diagnoses URI (upper respiratory infection) J06.9 07/01/19 1341 Date Baljit RODRIGUEZ Cosigner Signature: Date (if applicable) CC: Normal [facility] BMPon 03-29-2018 Anion gap 3 molar conc 7 mmol/L Low 10-20 [facility] Comment on above: Performed By: #### 2 [id number] ####SCOTT [id number] [place] [address] Calcium mass conc 8.8 mg/dL Normal 8.6-10.3 [facility] Comment on above: Performed By: #### 2 [id number] ####SCOTT [id number] [place] [address] Chloride molar conc 110 mmol/L High 98-107 [facility] Comment on above: Performed By: #### 2 [id number] ####SCOTT [address] [place] [address] CO2 molar conc 25.0 mmol/L Normal 21.0-32.0 [facility] Comment on above: Performed By: #### 2 [id number] ####SCOTT [id number] [place] [address] Creatinine mass conc 0.7 mg/dL Normal 0.5-1.1 [facility] Comment on above: Performed By: #### 2 [id number] ####SCOTT [id number] [place] [address] Glucose mass conc 92 mg/dL Normal 70-99 [facility] Comment on above: Performed By: #### 2 [id number] ####SCOTT [address] [place] [address] Potassium molar conc 3.8 mmol/L Normal 3.5-5.3 [facility] Comment on above: Performed By: #### 2 [id number] ####SCOTT [id number] [place] [address] Sodium molar conc 138 mmol/L Normal 136-145 [facility] Comment on above: Performed By: #### 2 [id number] ####SCOTT [address] [place] [address] Urea nitrogen mass conc 9 mg/dL Normal 6-23 [facility] Comment on above: Performed By: #### 2 [id number] ####SCOTT [address] [place] [address] Urea nitrogen/Creatinine mass ratio 12.9 ratio Normal 5.4-30.0 [facility] Comment on above: Performed By: #### 2 [id number] ####SCOTT [address] [place] [address] eGFRon 03-29-2018 eGFR AA >60 Normal [facility] Comment on above: Order Comment: Order added by Discern Expert. Performed By: #### 1 [id number] ####SCOTTLebron [address] [place] [address] GFR/1.73 sq M predicted among non-blacks MDRD vol rate/area (S/P/Bld) mL/min/{1.73_m2} Normal [facility] Comment on above: Order Comment: Order added by Discern Expert. Performed By: #### 1 [id number] ####SCOTTLebron [address] [place] [address] Vital Signs Date Time Vital Sign Value Performing Clinician Jim alfaro 12-05-2024 01:13-0400 Body temperature 98.2 [degF] Dr. Ricardo Dong MD Work Phone: [facility] 12-05-2024 01:13-0400 Diastolic blood pressure 54 mm[Hg] Dr. Ricardo Dong MD Work Phone: [facility] 12-05-2024 01:13-0400 Heart rate 55 /min Dr. Ricardo Dong MD Work Phone: [phone] [place] [address] 12-05-2024 01:13-0400 Respiratory rate 22 /min Dr. Ricardo Dong MD Work Phone: [facility] 12-05-2024 01:13-0400 SaO2% (BldA) [Mass fraction] 95 % Dr. Ricardo Dong MD Work Phone: [facility] 12-05-2024 01:13-0400 Systolic blood pressure 113 mm[Hg] Dr. Ricardo Dong MD Work Phone: [facility] 12-04-2024 23:05-0400 Body height 149.[address] Ricardo Dong MD Work Phone: [facility] 12-04-2024 23:05-0400 Body mass index (BMI) [Ratio] 30.9 kg/m2 Dr. Ricardo Dong MD Work Phone: [facility] 12-04-2024 23:05-0400 Body weight 69.[address] Ricardo Dong MD Work Phone: [facility] 02-21-2024 16:00-0500 Diastolic blood pressure 73 mm[Hg] Kian Dong MD Work Phone: [facility] 02-21-2024 16:00-0500 Heart rate 58 /min Kian Dong MD Work Phone: [facility] 02-21-2024 16:00-0500 Respiratory rate 21 /min Kian Dong MD Work Phone: [facility] 02-21-2024 16:00-0500 SaO2% (BldA) [Mass fraction] 100 % Kian Dong MD Work Phone: [facility] 02-21-2024 16:00-0500 Systolic blood pressure 117 mm[Hg] Kian Dong MD Work Phone: [facility] 02-21-2024 13:15-0500 Body mass index (BMI) [Ratio] 32.77 kg/m2 Kian Dong MD Work Phone: [facility] 02-21-2024 13:15-0500 Body temperature 98.1 [degF] Kian Dong MD Work Phone: [facility] 02-21-2024 13:15-0500 Body weight 74.84 kg Kian Dong MD Work Phone: [facility] 03-20-2023 13:51-0500 Diastolic blood pressure 110 mm[Hg] Shaina Bond MD Work Phone: [facility] [employer] 03-20-2023 13:51-0500 Systolic blood pressure 160 mm[Hg] Shaina Bond MD Work Phone: [facility] 03-20-2023 13:26-0500 Body weight 71.22 kg Shaina Bond MD Work Phone: [facility] [employer] 03-20-2023 13:26-0500 Heart rate 61 /min Shaina Bond MD Work Phone: [facility] [employer] 03-17-2023 17:01-0500 Diastolic blood pressure 60 mm[Hg] Akash Mary DO Work Phone: [facility] 03-17-2023 17:01-0500 Heart rate 67 /min Akash Mary DO Work Phone: [facility] 03-17-2023 17:01-0500 Respiratory rate 18 /min Akash Mary DO Work Phone: [facility] 03-17-2023 17:01-0500 SaO2% (BldA) [Mass fraction] 98 % Akash Mary DO Work Phone: [facility] 03-17-2023 17:01-0500 Systolic blood pressure 117 mm[Hg] Akash Mary DO Work Phone: [facility] 03-17-2023 11:35-0500 Body height 151.1 cm Akash Mary DO Work Phone: [facility] 03-17-2023 11:35-0500 Body mass index (BMI) [Ratio] 31.78 kg/m2 Akash Mary DO Work Phone: [facility] 03-17-2023 11:35-0500 Body temperature 98.4 [degF] Akash Mary DO Work Phone: [facility] 03-17-2023 11:35-0500 Body weight 72.58 kg Akash Mary DO Work Phone: [facility] 03-25-2022 11:04-0500 Body height 154.94 cm Kian Dong Work Phone: [employer] [employer] [facility] Work Phone: 03-25-2022 11:04-0500 Body mass index (BMI) [Ratio] 29.39 kg/m2 Kian Dong Work Phone: [facility] [employer] [facility] Work Phone: 03-25-2022 11:04-0500 Body surface area Derived from formula 1.7 m2 Kian Dong Work Phone: [facility] [employer] [facility] Work Phone: 03-25-2022 11:04-0500 Body weight 70.56 kg Kian Dong Work Phone: [facility] [employer] [facility] Work Phone: 03-25-2022 11:04-0500 Diastolic blood pressure 72 mm[Hg] Kian Dong Work Phone: [facility] Work Phone: 03-25-2022 11:04-0500 Heart rate 68 /min Kian Dong Work Phone: [facility] Work Phone: 03-25-2022 11:04-0500 SaO2% (BldA) [Mass fraction] 99 % Kian Dong Work Phone: [facility] Work Phone: 03-25-2022 11:04-0500 Systolic blood pressure 128 mm[Hg] Kian Dong Work Phone: [facility] Work Phone: 05-17-2021 14:29-0500 Body height 154.94 cm Kian Dong Work Phone: [facility] Work Phone: 05-17-2021 14:29-0500 Body mass index (BMI) [Ratio] 29.57 kg/m2 Kian Dong Work Phone: [facility] Work Phone: 05-17-2021 14:29-0500 Body surface area Derived from formula 1.7 m2 Kian Dong Work Phone: [facility] Work Phone: 05-17-2021 14:29-0500 Body temperature 96.9 [degF] Kian Dong Work Phone: [facility] Work Phone: 05-17-2021 14:29-0500 Body weight 70.99 kg Kian Dong Work Phone: [facility] Work Phone: 05-17-2021 14:29-0500 Diastolic blood pressure 90 mm[Hg] Kian Dong Work Phone: [facility] Work Phone: 05-17-2021 14:29-0500 Heart rate 56 /min Kian Dong Work Phone: [facility] Work Phone: 05-17-2021 14:29-0500 SaO2% (BldA) [Mass fraction] 97 % Kian Dong Work Phone: [employer] [employer] [facility] Work Phone: 05-17-2021 14:29-0500 Systolic blood pressure 140 mm[Hg] Kian Dong Work Phone: [facility] [employer] [facility] Work Phone: 04-14-2021 11:28-0500 Body height 154.94 cm Kian Dong Work Phone: [employer] [employer] [facility] Work Phone: 04-14-2021 11:28-0500 Body mass index (BMI) [Ratio] 27.46 kg/m2 Kian Dong Work Phone: [facility] [employer] [facility] Work Phone: 04-14-2021 11:28-0500 Body surface area Derived from formula 1.65 m2 Kian Dong Work Phone: [employer] [employer] [facility] Work Phone: 04-14-2021 11:28-0500 Body temperature 95.3 [degF] Kian Dong Work Phone: [employer] [employer] [facility] Work Phone: 04-14-2021 11:28-0500 Body weight 65.91 kg Kian Dong Work Phone: [facility] Work Phone: 04-14-2021 11:28-0500 Diastolic blood pressure 100 mm[Hg] Kian Dong Work Phone: [facility] Work Phone: 04-14-2021 11:28-0500 Heart rate 57 /min Kian Dong Work Phone: [employer] [employer] [facility] Work Phone: 04-14-2021 11:28-0500 SaO2% (BldA) [Mass fraction] 98 % Kian Dong Work Phone: [employer] [employer] [facility] Work Phone: 04-14-2021 11:28-0500 Systolic blood pressure 160 mm[Hg] Kian Dong Work Phone: [employer] [employer] [facility] Work Phone: 04-06-2021 15:06-0500 Body height 154.94 cm Kian Dong Work Phone: [employer] [facility] Work Phone: 04-06-2021 15:06-0500 Body mass index (BMI) [Ratio] 28.45 kg/m2 Kian Dong Work Phone: [employer] [employer] [facility] Work Phone: 04-06-2021 15:06-0500 Body surface area Derived from formula 1.67 m2 Kian Dong Work Phone: [employer] [facility] Work Phone: 04-06-2021 15:06-0500 Body temperature 97.5 [degF] Kian Dong Work Phone: [facility] [employer] [facility] Work Phone: 04-06-2021 15:06-0500 Body weight 68.29 kg Kian Dong Work Phone: [employer] [facility] Work Phone: 04-06-2021 15:06-0500 Diastolic blood pressure 100 mm[Hg] Kian Dong Work Phone: [employer] [facility] Work Phone: 04-06-2021 15:06-0500 Heart rate 71 /min Kian Dong Work Phone: [employer] [facility] Work Phone: 04-06-2021 15:06-0500 SaO2% (BldA) [Mass fraction] 98 % Kian Dong Work Phone: [employer] [facility] Work Phone: 04-06-2021 15:06-0500 Systolic blood pressure 148 mm[Hg] Kian Dong Work Phone: [employer] [facility] Work Phone: Encounters Encounter Date Encounter Type Care Provider Facility Start: 12-05-2024 Evaluation and management of inpatient Dr. Anton Hoffmann DO -Progressive Care Unit Work Phone: Start: 12-05-[address] Prasanna Dong MD Work Phone: -Progressive Care Unit Start: 02-21-2024 End: 02-22-2024 ambulatory CHELSI Key [facility] Start: 02-21-2024 End: 02-21-2024 Subsequent hospital visit by physician Levi Ricketts [facility] Comment on above: Arrived Start: 02-21-2024 End: 02-21-2024 Emergency department patient visit TANIA PATTON [facility] Emergency [facility] Comment on above: Bronchitis (Primary Dx); Hypokalemia; Mild anemia Start: 02-21-2024 End: 02-22-2024 [facility] Start: 02-21-2024 End: 02-21-2024 Subsequent hospital visit by physician Levi Tanv1 [facility] Comment on above: Arrived Start: 12-07-2023 End: 12-07-2023 Emergency department patient visit LILA DOSS [facility] Start: 07-19-2023 End: 07-19-2023 [facility] Start: 03-20-2023 End: 03-20-2023 ambulatory [facility] Start: 03-20-2023 End: 03-20-2023 Encounter for gynecological examination (general) (routine) without abnormal findings [facility] Start: 03-20-2023 End: 03-20-2023 Initial preventive medicine new patient 40-64yrs Shaina Bond MD Work Phone: [facility] Comment on above: Encounter for gyneco logical examination without abnormal finding (Primary Dx); Encounter for screening mammogram for malignant neoplasm of breast; Screening for colon cancer; Abnormal uterine bleeding (AUB); Chronic hypertension; Microcytic anemia Start: 03-20-2023 End: 03-20-2023 Patient encounter status Shaina Bond MD Work Phone: [facility] [employer] Work Phone: Start: 03-17-2023 End: 03-17-2023 Emergency department patient visit Akash Mary DO Work Phone: [facility] Comment on above: Syncope, unspecified syncope type (Primary Dx) Start: 02-15-2023 ambulatory [facility] Start: 02-15-2023 Patient encounter procedure [facility] Start: 04-06-2022 AUDIT Kian Dong Work Phone: [facility] Work Phone: Start: 03-28-2022 Chart Update Kian Dong Work Phone: [facility] Work Phone: Start: 03-25-2022 Office outpatient vi sit 25 minutes iKan Dong Work Phone: [facility] Work Phone: Start: 05-17-2021 Office outpatient vi sit 15 minutes Celestineroberta Norma Dong Work Phone: [facility] Work Phone: Start: 04-15-2021 Chart Update Kian Dong Work Phone: [facility] Work Phone: Start: 04-14-[address] Ricardo Dong Facility:[id number] Start: 04-14-2021 Office outpatient vi sit 15 minutes Kian Dong Work Phone: [facility] [employer] [facility] Work Phone: Start: 04-07-2021 Chart Update Kian Dong Work Phone: [facility] [employer] [facility] Work Phone: Start: 04-06-2021 Office outpatient vi sit 25 minutes Celsetineroberta Norma Dong Work Phone: [facility] [employer] [facility] Work Phone: Start: 02-26-2021 AUDIT Kian Dong Work Phone: [facility] [facility] Work Phone: Start: 08-04-2017 End: 08-04-2017 Patient encounter procedure Adalgisa Kevon Facility:[facility] Encounter for gynecological examination (general) (routine) without abnormal findings Kian Dong Work Phone: [facility] Work Phone: Comment on above: 07/29/2006: Negative; Procedures Date Procedure Procedure Detail Performing Clinician Start: 12-04-2024 Plain chest X-ray Dr. Yesi Dong MD Work Phone: Start: 12-04-2024 CT of head without contrast Dr. Ricardo Dong MD Work Phone: Start: 12-04-[address] Ricardo oDng MD Work Phone: Start: 12-04-2024 CT angiography of he ad and neck Dr. Ricardo Dong MD Work Phone: Start: 02-21-2024 Ecg routine ecg w/le ast 12 lds trcg only w/o i&r Chelsi Yesi [employer]derback [employer] Work Phone: Start: 02-21-2024 Assay of troponin quantitative Chelsi C Bilderback [employer] Work Phone: Start: 02-21-2024 Radiologic exam ches t single view Chelsi Yesi Willisderback [employer] Work Phone: Start: 02-21-2024 Comprehensive metabo lic panel Chelsi Yesi Bilderback [employer] Work Phone: Start: 02-21-2024 Troponin I.cardiac p zena - Serum or Plasma by High sensitivity method Chelsi Yesi Bilderback [employer] Work Phone: Start: 02-21-2024 Ecg routine ecg w/le ast 12 lds trcg only w/o i&r Chelsi Yesi Willisderback [employer] Work Phone: Start: 03-20-2023 Microscopic observat ion [Identifier] in Cervix by Cyto stain Kian Dong MD Work Phone: Start: 03-20-2023 Thyrotropin [Units/v olume] in Serum or Plasma Kian Dong MD Work Phone: Start: 03-17-2023 ECG 12-LEAD AKASH HURLEY MASTERS Start: 03-17-2023 INITIATE REQUEST TO ANOTHER FACILITY AKASH MARY Start: 03-17-2023 MR ANGIO HEAD WO IV CONTRAST AKASH MARY Start: 03-17-2023 MR ANGIO NECK WO IV CONTRAST AKASH MARY Start: 03-17-2023 MR BRAIN WO IV CONTRAST AKASH MARY Start: 03-17-2023 Ecg routine ecg w/le ast 12 lds trcg only w/o i&r Akash Mary DO Work Phone: Start: 03-17-2023 Mra head w/o contrst material Akash Mary DO Work Phone: Start: 03-17-2023 CT CERVICAL SPINE WO IV CONTRAST AKASH HOLLINGSWORTHASTERS Start: 03-17-2023 CT HEAD WO IV CONTRAST AKASH MARY Start: 03-17-2023 EXTRA URINE FAJARDO TUBE C AMNINO MARY Start: 03-17-2023 URINALYSIS MICROSCOP IC WITH REFLEX CULTURE AKASH HOLLINGSWORTHMICHELLE Start: 03-17-2023 URINALYSIS WITH REFL EX MICROSCOPIC AND CULTURE AKASH MARY Start: 03-17-2023 aPTT in Blood by Coagulation assay AKASH MARY Start: 03-17-2023 CBC W Auto Different ial panel - Blood AKASH HOLLINGSWORTHMICHELLE Start: 03-17-2023 Comprehensive metabo lic 2000 panel - Serum or Plasma AKASH LEMMICHELLE Start: 03-17-2023 D-DIMER, NON VTE STAR MARY Start: 03-17-2023 Magnesium [Mass/volu me] in Serum or Plasma AKASH LEMMICHELLE Start: 03-17-2023 PROTIME-INR AKASH MEI MASTERS Start: 03-17-2023 TROPONIN I, HIGH SENSITIVITY AKASH MARY Start: 03-17-2023 Ct cervical spine w/ o contrast material Akash Mary DO Work Phone: Start: 03-17-2023 Ct head/brain w/o co ntrast material Akash Mary DO Work Phone: Start: 03-17-2023 EXTRA URINE FAJARDO TUBE C amerobunny Mary DO Work Phone: Start: 03-17-2023 Urinalysis complete W Reflex Culture panel - Urine Akash Mary DO Work Phone: Start: 03-17-2023 Urnls dip stick/tabl et reagent auto microscopy Akash Norma Mary DO Work Phone: Start: 03-17-2023 Comprehensive metabo lic panel Akash Mary DO Work Phone: Start: 03-25-2022 Lipid 1996 panel - S indu or Plasma Akash Mary DO Work Phone: section Kian Dong Work Phone: Comment on above: 08/25/2010_35weeks_Ma le; Loop electrosurgical excision procedure Celestineroberta Dong Work Phone: Comment on above: 10/2008; Tonsillectomy and adenoidectomy Kian Dong Work Phone: Comment on above: AND TUBES; Plan of Treatment Date Care Activity Detail Author Start: 2034 RSV Immunization age d 60 or older (1 - 1-dose 60+ series) RSV Immunization aged 60 or older (1 - 1-dose 60+ series) [facility] Start: 03-25-2027 Lipid panel Lipid Panel [facility] Start: 03-20-2026 Screening for malign ant neoplasm of cervix [facility] Start: 2024 Zoster Vaccines (1 of 2) Zoste r Vaccines (1 of 2) [facility] Start: 12-05-2024 MRI of brain without contrast Brain without Contrast [facility] Start: 12-05-2024 Thyroid stimulating hormone measurement [facility] Start: 12-05-2024 Urinalysis complete panel - Urine [facility] Start: 12-05-2024 Admission procedure [facility] Start: 12-05-2024 Hospital admission, emergency, from emergency room, medical nature [facility] Start: 12-04-2024 [facility] Start: 03-20-2024 Thyroid stimulating hormone measurement TSH Level [facility] Start: 12-10-2023 COVID-19 Vaccine ( season) COVID-19 Vaccine ( season) [facility] Start: 12-10-2023 Influenza vaccination Influenza Vacc ine (#1) [facility] Start: 04-24-2023 End: 04-24-2023 Patient encounter procedure 04/24/2023 3:45 PM EST Office Visit [facility] [address] [place] [address] Shaina Bond MD [address] [place] [address] [facility] Start: 04-24-2023 End: 04-24-2023 Professional / ancillary services management 04/24/2023 3:30 PM EST Ancillary Procedure [facility] [address] [place] [address] [address] [place] [address] [facility] Start: 03-20-2023 End: 05-21-2024 DBT Breast - bilateral screening Bilateral screening mammogram with tomosynthesis Imaging Routine Encounter for screening mammogram for malignant neoplasm of breast Expected: 03/20/2023, Expires: 05/21/2024 [facility] Comment on above: Expected: 03/20/2023 , Expires: 05/21/2024 Start: 03-20-2023 End: 03-20-2024 Thyrotropin [Units/volume] in Serum or Plasma TSH Lab Routine Abnormal uterine bleeding (AUB) Expected: 03/20/2023 (Approximate), Expires: 03/20/2024 [facility] [employer] [facility] Work Phone: Comment on above: Expected: 03/20/2023 (Approximate), Expires: 03/20/2024 Start: 03-20-2023 End: 09-19-2023 US Pelvis transvaginal US pelvis transvaginal Imaging Routine Abnormal uterine bleeding (AUB) Expected: 03/20/2023 (Approximate), Expires: 09/19/2023 [facility] Comment on above: Expected: 03/20/2023 (Approximate), Expires: 09/19/2023 Start: 03-20-2023 End: 03-20-2023 Patient encounter procedure 03/20/2023 1:30 PM EST Office Visit [facility]necology [address] [place] [address] Shaina Bond MD [address] [place], [place] [id number] [facility] Start: 12-09-2022 Influenza vaccination Influenza Vacc ine (#1) [facility] Start: 08-17-2021 EPV, Provider: Kian Dong, Status: Pen, Time: 4:00 PM EPV, Provider: Kian Dong, Status: Pen, Time: 4:00 PM -[employer] [facility] Work Phone: Start: 05-17-2021 EPV, Provider: Kian Dong, Status: Pen, Time: 2:20 PM EPV, Provider: Kian Dong, Status: Pen, Time: 2:20 PM [facility] Work Phone: Start: 04-14-2021 EPV, Provider: Kian Dong, Status: Pen, Time: 11:20 AM EPV, Provider: Kian Dong, Status: Pen, Time: 11:20 AM [facility] Work Phone: Start: 03-12-2021 EPV, Provider: Kian Dong, Status: Pen, Time: 3:00 PM EPV, Provider: Kian Dong, Status: Pen, Time: 3:00 PM [facility] Work Phone: Start: 10-13-2020 Diabetes mellitus screening Diabetes Screening [facility] Start: 2014 Screening for malign ant neoplasm of breast Mammogram [facility] Start: 2004 Screening for malign ant neoplasm of cervix [facility] Start: 1996 DTaP/Tdap/Td Vaccine s (1 - Tdap) DTaP/Tdap/Td Vaccines (1 - Tdap) [facility] Start: 01-01-1996 Screening for malign ant neoplasm of cervix [facility] Start: 1993 DTaP/Tdap/Td Vaccine s (1 - Tdap) DTaP/Tdap/Td Vaccines (1 - Tdap) [facility] Start: 1993 Hepatitis B Vaccines (1 of 3 - 19+ 3-dose series) Hepatitis B Vaccines (1 of 3 - 19+ 3-dose series) [facility] Start: 1992 Diabetes mellitus screening Diabetes Screening [facility] Start: 1992 Hepatitis C screening Hepatitis C Sc zulay [facility] Start: 1986 Depression Screening Depression Scre jason [facility] Start: 1980 Pneumococcal Vaccine : Pediatrics (0 to 5 Years) and At-Risk Patients (6 to 64 Years) (1 - PCV) Pneumococcal Vaccine: Pediatrics (0 to 5 Years) and At-Risk Patients (6 to 64 Years) (1 - PCV) [facility] Start: 1980 Pneumococcal Vaccine : Pediatrics (0 to 5 Years) and At-Risk Patients (6 to 64 Years) (1 of 2 - PCV) Pneumococcal Vaccine: Pediatrics (0 to 5 Years) and At-Risk Patients (6 to 64 Years) (1 of 2 - PCV) [facility] Start: 01-01-1976 MMR Vaccines (1 of 1 - Standard series) MMR Vaccines (1 of 1 - Standard series) [facility] Start: 07-01-1975 COVID-19 Vaccine (#1) COVID-19 Vacci ne (#1) [facility] Start: 1974 Hepatitis B Vaccines (1 of 3 - 3-dose series) Hepatitis B Vaccines (1 of 3 - 3-dose series) [facility] Start: 1974 HIV screening HIV Screening [facility] Start: 1974 Screening for malign ant neoplasm of colon [facility] Start: 1974 Yearly Adult Physical [facility] Amphetamines [Presen ce] in Urine by Screen method >1000 ng/mL [facility] Benzodiazepine measurement, urine [facility] Cocaine measurement, urine [facility] Cologuard colon canc er screening Cologuard colon cancer screening Lab Routine Screening for colon cancer Ordered: 03/20/2023 [facility] Comment on above: Ordered: 03/20/2023 Cytology Cervical or vaginal smear or scraping study Pap Smear Pathology and Cytology Routine Encounter for gynecological examination without abnormal finding Ordered: 03/20/2023 [facility] Comment on above: Ordered: 03/20/2023 ECG 12 lead ECG 12 lead ECG STAT 03/17/2023 5:11 PM EST [facility] Work Phone: End: 02-21-2024 ECG 12 lead [facility] Work Phone: Comment on above: Every 1 hour for 2 O ccurrences starting 02/21/2024 until 02/21/2024 Ethanol [Mass/volume ] in Serum or Plasma [facility] fentaNYL [Presence] in Urine by Screen method [facility] Hemoglobin A1c/Hemoglobin.total in Blood [facility] Methadone measuremen t, urine [facility] Phencyclidine [Prese nce] in Urine [facility] Thyroid stimulating hormone measurement [facility] Urine cannabinoid measurement [facility] Urine opiate measurement [facility] Payers Date Payer Category Payer Medicaid ANTH MEDICAID [facility] MEDICAID [facility] [id number] 2022-Present [address] [place] [address] Medicaid HMO [id number] 2022 Medicaid [id number] 2021 Blue Cross [employer] Managed Care [facility] [id number] 2021 Unknown 2019 Unknown [id number] 2017 Private Health Insurance 1974 Unknown [id number] 1974 Unknown [id number] 1974 Unknown [id number] 1974 Unknown [id number] 1974 Unknown [id number] 1974 Unknown [id number] 1974 Unknown [id number] 1243 1974 Unknown [id number] Medicaid [id number] Social History Date Type Detail Facility Start: 03-17-2023 End: 02-21-2024 Current smoker Current smoker [facility] Work Phone: Comment on above: 6 PER DAY; Tobacco smoking status WIIS Tobacco smoking consumption unknown [facility] Start: 1975 Sex Assigned At Not on file [facility] Start: 03-17-2023 End: 02-21-2024 Gender identity Not on file [facility] Start: 03-17-2023 End: 12-04-2024 Tobacco smoking status WIIS Smokes tobacco daily [facility] Work Phone: Start: 04-10-1992 History of tobacco use Cigarette Smoker [facility] Work Phone: Start: 03-17-2023 End: 07-19-2023 Tobacco use and exposure Smokeless tobacco non-user [facility] Work Phone: Start: 03-17-2023 End: 02-21-2024 Alcohol intake Current drinker of alcohol (finding) [facility] Work Phone: Start: 03-20-2023 Alcohol intake Lifetime non-d iam (finding) [facility] Start: 02-11-2024 End: 02-21-2024 Exposure to SARS-CoV-2 (event) Not sure [facility] Start: 1975 Sex Assigned At Female [facility] Mental Status Date Assessment Result Facility 12-04-2024 Cognitive function Voice/Name [facility] Work Phone: Clinical Notes 03-25-2019 to 12-04-2024 Chelsi Spangler, [facility] - 02/21/2024 1:10 PM Josiane Spangler, [facility] - 02/21/2024 1:10 PM Shaan Bond MD - 03/20/2023 1:30 PM ESTDischartomeka Instructions Note Date & Type Note Facility 12-04-2024 Radiology Diagnostic study note [facility] Imaging Services [address] [place] [address] STROKE CTA Head AND Neck W/Con MR#: [id number] Acct: [id number] Name: NAS PARKS Rep #: [id number] : 1975 F 48 From: [facility] wei Horne MD PCP: Dr. Ricardo Dong MD Status: RE G ER Study:STROKE CTA Head AND Neck W/Con Date of Exam: 12/04/24 Exam# [id number] Ordering Dr: Duke Davalos DO PROCEDURE: STROKE CTA HEAD AND NECK W/CON 12/04/2024 REASON FOR EXAM: NEURO DEFICIT, ACUTE, STROKE SUSPECTED TECHNIQUE: STROKE CTA HEAD AND NECK W/CON Multiplanar Sagittal and Coronal images were obtained. 3D and MIP post processing was performed. CONTRAST: Isovue 370 VOLUME: 86 mL One or more dose reduction techniques were used (e.g., Automated exposure control, adjustment of the mA and/or kV according to patient size, use of iterative reconstruction technique). RADIATION DOSE SUMMARY: DLP: 1246.83 mGycm COMPARISON: None. FINDINGS: CTA HEAD: Patent intracranial arterial vasculature. No large vessel occlusion, flow-limiting stenosis, saccular aneurysm, or vascular malformation identified. Dural venous sinuses appear patent. CTA NECK: Conventional aortic arch branching. Prominent noncalcified atheromatous plaque contributes to mild-moderate narrowing along the proximal left subclavian artery. Bilateral cervical carotid and codominant vertebral arteries are patent without significant stenosis. No aneurysm or dissection. CT/STROKE CTA Head AND Neck W/Con IMPRESSION: Patent intracranial and cervical arterial vasculature. No large vessel occlusion, significant flow-limiting stenosis, aneurysm or dissection. Incidentally, there is mild-moderate luminal narrowing of the proximal left subclavian artery due to eccentric noncalcified atheromatous plaque. Reading Location: [id number] CC: Dr. Ricardo Dong MD; Dr. Salty Davalos DO ~ [employer]le And Frame Mechanic: Signed [facility] 12-04-2024 Radiology Diagnostic study note [facility] Imaging Services [address] [place] [address] STROKE Brain/Head without Cont MR#: [id number] Acct: [id number] Name: NAS PARKS Rep #: [id number] : 1975 F 48 From: Constantine Horne MD PCP: Dr. Ricardo Dong MD Status: RE G ER Study:STROKE Brain/Head without Cont Date of Exam: 12/04/24 Exam# [id number] Ordering Dr: Duke Davalos DO PROCEDURE: STROKE CT BRAIN/HEAD WITHOUT CONTRAST 12/04/2024 REASON FOR EXAM: NEURO DEFICIT, ACUTE, STROKE SUSPECTED TECHNIQUE: STROKE CT BRAIN/HEAD WITHOUT CONT Coronal and Sagittal reconstruction series were provided. One or more dose reduction techniques were used (e.g., Automated exposure control, adjustment of the mA and/or kV according to patient size, use of iterative reconstruction technique. RADIATION DOSE SUMMARY: CTDlvol: 44.99 mGy DLP: 745.49 mGycm COMPARISON: None available. FINDINGS: No acute intracranial hemorrhage, extra-axial collection, mass effect or evidence of acute infarct. Ventricular and sulcal size and configuration are within normal limits. Unremarkable orbits. Intact skull base and calvarium. Well-aerated paranasal sinuses and mastoid air cells. CT/STROKE Brain/Head without Cont IMPRESSION: No acute intracranial abnormality. Reading Location: [id number] CC: Dr. Ricardo Dong MD; Dr. Salty Davalos DO ~ [employer]le And Frame Mechanic: Signed [facility] 12-04-2024 Radiology Diagnostic study note [facility] Imaging Services [address] [place] [address] Chest 1 View MR#: [id number] Acct: [id number] Name: NAS PARKS Rep #: [id number] : 1975 F 48 From: Constantine Horne MD PCP: Dr. Ricardo Dong MD Status: RE G ER Study:Chest 1 View Date of Exam: 5 Exam# [id number] Ordering Dr: Duke Davalos DO PROCEDURE: CHEST 1 VIEW 12/04/2024 REASON FOR EXAM: NEURO DEFICIT, ACUTE, STROKE SUSPECTED TECHNIQUE: Frontal view of the chest. COMPARISON: None. FINDINGS: Lungs/Pleura: Clear. No pneumothorax or sizable pleural effusion. Heart/Mediastinum: Mildly enlarged. Bones/Soft tissues: Unremarkable. RAD/Chest 1 View IMPRESSION: Mild cardiomegaly. No acute pulmonary disease. Reading Location: [id number] CC: Dr. Ricardo Dong MD; Dr. Salty Davalos DO ~ Axle And Frame Mechanic: Signed [facility] 02-21-2024 Emergency department Note Chief Complaint Patient [...] ANGIO W AND WO IV CONTRAST 01/12/2020 [facility] EMERGENCY LEGACY CT HEAD ANGIO W AND WO IV CONTRAST 01/12/2020 CT HEAD ANGIO W AND WO IV CONTRAST 01/12/2020 [facility] EMERGENCY LEGACY MR HEAD ANGIO WO IV CONTRAST 03/17/2023 MR HEAD ANGIO WO IV CONTRAST 03/17/2023 [facility] MRI MR NECK ANGIO WO IV CONTRAST 03/17/2023 MR NECK ANGIO WO IV CONTRAST 03/17/2023 [facility] MRI OTHER SURGICAL HISTORY 06/07/2019 [...] performed using a different testing methodology at [facility] than at other [facility]. Direct result comparisons should only be made [...] performed using a different testing methodology at [facility] than at other [facility]. Direct result comparisons should only be made within the same method. TROPONIN SERIES- (INITIAL, 1 HR) Narrative: The following orders were created for panel order Troponin I Series, High Sensitivity (0, 1 HR). Procedure Abnormality Status --------- ------ Troponin I, High Sensiti...[[id number]] Normal Final result Troponin, High Sensitivi...[[id number]] Normal Final result Please view results for these tests on the individual orders. XR chest 1 view Final Result No acute cardiopulmonary process. MACRO: None Signed by: Licha Younger 02/21/2024 1:53 PM Dictation workstation: [id number] Medical Decision Making Amount and/or Complexity of Data Reviewed Labs: ordered. Radiology: ordered. ECG/medicine tests: ordered. EKG interpreted by myself shows SB with rate of 43. Normal axis. SC interval 162. QRS interval 92. QT interval 500. QTc interval 422. Non-specific ST-T wave changes. No acute ischemia or injury pattern. ED COURSE: This patient was seen and examined by myself independently. She is placed on a continuous web operations specialist with pulse oximetry monitoring. Old records and [...] hypokalemia #3 mild anemia AMANUEL Rogel 02/21/24 1200 documented in this encounter [facility] Work Phone: 02-21-2024 Physician Emergency department Note [...] ANGIO W AND WO IV CONTRAST 01/12/2020 [facility] EMERGENCY LEGACY CT HEAD ANGIO W AND WO IV CONTRAST 01/12/2020 CT HEAD ANGIO W AND WO IV CONTRAST 01/12/2020 [facility] EMERGENCY LEGACY MR HEAD ANGIO WO IV CONTRAST 03/17/2023 MR HEAD ANGIO WO IV CONTRAST 03/17/2023 [facility] MRI MR NECK ANGIO WO IV CONTRAST 03/17/2023 MR NECK ANGIO WO IV CONTRAST 03/17/2023 [facility] MRI OTHER SURGICAL HISTORY 06/07/2019 [...] performed using a different testing methodology at [facility] than at other [facility]. Direct result comparisons should only be [...] performed using a different testing methodology at [facility] than at other [facility]. Direct result comparisons should only be made within the same method. TROPONIN SERIES- (INITIAL, 1 HR) Narrative: The following orders were created for panel order Troponin I Series, High Sensitivity (0, 1 HR). Procedure Abnormality Status --------- ------ Troponin I, High Sensiti...[[id number]] Normal Final result Troponin, High Sensitivi...[[id number]] Normal Final result Please view results for these tests on the individual orders. XR chest 1 view Final Result No acute cardiopulmonary process. MACRO: None Signed by: Licha Younger 02/21/2024 1:53 PM Dictation workstation: [id number] Medical Decision Making Amount and/or Complexity of Data Reviewed Labs: ordered. Radiology: ordered. ECG/medicine tests: ordered. EKG interpreted by myself shows SB with rate of 43. Normal axis. SC interval 162. QRS interval 92. QT interval 500. QTc interval 422. Non-specific ST-T wave changes. No acute ischemia or injury pattern. ED COURSE: This patient was seen and examined by myself independently. She is placed on a continuous web operations specialist with pulse oximetry monitoring. Old records and [...] hypokalemia #3 mild anemia AMANUEL Rogel 02/21/24 1607 [facility] Work Phone: 03-20-2023 History of Presen [...] colon cancer screening documented in this encounter [facility] 03-17-2023 Hospital Discharg e instructions Akash Mary DO - 03/17/2023 5:06 PM EST Will be contacted by Dr. Barb Saavedra's office (neurology) for a virtual visit. documented in this encounter [facility] Work Phone: 03-17-2023 Emergency department Note Associated [...] other medical treatment History of mammogram Stroke ([facility]) Past Surgical History: Procedure Laterality Date CT ANGIO NECK 01/12/2020 CT NECK ANGIO W AND WO IV CONTRAST 01/12/2020 [facility] EMERGENCY LEGL[facility]ATED WITHIN [facility] CT HEAD ANGIO W AND WO IV CONTRAST 01/12/2020 CT HEAD ANGIO W AND WO IV CONTRAST 01/12/2020 [facility] EMERGENCY LEGACY OTHER SURGICAL HISTORY [...] Urine Yellow Appearance, Urine Hazy (*) Specific [place], Urine 1.025 pH, Urine 5.0 Protein, Urine [...] performed using a different testing methodology at [facility] than at other [facility]. Direct result comparisons should only be made [...] Abnormality Status --------- ------ Urinalysis with Reflex M...[[id number]] Abnormal Final result Extra Urine Fajardo Tube[[id number]] Final result Please view results for these [...] Lida Wallace 03/17/2023 4:10 PM Dictation workstation: [id number] MR angio head wo IV contrast Final [...] Lida Wallace 03/17/2023 4:10 PM Dictation workstation: [id number] MR angio neck wo IV contrast Final [...] Lida Wallace 03/17/2023 4:10 PM Dictation workstation: [id number] CT head wo IV contrast Final Result No evidence of acute cortical infarct or intracranial hemorrhage. No evidence of intracranial hemorrhage or displaced skull fracture. MACRO: None Signed by: Vidal Ellis 03/17/2023 1:10 PM Dictation workstation: [id number] CT cervical spine wo IV contrast Final Result No evidence for an acute fracture or subluxation of the cervical spine. Discogenic degenerative changes especially at C5/C6. MACRO: None Signed by: Vidal Lovingmeghana 03/17/2023 1:15 PM Dictation workstation: [id number] Medical Decision Making: Patient appears well and nontoxic. No focal deficit. CT brain negative. Lab work otherwise unremarkable other than hypokalemia. Replaced orally. MRI and MRA performed. Does show multiple areas of stenosis. Case was discussed with neurologist on-call Dr. Saavedra who reviewed the images as well as her previous visit at the [facility] for CVA. She did advised on pacing [...] Procedure ECG 12 lead Performed by: Akash Mary DO Authorized by: Akash Mary DO ECG interpreted by ED Physician in the absence of a biomedical engineering internship: yes Comments: EKG interpreted by Dr. Akash Mary: Normal sinus rhythm at 65 bpm. SC interval 148 ms. QTc of [address] changes. Akash Mary DO 03/17/23 1711 documented in this encounter [facility] Work Phone: 03-17-2023 Physician Emergency department Note [...] other medical treatment History of mammogram Stroke ([facility]) Past Surgical History: Procedure Laterality Date CT ANGIO NECK 01/12/2020 CT NECK ANGIO W AND WO IV CONTRAST 01/12/2020 [facility] EMERGENCY LEGACY CT HEAD ANGIO W AND WO IV CONTRAST 01/12/2020 CT HEAD ANGIO W AND WO IV CONTRAST 01/12/2020 [facility] EMERGENCY LEGACY OTHER SURGICAL HISTORY [...] Urine Yellow Appearance, Urine Hazy (*) Specific [place], Urine 1.025 pH, Urine 5.0 Protein, Urine [...] performed using a different testing methodology at [facility] than at other [facility]. Direct result comparisons should only be [...] Abnormality Status --------- ------ Urinalysis with Reflex M...[[id number]] Abnormal Final result Extra Urine Fajardo Tube[[id number]] Final result Please view results for these [...] Lida Wallace 03/17/2023 4:10 PM Dictation workstation: [id number] MR angio head wo IV contrast Final [...] Lida Wallace 03/17/2023 4:10 PM Dictation workstation: [id number] MR angio neck wo IV contrast Final [...] Lida Wallace 03/17/2023 4:10 PM Dictation workstation: [id number] CT head wo IV contrast Final Result No evidence of acute cortical infarct or intracranial hemorrhage. No evidence of intracranial hemorrhage or displaced skull fracture. MACRO: None Signed by: Vidal Ellis 03/17/2023 1:10 PM Dictation workstation: [id number] CT cervical spine wo IV contrast Final Result No evidence for an acute fracture or subluxation of the cervical spine. Discogenic degenerative changes especially at C5/C6. MACRO: None Signed by: Vidal Ellis 03/17/2023 1:15 PM Dictation workstation: [id number] Medical Decision Making: Patient appears well and nontoxic. No focal deficit. CT brain negative. Lab work otherwise unremarkable other than hypokalemia. Replaced orally. MRI and MRA performed. Does show multiple areas of stenosis. Case was discussed with neurologist on-call Dr. Saavedra who reviewed the images as well as her previous visit at the [facility] for CVA. She did advised on pacing [...] Procedure ECG 12 lead Performed by: Akash Mary DO Authorized by: Akash Mary DO ECG interpreted by ED Physician in the absence of a biomedical engineering internship: yes Comments: EKG interpreted by Dr. Akash Mary: Normal sinus rhythm at 65 bpm. SC interval 148 ms. QTc of [address] changes. Akash Mary DO 03/17/23 1711 [facility] Work Phone: 02-15-2023 Telephone encounter Note S: the patient is calling the [facility] About vaginal bleeding B: This has [...] 7 days Protocols used: Vaginal Bleeding - [id number] [facility] 02-15-2023 Miscellaneous Notes S: the patient is calling the [facility] About vaginal bleeding B: This has [...] 7 days Protocols used: Vaginal Bleeding - [id number] documented in this encounter [facility] 05-17-2021 History of Presen t illness Narrative emotionally doing OK, back to work, sleeping OK at night, no issues with focus or concentrationNo headache, chest pain, shortness of breath, dizziness, lightheadedness, or edemaHBP under 140/90+ tobacco use 1/2 ppd despite in house counsel [facility] Work Phone: 03-25-2019 History of Presen [...] tolerates medications without fatigue and myalgias.Labs today [facility] Work Phone: Evaluation note Diagnosis Syncope, unspecified syncope type- Primary documented in this encounter [facility] Work Phone: Evaluation note* Diagnosis Encounter for [...] Hypopotassemia Mild anemia documented in this encounter [facility] Work Phone: Evaluation note* Diagnosis Onset Date Resolution Status Admit Date History of CVA with residual deficit acute December 05 1:45am Leukocytosis acute December 05, 2024 1:45am Obesity (BMI 30.0-34.9) acute A ugust 2024 1:45am Subclavian artery disease acute December 05, 2024 1:45am TIA (transient ischemic attack) acut e December 05, 2024 1:45am Tobacco abuse acute November 1:45am [facility] Work Phone: History of Present illness Narrative* emotionally some better, less mood fluctuations * no HBP checks * used a couple of lorazepam * sleeping some better at night [facility] Work Phone: Hospital Discharge instructions* Attachments The following attachments cannot be sent through Care Everywhere. * Acute bronchitis (Croatian) * Quitting smoking (Croatian) [facility] Reason for referral (narrative)No reason for referral [facility] Work Phone: Summary Purpose Family History Unknown Family Member Name Dates Details Family [...] o f brain: Mother Status:Active Advance Directives Advance Directive Response Recorded Date/ Time Do you have a Healthcare Power of Grassroots Organizer? No [place] 27th, 2025 10:59pm Chief Complaint 1 WK F/U REV LABS1 MO F/UANGER WITH ALT TEARFUL EPISODES. STATES SHE GOT THIS WAY LAST YEAR Chief Complaint and Reason for Visit Chief Complaint Admit Date TIA December 05, 2024 1: 45am Reason for Visit Admit Date History of CVA with residual deficit Nov ust 2024 1:45am Leukocytosis December 05, 2024 1: 45am Obesity (BMI 30.0-34.9) December 05 1:45am Subclavian artery disease December 05, 2 025 1:45am TIA (transient ischemic attack) November 092024 1:45am Tobacco abuse December 05, 2024 1: 45am Additional Source Comments INFORMATION SOURCE (unrecogn ized section and content) DATE CREATED AUTHOR 04/01/2018 [facility] DATE CREATED AUTHOR AUTHOR'S ORGANIZ ATION 07/31/2019 [facility] DATE CREATED AUTHOR AUTHOR'S ORGANIZ ATION 01/31/2022 [facility] DATE CREATED AUTHOR AUTHOR'S ORGANIZ ATION 04/01/2022 [facility] DATE CREATED AUTHOR AUTHOR'S ORGANIZ ATION 03/30/2023 [facility] DATE CREATED AUTHOR AUTHOR'S ORGANIZ ATION 12/14/2023 [facility] DATE CREATED AUTHOR AUTHOR'S ORGANIZ ATION 02/23/2024 [facility] DATE CREATED AUTHOR AUTHOR'S ORGANIZ ATION 02/24/2024 [facility] DATE CREATED AUTHOR AUTHOR'S ORGANIZ ATION 06/23/2024 [facility] Ambulatory Reason for Visit (unrecogniz ed [...] Care Teams (unrecognized sec tion and content) Technical Spec Relationship Specialty Start Date End Date Kian Dong MD [address] [id number] PCP - General Family Medicine 03/17/23 Technical Spec Relationship Specialty Start Date End Date [facility] [address] [place] [address] PCP - General 03/20/23 Technical Spec Relationship Specialty Start Date End Date Kian Dong MD [address] [address] PCP - [facility] PCP 09/09/23 Tania Patton MD [address] [address] PCP - General Family Medicine 02/21/24 Technical Spec Relationship Specialty Start Date End Date Kian Dong MD [address] [phone] PCP - [facility] PCP 09/09/23 Tania Patton MD [address] [id number] PCP - General Family Medicine 02/21/24 Team Status: Active Member Role/Relationship Status Dates Dr. Ricardo Dong MD Primary Care Provider Active Team Status: Active Member Role/Relationship Status Dates Dr. Ricardo Dong MD Primary Care Provider Active Start: December 05, 2024 Dr. Salty Davalos , Emergency Provider Active Start: December 05, 2024 Dr. Anton Hoffmann DO Admit Provider Active Start: December 05, 2024 Dr. Anton Hoffmann DO Attending Provider Active Start: December 05, 2024 Goals (unrecognized section and content) Goals may be documented in a n alternate section FOR RECORDS PERTAINING TO PATIENTS WHO ARE [...] BE BASED ON THE PRIMARY CLINICAL RECORDS. [employer] provides no warranty or guarantee of the accuracy or completeness of information in this document.
[2024-12-05 04:24] LABS: Troponin T High Sens 2 HR < 6 ng/L (<=14)
[2024-12-05 04:27] LABS: Cholesterol 127 mg/dL (<=200); Low Density Lipoprotein Calc. 31 mg/dL; Triglycerides 341 mg/dL; Very Low Density Lipoprotein 68 mg/dL (5-40); cholesterol:hdl ratio screen 4.58
[2024-12-05 05:06] LABS: Barbiturate Urine NEGATIVE (< 200 ng/mL); Benzodiazepine Urine NEGATIVE (< 200 ng/mL); PCP Urine NEGATIVE (< 25 ng/mL); THC Urine NEGATIVE (< 50 ng/mL)
[2024-12-05 06:21] LABS: Troponin T High Sens 4 HR < 6 ng/L (<=14)
--- NOTE | 2024-12-05 08:29 | PCM.PN.HOSP ---
Reason for Visit Chief Complaint: Transient Right Hand Weakness. Subjective Subjective Patient had transient episode of right arm weakness and paresthesias as well as right distal calf swelling. Those of both resolved. Patient has had a stroke before but it has affected her short-term memory. Objective Data Objective Data Vital Signs: Vital Signs Temp Pulse Resp BP Pulse Ox O2 Del Method 35.9 C L 56 L 18 111/63 97 Room Air 12/05/24 05:36 12/05/24 05:36 12/05/24 05:36 12/05/24 05:36 12/05/24 05:36 12/05/24 08:13 Oxygen Delivery Method Room Air Weight: 68.1 kg Body Mass Index (BMI) 29.8 Intake & Output: Intake and Output for Last 24 Hours 12/03/24 12/04/24 12/05/24 23:59 23:59 23:59 Intake Total 0 / 0 Balance 0 / 0 Lab / Micro Data 12/04/24 22:57 12/04/24 22:57 Labs: Laboratory Results - last 24 hr 12/04/24 22:57: WBC 11.8 H, RBC 4.69, Hgb 14.2, Hct 40.3, MCV 85.9, MCH 30.3, MCHC 35.2, RDW Std Deviation 39.9, RDW Coeff of Roel 13.1, Plt Count 176, MPV 12.3 H, Immature Gran % (Auto) 0.800, Neut % (Auto) 66.8, Lymph % (Auto) 21.9, [place] % (Auto) 7.0, Eos % (Auto) 3.0, Baso % (Auto) 0.5, Absolute Neuts (auto) 7.9 H, Absolute Lymphs (auto) 2.59, Nucleated RBC % 0, PT 13.1, INR 1.0, APTT 26.6, Sodium 139, Potassium 3.3, Chloride 100, Carbon Dioxide 23.0, Anion Gap 15, BUN 10, Creatinine 0.99, Estim Creat Clear Calc 59.79, Est GFR (MDRD) Non-Af 70, BUN/Creatinine Ratio 10.3, Glucose 104 H, Hemoglobin A1c 5.5, Calcium 9.3, Troponin T High Sens 6, TSH 1.180, Ethyl Alcohol < 10.1 12/05/24 02:50: Urine Color Straw, Urine Clarity Clear, Urine pH 6.5, Ur Specific [place] 1.010, Urine Protein 15 H, Urine Glucose (UA) Normal, Urine Ketones Negative, Urine Occult Blood 10 H, Urine Nitrite Negative, Urine Bilirubin Negative, Urine Urobilinogen Normal, Ur Leukocyte Esterase Negative, Urine RBC 0-5 SEEN, Urine WBC 0 SEEN, Ur Squamous Epith Cells 0-5 SEEN, Urine Bacteria RARE, Urine Mucus 0 SEEN, Urine Opiates Screen NEGATIVE, U Buprenorphine Qual NEGATIVE, Ur Oxycodone Screen NEGATIVE, Urine Methadone Screen NEGATIVE, Urine Fentanyl Screen NEGATIVE, Ur Barbiturates Screen NEGATIVE, Ur Phencyclidine Scrn NEGATIVE, Ur Amphetamines Screen NEGATIVE, U Benzodiazepines Scrn NEGATIVE, Urine Cocaine Screen NEGATIVE, U Cannabinoids Screen NEGATIVE 12/05/24 03:27: Troponin T Hi Sens 2 Hr < 6, Triglycerides 341 H, Cholesterol 127, LDL Cholesterol, Calc 31, VLDL Cholesterol 68 H, HDL Cholesterol 28 L, Cholesterol/HDL Ratio 4.58 12/05/24 05:27: Troponin T Hi Sens 4Hr < 6 Radiography Diagnostic Testing: Radiology Impression Head/Neck CTA 12/04/24 22:42 IMPRESSION: Patent intracranial and cervical arterial vasculature. No large vessel occlusion, significant flow-limiting stenosis, aneurysm or dissection. Incidentally, there is mild-moderate luminal narrowing of the proximal left subclavian artery due to eccentric noncalcified atheromatous plaque. Reading Location: [facility] Brain CT 12/04/24 23:15 IMPRESSION: No acute intracranial abnormality. Reading Location: [facility] Chest X-Ray 12/04/24 23:29 IMPRESSION: Mild cardiomegaly. No acute pulmonary disease. Reading Location: [facility] Physical Exam Const alert and no apparent distress HEENT head/scalp atraumatic and moist oral mucous membranes Resp normal respiratory effort and no retractions Extremity normal to inspection, full ROM and no clubbing, cyanosis or edema Neuro oriented x3, moves all extremities, no focal motor deficits and no sensory deficits noted Sensorium / Orientation: awake and alert Speech: speech normal Assessment & Plan Assessment/Plan (1) Right hand weakness: PLAN: Transient. TIA/CVA v peripheral MRI of the brain was negative. Echo shows an EF of 65%. Continue ASA, HIS. Neuro consult PLAN: Plan Subclavian stenosis. CTA report noted moderate luminal narrowing of the proximal left subclavian artery due to eccentric noncalcified atheromatous plaque. Vascular surgery consulted. chronic medical conditions: CVA: on ASA HLP: statin VTE prophylaxis: LMWH. Charges/Coding Visit Charges Inpatient E&M: 15328 Subs Hosp L1 NIHSS NIHSS Nursing Documentation NIHSS Nursing Documentation: NIHSS: Ischemic Stroke/TIA Start: 12/05/24 02:09 Text: For PCU Patients: NIH and Neuro Check every 4 Status: Active hours, PRN and with change in RN caregiver. Freq: Q4H Protocol: Activity Type Activity Date Activity User E-sign Co-sign Detail Recorded Client Recorded Date Recorded By Document 12/05/24 05:36 ADR [id number] 12/05/24 05:37 ADR 12/05/24 05:36 NIH Stroke Scale [NIHSS] A score of 0 is normal or asymptomatic . Total possible score is 42. Inpatient: RN or Physician to activate a stroke alert for onset of new stroke symptoms or with NIHSS increase >/= 3 points. Following change in neurological status, NIHSS will be performed per physician order or more frequently PRN. -1a. Level of Consciousness 0 - Alert; keenly responsive -1b. LOC Questions 0 - Answers BOTH questions correctly -1c. LOC Commands 0 - Performs BOTH tasks correctly -2. Best Gaze 0 - Normal -3. Visual 0 - No visual loss -4. Facial Palsy 0 - Normal symmetrical movements -5a. Left Arm 0 - No drift; arm holds 90 ( or 45) degrees for full 10 seconds -5b. Right Arm 0 - No drift; arm holds 90 ( or 45) degrees for full 10 seconds -6a. Left Leg 0 - No drift; leg holds 30- degree position for full 5 seconds -6b. Right Leg 0 - No drift; leg holds 30- degree position for full 5 seconds -7. Limb Ataxia 0 - Absent -8. Sensory 0 - Normal; no sensory loss -9. Best Language 0 - No aphasia; normal -10. Dysarthria 0 - Normal -11. Extinction and Inattention 0 - No abnormality -Total 0 Query Text:A score of 0 is normal or asymptomatic. Total possible score is 42 . ED: Notify Physician for NIHSS increase by > / = 3 points. Inpatient: RN or Physician to activate a stroke alert for NIHSS increase of > / = 3 points. Coma Scale [Assess] -Eye Opening Spontaneous -Motor Obeys Commands -Verbal Oriented [Total] -Coma Scale Total 15
--- NOTE | 2024-12-05 12:29 | CASEMGMT ---
Social Work Pt completed PHQ-9 w/SW, scored a 0, not indicating symptoms of depression at this time. No resources provided at this time as not needed. HENRRY Salguero
--- NOTE | 2024-12-05 12:30 | CASEMGMT ---
Social Work SW met w/pt in regard to insurance, as she is listed as self pay. Pt states she is supposed to have insurance through her employer, she plans to call when she gets d/c and will get it straightened out. She states she is supposed to have coverage and does think this hospital stay will be covered. SW did provide a list of prescription assistance programs should she need them in the interim. HENRRY Salguero
--- NOTE | 2024-12-05 16:31 | DCINST_ITS ---
Discharge Instructions DC O2, CPAP, BIPAP needs Home O2 Discharge instructions: No Dressing / Incision Discharge Activity: Return to Normal Activity Dressing / Incision Call your doctor if you observe: Numbness or Tingling Follow Up Care Test Results: Test results from this visit will be discussed in further detail at your follow- up appointment, if applicable. Discharge Plan Admission Admit Date/Time: 12/05/24 01:28 Primary Reason for Your Visit: TIA Attending Provider: Micah Kulkarni Primary Care Provider: Ricardo Begum Consulting Providers: Jose Eduardo Corrigan; Sondra Ibarra; Kamryn Troncoso; Shawna Singer; Lauren Vasquez; Ran Lyle; Yudi Larios; Roman Aquino; Anselmo Murray; Alessandro Fortune; Heather Nicolas; Moriah Santillan; Emile Power; Hazel Michael; Amanda Puente; Juju Riddle; Bora Concepcion; Ry Fisher; Tylor Lee; Marilynn Summers; Asher Bynum; Anton Hoffmann; Micah Moralez Discharge Orders/Prescriptions Prescriptions: Continued aspirin 81 mg capsule 81 mg PO DAILY atorvastatin 40 mg tablet 40 mg PO DAILY lisinopril 20 mg tablet 20 mg PO DAILY metoprolol succinate 25 mg tablet extended release 24 hr 25 mg PO DAILY hydrochlorothiazide 12.5 mg tablet 12.5 mg PO DAILY Referrals / Follow Up: [facility] [Provider Group] - Within 1 Month Ricardo Begum MD [Primary Care Provider] - Within 2 Weeks Micah Moralez MD [Med Staff - Active Staff] - Within 1 Month Disposition Disposition (needs filled in before D/C Order can be placed): Home, Self Care
--- NOTE | 2024-12-05 16:56 | STROKE.CONS ---
Assessment and Plan: Stroke Assessment/Plan NAS PARKS, is a 48 F with episodes in the past labeled as strokes and TIA? and tight brain artery? who presents transient right arm weakness. She states that she was making dinner when here right arm went weakness and lasted a couple hours and then resolved. No med changes, illness or migranous headache. She did have migraines in the past but they went away. MRI brain was neg, no signs of an obvious old stroke on MRI. CTAs read as okay, mod stenosis of right M1 to me bit wouldnt explain symptoms. She in on ASA and statin at home and LDL, A1c and BP well controlled. She is back to normal now. Her prior episodes of TIA and stroke occurred in 2020. TIA was the first to occur which presented with diffuse tingling which does NOT sound like a TIA. Her second episode she recalls nothing of, other than she got out of the shower and some how called family for help. Unclear was symptoms she had other than she was told she was unresponsive, does not recall event and had speech issues. Clinically hard to say if this is a stroke given unclear history other than unresponsive which typically isnt a stroke. 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 This current episode is difficult to say what it was, given transient and focal and first time seeing her will call this a TIA. If she continues to have spells of neurological symptoms consider migraines. Cont home asa, statin and cv risk factor optimization. Recommend a 30d event monitor. F/u with pcp and neuro outpatient. HPI Consult Data Date of Consult: 12/05/24 HPI Narrative HPI Narrative: NAS PARKS, is a 48 F with episodes in the past labeled as strokes and TIA? and tight brain artery? who presents transient right arm weakness. She states that she was making dinner when here right arm went weakness and lasted a couple hours and then resolved. No med changes, illness or migranous headache. She did have migraines in the past but they went away. MRI brain was neg, no signs of an obvious old stroke on MRI. CTAs read as okay, mod stenosis of right M1 to me bit wouldnt explain symptoms. She in on ASA and statin at home and LDL, A1c and BP well controlled. She is back to normal now. Her prior episodes of TIA and stroke occurred in 2020. TIA was the first to occur which presented with diffuse tingling which does NOT sound like a TIA. Her second episode she recalls nothing of, other than she got out of the shower and some how called family for help. Unclear was symptoms she had other than she was told she was unresponsive, does not recall event and had speech issues. Clinically hard to say if this is a stroke given unclear history other than unresponsive which typically isnt a stroke. 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 This current episode is difficult to say what it was, given transient and focal and first time seeing her will call this a TIA. If she continues to have spells of neurological symptoms consider migraines. Cont home asa, statin and cv risk factor optimization. Recommend a 30d event monitor. F/u with pcp and neuro outpatient. PFSH Medical History no medical history Home Medications ?Medication ?Instructions ?Recorded ?Last Taken ?Type aspirin 81 mg capsule 81 mg PO DAILY heart health 12/04/24 12/04/24 08:20 History atorvastatin 40 mg tablet 40 mg PO DAILY cholesterol 12/04/24 12/04/24 08:20 History hydrochlorothiazide 12.5 mg tablet 12.5 mg PO DAILY diuretic 12/04/24 12/04/24 08:20 History lisinopril 20 mg tablet 20 mg PO DAILY blood pressure 12/04/24 12/04/24 08:20 History metoprolol succinate 25 mg 25 mg PO DAILY blood pressure 12/04/24 12/04/24 08:20 History tablet,extended release 24 hr Allergy/AdvReac Type Severity Reaction Status Date / Time azithromycin AdvReac Chest pain Verified 12/04/24 22:32 doxycycline AdvReac Chest pain Verified 12/04/24 22:32 oxycodone AdvReac Violent Verified 12/04/24 22:32 behavior Family History no significant family his Surgical History no surgical history Social History Smoking Status: Current every day smoker tobacco type: cigarettes Vital Signs Vital Signs Vital Signs: 12/04/24 22:28 12/04/24 23:07 12/04/24 23:28 Temperature 98.2 F Temperature Source Oral Pulse Rate 64 85 Respiratory Rate 18 16 Respiratory Effort Respiratory Depth Respiratory Pattern Blood Pressure 150/80 H 118/63 Blood Pressure Mean 103 81 Blood Pressure Source Blood Pressure Position Blood Pressure Location Pulse Ox 95 Oxygen Delivery Method Room Air Room Air 12/05/24 00:00 12/05/24 01:00 12/05/24 01:13 Temperature 98.2 F Temperature Source Pulse Rate 54 L 55 L 55 L Respiratory Rate 23 H 22 H 22 H Respiratory Effort Respiratory Depth Respiratory Pattern Blood Pressure 104/50 L 113/54 L 113/54 L Blood Pressure Mean 68 73 73 Blood Pressure Source Blood Pressure Position Blood Pressure Location Pulse Ox 95 Oxygen Delivery Method 12/05/24 02:00 12/05/24 02:29 12/05/24 03:30 Temperature 97.8 F Temperature Source Oral Pulse Rate 55 L Respiratory Rate 18 Respiratory Effort Normal Non-Labored Respiratory Depth Normal Respiratory Pattern Normal Blood Pressure 142/74 H Blood Pressure Mean 96 Blood Pressure Source Monitor Blood Pressure Position Semi-Fowlers Blood Pressure Location Right Arm Pulse Ox 97 98 Oxygen Delivery Method Room Air Room Air Room Air 12/05/24 05:36 12/05/24 07:20 12/05/24 08:13 Temperature 96.6 F L Temperature Source Temporal Pulse Rate 56 L Respiratory Rate 18 Respiratory Effort Normal Non-Labored Respiratory Depth Normal Respiratory Pattern Normal Blood Pressure 111/63 Blood Pressure Mean 79 Blood Pressure Source Monitor Blood Pressure Position Supine Blood Pressure Location Right Arm Pulse Ox 97 Oxygen Delivery Method Room Air Room Air Room Air 12/05/24 09:30 12/05/24 13:00 Temperature 98.6 F 98.6 F Temperature Source Temporal Temporal Pulse Rate 54 L 55 L Respiratory Rate 15 15 Respiratory Effort Respiratory Depth Respiratory Pattern Blood Pressure 113/47 L 111/65 Blood Pressure Mean 69 80 Blood Pressure Source Monitor Monitor Blood Pressure Position Semi-Fowlers Semi-Fowlers Blood Pressure Location Right Arm Left Arm Pulse Ox 95 97 Oxygen Delivery Method Room Air Room Air Weight Weight: 68.1 kg Body Mass Index (BMI) 29.8 Physical Exam Narrative - General: NAD, pleasant, cooperative, well nourished, well developed - Head/Eyes: Atraumatic, normocephalic, clear cornea, normal sclera/conjunctive - Neuro: ? Mental Status: AAOX4 & following simple commands. ? Speech: Clear and fluent with good repetition, comprehension, & naming. No aphasia or dysarthria ? CN II: Visual cooper are full to confrontation. ? CN III, IV, : EOMI, no gaze preference, no nystagmus, no ptosis ? CN V: Facial sensation is intact to light touch throughout. ? CN VII: Face is symmetric with normal eye closure and smile. ? CN VII: Hearing is grossly normal to conversational speech. ? Motor: Able to sustain all limbs ? Sensation: Normal to light touch bilaterally. ? Coordination: Normal FTN & HTS. No abn movements seen. ? Lab / Micro Data 12/04/24 22:57 12/04/24 22:57 Labs: Laboratory Results - last 24 hr 12/04/24 22:57: WBC 11.8 H, RBC 4.69, Hgb 14.2, Hct 40.3, MCV 85.9, MCH 30.3, MCHC 35.2, RDW Std Deviation 39.9, RDW Coeff of Roel 13.1, Plt Count 176, MPV 12.3 H, Immature Gran % (Auto) 0.800, Neut % (Auto) 66.8, Lymph % (Auto) 21.9, [place] % (Auto) 7.0, Eos % (Auto) 3.0, Baso % (Auto) 0.5, Absolute Neuts (auto) 7.9 H, Absolute Lymphs (auto) 2.59, Nucleated RBC % 0, PT 13.1, INR 1.0, APTT 26.6, Sodium 139, Potassium 3.3, Chloride 100, Carbon Dioxide 23.0, Anion Gap 15, BUN 10, Creatinine 0.99, Estim Creat Clear Calc 59.79, Est GFR (MDRD) Non-Af 70, BUN/Creatinine Ratio 10.3, Glucose 104 H, Hemoglobin A1c 5.5, Calcium 9.3, Troponin T High Sens 6, TSH 1.180, Ethyl Alcohol < 10.1 12/05/24 02:50: Urine Color Straw, Urine Clarity Clear, Urine pH 6.5, Ur Specific [place] 1.010, Urine Protein 15 H, Urine Glucose (UA) Normal, Urine Ketones Negative, Urine Occult Blood 10 H, Urine Nitrite Negative, Urine Bilirubin Negative, Urine Urobilinogen Normal, Ur Leukocyte Esterase Negative, Urine RBC 0-5 SEEN, Urine WBC 0 SEEN, Ur Squamous Epith Cells 0-5 SEEN, Urine Bacteria RARE, Urine Mucus 0 SEEN, Urine Opiates Screen NEGATIVE, U Buprenorphine Qual NEGATIVE, Ur Oxycodone Screen NEGATIVE, Urine Methadone Screen NEGATIVE, Urine Fentanyl Screen NEGATIVE, Ur Barbiturates Screen NEGATIVE, Ur Phencyclidine Scrn NEGATIVE, Ur Amphetamines Screen NEGATIVE, U Benzodiazepines Scrn NEGATIVE, Urine Cocaine Screen NEGATIVE, U Cannabinoids Screen NEGATIVE 12/05/24 03:27: Troponin T Hi Sens 2 Hr < 6, Triglycerides 341 H, Cholesterol 127, LDL Cholesterol, Calc 31, VLDL Cholesterol 68 H, HDL Cholesterol 28 L, Cholesterol/HDL Ratio 4.58 12/05/24 05:27: Troponin T Hi Sens 4Hr < 6 Imaging Radiology Impression Head/Neck CTA 12/04/24 22:42 IMPRESSION: Patent intracranial and cervical arterial vasculature. No large vessel occlusion, significant flow-limiting stenosis, aneurysm or dissection. Incidentally, there is mild-moderate luminal narrowing of the proximal left subclavian artery due to eccentric noncalcified atheromatous plaque. Reading Location: [facility] Brain CT 12/04/24 23:15 IMPRESSION: No acute intracranial abnormality. Reading Location: [facility] Chest X-Ray 12/04/24 23:29 IMPRESSION: Mild cardiomegaly. No acute pulmonary disease. Reading Location: [facility] Brain MRI 12/05/24 01:35 IMPRESSION: No significant intracranial abnormality is noted. No acute process is seen. Reading Location: [facility] Carotid Duplex 12/05/24 01:35 Interpretation Summary Mild (<50%) stenosis right extracranial internal carotid. Severe (>70%) stenosis left extracranial internal carotid. Patent and antegrade vertebrals bilaterally. Left vetebral artery with dampened waveforms Ordering Physician: Anton Hoffmann Referring Physician: Ricardo Begum MD Performed By: Ana Flores, RVT Echocardiogram 12/05/24 01:35 Interpretation Summary The estimated ejection fraction is 65 %. Mild (1+) mitral valve insufficiency. Bubble contrast study is negative for PFO/ASD. Ordering Physician: Anton Hoffmann Performed By: Nick Bartlett, [facility] Active Medications Active Medications Active Medications: Current Medications Generic Name Dose Route Start Last Admin Trade Name Freq PRN Reason Stop Dose Admin Acetaminophen 650 mg 12/05/24 02:09 Acetaminophen 325 Mg Tablet PO Q4H PRN PRN Pain 1-10 Or Fever>99.6 Aspirin 162 mg 12/05/24 08:00 12/05/24 09:39 Aspirin 81 Mg Tab.Chew PO 162 mg BREAKFAST SIM Administration Atorvastatin Calcium 80 mg 12/05/24 22:00 Atorvastatin Calcium 80 Mg Tablet PO QHS SIM Enoxaparin Sodium 40 mg 12/05/24 10:00 12/05/24 09:39 Enoxaparin 40 Mg/0.4 Ml Syringe SC Not Given DAILY SIM Sodium Chloride 1,000 mls @ 50 mls/hr 12/05/24 02:09 12/05/24 03:10 IV 12/05/24 22:08 50 mls/hr .Q20H SIM Administration Sodium Chloride 250 mls @ 15 mls/hr 12/05/24 02:25 IV .[id number] PRN Saline Flush Sodium Chloride 250 mls @ 15 mls/hr 12/05/24 02:25 IV .[id number] PRN Additional IVPB Infusion Nicotine 14 mg 12/05/24 10:00 12/05/24 09:39 Nicotine (Pbkc) 14 Mg Patch TD Not Given DAILY SIM Sodium Chloride 10 - 40 ml 12/05/24 02:25 0.9% Saline Lock 10 Ml Syringe IV UD PRN SALINE FLUSH NIHSS NIHSS Nursing Documentation NIHSS Nursing Documentation: NIHSS: Ischemic Stroke/TIA Start: 12/05/24 02:09 Text: For PCU Patients: NIH and Neuro Check every 4 Status: Active hours, PRN and with change in RN caregiver. Freq: Q4H Protocol: Activity Type Activity Date Activity User E-sign Co-sign Detail Recorded Client Recorded Date Recorded By Document 12/05/24 13:00 ML [id number] 12/05/24 14:22 ML 12/05/24 13:00 NIH Stroke Scale [NIHSS] A score of 0 is normal or asymptomatic . Total possible score is 42. Inpatient: RN or Physician to activate a stroke alert for onset of new stroke symptoms or with NIHSS increase >/= 3 points. Following change in neurological status, NIHSS will be performed per physician order or more frequently PRN. -1a. Level of Consciousness 0 - Alert; keenly responsive -1b. LOC Questions 0 - Answers BOTH questions correctly -1c. LOC Commands 0 - Performs BOTH tasks correctly -2. Best Gaze 0 - Normal -3. Visual 0 - No visual loss -4. Facial Palsy 0 - Normal symmetrical movements -5a. Left Arm 0 - No drift; arm holds 90 ( or 45) degrees for full 10 seconds -5b. Right Arm 0 - No drift; arm holds 90 ( or 45) degrees for full 10 seconds -6a. Left Leg 0 - No drift; leg holds 30- degree position for full 5 seconds -6b. Right Leg 0 - No drift; leg holds 30- degree position for full 5 seconds -7. Limb Ataxia 0 - Absent -8. Sensory 0 - Normal; no sensory loss -9. Best Language 0 - No aphasia; normal -10. Dysarthria 0 - Normal -11. Extinction and Inattention 0 - No abnormality -Total 0 Query Text:A score of 0 is normal or asymptomatic. Total possible score is 42 . ED: Notify Physician for NIHSS increase by > / = 3 points. Inpatient: RN or Physician to activate a stroke alert for NIHSS increase of > / = 3 points. Coma Scale [Assess] -Eye Opening Spontaneous -Motor Obeys Commands -Verbal Oriented [Total] -Coma Scale Total 15
--- NOTE | 2024-12-05 17:00 | DS.PCM_ITS ---
Providers Date of Admission: 12/05/24 Primary Care Physician: Dr. Ricardo Begum MD Consultations 12/05/24 02:09 Consult: Tele-Neurology Routine Consulting Provider: [facility] Reason for Consult: Acute Ischemic Stroke/TIA EMERGENT Consult: No Notified: Yes Date Notified: 12/05/24 Time Notified: 02:31 Method of Notification: Answering Service Method of Consult:: Telemedicine Nursing Unit Staff Notify [facility] of Tele-Neurology Consult: Yes Consult: Vascular Surgery Routine Consulting Provider: Micah Moralez Reason for Consult: Left Subclavian Atery Plaque on CTA with TIA and h/o CVA's. EMERGENT Consult: No Notified: Yes Date Notified: 12/05/24 Time Notified: 06:56 Method of Notification: Text Reason For Visit: TRANSIENT RIGHT HAND WEAKNESS Diagnosis Discharge Diagnosis (1) Subclavian artery disease: Status: Acute Code(s): I73.9 - Peripheral vascular disease, unspecified (2) Carotid arterial disease: Status: Acute Code(s): I77.9 - Disorder of arteries and arterioles, unspecified Plan Subclavian stenosis. CTA report noted moderate luminal narrowing of the proximal left subclavian artery due to eccentric noncalcified atheromatous plaque. Vascular surgery consulted. chronic medical conditions: * CVA: on ASA * HLP: statin VTE prophylaxis: LMWH. Medications at Discharge Home Medications aspirin 81 mg capsule 81 mg PO DAILY heart health 12/04/24 atorvastatin 40 mg tablet 40 mg PO DAILY cholesterol 12/04/24 hydrochlorothiazide 12.5 mg tablet 12.5 mg PO DAILY diuretic 12/04/24 lisinopril 20 mg tablet 20 mg PO DAILY blood pressure 12/04/24 metoprolol succinate 25 mg tablet,extended release 24 hr 25 mg PO DAILY blood pressure 12/04/24 clopidogrel 75 mg tablet (Plavix) 75 mg PO DAILY #30 tabs 12/05/24 Hospital Course Operations None Procedures 2-D Echocardiogram Summary of Care Provided Hospital Course: Patient presents with transient right hand numbness and also transient swelling in her right calf. Patient has had a history of stroke that affected her short- term memory. Patient underwent a stroke workup and MRI and echocardiogram that was unremarkable however she had a carotid ultrasound that showed severe 70% stenosis of the left extracranial internal carotid and CTA of the head neck that showed mild to moderate luminal narrowing of the proximal left subclavian artery due to eccentric noncalcified atheromatous plaque. Neurology's recommendation was to continue with aspirin and statin and to have a 30-day event monitor. They could not determine whether this was actual TIA or atypical migraine. Additionally recommended outpatient neurology follow-up. Also seen by vascular surgery who felt that the findings were not at all related with her presentation but did recommend to antiplatelet therapy for 6 months and follow-up as outpatient. Weight / BMI Weight Weight: 68.1 kg Body Mass Index (BMI) 29.8 ABG / Lab / Microbiology Data 12/04/24 22:57 12/04/24 22:57 Radiography Diagnostic Testing: Radiology Impression Brain MRI 12/05/24 01:35 IMPRESSION: No significant intracranial abnormality is noted. No acute process is seen. Reading Location: [place] [id number] Carotid Duplex 12/05/24 01:35 Interpretation Summary Mild (<50%) stenosis right extracranial internal carotid. Severe (>70%) stenosis left extracranial internal carotid. Patent and antegrade vertebrals bilaterally. Left vetebral artery with dampened waveforms Ordering Physician: Anton Hoffmann Referring Physician: Ricardo Begum MD Performed By: Ana Flores RVT Echocardiogram 12/05/24 01:35 Interpretation Summary The estimated ejection fraction is 65 %. Mild (1+) mitral valve insufficiency. Bubble contrast study is negative for PFO/ASD. Ordering Physician: Anton Hoffmann Performed By: Nick Bartlett RCS D/C Instructions Call your doctor if you observe: Numbness or Tingling DC O2, CPAP, BIPAP Needs Home O2 Discharge instructions: No Meaningful Use Info Meaningful Use Meaningful Use Diagnoses (Choose all that apply): Ischemic CVA CVA Therapy Assessed for PT,OT and/or ST?: Yes Ischemic Stroke Antithrombotic order at d/c?: Yes Dx of Atrial fib/flutter?: No Anticoagulant at discharge?: No Reason anticoagulant not ordered: Treatment not Indicated Statins at discharge?: Yes If patient is 75 or younger, pt will be discharged on HIGH intensity statin.: No High intensity statin for patient 75 or younger not ordered due to: LDL controlled with atorvastatin. Primary Dx Acute Ischemic CVA?: Yes IV thrombolytic ordered during stay?: No Reason IV thrombolytic not ordered: Treatment not Indicated Discharge Plan Admission Admit Date/Time: 12/05/24 01:28 Primary Reason for Your Visit: TIA Attending Provider: Micah Kulkarni Primary Care Provider: Ricardo Begum Consulting Providers: Jose Eduardo Corrigan; Sondra Ibarra; Kamryn Troncoso; Shawna Singer; Lauren Vasquez; Ran Lyle; Yudi Larios; Roman Aquino; Anselmo Murray; Alessandro Fortune; Heather Nicolas; Moriah Santillan; Emile Power; Hazel Michael; Amanda Puente; Juju Riddle; Bora Concepcion; Ry Fisher; Tylor Lee; Marilynn Summers; Asher Bynum; Anton Hoffmann; Micah Moralez Discharge Orders/Prescriptions Prescriptions: Continued aspirin 81 mg capsule 81 mg PO DAILY atorvastatin 40 mg tablet 40 mg PO DAILY lisinopril 20 mg tablet 20 mg PO DAILY metoprolol succinate 25 mg tablet extended release 24 hr 25 mg PO DAILY hydrochlorothiazide 12.5 mg tablet 12.5 mg PO DAILY No Action clopidogrel [Plavix] 75 mg tablet 75 mg PO DAILY Qty: 30 5RF Other Ambulatory Orders: 30 Day Event Recorder Preventi (Urgent) Timeframe: 1 Day Facility: [facility] - Location: Cardiovascular Services Ordered By: Dr. Micah Kulkarni Referrals / Follow Up: [facility] [Provider Group] - Within 1 Month Ricardo Begum MD [Primary Care Provider] - Within 2 Weeks Micah Moralez MD [Med Staff - Active Staff] - Within 1 Month Disposition Disposition (needs filled in before D/C Order can be placed): Home, Self Care
--- NOTE | 2024-12-05 17:16 | CON.PCM.SX_ITS ---
Assessment & Plan Assessment/Plan (1) Subclavian artery disease: (2) Carotid arterial disease: PLAN: Plan Reviewed CTA images with Dr. Moralez. She does have a mild 45% stenosis of her left common carotid but no apparent internal carotid stenosis as suggested by duplex; this is not at threshold for surgical intervention, recommend medical management. She does have L subclavian stenosis/atherosclerosis, the L vertebral origin is close in proximity to this which may explain the dampened waveform on duplex; this is unrelated to her current presentation and recommend medical management for this as well. Continue ASA and statin. Would recommend DAPT with Plavix x 6 months and follow-up in the office to arrange ongoing surveillance imaging. Her discharge has already been placed, prescriptions sent, and packet printed at the time of my evaluation so I will separately send Plavix to her preferred outpatient pharmacy. Our office will call to schedule follow-up. HPI Consult Data Date of Consult: 12/05/24 HPI Narrative HPI Narrative: NAS PARKS, is a 48 F who presented to the [facility] ER with R hand weakness which resolve while in the ER, she reports total of maybe a couple hours of symptoms. She had no RLE weakness, dysarthria, vision changes, facial droop. She was admitted for stroke/TIA workup. She had a negative Brain MRI. Head/Neck CTA reported no large vessel occlusion, significant flow-limiting stenosis, aneurysm or dissection; incidentally, mild-mod luminal narrowing of the proximal left subclavian artery for which we are consulted. Carotid suggested >70% L ICA stenosis with max PSV 285.4/62.4 and <50% R ICA stenosis; L vertebral artery with dampened waveforms but antegrade flow. She reports a prior history of what she though were strokes but is quite vague with this history; describes one event of diffuse tingling as the only symptom and another event as being unresponsive with no other definitive symptoms. She reports for one of these episodes she was admitted at [facility] and had what sounds like a diagnostic cerebral angiogram with no intervention; reports she was discharged with a short course of DAPT and then has been on ASA and statin ever since. She reports she had no neuro/vascular follow-up after this. Reviewed teleneuro note from this admission; do not feel prior episodes were TIA/stroke, will consider this a TIA but also have suspicion for complex migraines as patient has a history of migraines. She denies any upper extremity claudication or syncope/presyncope/vertigo with use of her LUE. Her nurse is present in the room and reports that her her bilateral blood pressures were fairly equal, right was actually a bit lower. [facility] Medical History no medical history Home Medications ?Medication ?Instructions ?Recorded ?Last Taken ?Type aspirin 81 mg capsule 81 mg PO DAILY heart health 12/04/24 12/04/24 08:20 History atorvastatin 40 mg tablet 40 mg PO DAILY cholesterol 0 12/04/24 12/04/24 08:20 History hydrochlorothiazide 12.5 mg tablet 12.5 mg PO DAILY di uretic 12/04/24 12/04/24 08:20 History lisinopril 20 mg tablet 20 mg PO DAILY blood pressur e 12/04/24 12/04/24 08:20 History metoprolol succinate 25 mg 25 mg PO DAILY blood pressu re 12/04/24 12/04/24 08:20 History tablet,extended release 24 hr Allergy/AdvReac Type Severity Reaction Status Date / Time azithromycin AdvReac Chest pain Verified 12/04/24 22:32 doxycycline AdvReac Chest pain Verified 12/04/24 22:32 oxycodone AdvReac Violent Verified 12/04/24 22:32 behavior Family History no significant family his Surgical History no surgical history Social History Smoking Status: Current every day smoker tobacco type: cigarettes Physical Exam Const alert, oriented x3 and no apparent distress General Appearance: cooperative and comfortable HEENT normocephalic, head/scalp atraumatic, hearing grossly normal bilaterally, external ears normal and external nose normal Eyes EOMs intact bilaterally General Eye: normal appearance of both eyes Neck General: normal visual inspection and trachea midline Resp normal respiratory effort and normal air movement Effort and Inspection: able to speak in complete sentences; Negative for labored, grunting or stridor Cardio regular rate and regular rhythm Extremity Peripheral Pulses: Yes radial pulses present Skin no rashes or lesions noted Neuro oriented x3, CN's II-XII intact bilaterally, moves all extremities and no focal motor deficits Speech: speech normal Psych mental status grossly normal Appearance: grossly normal Attitude: calm and engaged Activity / Motor Behavior: appropriate eye contact Mood & Affect: euthymic mood Lab / Micro Data 12/04/24 22:57 12/04/24 22:57 Labs: Laboratory Results - last 24 hr 12/04/24 22:57: WBC 11.8 H, RBC 4.69, Hgb 14.2, Hct 40.3, MCV 85.9, MCH 30.3, MCHC 35.2, RDW Std Deviation 39.9, RDW Coeff of Roel 13.1, Plt Count 176, MPV 12.3 H, Immature Gran % (Auto) 0.800, Neut % (Auto) 66.8, Lymph % (Auto) 21.9, [place] % (Auto) 7.0, Eos % (Auto) 3.0, Baso % (Auto) 0.5, Absolute Neuts (auto) 7.9 H, Absolute Lymphs (auto) 2.59, Nucleated RBC % 0, PT 13.1, INR 1.0, APTT 26.6, Sodium 139, Potassium 3.3, Chloride 100, Carbon Dioxide 23.0, Anion Gap 15, BUN 10, Creatinine 0.99, Estim Creat Clear Calc 59.79, Est GFR (MDRD) Non-Af 70, BUN/Creatinine Ratio 10.3, Glucose 104 H, Hemoglobin A1c 5.5, Calcium 9.3, Troponin T High Sens 6, TSH 1.180, Ethyl Alcohol < 10.1 12/05/24 02:50: Urine Color Straw, Urine Clarity Clear, Urine pH 6.5, Ur Specific [place] 1.010, Urine Protein 15 H, Urine Glucose (UA) Normal, Urine Ketones Negative, Urine Occult Blood 10 H, Urine Nitrite Negative, Urine Bilirubin Negative, Urine Urobilinogen Normal, Ur Leukocyte Esterase Negative, Urine RBC 0-5 SEEN, Urine WBC 0 SEEN, Ur Squamous Epith Cells 0-5 SEEN, Urine Bacteria RARE, Urine Mucus 0 SEEN, Urine Opiates Screen NEGATIVE, U Buprenorphine Qual NEGATIVE, Ur Oxycodone Screen NEGATIVE, Urine Methadone Screen NEGATIVE, Urine Fentanyl Screen NEGATIVE, Ur Barbiturates Screen NEGATIVE, Ur Phencyclidine Scrn NEGATIVE, Ur Amphetamines Screen NEGATIVE, U Benzodiazepines Scrn NEGATIVE, Urine Cocaine Screen NEGATIVE, U Cannabinoids Screen NEGATIVE 12/05/24 03:27: Troponin T Hi Sens 2 Hr < 6, Triglycerides 341 H, Cholesterol 127, LDL Cholesterol, Calc 31, VLDL Cholesterol 68 H, HDL Cholesterol 28 L, Cholesterol/HDL Ratio 4.58 12/05/24 05:27: Troponin T Hi Sens 4Hr < 6 Imaging Radiology Impression Head/Neck CTA 12/04/24 22:42 IMPRESSION: Patent intracranial and cervical arterial vasculature. No large vessel occlusion, significant flow-limiting stenosis, aneurysm or dissection. Incidentally, there is mild-moderate luminal narrowing of the proximal left subclavian artery due to eccentric noncalcified atheromatous plaque. Reading Location: [facility] Brain CT 12/04/24 23:15 IMPRESSION: No acute intracranial abnormality. Reading Location: [facility] Chest X-Ray 12/04/24 23:29 IMPRESSION: Mild cardiomegaly. No acute pulmonary disease. Reading Location: [facility] Brain MRI 12/05/24 01:35 IMPRESSION: No significant intracranial abnormality is noted. No acute process is seen. [facility] Carotid Duplex 12/05/24 01:35 Interpretation Summary Mild (<50%) stenosis right extracranial internal carotid. Severe (>70%) stenosis left extracranial internal carotid. Patent and antegrade vertebrals bilaterally. Left vetebral artery with dampened waveforms Ordering Physician: Anton Hoffmann Referring Physician: Ricardo Begum MD Performed By: Ana Flores, RVT Echocardiogram 12/05/24 01:35 Interpretation Summary The estimated ejection fraction is 65 %. Mild (1+) mitral valve insufficiency. Bubble contrast study is negative for PFO/ASD. Ordering Physician: Anton Hoffmann Performed By: Nick Bartlett RCS Charges/Coding Visit Charges Inpatient E&M: 92724 Init Hosp L1
== END 2024-12-05 17:34 | disposition home or self-care (01) ==
LOC: ED 23:10 → PCU 12-05 03:57
PROVIDERS: Admitting Provider Internal Medicine; Emergency Provider Emergency Medicine; PCP Family Medicine
DX: I73.9 Peripheral vascular disease, unspecified (principal); D72.829 Elevated white blood cell count, unspecified; I77.9 Disorder of arteries and arterioles, unspecified; E78.5 Hyperlipidemia, unspecified; M79.89 Other specified soft tissue disorders; Z68.30 Body mass index [BMI] 30.0-30.9, adult; R29.898 Other symptoms and signs involving the musculoskeletal system; I10 Essential (primary) hypertension; Z79.82 Long term (current) use of aspirin; I69.318 Other symptoms and signs involving cognitive functions following cerebral infarction; E66.9 Obesity, unspecified; Z79.899 Other long term (current) drug therapy; F17.210 Nicotine dependence, cigarettes, uncomplicated; I65.23 Occlusion and stenosis of bilateral carotid arteries; I34.0 Nonrheumatic mitral (valve) insufficiency
CPT/HCPCS: 36415; 70450; 70496; 70498; 70551; 71045; 80048; 80061; 80307; 81001; 82077; 83036; 84443; 84484; 85025; 85610; 85730; 93005; 93306; 93880; 94762; 97802; 99221; 99285; Q9957; Q9967; A4216; G0378